=== PATIENT | male | born 1960 | race Caucasian/White ===

== ENCOUNTER 2023-08-10 12:37 | Outpatient (OUT) | payer OTHER, SELFPAY ==
--- NOTE | 2023-08-10 | XR_ITS ---
The [address] [address] Patient Name: WILBERT URIARTE MRN: [id number] date: 1960 Sex: M Assigned Patient Location: [facility] Current Patient Location: Accession/Order Number: [id number] Exam Date: 08/10/2023 12:50 Report Date: 08/11/2023 07:44 At the request of: AMBROSE ALMAZAN Procedure: XR lumbar spine 6V w bending EXAMINATION: XR lumbar spine 6V w bending HISTORY: low back pain radiating into left hip for several months COMPARISON: CT abdomen pelvis 04/13/2019 FINDINGS: BONES: Mild right convex curvature of lumbar spine. Mild grade 1 retrolisthesis of L3 on 4 which remain stable during flexion and extension. No compression fracture. Moderate degenerative facet arthropathy L4-L5, L5-S1. DISC SPACES: Marked narrowing L4-L5, L5-S1. Moderate narrowing L3-L4. Mild narrowing L1-L2, L2-L3. PARASPINOUS: Marked atherosclerotic disease of the aorta with fusiform dilation up to 3.2 cm. OTHER: Negative. XR/XR lumbar spine 6V w bending IMPRESSION: 1. Multilevel moderate to marked degenerative changes of the lumbar spine as detailed above. 2. 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 Differences in technique compared to prior study limit direct comparison, but this appears to have increased slightly. Electronically authenticated by: MARIBEL GREEN Date: 08/11/2023 07:44
== END 2023-08-10 12:38 | disposition home or self-care (01) ==
LOC: RAD 12:40
PROVIDERS: PCP Internal Medicine; Visit Provider Internal Medicine
DX: M54.50 Low back pain, unspecified (principal); M51.36 Other intervertebral disc degeneration, lumbar region
CPT/HCPCS: 72114

== ENCOUNTER 2023-08-27 07:29 | Outpatient (OUT) | payer OTHER, SELFPAY ==
--- NOTE | 2023-08-27 07:35 | ECG_ITS ---
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
== END 2023-08-27 07:30 | disposition home or self-care (01) ==
LOC: CARD 07:30
PROVIDERS: PCP Internal Medicine; Visit Provider Internal Medicine
DX: R00.1 Bradycardia, unspecified (principal)
CPT/HCPCS: 93005

== ENCOUNTER 2023-09-05 07:17 | Outpatient (OUT) | payer OTHER, SELFPAY | END 2023-09-05 07:18 | disposition home or self-care (01) | LOC: CARD 07:17 | PROVIDERS: PCP Internal Medicine; Visit Provider Internal Medicine | DX: I49.8 Other specified cardiac arrhythmias (principal) | CPT/HCPCS: 93242 ==

== ENCOUNTER 2023-10-04 08:06 | Outpatient (OUT) | payer OTHER, SELFPAY ==
--- OUTSIDE RECORDS SUMMARY | 2023-10-04 08:27 | XMS_ITS | CCD ---
Author Organization [facility] Care Team Providers Care Airway Traffic Controller Name Role Phone DO Umesh Almazan Primary Care Provider DO Umesh Almazan Primary Care Provider [phone] [facility], Outreach Attending Provider Umesh Almazan Unavailable DR UMESH ALMAZAN Primary Care Unavailable BALL, DR BOGGS Admitting Unavailable BALL, DR BOGGS Attending Unavailable BALL, DR BOGGS Consulting Unavailable BALL, DR BOGGS Primary Care Unavailable MISC, DR MORAES Admitting Unavailable MISC, DR MORAES Attending Unavailable MISC, DR MORAES Consulting Unavailable BALL, DR BOGGS Admitting Unavailable BALL, DR BOGGS Attending Unavailable BALL, DR BOGGS Primary Care Unavailable REQUEST, DR RIOS LISTED Attending Unavaila ble REQUEST, DR RIOS LISTED Consulting Unavaila ble REQUEST, DR RIOS LISTED Admitting Unavaila ble BALL, DR BOGGS Primary Care Unavailable DO Umesh Almazan Primary Care Provider DO Umesh Almazan Attending Provider [phone] Umesh Almazan Attending Unavailable Ball, Umesh Primary Care Unavailable Ball, Umesh Admitting Unavailable Allergies Allergy Classification Reported Allergen(s) Allergy Type Date of Onset Reaction(s) Facility (9 sources) patient allergy list reviewed by nurse or physicia Propensity to adverse reactions 7 Comment:Done Brandark Other Medications Current Medications Medication Drug Class(es) Dates Sig (Normalized) Sig (Original) allopurinol 300 mg oral tablet (20 sources) Xanthine Oxidase Inhibitor Start: 07-11-2023 take 1 tablet by mouth once daily Allopurinol Active 0 .ROUTE .COMPLEX 60 July 11, 2023 1:05pm TAKE ONE TABLET BY MOUTH ONCE DAILY Start: 04-27-2023 End: 07-11-2023 take 300 mg by mouth once daily Allopurinol Discontinu ed 300 MG PO Daily April 27, 2023 8:53am July 11, 2023 1:05pm Start: 10-02-2020 End: 04-27-2023 Allopurinol Discontinued MG TABLET October 02, 2020 12:00am April 27, 2023 8:54am take 1 tablet by darwin th once daily Allopurinol 300 mg TAKE 1 TABLET BY MOUTH DAILY for 30 Active amLODIPine 5 mg oral tablet (4 sources) Dihydropyridine Calcium Channel Jamie Start: 08-10-2023 take 5 mg by mouth once daily Amlodipine Active 5 MG PO Daily August 10, 2023 12:00am Start: 05-17-2023 End: 05-17-2023 take 5 mg by mouth once daily Amlodipine Discontinued 5 MG PO Daily May 17, 2023 12:00am May 17, 2023 2:28pm azithromycin 250 mg oral tablet (8 sources) Macrolide Antimicrobial Start: 11-16-2022 Azithromycin 250 MG as directed Orally daily for 5 days Nov, Active benzonatate 100 mg oral capsule (7 sources) Non-narcotic Antitussive Start: 11-22-2022 take 1 capsule by mouth every eight hours Benzonatate 100 MG 1 capsule as needed Orally Three times a day for 10 days Nov, Active 120 actuat budesonide 0.08 mg/actuat / formoterol fumarate 0.0045 mg/actuat metered dose inhaler (9 sources) Corticosteroid, beta2-Adrenergic Agonist Start: 06-19-2023 take 1 puff(s) by inhalation twice daily Budesonide-Formot bren Active 2 PUFF INHALATION Twice daily June 19, 2023 12:00am Start: 11-22-2022 take 2 puff(s) by in halation twice daily Budesonide-Formoterol Fumarate 80-4.5 MCG/ACT 2 puffs Inhalation Twice a day for 30 days Nov, Active Start: 11-22-2022 take 2 puff(s) by in halation twice daily Budesonide-Formoterol Fumarate 80-4.5 MCG/ACT 2 puffs Inhalation Twice a day for 30 days Nov, Active losartan potassium 100 mg oral tablet (20 sources) Angiotensin 2 Receptor Jamie Start: 05-11-2023 take 1 tablet by mouth once daily Losartan Active 0 .ROUTE .COMPLEX May 11, 2023 4:29pm TAKE ONE TABLET BY MOUTH DAILY Start: 12-12-2017 End: 05-11-2023 take 100 mg by mouth once daily Losartan Discontinued 100 MG PO Daily December 12, 2017 1:00am May 11, 2023 4:29pm Tcgdnviqddrh-Tppqgejq-Aogbzb (Multivitamin 50 Plus) Tablet (5 sources) Start: 12-12-2017 Jawhwboiidtc-Arwrshez-Bdrvyt (Multivitamin 50 Plus) Tablet Active 1 TAB PO Daily December 12, 2017 2:37pm Start: 12-12-2017 End: 04-27-2023 Lzgjfmqqlbzr-Cubsjtfg-Rbmmzf (Multivitamin 50 Plus) Tablet Discontinued 1 TAB PO Daily December 12, 2017 1:00am April 27, 2023 8:54am predniSONE 20 mg oral tablet (13 sources) Start: 11-16-2022 predniSONE 20 MG 1 tablet Orally twice daily w/ food x 4 days then qd w/ food x 4 days for 8 days Nov, Active Start: 10-02-2020 End: 04-27-2023 take 50 mg by mouth once daily Prednisone Discontinued 50 MG PO Daily 4 October 02, 2020 12:00am April 27, 2023 8:54am sulfamethoxazole 800 mg / trimethoprim 160 mg oral tablet (2 sources) Dihydrofolate Reductase Inhibitor Antibacterial, Sulfonamide Antimicrobial Start: 06-19-2023 take 1 tablet by mouth twice daily Sulfamethoxazole-Trimethoprim (Bactrim Ds) 800-160 mg tablet Active 1 TAB PO Twice daily 24 11June 19, 2023 12:00am terbinafine 250 mg oral tablet (2 sources) Allylamine Antifungal Start: 08-10-2023 take 250 mg by mouth once daily Terbinafine Hcl Active 250 MG PO Daily August 10, 2023 12:00am Turmeric extract (5 sources) Start: 12-18-2017 take 1 tablet by mouth twice daily Turmeric Active 1 TAB PO Twice daily December 18, 2017 8:04am Start: 12-18-2017 End: 04-27-2023 take 1 tablet by mouth twice daily Turmeric Discontinued 1 TAB PO Twice daily December 18, 2017 1:00am April 27, 2023 8:54am Completed/Discontinued Medications Medication Drug Class(es) Dates Sig (Normalized) Sig (Original) [id number] 200 actuat albuterol 0.09 mg/actuat metered dose inhaler (16 sources) beta2-Adrenergic Agonist Start: 04-27-2023 End: 04-30-2023 take 1 puff(s) by inhalation every four hours Albuterol Sulfate Discontinued 2 PUFF INHALATION Every 4 hours April 27, 2023 12:00am April 30, 2023 8:58am take 2 puff(s) by in halation every four hours as needed for cough Albuterol Sulfate HFA 108 (90 Base) MCG/ACT 2 puffs Inhalation every 4 hrs as needed for cough for 30 days Active take 2 puff(s) by in halation every four hours as needed for cough Albuterol Sulfate HFA 108 (90 Base) MCG/ACT 2 puffs Inhalation every 4 hrs as needed for cough for 30 days Active take 1 puff(s) by in halation every four hours as needed Albuterol Sulfate HFA 108 (90 Base) MCG/ACT 1 puff as needed Inhalation every 4 hrs Active take 1 puff(s) by in halation every four hours as needed Albuterol Sulfate HFA 108 (90 Base) MCG/ACT 1 puff as needed Inhalation every 4 hrs Active ascorbic acid 1000 mg oral tablet (5 sources) Vitamin C Start: 12-12-2017 End: 10-02-2020 take 1 tablet by mouth twice daily Ascorbic Acid (Vitamin C) (Vitamin C) 1,000 mg Tablet Discontinued 1000 MG PO Twice daily December 12, 2017 1:00am October 02, 2020 9:14am atorvastatin 20 mg oral tablet (5 sources) HMG-CoA Reductase Inhibitor Start: 10-02-2020 End: 04-27-2023 Atorvastatin Discontinued MG TABLET October 02, 2020 12:00am April 27, 2023 8:53am cetirizine hydrochloride 10 mg oral tablet (5 sources) Histamine-1 Receptor Antagonist Start: 10-02-2020 End: 04-27-2023 take 1 tablet by mouth once daily Cetirizine (Zyrtec) 10 mg Tablet Discontinued 10 MG PO Daily October 02, 2020 12:00am April 27, 2023 8:54am diphenhydrAMINE hydrochloride 25 mg oral capsule (5 sources) Histamine-1 Receptor Antagonist Start: 12-12-2017 End: 10-02-2020 Diphenhydramine Hcl (Benadryl) 25 mg Capsule Discontinued 1 TAB PO As Directed December 12, 2017 1:00am October 02, 2020 9:14am fluticasone propionate 0.05 mg/actuat metered dose nasal spray (5 sources) Corticosteroid Start: 10-02-2020 End: 04-27-2023 Fluticasone Propionate (Flonase) 50 mcg/actuation [place],Suspension Discontinued 1 SPRAY INTRANASAL Daily October 02, 2020 12:00am April 27, 2023 8:54am hydrOXYzine pamoate 25 mg oral capsule (5 sources) Antihistamine Start: 10-02-2020 End: 04-27-2023 take 25 mg by mouth every six hours Hydroxyzine Pamoate Discontinued 25 MG PO Q6H 14 October 02, 2020 12:00am April 27, 2023 8:54am itraconazole 100 mg oral capsule (5 sources) Azole Antifungal Start: 10-02-2020 End: 04-27-2023 Itraconazole Discontinued MG October 02, 2020 12:00am April 27, 2023 8:54am loratadine 10 mg oral tablet (5 sources) Start: 12-12-2017 End: 10-02-2020 take 10 mg by mouth once daily Loratadine Discontinued 10 MG PO Daily December 12, 2017 1:00am October 02, 2020 9:14am tamsulosin hydrochloride 0.4 mg oral capsule (5 sources) alpha-Adrenergic Jamie Start: 10-02-2020 End: 04-27-2023 Tamsulosin Discontinued MG PO October 02, 2020 12:00am April 27, 2023 8:54am triamcinolone acetonide 40 mg/ml injectable suspension (20 sources) Corticosteroid Start: 05-25-2022 Kenalog-40 Mar, 60 mg Tumeric (5 sources) Start: 12-12-2017 End: 12-18-2017 take 1 tablet by mouth twice daily Tumeric Discontinued 1 TAB PO Twice daily December 12, 2017 2:41pm December 18, 2017 8:04am Start: 12-12-2017 End: 12-18-2017 take 1 tablet by mouth twice daily Tumeric Discontinued 1 TAB PO Twice daily December 12, 2017 1:00am December 18, 2017 8:04am Problems Active Problems Problem Classification Problem Date Documented Date Episodic/Chronic Acute bronchitis (19 sources) Acute bronchitis; Translations: [Acute bronchitis, unspecified] Onset: 12-23-2013 Episodic Aortic; peripheral; and visceral artery aneurysms (1 source) Abdominal aortic aneurysm; Translations: [Abdominal aortic aneurysm (AAA)] 08-12-2023 Chronic Asthma (20 sources) Exacerbation of intermittent asthma; Translations: [Mild intermittent asthma with (acute) exacerbation] Onset: 11-21-2016 Chronic Cardiac dysrhythmias (20 sources) Cardiac arrhythmia; Translations: [Cardiac arrhythmia, unspecified] 04-27-2023 Chronic Cardiac dysrhythmias (11 sources) Palpitations; Translations: [Palpitations] Onset: 06-15-2015 08-24-2023 Episodic Chronic kidney disease (12 sources) Chronic kidney disease stage 3; Translations: [Chronic kidney disease, stage 3 unspecified] Onset: 11-21-2017 04-27-2023 Chronic Chronic obstructive pulmonary disease and bronchiectasis (20 sources) Chronic obstructive pulmonary disease with acute lower respiratory infection; Translations: [Chronic obstructive pulmonary disease with (acute) lower respiratory infection] Onset: 06-07-2015 Chronic Disorders of lipid metabolism (20 sources) Hypercholesterolemia; Translations: [Pure hypercholesterolemia, unspecified] Chronic Diverticulosis and diverticulitis (20 sources) Perforated diverticulum of large intestine; Translations: [Diverticulitis of large intestine with perforation and abscess without bleeding] Resolved: 04-05-2020 04-27-2023 Chronic E Codes: Adverse effects of medical drugs (20 sources) Adverse reaction to drug; Translations: [Adverse effect of unspecified drugs, medicaments and biological substances, initial encounter] Episodic Esophageal disorders (18 sources) Esophageal reflux finding; Translations: [Esophageal reflux] Onset: 06-16-2014 Chronic Essential hypertension (20 sources) Essential hypertension; Translations: [Essential (primary) hypertension] Chronic Gout and other crystal arthropathies (20 sources) Primary gout; Translations: [Idiopathic gout, unspecified site] Onset: 04-25-2017 Resolved: 04-05-2020 04-27-2023 Chronic Hyperplasia of prostate (20 sources) Nocturia due to benign prostatic hypertrophy; Translations: [Benign prostatic hyperplasia with lower urinary tract symptoms] Onset: 09-29-2015 Chronic Hypertension with complications and secondary hypertension (18 sources) Benign hypertensive renal disease; Translations: [Hypertensive chronic kidney disease, benign, with chronic kidney disease stage I through stage IV, or unspecified] Onset: 04-14-2017 Chronic Immunizations and screening for infectious disease (18 sources) Vaccination given; Translations: [Encounter for immunization] Episodic Malaise and fatigue (5 sources) Other fatigue; Translations: [OTHER FATIGUE] Onset: 04-28-2022 Episodic Mycoses (12 sources) Tinea unguium; Translations: [Onychomycosis due to dermatophyte ] Onset: 04-24-2022 08-10-2023 Episodic Osteoarthritis (20 sources) Arthritis of left knee; Translations: [Unilateral primary osteoarthritis, left knee] Onset: 03-17-2014 04-27-2023 Chronic Other aftercare (2 sources) Drug therapy finding; Translations: [Other mcc (current) drug therapy] 08-10-2023 Episodic Other aftercare (2 sources) Other mcc (current) drug therapy; Translations: [Long-term (current) use of other medications] 08-10-2023 Episodic Other circulatory disease (9 sources) Arteritis; Translations: [Arteritis, unspecified] Onset: 01-06-2015 Chronic Other connective tissue disease (9 sources) H/O: musculoskeletal disease; Translations: [Personal history of other diseases of the musculoskeletal system and connective tissue] Episodic Other ear and sense organ disorders (8 sources) Sensorineural hearing loss, unilateral, left ear, with unrestricted hearing on the contralateral side; Translations: [Sensorineural hearing loss (SNHL) of left ear with unrestricted hearing of right ear] Chronic Other ear and sense organ disorders (7 sources) Tinnitus; Translations: [Tinnitus, left ear] Episodic Other ear and sense organ disorders (1 source) Tinnitus, left ear Episodic Other lower respiratory disease (14 sources) Dyspnea on exertion; Translations: [Other forms of dyspnea] 04-27-2023 Episodic Other lower respiratory disease (9 sources) Dyspnea; Translations: [Other forms of dyspnea] Episodic Other non-traumatic joint disorders (9 sources) Lower limb joint arthritis; Translations: [Osteoarthrosis, unspecified whether generalized or localized, lower leg] Onset: 11-17-2015 Chronic Other nutritional; endocrine; and metabolic disorders (12 sources) Hypercalcemia; Translations: [Hypercalcemia] Onset: 04-14-2017 04-27-2023 Chronic Other nutritional; endocrine; and metabolic disorders (1 source) Obesity; Translations: [Obesity, unspecified] 08-10-2023 Chronic Other nutritional; endocrine; and metabolic disorders (1 source) Obesity, unspecified; Translations: [Obesity, unspecified] 08-10-2023 Chronic Other nutritional; endocrine; and metabolic disorders (1 source) Overweight Episodic Other nutritional; endocrine; and metabolic disorders (9 sources) Overweight; Translations: [Overweight] Episodic Other screening for suspected conditions (not mental disorders or infectious disease) (11 sources) Patient encounter status; Translations: [Encounter for screening for malignant neoplasm of colon] 12-18-2017 Episodic Other skin disorders (4 sources) Other melanin hyperpigmentation; Translations: [OTHER MELANIN HYPERPIGMENTATION] Onset: 04-18-2022 Episodic Other skin disorders (1 source) Other seborrheic keratosis; Translations: [OTHER SEBORRHEIC KERATOSIS] Onset: 04-24-2022 Episodic Other upper respiratory disease (20 sources) Allergic rhinitis due to pollen; Translations: [Allergic rhinitis due to pollen] 04-27-2023 Chronic Other upper respiratory disease (3 sources) Allergic rhinitis due to pollen Chronic Other upper respiratory disease (9 sources) Seasonal allergic rhinitis; Translations: [Other seasonal allergic rhinitis] Onset: 12-01-2015 Chronic Other upper respiratory disease (9 sources) Allergic rhinitis; Translations: [Allergic rhinitis, unspecified] Onset: 10-18-2012 Chronic Other upper respiratory disease (13 sources) Difficulty speaking; Translations: [Dysphonia] Episodic Other upper respiratory disease (10 sources) Dysphonia; Translations: [Dysphonia] 04-27-2023 Episodic Other upper respiratory disease (3 sources) Hoarse; Translations: [Dysphonia] 04-27-2023 Episodic Otitis media and related conditions (9 sources) Eustachian tube salpingitis; Translations: [Unspecified Eustachian salpingitis, bilateral] Episodic Poisoning by nonmedicinal substances (13 sources) Allergic reaction to insect venom; Translations: [Toxic effect of venom of other arthropod, accidental (unintentional), initial encounter] Onset: 08-22-2016 10-02-2020 Episodic Residual codes; unclassified (9 sources) Requires influenza virus vaccination; Translations: [Need for prophylactic vaccination and inoculation, Influenza] Episodic Spondylosis; intervertebral disc disorders; other back problems (20 sources) Lumbar spondylosis; Translations: [Spondylosis without myelopathy or radiculopathy, lumbar region] 04-27-2023 Chronic Spondylosis; intervertebral disc disorders; other back problems (13 sources) Low back pain; Translations: [Low back pain, unspecified] Onset: 09-26-2016 08-10-2023 Episodic Substance-related disorders (9 sources) Tobacco user; Translations: [Nicotine dependence, cigarettes, in remission] Onset: 09-29-2015 Chronic Superficial injury; contusion (9 sources) Abrasion, lower leg; Translations: [Abrasion, left lower leg, initial encounter] Episodic Unclassified (9 sources) Elevation of levels of liver transaminase levels; Translations: [Elevation of levels of liver transaminase levels] Varicose veins of lower extremity (16 sources) Pain co-occurrent and due to varicose veins of bilateral legs; Translations: [Varicose veins of bilateral lower extremities with pain] 04-27-2023 Episodic Viral infection (9 sources) Herpesviral vesicular dermatitis; Translations: [Herpesviral vesicular dermatitis] Episodic Viral infection (9 sources) Disease caused by 2019-nCoV; Translations: [COVID-19] Past or Other Problems Problem Classification Problem Date Documented Da te Episodic/Chronic Abdominal pain (9 sources) Abdominal pain; Translations: [Unspecified abdominal pain] Onset: 04-12-2016 Episodic Bacterial infection; unspecified site (9 sources) Bacterial infectious disease; Translations: [Bacterial infection, unspecified, in conditions classified elsewhere and of unspecified site] Onset: 06-07-2015 Episodic Diabetes mellitus without complication (12 sources) Impaired fasting glycemia; Translations: [Impaired fasting glucose] Onset: 04-11-2016 04-27-2023 Episodic Genitourinary symptoms and ill-defined conditions (19 sources) Nocturia; Translations: [Dysuria] Onset: 09-26-2016 Episodic Inflammation; infection of eye (except that caused by tuberculosis or sexually transmitteddisease) (18 sources) Conjunctivitis; Translations: [Unspecified conjunctivitis] Onset: 11-24-2014 Resolved: 04-05-2020 Episodic Inflammatory conditions of male genital organs (9 sources) Orchitis and epididymitis; Translations: [Unspecified orchitis and epididymitis] Onset: 06-16-2014 Episodic Joint disorders and dislocations; trauma-related (9 sources) Current tear of medial cartilage AND/OR meniscus of knee; Translations: [Tear of medial cartilage or meniscus of knee, current] Onset: 03-17-2014 Episodic Other connective tissue disease (9 sources) Neuralgia; Translations: [Unspecified neuralgia, neuritis, and radiculitis] Onset: 10-18-2012 Episodic Other connective tissue disease (9 sources) Muscle pain; Translations: [MYALGIA, UNSPECIFIED SITE] Resolved: 04-05-2020 Episodic Other lower respiratory disease (9 sources) Chronic cough; Translations: [Chronic cough] Resolved: 04-26-2021 Episodic Other lower respiratory disease (9 sources) Cough; Translations: [Other specified cough] Onset: 04-11-2016 Episodic Other non-traumatic joint disorders (9 sources) Arthralgia of the lower leg; Translations: [Pain in joint, lower leg] Onset: 03-17-2014 Episodic Other nutritional; endocrine; and metabolic disorders (9 sources) Abnormal weight loss; Translations: [Abnormal weight loss] Onset: 04-11-2016 Episodic Other upper respiratory infections (9 sources) Acute sinusitis; Translations: [Acute sinusitis, unspecified] Onset: 11-24-2014 Episodic Residual codes; unclassified (9 sources) Family history of diabetes mellitus; Translations: [Family history of diabetes mellitus] Onset: 10-18-2012 Episodic Screening and history of mental health and substance abuse codes (9 sources) History of tobacco use; Translations: [Personal history of tobacco use, presenting hazards to health] Onset: 05-08-2017 Episodic Unclassified (13 sources) Elevated transaminase level; Translations: [Elevated transaminase level] Results Test Name Value Interpretation Reference Range Facil ity TESTOSTERONE, TOTALon 2022 Testosterone [Mass/Vol] 862 ng/dL Normal 264-916 [facility] Comment on above: Result Comment: Adul t male reference interval is based on a population of healthy nonobese males (BMI <30) between 19 and 39 years old. yonny Holder.al. JCEM 2017,102;0203-6552. PMID: [id number]. Performed By: #### T ESTTOT #### [facility] [address] [place] [address] Dr. Chapo Macias 04-18-2022 AST [Catalytic activity/Vol] 26 U/L Normal 15-37 [facility] Comment on above: Performed By: #### A LT, AST #### [facility] [address] [place] [address] Dr. Chapo Posey SGPTon 04-18-2022 ALT [Catalytic activity/Vol] 30 U/L Normal 16-63 [facility] Comment on above: Performed By: #### A LT, AST #### [facility] [address] [place] [address] Dr. Chapo Posey CBC AUTO DIFFon 04-05-2022 BASO # 0.1 103/ul Normal 0.0-0.1 [facility] Comment on above: Performed By: #### D ATCBC #### [facility] [address] [place] [address] Dr. Chapo Posey Basophils/100 WBC (Bld) 1.0 % Normal 0.2-2.0 [facility] Comment on above: Performed By: #### D ATCBC #### [facility] [address] [place] [address] Dr. Chapo Posey EO # 0.1 103/ul Normal 0.0-0.7 [facility] Comment on above: Performed By: #### D ATCBC #### [facility] [address] [place] [address] Dr. Chapo Posey Eosinophils/100 WBC (Bld) 2.5 % Normal 0.9-7.0 [facility] Comment on above: Performed By: #### D ATCBC #### [facility] [address] [place] [address] Dr. Chapo Posey Erythrocyte distribution width (RBC) [Ratio] 13.2 % Normal 11.0-15.0 [facility] Comment on above: Performed By: #### D ATCBC #### [facility] [address] [place] [address] Dr. Chapo Posey Hematocrit (Bld) [Volume fraction] 46.3 % Normal 42.0-54.0 [facility] Comment on above: Performed By: #### D ATCBC #### [facility] [address] [address] [address] Chapo Posey Hemoglobin (Bld) [Mass/Vol] 15.2 g/dL Normal 14.0-18.0 [facility] Comment on above: Performed By: #### D ATCBC #### [facility] [address] [address] [address] Chapo Posey IG # 0.03 10e3/ul Normal 0.00-0.03 [facility] Comment on above: Performed By: #### D ATCBC #### [facility] [address] [address] [address] Chapo Posey IG % 0.6 % Critically high 0.0-0.5 [facility] Comment on above: Performed By: #### D ATCBC #### [facility] [address] [address] [address] Chapo Posey LYMPH # 1.8 103/ul Normal 1.2-3.8 [facility] Comment on above: Performed By: #### D ATCBC #### [facility] [address] [address] [address] Chapo Posey Lymphocytes/100 WBC (Bld) 36.8 % Normal 20.5-60.0 [facility] Comment on above: Performed By: #### D ATCBC #### [facility] [address] [address] [address] Chapo Posey MCH (RBC) [Entitic mass] 31.0 pg Normal 25.9-34.0 [facility] Comment on above: Performed By: #### D ATCBC #### [facility] [address] [address] [address] Chapo Posey MCHC (RBC) [Mass/Vol] 32.8 g/dL Normal 29.9-35.2 [facility] Comment on above: Performed By: #### D ATCBC #### [facility] [address] [address] [address] Chapo Posey MCV (RBC) [Entitic vol] 94.3 fL Critically high 80.0-94.0 [facility] Comment on above: Performed By: #### D ATCBC #### [facility] [address] [address] [address] Chapo Posey MONO # 0.5 103/ul Normal 0.3-0.8 [facility] Comment on above: Performed By: #### D ATCBC #### [facility] [address] [address] [address] Chapo Posey Monocytes/100 WBC (Bld) 9.7 % Normal 1.7-12.0 [facility] Comment on above: Performed By: #### D ATCBC #### [facility] [address] [place] [address] Dr. Chapo Posey NEUT # 2.4 103/ul Normal 1.4-6.5 [facility] Comment on above: Performed By: #### D ATCBC #### [facility] [address] [place] [address] Dr. Chapo Posey Neutrophils/100 WBC (Bld) 49.4 % Normal 43.0-75.0 [facility] Health Comment on above: Performed By: #### D ATCBC #### [facility] [address] [place] [address] Dr. Chapo Posey Platelet mean volume (Bld) [Entitic vol] 10.3 fL Normal 9.5-13.5 [facility] Comment on above: Performed By: #### D ATCBC #### [facility] [address] [place] [address] Dr. Chapo Posey PLT 197 103/ul Normal 150-450 [facility] Comment on above: Performed By: #### D ATCBC #### [facility] [address] [place] [address] Dr. Chapo Posey RBC 4.91 106/ul Normal 4.70-6.10 [facility] Comment on above: Performed By: #### D ATCBC #### [facility] [address] [place] [address] Dr. Chapo Posey WBC 4.9 103/ul Normal 4.0-11.0 [facility] Comment on above: Performed By: #### D ATCBC #### [facility] [address] [address] [address] Chapo Posey FRANCISCO JAVIER- BMP WITH LIPIDon 2022 Anion gap [Moles/Vol] 10.5 mmol/L Normal [facility] Comment on above: Performed By: #### D ATBMP, DATPSA #### [facility] [address] [address] [address] Chapo Posey Calcium [Mass/Vol] 10.0 mg/dL Normal 8.5-10.1 [facility] Comment on above: Performed By: #### D ATBMP, DATPSA #### [facility] [address] [place] [address] Dr. Chapo Posey Chloride [Moles/Vol] 103 mmol/L Normal 98-107 [facility] Comment on above: Performed By: #### D ATBMP, DATPSA #### [facility] [address] [place] [address] Dr. Chapo Posey Cholesterol [Mass/Vol] 185 mg/dL Normal <=200 [facility] Comment on above: Performed By: #### D ATBMP, DATPSA #### [facility] [address] [address] [address] Chapo Posey Cholesterol in HDL [Mass/Vol] 46 mg/dL Normal 40-60 [facility] Comment on above: Performed By: #### D ATBMP, DATPSA #### [facility] [address] [address] [address] Chapo Posey Cholesterol in LDL [Mass/Vol] 115.2 mg/dL Normal [facility] Comment on above: Performed By: #### D ATBMP, DATPSA #### [facility] [address] [address] [address] Chapo Posey CO2 [Moles/Vol] 29.9 mmol/L Normal 21.0-32.0 [facility] Comment on above: Performed By: #### D ATBMP, DATPSA #### [facility] [address] [address] [address] Chapo Posey Creatinine [Mass/Vol] 1.13 mg/dL Normal 0.70-1.30 [facility] Comment on above: Performed By: #### D ATBMP, DATPSA #### [facility] [address] [address] [address] Chapo Posey EGFR-AF BOLIVIAN >60 Normal >=60 [facility] Comment on above: Performed By: #### D ATBMP, DATPSA #### [facility] [address] [address] [address] Chapo Posey EGFR-NON AF BOLIVIAN >60 Normal >=60 [facility] Comment on above: Performed By: #### D ATBMP, DATPSA #### [facility] [address] [address] [address] Chapo Posey Glucose [Mass/Vol] 95 mg/dL Normal 74-106 [facility] Comment on above: Performed By: #### D ATBMP, DATPSA #### [facility] [address] [address] [address] Chapo Posey HDL NORMAL > or = 60 mg/dl - LO W CARDIOVASCULAR RISK <40 mg/dl - HIGH CARDIOVASCULAR RISK Normal [facility] Comment on above: Performed By: #### D ATP, DATPSA #### [facility] [address] [place] [address] Dr. Chapo Posey LDL CALC NORMAL SEE BELOW Normal [facility] Comment on above: Result Comment: <100 mg/dl OPTIMAL 100 - 129 mg/dl NEAR OR ABOVE OPTIMAL 130 - 159 mg/dl BORDERLINE HIGH 160 - 189 mg/dl HIGH >190 mg/dl VERY HIGH Performed By: #### D ATBMP, DATPSA #### [facility] [address] [address] [address] Chapo Posey Potassium [Moles/Vol] 4.4 mmol/L Normal 3.5-5.1 [facility] Comment on above: Performed By: #### D ATBMP, DATPSA #### [facility] [address] [address] [address] Chapo Posey Sodium [Moles/Vol] 139 mmol/L Normal 136-145 [facility] Comment on above: Performed By: #### D ATBMP, DATPSA #### [facility] [address] [address] [address] Chapo Posey Triglyceride [Mass/Vol] 119 mg/dL Normal <=150 [facility] Comment on above: Performed By: #### D ATBMP, DATPSA #### [facility] [address] [address] [address] Chapo Posey Urea nitrogen [Mass/Vol] 28.0 mg/dL Critically high 7.0-18.0 [facility] Comment on above: Performed By: #### D ATBMP, DATPSA #### [facility] [address] [address] [address] Chapo Posey Urea nitrogen/Creatinine [Mass ratio] 24.8 mg/mg Normal [facility] Comment on above: Performed By: #### D ATBMP, DATPSA #### [facility] [address] [address] [address] Chapo Posey VLDL CALC 23.8 mg/dL Normal [facility] Comment on above: Performed By: #### D ATBMP, DATPSA #### [facility] [address] [address] [address] Chapo Posey Vital Signs Date Time Vital Sign Value Performing Clinician Facility 08-10-2023 11:43-0400 Body height 194.31 cm [facility] 08-10-2023 11:43-0400 Body mass index (BMI) [Ratio] 30.1 kg/m2 [facility] 08-10-2023 11:43-0400 Body weight 113.85 kg [facility] 08-10-2023 11:43-0400 Diastolic blood pressure 83 mm[Hg] [facility] 08-10-2023 11:43-0400 Heart rate 44 /min [facility] 08-10-2023 11:43-0400 Respiratory rate 12 /min [facility] 08-10-2023 11:43-0400 Systolic blood pressure 161 mm[Hg] [facility] 06-19-2023 11:20-0400 Body height 194.31 cm [facility] 06-19-2023 11:20-0400 Body mass index (BMI) [Ratio] 24.6 kg/m2 [facility] 06-19-2023 11:20-0400 Body weight 92.98 kg [facility] 06-19-2023 11:20-0400 Diastolic blood pressure 80 mm[Hg] [facility] 06-19-2023 11:20-0400 Heart rate 48 /min [facility] 06-19-2023 11:20-0400 SaO2% (BldA) [Mass fraction] 98 % [facility] 06-19-2023 11:20-0400 Systolic blood pressure 130 mm[Hg] [facility] 04-30-2023 08:59-0400 Body height 194.31 cm [facility] 04-30-2023 08:59-0400 Body mass index (BMI) [Ratio] 24.4 kg/m2 [facility] 04-30-2023 08:59-0400 Body weight 92.19 kg [facility] 04-30-2023 08:59-0400 Diastolic blood pressure 77 mm[Hg] [facility] 04-30-2023 08:59-0400 Heart rate 41 /min [facility] 04-30-2023 08:59-0400 Respiratory rate 12 /min [facility] 04-30-2023 08:59-0400 Systolic blood pressure 152 mm[Hg] [facility] 04-25-2022 10:30-0400 Body height 193.04 cm Umesh Ball Other [facility] Other 04-25-2022 10:30-0400 Body mass index (BMI) [Ratio] 24.1 kg/m2 Umesh Ball Other [facility] Other 04-25-2022 10:30-0400 Body weight 89.81 kg Umesh Ball Other [facility] [employer] Other 04-25-2022 10:30-0400 Diastolic blood pressure 71 mm[Hg] Umesh Ball Other [facility] Other 04-25-2022 10:30-0400 Respiratory rate 12 /min Umesh Ball Other [facility] Other 04-25-2022 10:30-0400 Systolic blood pressure 148 mm[Hg] Umesh Ball Other [facility] Other 10-02-2020 09:51-0400 Diastolic blood pressure 85 mm[Hg] DO Umesh Ball Work Phone: [facility] 10-02-2020 09:51-0400 Heart rate 69 /min DO Umesh Ball Work Phone: [facility] 10-02-2020 09:51-0400 Respiratory rate 18 /min DO Umesh Ball Work Phone: [facility] 10-02-2020 09:51-0400 SaO2% (BldA) [Mass fraction] 96 % DO Umesh Ball Work Phone: [facility] 10-02-2020 09:51-0400 Systolic blood pressure 144 mm[Hg] DO Umesh Ball Work Phone: [facility] 10-02-2020 09:07-0400 Body height 194.31 cm DO Umesh Ball Work Phone: [facility] 10-02-2020 09:07-0400 Body mass index (BMI) [Ratio] 25.1 kg/m2 DO Umesh Ball Work Phone: [facility] 10-02-2020 09:07-0400 Body weight 95 kg DO Umesh Ball Work Phone: [facility] 10-02-2020 09:00-0400 Body temperature 98.2 [degF] DO Umesh Ball Work Phone: [facility] Encounters Encounter Date Encounter Type Care Provider Facility Start: 08-24-2023 End: 08-24-2023 ambulatory DO Umesh Almazan Work Phone: [facility] Work Phone: Start: 08-24-2023 End: 08-24-2023 Patient encounter procedure DO Umesh Almazan Work Phone: [facility] Start: 08-10-2023 End: 08-10-2023 ambulatory [facility] Work Phone: Start: 08-10-2023 End: 08-10-2023 Patient encounter procedure [facility] Work Phone: Start: 06-19-2023 End: 06-19-2023 Patient encounter procedure [facility] Work Phone: Start: 04-30-2023 End: 04-30-2023 ambulatory [facility] Work Phone: Start: 04-30-2023 End: 04-30-2023 Encounter for general adult medical examination without abnormal findings [facility] Start: 04-30-2023 End: 04-30-2023 Patient encounter procedure [facility] Work Phone: Start: 03-19-2023 End: 03-19-2023 ambulatory Umesh Almazan Other [facility] Other Start: 03-19-2023 Nursing evaluation o f patient and report Umesh Almazan [facility] Start: 03-14-2023 End: 03-14-2023 ambulatory Umesh Almazan Other [facility] Other Start: 03-14-2023 Telephone encounter Umesh MOLINA G [facility] Start: 12-20-2022 End: 12-20-2022 ambulatory Umesh Flavio Other [facility] Other Start: 12-20-2022 Telephone encounter Umesh Pena [employer] Start: 12-19-2022 End: 12-19-2022 ambulatory Umesh Almazan Other [facility] Other Start: 12-19-2022 Telephone encounter Umesh Almazan [facility] Start: 11-28-2022 End: 11-28-2022 ambulatory Umesh Almazan Other [facility] Other Start: 11-28-2022 Nursing evaluation o f patient and report Umesh Almazan [facility] Start: 11-22-2022 End: 11-22-2022 ambulatory Umesh Almazan Other [facility] Other Start: 11-22-2022 Office outpatient vi sit 15 minutes Umesh Almazan [facility] Start: 11-22-2022 Telephone encounter Umesh MOLINA G [facility] Start: 11-16-2022 End: 11-16-2022 ambulatory Umesh Almazan Other [facility] Other Start: 11-16-2022 Office outpatient vi sit 15 minutes Umesh Almazan [facility] Start: 11-08-2022 End: 11-08-2022 ambulatory Umesh Almazan Other [facility] Other Start: 11-08-2022 Nursing evaluation o f patient and report Umesh Almazan [facility] Start: 05-25-2022 End: 05-25-2022 ambulatory Umesh Almazan Other [facility] Other Start: 05-25-2022 Nursing evaluation o f patient and report Umesh Almazan [facility] Start: 04-28-2022 End: 04-29-[address] UMESH ALMAZAN Facility:[facility] Start: 04-25-2022 End: 04-25-2022 ambulatory Umesh Almazan Other [facility] Other Start: 04-25-2022 Encounter for genera l adult medical examination without abnormal findings Umesh Almazan [facility] Start: 04-25-2022 Periodic preventive med est patient 40-64yrs Umesh Almazan [facility] Start: 04-25-2022 Telephone encounter Umesh Almaazn [facility] Start: 04-18-2022 Telephone encounter Umesh Almazan [facility] Start: 04-18-2022 End: 04-19-[address] UMESH ALMAZAN [facility] [employer] Other Start: 04-05-2022 End: 04-06-[address] RIOS LISTED REQUEST Facility:[facility] Start: 01-10-2022 Adult health examination Umesh Almazan Other [facility] [employer] Other Start: 05-28-2021 End: 05-28-2021 Departed Referred DO Umesh Almazan Work Phone: [facility] Start: 05-17-[address] UMESH ALMAZAN Facili ty:[facility] Start: 10-02-2020 End: 10-02-2020 Emergency department patient visit DO Umesh Almazan Work Phone: [facility] Procedures Date Procedure Procedure Detail Performing Clinician Start: 04-05-[address] MICHEL IN [facility] Comment on above: Performed By: #### D ATBMP, DATPSA #### [facility] [address] [place] [address] Dr. Chapo Posey Start: 01-27-2016 Replacement of total knee joint Umesh Almazan Other Start: 11-17-2015 Preoperative cardiov ascular examination Umesh Almazan Other Start: 11-17-2015 Preoperative pulmona ry examination Umesh Almazan Other Start: 09-29-2015 General examination of patient Umesh Almazan Other Start: 09-29-2015 Screening for malign ant neoplasm of colon Umesh Almazan Other Start: 09-29-2015 Screening for malign ant neoplasm of prostate Umesh Almazan Other Depression screening Cristal Almazan Other Screening for malign ant neoplasm of prostate Umesh Almazan Other Plan of Treatment Date Care Activity Detail Author Hepatic function panel [facility] Patient Education [facility] Patient referral [facility] XR Lumbar spine Views [facility] Immunizations Immunization Date Immunization Notes Care Provider Fa lolis 11-28-2022 influenza, injectabl e, quadrivalent, preservative free Umesh Almazan Other [facility] 11-22-2021 influenza virus vaccine, split virus (incl. purified surface antigen) Umesh Almazan Other [facility] Other 11-22-2021 influenza virus vaccine, unspecified formulation [facility] 11-22-2021 influenza, injectabl e, quadrivalent, preservative free [facility] 11-22-2021 influenza, injectabl e, quadrivalent, contains preservative Umesh Almazan Other [facility] [employer] Other 11-04-2020 influenza virus vaccine, split virus (incl. purified surface antigen) Umesh Almazan Other [facility] Other 11-04-2020 influenza virus vaccine, unspecified formulation [facility] 05-11-2020 COVID-19 Vaccine Pfi zer - Documentation Purposes Only Umesh Almazan Other [facility] 04-19-2020 COVID-19 Vaccine Pfi zer - Documentation Purposes Only Umesh Almazan Other [facility] 12-03-2019 influenza virus vaccine, split virus (incl. purified surface antigen) Umesh Almazan Other [facility] Other 12-03-2019 influenza virus vaccine, unspecified formulation [facility] 12-18-2018 influenza virus vaccine, split virus (incl. purified surface antigen) Umesh Almazan Other [facility] Other 12-18-2018 influenza virus vaccine, unspecified formulation [facility] 12-11-2017 influenza virus vaccine, split virus (incl. purified surface antigen) Umesh Almazan Other [facility] Other 12-11-2017 influenza virus vaccine, unspecified formulation [facility] 11-21-2016 tetanus and diphther ia toxoids, adsorbed, preservative free, for adult use (5 Lf of tetanus toxoid and 2 Lf of diphtheria toxoid) Umesh Almazan Other [facility] 11-11-2012 tetanus and diphther ia toxoids, adsorbed, preservative free, for adult use (5 Lf of tetanus toxoid and 2 Lf of diphtheria toxoid) Umesh Almazan Other [facility] 10-10-2001 diphtheria, tetanus toxoids and acellular pertussis vaccine, unspecified formulation Umesh Almazan Other [facility] Payers Date Payer Category Payer Self-pay [id number] 1961 Unknown [id number] 1960 Unknown [id number] 1960 Unknown [id number] 1960 Unknown [id number] [id number] Private Health Insurance [id number] Unknown [id number] [id number] [id number] Social History Date Type Detail Facility Start: 10-02-2020 End: 06-19-2023 Tobacco smoking status NHIS Ex-smoker (finding) [facility] Start: 1960 Sex Assigned At Male F [facility] Sex Assigned At Sex Assigned At Bir th [facility] Other Clinical Notes 10-02-2020 to 03-19-2023 Note Date & Type Note Facility 03-19-2023 Evaluation note Encounter Date Diagnosis Assessment Notes Mar, Seasonal allergic rhinitis due to pollen (ICD-10 - J30.1) [facility] Other 10-18-2023 Evaluation note* Encounter Date Diagnosis Assessment Notes Treatment Notes Treatment Clinical Notes Nov, Mild intermittent asthma with acute exacerbation (ICD-10 - J45.21) Avoid dust, smoke and allergens. Continue Xiao and Flonase. Initiated LABA/ICS SURINDER as needed Nov, Tinnitus of left ear (ICD-10 - H93.12) Likey age releated noise damage. Recommend audiogram and ENT evaluation. Discussed Acoustic neuroma, meniere's disease and SNHL Nov, Sensorineural hearin g loss (SNHL) of left ear with unrestricted hearing of right ear (ICD-10 - H90.42) Suspected, check audiogram [facility] Other 10-18-2023 Evaluation note* Encounter Date Diagnosis Assessment Notes Treatment Notes Treatment Clinical Notes Nov, Mild intermittent asthma with acute exacerbation (ICD-10 - J45.21) [facility] Other 10-12-2023 Evaluation note* Encounter Date Diagnosis Assessment Notes Treatment Notes Treatment Clinical Notes Nov, Acute bronchitis due to other specified organisms (ICD-10 - J20.8) Instructed to use Robitussin or Mucinex for cough, saline or Flonase NS for congestion, Tylenol for pain and fever. Instructed to use Robitussin or Mucinex for cough, saline or Flonase NS for congestion, Tylenol for pain and fever. Nov, Mild intermittent asthma with acute exacerbation (ICD-10 - J45.21) Begin steroids and SURINDER. SURINDER every 4 hours as needed for cough and wheezing Notify office or go to ER for increased cough, SOB or CP [facility] Other 10-04-2023 Evaluation note* Encounter Date Diagnosis Assessment Notes Treatment Notes Treatment Clinical Notes Nov, Seasonal allergic rhinitis due to pollen (ICD-10 - J30.1) [facility] Other 04-20-2023 Evaluation note* Encounter Date Diagnosis Assessment Notes Treatment Notes Treatment Clinical Notes May, Seasonal allergic rhinitis due to pollen (ICD-10 - J30.1) [facility] Other 03-21-2023 Evaluation note* Encounter Date Diagnosis Assessment Notes Treatment Notes Treatment Clinical Notes Apr, Elevated cholesterol (ICD-10 - E78.00) Diet and exercise Apr, Wellness examination (ICD-10 - Z00.00) Healthy diet and exercise. Reviewed age-appropriate preventive testing recommended. Apr, Primary hypertension (ICD-10 - I10) This patient is instructed to consume a healthy, low-fat, low-salt diet. They are also encouraged to continue exercise to achieve/maintain a normal BMI. Recheck at home or here in office in couple weeks. OV 6mo for recheck Apr, Simple chronic bronchitis (ICD-10 - J41.0) SURINDER as needed, mostly seasonal exacerbations Apr, Nocturia (ICD-10 - R35.1) Apr, Benign prostatic hyperplasia with lower urinary tract symptoms (ICD-10 - N40.1) ADR w/ Flomax, may try Alfuzosin Apr, Overweight (BMI 25.0-29.9) (ICD-10 - E66.3) This patient has been instructed on a low-fat, high-fiber diet. They are instructed to reduce calories, portion sizes and snacks. It is recommended that they exercise for 30 minutes, 3-5 times weekly. [facility] Other 03-21-2023 Evaluation note* Encounter Date Diagnosis Assessment Notes Treatment Notes Treatment Clinical Notes Apr, Fatigue, unspecified type (ICD-10 - R53.83) [facility] Other 08-28-2021 Hospital Discharge instructions Additional Instructions Continue prednisone daily starting tomorrow for four more days May take the hydroxyzine 1 to 2 tablets every 6 hours for any itching sensation or swelling sensation May take Pepcid 40 mg daily starting tomorrow for any allergic symptoms Continue your daily Zyrtec Return to the ER immediately if worsening shortness of breath if your lip tongue or throat starts to have swelling difficulty breathing or any other concerns[facility] noteNo assessment information availableSt. [facility]trEvaluation noteNo InformationNortFair[facility] [employer] Other Evaluation note* Diagnosis Onset Date Resolution Status Asthma acute Elevated cholesterol acute Hypertension acute Lumbar spondylosis acute Wellness examination noneact raheel [facility] Work Phone: Evaluation note* Diagnosis Onset Date Resolution Status Essential (primary) hypertension acute High risk medication use acu te Low back pain acute Lumbar spondylosis acute [facility] Work Phone: Evaluation note* Diagnosis Onset Date Resolution Status Essential (primary) hypertension acute High risk medication use acu te Low back pain acute Lumbar spondylosis acute Obesity acute Onychomycosis acute [facility] Work Phone: History general Narrative - Reported* Type Description Date Medical History Elevated cholesterol Medical History Primary hypertension Medical History Simple chronic bronchitis Medical History Benign prostatic hyp erplasia with lower urinary tract symptoms Medical History Chronic obstructive pulmonary disease with (acute) exacerbation Medical History Chronic obstructive pulmonary disease with (acute) lower respiratory infection Medical History Diverticulitis of la rge intestine with perforation and abscess without bleeding Medical History Irregular cardiac rhythm Medical History Adverse effect of drug, initial encounter Medical History 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 with pain Medical History TOLLIVER (dyspnea on exertion) Medical History VENTRICULAR ECTOPY PRESENT ON EL ECTROCARDIOGRAPHY Medical History Mild intermittent al lergic asthma with acute exacerbation Medical History Lumbar spondylosis Medical History Elevated transaminase level Medical History Hoarseness, persistent Medical History Arthritis of knee, left Surgical History ARTHROSCOPY LEFT KNEE 2015 Surgical History LEFT TKA 2017 Surgical History COLONOSCOPY 2018 Hospitalization History SEE SURGICAL HX [facility] [employer] Other Chief Complaint and Reason for Visit Chief Complaint INSECT STING, ALLERG IC, DIFF BREATHING Chief Complaint Screening Chief Complaint WELLNESS Reason for Visit Asthma Elevated cholesterol Hypertension Lumbar spondylosis Wellness examination Chief Complaint bump on chest, think its a spider bite Back pain, spider bite, BP concerns Reason for Visit Essential (primary) hypertension High risk medication use Low back pain Lumbar spondylosis Chief Complaint bump on chest, think its a spider bite Back pain, spider bite, BP concerns Reason for Visit Essential (primary) hypertension High risk medication use Low back pain Lumbar spondylosis Obesity Onychomycosis Advance Directives No Advanced Directives Records Found Advance Directive Response Recorded Date/ Time Advance Directives No December 11, 2017 4:38pm Summary Purpose Family History No Family History Records Found Relationship Condition Age at Onset Recorded Date/T asiya brother Hypertension Unknown father Malignant neoplasm Unknown Not Specified Unknown sister Malignant neoplasm Unknown Relationship Condition Age at Onset Recorded Date/T asiya brother Hypertension Unknown father Malignant neoplasm Unknown mother Unknown sister Malignant neoplasm Unknown Reason for Referral Reason *FU 11/29 Chronic hearing loss and tinnitus Diagnosis 1 Tinnitus of left ear (H93.12) Diagnosis 2 Sensorineural hearin g loss (SNHL) of left ear with unrestricted hearing of right ear (H90.42) Referral Organization [facility] C lingladys Referring Provider First Name Umesh Referring Provider Last Name Flavio Referring Provider Specialty Internal Me dicine Referred Organization [facility] Referred Provider Bethanie Upton Referred Address ,[place], [place],[address] Referred Provider Specialty Ear, Nose an d Throat Referral Priority Routine General Notes Robert being referred for audiogram and ENT evaluation for unilateral tinnitus and hearing loss. Latia Amador 11/22/2022 03:02:40 PM >received today, notes locked, referral faxed Additional Source Comments Goals (unrecognized section and content) Goals may be documented in a n alternate sectionGoals may be documented in an alternate sectionNo InformationNo InformationNo InformationNo InformationNo InformationNo InformationNo InformationNo InformationNo InformationNo InformationNo InformationNo InformationNo InformationNo InformationGoals may be documented in an alternate sectionGoals may be documented in an alternate sectionGoals may be documented in an alternate section Care Teams (unrecognized sec tion and content) Team Status: Inactive Member Role Status Shy Almazan DO Primary Care Provider Active Outreach Community Attending Provider Active Team Status: Active Member Role Status Shy Almazan DO Primary Care Provider Active Team Status: Inactive Member Role Status Shy Almazan DO Primary Care Provide r, Attending Provider Active Start: April 30, 2023 End: April 30, 2023 Team Status: Inactive Member Role Status Shy Almazan DO Primary Care Provider Active Start: June 19, 2023 End: June 19, 2023 VIDYA MinC Attending Provider Act raheel Start: June 19, 2023 End: June 19, 2023 Team Status: Inactive Member Role Status Shy Almazan DO Primary Care Provide r, Attending Provider Active Start: August 10, 2023 End: August 10, 2023 Team Status: Inactive Member Role Status Dates Umesh Almazan , DO Primary Care Provide r, Attending Provider Active Start: August 24, 2023 End: August 24, 2023 REASON FOR VISIT (unrecogniz ed section and content) [facility] DATEletterFLU Shotmedicationcongestion [phone], congestion, no covid testAllergy ShotWELLNESS (unrecognized sect ion and content) No Status Records FoundNo Status Records Found INFORMATION SOURCE (unrecogn ized section and content) DATE CREATED AUTHOR 05/01/2022 [facility] DATE CREATED AUTHOR AUTHOR'S ORGANIZ ATION 08/28/2023 [facility] FOR RECORDS PERTAINING TO PATIENTS WHO ARE OR HAVE BEEN ENROLLED IN A CHEMICAL DEPENDENCY/SUBSTANCEABUSE PROGRAM, SOME INFORMATION MAY BE OMITTED. This clinical summary was aggregated from multiple sources. Caution should be exercised in using it in the provision of clinical care. This summary normalizes information from multiple sources, and as a consequence, information in this document may materially change the coding, format and clinical context of patient data. In addition, data may be omitted in some cases. CLINICAL DECISIONS SHOULD BE BASED ON THE PRIMARY CLINICAL RECORDS. [facility]. provides no warranty or guarantee of the accuracy or completeness of information in this document.
[2023-10-04 09:04] LABS: Alanine Aminotransferase 45 U/L (16-63); Albumin Globulin Ratio 1.2; Albumin Level 4.3 g/dL (3.4-5.0); Alkaline Phosphatase 94 U/L (46-116); Aspartate Amino Transferase 35 U/L (15-37); Bilirubin Direct 0.1 mg/dL (0.0-0.2); Bilirubin Total 0.6 mg/dL (0.2-1.0); Globulin 3.6 g/dL; Total Protein 7.9 g/dL (6.4-8.2)
== END 2023-10-04 08:07 | disposition home or self-care (01) ==
LOC: LAB 08:23
PROVIDERS: PCP Internal Medicine; Visit Provider Internal Medicine
DX: Z79.899 Other long term (current) drug therapy (principal)
CPT/HCPCS: 36415; 80076

== ENCOUNTER 2023-10-11 10:31 | Outpatient (OUT) | payer OTHER, SELFPAY ==
--- NOTE | 2023-10-11 10:50 | XR_ITS ---
The [address] [address] Patient Name: WILBERT URIARTE MRN: [id number] date: 1960 Sex: M Assigned Patient Location: RAD Current Patient Location: [facility] Accession/Order Number: [id number] Exam Date: 10/11/2023 10:57 Report Date: 10/11/2023 21:12 At the request of: AMBROSE ALMAZAN Procedure: XR knee RT 4V EXAM: XR knee RT 4V HISTORY: Right Knee Pain M25.561 COMPARISON: None. TECHNIQUE: 4 views of the right knee were obtained. FINDINGS: There is no evidence of an acute fracture or dislocation. There is mild narrowing of the medial and lateral compartments, accompanied by small osteophytes. No osteochondral injury is identified. Significantly more prominent changes are seen at the femoral joint with narrowing of the joint spaces, subchondral cysts on the femoral side and osteophytes. There is no evidence of a significant joint effusion. Faint arteriovascular calcifications are present. XR/XR knee RT 4V IMPRESSION: Degenerative changes are seen throughout the knee, more prominent at the patellofemoral joint. There is no evidence of an acute fracture or dislocation. No joint effusion is identified. Electronically authenticated by: ALICAI GRANADOS Date: 10/11/2023 21:12
--- OUTSIDE RECORDS SUMMARY | 2023-10-11 10:54 | XMS_ITS | CCD ---
Author Organization [facility] Care Team Providers Care Trouble Clerk Name Role Phone DO Umesh Almazan Primary Care Provider DO Umesh Almazan Primary Care Provider [facility], Outreach Attending Provider Umesh Almazan Unavailable DR [...] Care Provider DO Umesh Almazan Attending Provider Umesh Almazan Attending Unavailable Ball, Umesh Primary Care Unavailable Ball, Umesh Admitting Unavailable Allergies Allergy Classification Reported Allergen(s) Allergy Type Date of Onset Reaction(s) Facility (9 sources) patient allergy list reviewed by nurse or physicia Propensity to adverse reactions 7 Comment:Done [facility] Other Medications Current Medications Medication Drug Class(es) [...] 30 Active amLODIPine 5 mg oral tablet (6 sources) Dihydropyridine Calcium Channel Jamie Start: 08-10-2023 [...] formoterol fumarate 0.0045 mg/actuat metered dose inhaler (10 sources) Corticosteroid, beta2-Adrenergic Agonist Start: 06-19-2023 take [...] 12, 2017 1:00am May 11, 2023 4:29pm 24 hr metoprolol succinate 25 mg extended release oral tablet (1 source) beta-Adrenergic Jamie Start: 08-29-2023 take 25 mg by mouth once daily Metoprolol Succinate Active 25 MG PO Daily August 29, 2023 12:00am Multivitamin-Mine rals-Lutein (Multivitamin 50 Plus) Tablet (6 sources) Start: 12-12-2017 Multivitamin-M ine rals-Lutein (Multivitamin 50 Plus) Tablet Active 1 TAB PO Daily December 12, 2017 2:37pm Start: 12-12-2017 End: 04-27-2023 Dmadzlpcgbrl-Iodhiaon-Rxdxym (Multivitamin 50 Plus) Tablet Discontinued 1 TAB PO Daily December 12, 2017 1:00am April 27, 2023 8:54am predniSONE 20 mg oral tablet (14 sources) Start: 11-16-2022 predniSONE 20 MG 1 tablet Orally twice daily w/ food x 4 days then qd w/ food x 4 days for 8 days Nov, Active Start: 10-02-2020 End: 04-27-2023 take 50 mg by mouth once daily Prednisone Discontinued 50 MG PO Daily 05 09October 02, 2020 12:00am April 27, 2023 8:54am sulfamethoxazole 800 mg / trimethoprim 160 mg oral tablet (3 sources) Dihydrofolate Reductase Inhibitor Antibacterial, Sulfonamide Antimicrobial Start: 06-19-2023 take 1 tablet by mouth twice daily Sulfamethoxazole-Trimethoprim (Bactrim Ds) 800-160 mg tablet Active 1 TAB PO Twice daily 24 11June 19, 2023 12:00am terbinafine 250 mg oral tablet (3 sources) Allylamine Antifungal Start: 08-10-2023 take 250 mg by mouth once daily Terbinafine Hcl Active 250 MG PO Daily August 10, 2023 12:00am Turmeric extract (6 sources) Start: 12-18-2017 take 1 tablet by mouth twice daily Turmeric Active 1 TAB PO Twice daily December 18, 2017 8:04am Start: 12-18-2017 End: 04-27-2023 take 1 tablet by mouth twice daily Turmeric Discontinued 1 TAB PO Twice daily December 18, 2017 1:00am April 27, 2023 8:54am Completed/Discontinued Medications Medication Drug Class(es) Dates Sig (Normalized) Sig (Original) [id number] 200 actuat albuterol 0.09 mg/actuat metered dose inhaler (17 sources) beta2-Adrenergic Agonist Start: 04-27-2023 End: 04-30-2023 [...] Active ascorbic acid 1000 mg oral tablet (6 sources) Vitamin C Start: 12-12-2017 End: 10-02-2020 take 1 tablet by mouth twice daily Ascorbic Acid (Vitamin C) (Vitamin C) 1,000 mg Tablet Discontinued 1000 MG PO Twice daily December 12, 2017 1:00am October 02, 2020 9:14am atorvastatin 20 mg oral tablet (6 sources) HMG-CoA Reductase Inhibitor Start: 10-02-2020 End: 04-27-2023 Atorvastatin Discontinued MG TABLET October 02, 2020 12:00am April 27, 2023 8:53am cetirizine hydrochloride 10 mg oral tablet (6 sources) Histamine-1 Receptor Antagonist Start: 10-02-2020 End: 04-27-2023 take 1 tablet by mouth once daily Cetirizine (Zyrtec) 10 mg Tablet Discontinued 10 MG PO Daily October 02, 2020 12:00am April 27, 2023 8:54am diphenhydrAMINE hydrochloride 25 mg oral capsule (6 sources) Histamine-1 Receptor Antagonist Start: 12-12-2017 End: 10-02-2020 Diphenhydramine Hcl (Benadryl) 25 mg Capsule Discontinued 1 TAB PO As Directed December 12, 2017 1:00am October 02, 2020 9:14am fluticasone propionate 0.05 mg/actuat metered dose nasal spray (6 sources) Corticosteroid Start: 10-02-2020 End: 04-27-2023 Fluticasone Propionate (Flonase) 50 mcg/actuation Sutton,Suspension Discontinued 1 SPRAY INTRANASAL Daily October 02, 2020 12:00am April 27, 2023 8:54am hydrOXYzine pamoate 25 mg oral capsule (6 sources) Antihistamine Start: 10-02-2020 End: 04-27-2023 take 25 mg by mouth every six hours Hydroxyzine Pamoate Discontinued 25 MG PO Q6H 14 October 02, 2020 12:00am April 27, 2023 8:54am itraconazole 100 mg oral capsule (6 sources) Azole Antifungal Start: 10-02-2020 End: 04-27-2023 Itraconazole Discontinued MG October 02, 2020 12:00am April 27, 2023 8:54am loratadine 10 mg oral tablet (6 sources) Start: 12-12-2017 End: 10-02-2020 take 10 mg by mouth once daily Loratadine Discontinued 10 MG PO Daily December 12, 2017 1:00am October 02, 2020 9:14am tamsulosin hydrochloride 0.4 mg oral capsule (6 sources) alpha-Adrenergic Jamie Start: 10-02-2020 End: 04-27-2023 Tamsulosin Discontinued MG PO October 02, 2020 12:00am April 27, 2023 8:54am triamcinolone acetonide 40 mg/ml injectable suspension (20 sources) Corticosteroid Start: 05-25-2022 Kenalog-40 Mar, 60 mg Tumeric (6 sources) Start: 12-12-2017 End: 12-18-2017 take 1 [...] Episodic Aortic; peripheral; and visceral artery aneurysms (2 sources) Abdominal aortic aneurysm; Translations: [Abdominal aortic aneurysm (AAA)] 08-12-2023 Chronic Asthma (20 sources) Exacerbation of intermittent asthma; Translations: [Mild intermittent asthma with (acute) exacerbation] Onset: 11-21-2016 Chronic Cardiac dysrhythmias (20 sources) Cardiac arrhythmia; Translations: [Cardiac arrhythmia, unspecified] 04-27-2023 Chronic Cardiac dysrhythmias (13 sources) Palpitations; Translations: [Palpitations] Onset: 06-15-2015 08-24-2023 Episodic Chronic kidney disease (13 sources) Chronic kidney disease stage 3; Translations: [...] Translations: [OTHER FATIGUE] Onset: 04-28-2022 Episodic Mycoses (14 sources) Tinea unguium; Translations: [Onychomycosis due to dermatophyte ] Onset: 04-24-2022 08-10-2023 Episodic Osteoarthritis (20 sources) Arthritis of left knee; Translations: [Unilateral primary osteoarthritis, left knee] Onset: 03-17-2014 04-27-2023 Chronic Other aftercare (3 sources) Drug therapy finding; Translations: [Other alf (current) drug therapy] 08-10-2023 Episodic Other aftercare (3 sources) Other buttermaker continuous churn (current) drug therapy; Translations: [Long-term (current) use [...] localized, lower leg] Onset: 11-17-2015 Chronic Other non-traumatic joint disorders (2 sources) Pain in right knee; Translations: [Right knee pain] 10-11-2023 Episodic Other nutritional; endocrine; and metabolic disorders (13 sources) Hypercalcemia; Translations: [Hypercalcemia] Onset: 04-14-2017 04-27-2023 Chronic Other nutritional; endocrine; and metabolic disorders (2 sources) Obesity; Translations: [Obesity, unspecified] 08-10-2023 Chronic Other nutritional; endocrine; and metabolic disorders (2 sources) Obesity, unspecified; Translations: [Obesity, unspecified] 08-10-2023 Chronic [...] [Dysphonia] 04-27-2023 Episodic Other upper respiratory disease (4 sources) Hoarse; Translations: [Dysphonia] 04-27-2023 Episodic Otitis [...] Spondylosis; intervertebral disc disorders; other back problems (15 sources) Low back pain; Translations: [Low back [...] transaminase levels] Varicose veins of lower extremity (17 sources) Pain co-occurrent and due to varicose [...] Onset: 06-07-2015 Episodic Diabetes mellitus without complication (13 sources) Impaired fasting glycemia; Translations: [Impaired fasting [...] Name Value Interpretation Reference Range Facil ity Globulin Calc (S) [Mass/Vol] on 10-04-2023 Globulin (S) [Mass/Vol] 3.6 g/dL [facility] - Chemistry and C hemistry - challengeon 10-04-2023 Albumin [Mass/Vol] 4.3 g/dL 3.4-5.0 [facility] ALP [Catalytic activity/Vol] 94 U/L 46-116 [facility] ALT [Catalytic activity/Vol] 45 U/L 16-63 [facility] AST [Catalytic activity/Vol] 35 U/L 15-37 [facility] Bilirubin [Mass/Vol] 0.6 mg/dL 0.2-1.0 [facility] Bilirubin.direct [Mass/Vol] 0.1 mg/dL 0.0-0.2 [facility] Protein [Mass/Vol] 7.9 g/dL 6.4-8.2 [facility] Serum or plasma albumin/glob ulin mass ratioon 10-04-2023 Albumin/Globulin [Mass ratio] 1.2 {ratio} [facility] TESTOSTERONE, TOTALon 2022 Testosterone [Mass/Vol] 862 ng/dL Normal 264-916 [facility] Comment on above: Result Comment: Adul t male reference interval is based on a population of healthy nonobese males (BMI <30) between 19 and 39 years old. Gallo, et.al. JCEM 2017,102;1230-7740. PMID: [id number]. Performed By: #### T ESTTOT #### [facility] [address] [place] [address] Dr. Chapo Posey SGOTon 04-18-2022 AST [Catalytic activity/Vol] 26 U/L Normal 15-37 [facility] Comment on above: Performed By: #### A LT, AST #### [facility] [address] [place] [address] Dr. Chapo Posey SGPTon 04-18-2022 ALT [Catalytic activity/Vol] 30 U/L Normal 16-63 [facility] Comment on above: Performed By: #### A LT, AST #### [facility] [address] [place] [address] Dr. Chapo Posey CBC AUTO DIFFon 04-05-2022 BASO # 0.1 103/ul Normal 0.0-0.1 [facility] Comment on above: Performed By: #### D ATCBC #### [facility] [address] [address] [address] Chapo Posey Basophils/100 WBC (Bld) 1.0 % Normal 0.2-2.0 [facility] Comment on above: Performed By: #### D ATCBC #### [facility] [address] [address] [address] Chapo Posey EO # 0.1 103/ul Normal 0.0-0.7 [facility] Comment on above: Performed By: #### D ATCBC #### [facility] [address] [address] [address] Chapo Posey Eosinophils/100 WBC (Bld) 2.5 % Normal 0.9-7.0 [facility] Comment on above: Performed By: #### D ATCBC #### [facility] [address] [place] [address] Dr. Chapo Posey Erythrocyte distribution width (RBC) [Ratio] 13.2 % Normal 11.0-15.0 [facility] Comment on above: Performed By: #### D ATCBC #### [facility] [address] [place] [address] Dr. Chapo Posey Hematocrit (Bld) [Volume fraction] 46.3 % Normal 42.0-54.0 [facility] Comment on above: Performed By: #### D ATCBC #### [facility] [address] [place] [address] Dr. Chapo Posey Hemoglobin (Bld) [Mass/Vol] 15.2 g/dL Normal 14.0-18.0 [facility] Comment on above: Performed By: #### D ATCBC #### [facility] [address] [place] [address] Dr. Chapo Posey IG # 0.03 10e3/ul Normal 0.00-0.03 [facility] Comment on above: Performed By: #### D ATCBC #### [facility] [address] [place] [address] Dr. Chapo Posey IG % 0.6 % Critically high 0.0-0.5 [facility] Comment on above: Performed By: #### D ATCBC #### [facility] [address] [place] [address] Dr. Chapo Posey LYMPH # 1.8 103/ul Normal 1.2-3.8 [facility] Comment on above: Performed By: #### D ATCBC #### [facility] [address] [place] [address] Dr. Chapo Posey Lymphocytes/100 WBC (Bld) 36.8 % Normal 20.5-60.0 [facility] Comment on above: Performed By: #### D ATCBC #### [facility] [address] [place] [address] Dr. Chapo Posey MCH (RBC) [Entitic mass] 31.0 pg Normal 25.9-34.0 [facility] Comment on above: Performed By: #### D ATCBC #### [facility] [address] [place] [address] Dr. Chapo Posey MCHC (RBC) [Mass/Vol] 32.8 g/dL Normal 29.9-35.2 [facility] Comment on above: Performed By: #### D ATCBC #### [facility] [address] [place] [address] Dr. Chapo Posey MCV (RBC) [Entitic vol] 94.3 fL Critically high 80.0-94.0 [facility] Comment on above: Performed By: #### D ATCBC #### [facility] [address] [place] [address] Dr. Chapo Posey MONO # 0.5 103/ul Normal 0.3-0.8 [facility] Comment on above: Performed By: #### D ATCBC #### [facility] [address] [place] [address] Dr. Chapo Posey Monocytes/100 WBC (Bld) 9.7 % Normal 1.7-12.0 [facility] Comment on above: Performed By: #### D ATCBC #### [facility] [address] [place] [address] Dr. Chapo Posey NEUT # 2.4 103/ul Normal 1.4-6.5 [facility] Comment on above: Performed By: #### D ATCBC #### [facility] [address] [place] [address] Dr. Chapo Posey Neutrophils/100 WBC (Bld) 49.4 % Normal 43.0-75.0 [facility] Comment on above: Performed By: #### D ATCBC #### [facility] [address] [place] [address] Dr. Chapo Posey Platelet mean volume (Bld) [Entitic vol] 10.3 fL Normal 9.5-13.5 [facility] Comment on above: Performed By: #### D ATCBC #### [facility] [address] [place] [address] Dr. Chapo Posey PLT 197 103/ul Normal 150-450 [facility] Comment on above: Performed By: #### D ATCBC #### [facility] [address] [place] [address] Dr. Chapo Posey RBC 4.91 106/ul Normal 4.70-6.10 [facility] Comment on above: Performed By: #### D ATCBC #### [facility] [address] [place] [address] Dr. Chapo Posey WBC 4.9 103/ul Normal 4.0-11.0 [facility] Comment on above: Performed By: #### D ATCBC #### [facility] [address] [place] [address] Dr. Chapo Posey FRANCISCO JAVIER- BMP WITH LIPIDon 2022 Anion gap [Moles/Vol] 10.5 mmol/L Normal [facility] Comment on above: Performed By: #### D ATBMP, DATPSA #### [facility] [address] [place] [address] Dr. Chapo Posey Calcium [Mass/Vol] 10.0 mg/dL Normal 8.5-10.1 [facility] Comment on above: Performed By: #### D ATBMP, DATPSA #### [facility] [address] [place] [address] Dr. Chapo Posey Chloride [Moles/Vol] 103 mmol/L Normal 98-107 [facility] Comment on above: Performed By: #### D ATBMP, DATPSA #### [facility] [address] [address] [address] Chapo Posey Cholesterol [Mass/Vol] 185 mg/dL Normal <=200 [facility] Comment on above: Performed By: #### D ATBMP, DATPSA #### [facility] [address] [address] [address] Chapo Posey Cholesterol in HDL [Mass/Vol] 46 mg/dL Normal 40-60 [facility] Comment on above: Performed By: #### D ATP, DATPSA #### [facility] [address] [place] [address] Dr. Chapo Posey Cholesterol in LDL [Mass/Vol] 115.2 mg/dL Normal [facility] Comment on above: Performed By: #### D ATBMJeffrey, DATPSA #### [facility] [address] [place] [address] Dr. Chapo Posey CO2 [Moles/Vol] 29.9 mmol/L Normal 21.0-32.0 [facility] Comment on above: Performed By: #### D ATJeffrey, DATPSA #### [facility] [address] [place] [address] Dr. Chapo Posey Creatinine [Mass/Vol] 1.13 mg/dL Normal 0.70-1.30 [facility] Comment on above: Performed By: #### D ATP, DATPSA #### [facility] [address] [place] [address] Dr. Chapo Posey EGFR-AF MALIAN >60 Normal >=60 [facility] Comment on above: Performed By: #### D ATBMP, DATPSA #### [facility] [address] [place] [address] Dr. Chapo Posey EGFR-NON AF MALIAN >60 Normal >=60 [facility] Comment on above: Performed By: #### D ATBMP, DATPSA #### [facility] [address] [address] [address] Chapo Posey Glucose [Mass/Vol] 95 mg/dL Normal 74-106 [facility] Comment on above: Performed By: #### D ATBMJeffrey, DATPSA #### [facility] [address] [address] [address] Chapo Posey HDL NORMAL > or = 60 mg/dl - LOW CARDIOVASCULAR RISK <40 mg/dl - HIGH CARDIOVASCULAR RISK Normal [facility] Comment on above: Performed By: #### D ATP, DATPSA #### [facility] [address] [address] [address] Chapo Posey LDL CALC NORMAL SEE BELOW Normal [facility] Comment on above: Result Comment: <100 mg/dl OPTIMAL 100 - 129 mg/dl NEAR OR ABOVE OPTIMAL 130 - 159 mg/dl BORDERLINE HIGH 160 - 189 mg/dl HIGH >190 mg/dl VERY HIGH Performed By: #### D ATWALDO, DATPSA #### [facility] [address] [address] [address] Chapo Posey Potassium [Moles/Vol] 4.4 mmol/L Normal 3.5-5.1 [facility] Comment on above: Performed By: #### D ATJeffrey, DATPSA #### [facility] [address] [address] [address] Chapo Posey Sodium [Moles/Vol] 139 mmol/L Normal 136-145 [facility] Comment on above: Performed By: #### D ATBMJeffrey, DATPSA #### [facility] [address] [address] [address] Chapo Posey Triglyceride [Mass/Vol] 119 mg/dL Normal <=150 [facility] Comment on above: Performed By: #### D ATBMJeffrey, DATPSA #### [facility] [address] [address] [address] Chapo Posey Urea nitrogen [Mass/Vol] 28.0 mg/dL Critically high 7.0-18.0 [facility] Comment on above: Performed By: #### D ATBMJeffrey, DATPSA #### [facility] [address] [address] [address] Chapo Posey Urea nitrogen/Creatinine [Mass ratio] 24.8 mg/mg Normal [facility] Comment on above: Performed By: #### D ATBMP, DATPSA #### [facility] [address] [address] [address] Chapo Posey VLDL CALC 23.8 mg/dL Normal [facility] Comment on above: Performed By: #### D ATBMP, DATPSA #### [facility] [address] [id number] Chapo Posey Vital Signs Date Time Vital Sign Value Performing Clinician Facility 10-11-2023 09:26-0400 Body height 194.31 cm DO Umesh Ball Work Phone: [facility] 10-11-2023 09:26-0400 Body mass index (BMI) [Ratio] 25 kg/m2 DO Umesh Ball Work Phone: [facility] 10-11-2023 09:26-0400 Body weight 94.34 kg DO Umesh Ball Work Phone: [facility] 10-11-2023 09:26-0400 Diastolic blood pressure 96 mm[Hg] DO Umesh Ball Work Phone: [facility] 10-11-2023 09:26-0400 Heart rate 59 /min DO Umesh Ball Work Phone: [facility] 10-11-2023 09:26-0400 Respiratory rate 12 /min DO Umesh Ball Work Phone: [facility] 10-11-2023 09:26-0400 Systolic blood pressure 150 mm[Hg] DO Umesh Ball Work Phone: [facility] 08-10-2023 11:43-0400 Body height 194.31 cm [facility] 08-10-2023 11:43-0400 Body mass index (BMI) [Ratio] 30.1 kg/m2 [facility] 08-10-2023 11:43-0400 Body weight 113.85 kg [facility] 08-10-2023 11:43-0400 Diastolic blood pressure 83 mm[Hg] [facility] 08-10-2023 11:43-0400 Heart rate 44 /min [facility] 08-10-2023 11:43-0400 Respiratory rate 12 /min [facility] 08-10-2023 11:43-0400 Systolic blood pressure 161 mm[Hg] [facility] 06-19-2023 11:20-0400 Body height 194.31 cm [facility] 06-19-2023 11:20-0400 Body mass index (BMI) [Ratio] 24.6 kg/m2 [facility] 06-19-2023 11:20-0400 Body weight 92.98 kg [facility] 06-19-2023 11:20-0400 Diastolic blood pressure 80 mm[Hg] [facility] 06-19-2023 11:20-0400 Heart rate 48 /min [facility] 06-19-2023 11:20-0400 SaO2% (BldA) [Mass fraction] 98 % [facility] 06-19-2023 11:20-0400 Systolic blood pressure 130 mm[Hg] [facility] 04-30-2023 08:59-0400 Body height 194.31 cm [facility] 04-30-2023 08:59-0400 Body mass index (BMI) [Ratio] 24.4 kg/m2 [facility] 04-30-2023 08:59-0400 Body weight 92.19 kg [facility] 04-30-2023 08:59-0400 Diastolic blood pressure 77 mm[Hg] [facility] 04-30-2023 08:59-0400 Heart rate 41 /min [facility] 04-30-2023 08:59-0400 Respiratory rate 12 /min [facility] 04-30-2023 08:59-0400 Systolic blood pressure 152 mm[Hg] [facility] 04-25-2022 10:30-0400 Body height 193.04 cm Umesh Ball Other [facility] Other 04-25-2022 10:30-0400 Body mass index (BMI) [Ratio] 24.1 kg/m2 Umesh Ball Other [facility] Other 04-25-2022 10:30-0400 Body weight 89.81 kg Umesh Ball Other [facility] Other 04-25-2022 10:30-0400 Diastolic blood pressure 71 mm[Hg] Umesh Ball Other [facility] Other 04-25-2022 10:30-0400 Respiratory rate 12 /min Umesh Ball Other [facility] Other 04-25-2022 10:30-0400 Systolic blood pressure 148 mm[Hg] Umesh Ball Other [facility] Other 10-02-2020 09:51-0400 Diastolic blood pressure 85 mm[Hg] DO Umesh Ball Work Phone: [facility] 10-02-2020 09:51-0400 Heart rate 69 /min DO Umesh Ball Work Phone: [facility] 10-02-2020 09:51-0400 Respiratory rate 18 /min DO Umesh Ball Work Phone: [facility] 10-02-2020 09:51-0400 SaO2% (BldA) [Mass fraction] 96 % DO Umesh Ball Work Phone: [facility] 10-02-2020 09:51-0400 Systolic blood pressure 144 mm[Hg] DO Umesh Ball Work Phone: [facility] 10-02-2020 09:07-0400 Body height 194.31 cm DO Umesh Ball Work Phone: [facility] 10-02-2020 09:07-0400 Body mass index (BMI) [Ratio] 25.1 kg/m2 DO Umesh Ball Work Phone: [facility] 10-02-2020 09:07-0400 Body weight 95 kg DO Umesh Ball Work Phone: [facility] 10-02-2020 09:00-0400 Body temperature 98.2 [degF] DO Umesh Ball Work Phone: [facility] Encounters Encounter Date Encounter Type Care Provider Facility Start: 10-11-2023 End: 10-11-2023 ambulatory DO Umesh Ball Work Phone: [facility] Work Phone: Start: 10-11-2023 End: 10-11-2023 Patient encounter procedure DO Umesh Ball Work Phone: [facility] Work Phone: Start: 10-04-2023 Non-patient / Non-visit DO Radu Almazan Work Phone[facility] Work Phone: Start: 08-24-2023 End: 08-24-2023 ambulatory DO Umesh Ball Work Phone: [facility] Work Phone: Start: 08-24-2023 End: 08-24-2023 Patient encounter procedure DO Umesh Ball Work Phone: [facility] Start: 08-10-2023 End: 08-10-2023 ambulatory [facility] Work Phone: Start: 08-10-2023 End: 08-10-2023 Patient encounter procedure [facility] Work Phone: Start: 06-19-2023 End: 06-19-2023 Patient encounter procedure [facility] Work Phone: Start: 04-30-2023 End: 04-30-2023 ambulatory [facility] Work Phone: Start: 04-30-2023 End: 04-30-2023 Encounter for general adult medical examination without abnormal findings [facility] Start: 04-30-2023 End: 04-30-2023 Patient encounter procedure [facility] Work Phone: Start: 03-19-2023 End: 03-19-2023 ambulatory Umesh Almazan Other [facility] Other Start: 03-19-2023 Nursing evaluation o f patient and report Umesh Almazan [facility] Start: 03-14-2023 End: 03-14-2023 ambulatory Umesh Almazan Other [facility] Other Start: 03-14-2023 Telephone encounter Umesh Almazan [facility] Start: 12-20-2022 End: 12-20-2022 ambulatory Umesh Flavio Other [facility] Other Start: 12-20-2022 Telephone encounter Umesh Almazan FP [facility] Start: 12-19-2022 End: 12-19-2022 ambulatory Umesh Almazan Other [facility] Other Start: 12-19-2022 Telephone encounter Umesh Almazan [facility] Start: 11-28-2022 End: 11-28-2022 ambulatory Umesh Flavio Other [facility] Other Start: 11-28-2022 Nursing evaluation o f patient and report Umesh Ball [facility] Start: 11-22-2022 End: 11-22-2022 ambulatory Umesh Ball Other [facility] Other Start: 11-22-2022 Office outpatient vi sit 15 minutes Umesh Ball [facility] Start: 11-22-2022 Telephone encounter Umesh Almazan [facility] Start: 11-16-2022 End: 11-16-2022 ambulatory Umesh Ball Other [facility] Other Start: 11-16-2022 Office outpatient vi sit 15 minutes Umesh Ball [facility] Start: 11-08-2022 End: 11-08-2022 ambulatory Umesh Almazan Other [facility] Other Start: 11-08-2022 Nursing evaluation o f patient and report Umesh Almazan [facility] Start: 05-25-2022 End: 05-25-2022 ambulatory Umesh Almaazn Other [facility] Other Start: 05-25-2022 Nursing evaluation o f patient and report Umesh Almazan [facility] Start: 04-28-2022 End: 04-29-[address] UMESH ALMAZAN Facility:[facility] Start: 04-25-2022 End: 04-25-2022 ambulatory Umesh Almazan Other [facility] Other Start: 04-25-2022 Encounter for genera l adult medical examination without abnormal findings Umesh Almazan [facility] Start: 04-25-2022 Periodic preventive med est patient 40-64yrs Umesh Almazan [facility] Start: 04-25-2022 Telephone encounter Umesh Almazan [facility] Start: 04-18-2022 Telephone encounter Umesh Almazan [facility] Start: 04-18-2022 End: 04-19-[address] UMESH ALMAZAN [facility] [employer] Other Start: 04-05-2022 End: 04-06-[address] RIOS LISTED REQUEST Facility:[facility] Start: 01-10-2022 Adult health examination Umesh Almazan Other [facility] Other Start: 05-28-2021 End: 05-28-2021 Departed Referred DO Umesh Almazan Work Phone: [facility] Start: 05-17-[address] [facility] Start: 10-02-2020 End: 10-02-2020 Emergency department patient visit DO Umesh Almazan Work Phone: [facility] Procedures Date Procedure Procedure Detail Performing Clinician Start: 04-05-[address] ANAND ALMAZAN Comment on above: Performed By: #### D ATBMP, DATPSA #### [facility] [address] [place] [address] Dr. Chapo Posey Start: 01-27-2016 Replacement of [...] Care Activity Detail Author Hepatic function panel [facility] Patient Education [facility] Patient referral [facility] XR Knee - right 4 Views [facility] XR Lumbar spine Views [facility] Immunizations Immunization Date Immunization Notes Care Provider Jose danielle 11-28-2022 influenza, injectabl e, quadrivalent, preservative free Umesh Almazan Other [facility] 11-22-2021 influenza virus vaccine, split virus (incl. purified surface antigen) Umesh Almazan Other [facility] [address] Other 11-22-2021 influenza virus vaccine, unspecified formulation [facility] 11-22-2021 influenza, injectabl e, quadrivalent, preservative free [facility] 11-22-2021 influenza, injectabl e, quadrivalent, contains preservative Umesh Almazan Other [facility] [address] Other 11-04-2020 influenza virus vaccine, split virus (incl. purified surface antigen) Umesh Almazan Other [facility] Other 11-04-2020 influenza virus vaccine, unspecified formulation [facility] 05-11-2020 COVID-19 Vaccine Pfi zer - Documentation Purposes Only Umesh Almazan Other [facility] 04-19-2020 COVID-19 Vaccine Pfi zer - Documentation Purposes Only Umesh Almazan Other [facility] 12-03-2019 influenza virus vaccine, split virus (incl. purified surface antigen) Umesh Almazan Other [facility] Other 12-03-2019 influenza virus vaccine, unspecified formulation [facility] 12-18-2018 influenza virus vaccine, split virus (incl. purified surface antigen) Umesh Almazan Other [facility] [address] Other 12-18-2018 influenza virus vaccine, unspecified formulation [facility] 12-11-2017 influenza virus vaccine, split virus (incl. purified surface antigen) Umesh Almazan Other [facility] Other 12-11-2017 influenza virus vaccine, unspecified formulation [facility] 11-21-2016 tetanus and diphther ia toxoids, adsorbed, preservative free, for adult use (5 Lf of tetanus toxoid and 2 Lf of diphtheria toxoid) Umehs Almazan Other [facility] 11-11-2012 tetanus and diphther ia toxoids, adsorbed, preservative free, for adult use (5 Lf of tetanus toxoid and 2 Lf of diphtheria toxoid) Umesh Almazan Other [facility] 10-10-2001 diphtheria, tetanus toxoids and acellular pertussis vaccine, unspecified formulation Umesh Almazan Other [facility] Payers Date Payer Category Payer Self-pay [id number] 1961 Unknown [id number] 1960 Unknown [id number] 1960 Unknown [id number] 1960 Unknown [id number] Medicare Medicare [id number] Medicare [employer] [facility] PFFS [id number] Private Health Insurance [id number] Unknown [id number] Unknown [employer] [id number] Social History Date Type Detail Facility Start: 10-02-2020 End: 06-19-2023 Tobacco smoking status NHIS Ex-smoker (finding) [facility] Start: 1960 Sex Assigned At Male F [facility] Sex Assigned At Sex Assigned At Bir th [facility] Other Clinical Notes 10-02-2020 to 03-19-2023 Note Date & Type Note Facility 03-19-2023 Evaluation note Encounter Date Diagnosis Assessment Notes Mar, Seasonal allergic rhinitis due to pollen (ICD-10 - J30.1) [facility] Other [id number] Evaluation note* Encounter Date Diagnosis Assessment Notes [...] ear (ICD-10 - H90.42) Suspected, check audiogram [facility] Other 10-18-2023 Evaluation note* Encounter Date Diagnosis Assessment Notes Treatment Notes Treatment Clinical Notes Nov, Mild intermittent asthma with acute exacerbation (ICD-10 - J45.21) [facility] Other 10-12-2023 Evaluation note* Encounter Date Diagnosis [...] ER for increased cough, SOB or CP [facility] Other 10-04-2023 Evaluation note* Encounter Date Diagnosis Assessment Notes Treatment Notes Treatment Clinical Notes Nov, Seasonal allergic rhinitis due to pollen (ICD-10 - J30.1) [facility] Other 04-20-2023 Evaluation note* Encounter Date Diagnosis Assessment Notes Treatment Notes Treatment Clinical Notes May, Seasonal allergic rhinitis due to pollen (ICD-10 - J30.1) [facility] Other 03-21-2023 Evaluation note* Encounter Date Diagnosis [...] exercise for 30 minutes, 3-5 times weekly. [facility] Other 03-21-2023 Evaluation note* Encounter Date Diagnosis Assessment Notes Treatment Notes Treatment Clinical Notes Apr, Fatigue, unspecified type (ICD-10 - R53.83) [facility] Other 08-28-2021 Hospital Discharge instructions Additional Instructions [...] have swelling difficulty breathing or any other concerns[facility]tr[facility] noteNo assessment information availableMorrow [facility] Hospital CtrEvaluation noteNo InformationNort [facility] Other Evaluation note* Diagnosis Onset Date Resolution Status Asthma acute Elevated cholesterol acute Hypertension acute Lumbar spondylosis acute Wellness examination noneact raheel [facility] Work Phone: Evaluation note* Diagnosis Onset Date Resolution Status Essential (primary) hypertension acute High risk medication use acu te Low back pain acute Lumbar spondylosis acute [facility] Work Phone: Evaluation note* Diagnosis Onset Date Resolution Status Essential (primary) hypertension acute High risk medication use acu te Low back pain acute Lumbar spondylosis acute Obesity acute Onychomycosis acute [facility] Work Phone: Evaluation note* Diagnosis Onset Date Resolution Status Essential (primary) hypertension acute High risk medication use acu te Low back pain acute Lumbar spondylosis acute Obesity acute Onychomycosis acute Essential (primary) hypertension acute Primary osteoarthritis of right knee acute Right knee pain acute [facility] Work Phone: History general Narrative - Reported* [...] COLONOSCOPY 2018 Hospitalization History SEE SURGICAL HX [facility] Other Chief Complaint and Reason for Visit [...] Low back pain Lumbar spondylosis Obesity Onychomycosis Chief Complaint Back pain, spider bi te, BP concerns R00.1 R knee pain Reason for Visit Essential (primary) hypertension High risk medication use Low back pain Lumbar spondylosis Obesity Onychomycosis Essential (primary) hypertension Primary osteoarthritis of right knee Right knee pain Advance Directives Advance Directive Response Recorded Date/ Time Advance Directives No December 11, 2017 4:38pm Summary Purpose Family History Relationship Condition Age at Onset Recorded Date/T [...] hearing of right ear (H90.42) Referral Organization [facility] lingladys Referring Provider First Name Umesh Referring Provider Last Name Flavio Referring Provider Specialty Internal Me dicine Referred Organization [facility] Referred Provider Bethanie Upton Referred Address ,[place], [place],[address] Referred Provider Specialty Ear, Nose an d [...] June 19, 2023 End: June 19, 2023 Anel Solitario APRN NP-C Attending Provider Act raheel Start: June 19, 2023 End: June 19, 2023 Team Status: Inactive Member Role Status Shy Almazan DO Primary Care Provide r, Attending Provider Active Start: August 10, 2023 End: August 10, 2023 Team Status: Inactive Member Role Status Shy Almazan DO Primary Care Provide r, Attending Provider Active Start: August 24, 2023 End: August 24, 2023 Team Status: Active Member Role Status Dates Umesh Almazan DO Primary Care Provide r, Attending Provider Active Start: October 04, 2023 Team Status: Inactive Member Role Status Dates Umesh Almazan DO Primary Care Provide r, Attending Provider Active Start: October 11, 2023 End: October 11, 2023 REASON FOR VISIT (unrecogniz ed section and content) [facility] REFERRAL UP DATEletterFLU Shotmedicationcongestion [phone], congestion, no covid testAllergy ShotWELLNESS (unrecognized sect ion and content) No Status Records FoundNo Status Records Found INFORMATION SOURCE (unrecogn ized section and content) DATE CREATED AUTHOR 05/01/2022 [facility] DATE CREATED AUTHOR AUTHOR'S ORGANIZ ATION 08/28/2023 [facility] FOR RECORDS PERTAINING [...] BE BASED ON THE PRIMARY CLINICAL RECORDS. [employer] provides no warranty or guarantee of the accuracy or completeness of information in this document.
== END 2023-10-11 10:32 | disposition home or self-care (01) ==
PROVIDERS: PCP Internal Medicine; Visit Provider Internal Medicine
DX: M25.561 Pain in right knee (principal)
CPT/HCPCS: 73564

== ENCOUNTER 2023-10-15 12:47 | Outpatient (OUT) | payer OTHER, SELFPAY ==
--- NOTE | 2023-10-15 12:49 | CA_ITS ---
Patient Name: WILBERT URIARTE MR#: [id number] : 1960 Exam Date: 10/15/2023 Ordering Doctor: DR Umesh Muniz D.O. ECHOCARDIOGRAM REPORT PROCEDURE: CA ECHO DOPPLER COMPLETE INDICATIONS: Non sustained ventricular tachycardia, Myocarditis COMPARISON: None. DESCRIPTION: COMPLETE ECHOCARDIOGRAM Real-time transthoracic echocardiography with 2D, M-mode, spectral and color flow Doppler performed. QUALITY: Technical quality was good. LEFT VENTRICLE: Normal chamber size. Borderline left ventricular hypertrophy. LV EF: Global left ventricular systolic function is mildly reduced; visually estimated ejection fraction is 45-50 %. No obvious wall motion abnormalities. DIASTOLIC: Not adequately assessed due to heart rhythm. ATRIAL SEPTUM: Inadequately seen. LEFT ATRIUM: Normal chamber size. RIGHT ATRIUM: Normal chamber size. RIGHT VENTRICLE: Upper normal limits in size. Normal right ventricular systolic function. TRICUSPID VALVE: Normal mobility and thickness. No stenosis with mild regurgitation. No evidence of pulmonary hypertension. RVSP 33mmHg MITRAL VALVE: Normal mobility and thickness. No evidence of mitral valve stenosis. There is no mitral annular calcification. Mild mitral regurgitation. AORTIC VALVE: Normal trileaflet appearance. No visible sclerosis. Normal leaflet mobility. No evidence of aortic valve stenosis. Mild aortic regurgitation. AORTIC ROOT: Mildly dilated. Measuring 4.1cm. PULMONIC VALVE: Normal thickness and mobility. No stenosis. Trivial regurgitation. PERICARDIUM: No evidence of pericardial effusion. IVC: Collapses with inspirations. Normal size. CONCLUSION: 1. Global left ventricular systolic function is mildly reduced; visually estimated ejection fraction is 45 to 50% 2. The right ventricle is upper normal limits in size with normal systolic function 3. Borderline left ventricular hypertrophy 4. The left atrium is normal in size 5. Mild tricuspid regurgitation 6. Mild mitral regurgitation 7. Mild aortic valve regurgitation 8. The aortic root is mildly dilated Adult Echocardiography Procedure Report Left Ventricle LVEDD (3.7 - 5.6 cm): 5.19 cm LVESD (2.2 - 4.0 cm): 3.84 cm LVIVS thickness (0.6 - 1.2 cm): 1.15 cm LVPW thickness (0.5 - 1.0 cm): 1.12 cm e': 0.07 m/s E - e': 9.45 LVOT Max Gradient: 3.83 mm[Hg] LVOT Area (cm2): 0.98 m/s Peak Velocity (LVOT): 0.98 m/s Mean Velocity (LVOT): 0.63 m/s LVOT Diameter 2.37 cm Left Atrium LA Volume Index (2D A2C): 25.07 ml/m2 Left Atrium Systolic Dimension: 3.87 cm Mitral Valve MV E to A Ratio: 0.78 Mitral Valve A-Wave Peak Velocity: 0.85 m/s Mitral Valve E-Wave Peak Velocity: 0.66 m/s Right Ventricle RV Internal Diastolic Dimension: 4.07 cm Aorta AO Root Diam: 4.15 cm Ascending Ao Diam: 3.73 cm Aortic Valve AoV Area (Peak Sven): 2.51 cm2, 2.30 cm2 AoV Area (VTI): 2.64 cm2, 2.44 cm2 Deceleration Bond: 1.00 m/s2, 1.49 m/s2 Pressure Half-Time: 1.00 s, 708.48 ms Peak Velocity(Antegrade Flow): 1.87 m/s, 1.56 m/s Peak Gradient(Antegrade Flow): 14.01 mm[Hg], 9.71 mm[Hg] Mean Velocity(Antegrade Flow): 1.24 m/s, 1.05 m/s Mean Gradient(Antegrade Flow): 7.16 mm[Hg], 5.03 mm[Hg] Velocity Time Integral: 42.21 cm, 35.85 cm Tricuspid Valve Peak Velocity (Regurgitant Flow): 2.46 m/s, 2.44 m/s, 2.76 m/s Pulmonic Valve Mean Gradient: 3.14 mm[Hg], 3.40 mm[Hg] Mean Velocity: 0.84 m/s, 0.90 m/s Peak Velocity: 1.16 m/s, 0.81 m/s Peak Gradient: 2.64 mm[Hg], 5.31 mm[Hg], 5.39 mm[Hg] Right Atrium Right Atrium Systolic Pressure: 72.23 ml, 72.23 ml Dictated by: Slava Sabillon M.D. on 10/15/2023 at 16:55 Approved by: Slava Sabillon M.D. on 10/15/2023 at 17:00
--- OUTSIDE RECORDS SUMMARY | 2023-10-15 12:57 | XMS_ITS | CCD ---
Author Organization [facility] Care Team Providers Care Canvassing Manager Name Role Phone DO Umesh Almazan Primary Care Provider DO Umesh Almazan Primary Care Provider [facility], Outreach Attending Provider [phone] UMESH ALMAZAN Primary [...] Unavailable DO Umesh Almazan Primary Care Provider [phone] DO Umesh Almazan Attending Provider Umesh Almazan Attending Unavailable Ball, Umesh Primary Care Unavailable Ball, Umesh Admitting Unavailable Allergies Allergy Classification Reported Allergen(s) Allergy Type Date of Onset Reaction(s) Facility (9 sources) patient allergy list reviewed by nurse or physicia Propensity to adverse reactions 7 Comment:Done [facility] Other Medications Current Medications Medication Drug Class(es) [...] 12, 2017 2:37pm Start: 12-12-2017 End: 04-27-2023 Nncrqwemxltn-Ktprisxd-Zynxos (Multivitamin 50 Plus) Tablet Discontinued 1 TAB [...] Drug Class(es) Dates Sig (Normalized) Sig (Original) [id number] 200 actuat albuterol 0.09 mg/actuat metered dose [...] End: 04-27-2023 Fluticasone Propionate (Flonase) 50 mcg/actuation [place],Suspension Discontinued 1 SPRAY INTRANASAL Daily October 02, [...] (3 sources) Drug therapy finding; Translations: [Other m[facility]p (current) drug therapy] 08-10-2023 Episodic Other aftercare (3 sources) Other long term acute care registered nurse (current) drug therapy; Translations: [Long-term (current) use [...] on 10-04-2023 Globulin (S) [Mass/Vol] 3.6 g/dL [facility] - Chemistry and C hemistry - challengeon 10-04-2023 Albumin [Mass/Vol] 4.3 g/dL 3.4-5.0 [facility] ALP [Catalytic activity/Vol] 94 U/L 46-116 [facility] ALT [Catalytic activity/Vol] 45 U/L 16-63 [facility] AST [Catalytic activity/Vol] 35 U/L 15-37 [facility] Bilirubin [Mass/Vol] 0.6 mg/dL 0.2-1.0 [facility] Bilirubin.direct [Mass/Vol] 0.1 mg/dL 0.0-0.2 [facility] Protein [Mass/Vol] 7.9 g/dL 6.4-8.2 [facility] Serum or plasma albumin/glob ulin mass ratioon 10-04-2023 Albumin/Globulin [Mass ratio] 1.2 {ratio} [facility] TESTOSTERONE, TOTALon 2022 Testosterone [Mass/Vol] 862 ng/dL Normal 264-916 [facility] Comment on above: Result Comment: Adul t male reference interval is based on a population of healthy nonobese males (BMI <30) between 19 and 39 years old. Gallo, et.al. JCEM 2017,102;0463-1005. PMID: [id number]. Performed By: #### T ESTTOT #### [facility] [address] [place] [address] Dr. Chapo Posey SGOTon 04-18-2022 AST [Catalytic activity/Vol] 26 U/L Normal 15-37 [facility] Comment on above: Performed By: #### A LT, AST #### [facility] [address] [place] [address] Dr. Chapo Posey SGPTon 04-18-2022 ALT [Catalytic activity/Vol] 30 U/L Normal 16-63 [facility] Comment on above: Performed By: #### A LT, AST #### [facility] [address] [place] [address] Dr. Chapo Posey CBC AUTO DIFFon 04-05-2022 BASO # 0.1 103/ul Normal 0.0-0.1 [facility] Comment on above: Performed By: #### D ATCBC #### [facility] [address] [address] [address] Chapo Posey Basophils/100 WBC (Bld) 1.0 % Normal 0.2-2.0 [facility] Comment on above: Performed By: #### D ATCBC #### [facility] [address] [address] [address] Chapo Posey EO # 0.1 103/ul Normal 0.0-0.7 [facility] Comment on above: Performed By: #### D ATCBC #### [facility] [address] [address] [address] Chapo Posey Eosinophils/100 WBC (Bld) 2.5 % Normal 0.9-7.0 [facility] Comment on above: Performed By: #### D ATCBC #### [facility] [address] [place] [address] Dr. Chapo Posey Erythrocyte distribution width (RBC) [Ratio] 13.2 % Normal 11.0-15.0 [facility] Comment on above: Performed By: #### D ATCBC #### [facility] [address] [place] [address] Dr. Chapo Posey Hematocrit (Bld) [Volume fraction] 46.3 % Normal 42.0-54.0 [facility] Comment on above: Performed By: #### D ATCBC #### [facility] [address] [place] [address] Dr. Chapo Posey Hemoglobin (Bld) [Mass/Vol] 15.2 g/dL Normal 14.0-18.0 [facility] Comment on above: Performed By: #### D ATCBC #### [facility] [address] [place] [address] Dr. Chapo Posey IG # 0.03 10e3/ul Normal 0.00-0.03 [facility] Comment on above: Performed By: #### D ATCBC #### [facility] [address] [place] [address] Dr. Chapo Posey IG % 0.6 % Critically high 0.0-0.5 [facility] Comment on above: Performed By: #### D ATCBC #### [facility] [address] [place] [address] Dr. Chapo Posey LYMPH # 1.8 103/ul Normal 1.2-3.8 [facility] Comment on above: Performed By: #### D ATCBC #### [facility] [address] [place] [address] Dr. Chapo Posey Lymphocytes/100 WBC (Bld) 36.8 % Normal 20.5-60.0 [facility] Comment on above: Performed By: #### D ATCBC #### [facility] [address] [place] [address] Dr. Chapo Posey MCH (RBC) [Entitic mass] 31.0 pg Normal 25.9-34.0 [facility] Comment on above: Performed By: #### D ATCBC #### [facility] [address] [place] [address] Dr. Chapo Posey MCHC (RBC) [Mass/Vol] 32.8 g/dL Normal 29.9-35.2 [facility] Comment on above: Performed By: #### D ATCBC #### [facility] [address] [place] [address] Dr. Chapo Posey MCV (RBC) [Entitic vol] 94.3 fL Critically high 80.0-94.0 [facility] Comment on above: Performed By: #### D ATCBC #### [facility] [address] [place] [address] Dr. Chapo Posey MONO # 0.5 103/ul Normal 0.3-0.8 [facility] Comment on above: Performed By: #### D ATCBC #### [facility] [address] [place] [address] Dr. Chapo Posey Monocytes/100 WBC (Bld) 9.7 % Normal 1.7-12.0 [facility] Comment on above: Performed By: #### D ATCBC #### [facility] [address] [place] [address] Dr. Chapo Posey NEUT # 2.4 103/ul Normal 1.4-6.5 [facility] Comment on above: Performed By: #### D ATCBC #### [facility] [address] [place] [address] Dr. Chapo Posey Neutrophils/100 WBC (Bld) 49.4 % Normal 43.0-75.0 [facility] Comment on above: Performed By: #### D ATCBC #### [facility] [address] [place] [address] Dr. Chapo Posey Platelet mean volume (Bld) [Entitic vol] 10.3 fL Normal 9.5-13.5 [facility] Comment on above: Performed By: #### D ATCBC #### [facility] [address] [place] [address] Dr. Chapo Posey PLT 197 103/ul Normal 150-450 [facility] Comment on above: Performed By: #### D ATCBC #### [facility] [address] [place] [address] Dr. Chapo Posey RBC 4.91 106/ul Normal 4.70-6.10 [facility] Comment on above: Performed By: #### D ATCBC #### [facility] [address] [place] [address] Dr. Chapo Posey WBC 4.9 103/ul Normal 4.0-11.0 [facility] Comment on above: Performed By: #### D ATCBC #### [facility] [address] [place] [address] Dr. Chapo Posey FRANCISCO JAVIER- BMP WITH LIPIDon 2022 Anion gap [Moles/Vol] 10.5 mmol/L Normal [facility] Comment on above: Performed By: #### D ATBMP, DATPSA #### [facility] [address] [place] [address] Dr. Chapo Posey Calcium [Mass/Vol] 10.0 mg/dL Normal 8.5-10.1 [facility] Comment on above: Performed By: #### D ATBMP, DATPSA #### [facility] [address] [place] [address] Dr. Chapo Posey Chloride [Moles/Vol] 103 mmol/L Normal 98-107 [facility] Comment on above: Performed By: #### D ATBMP, DATPSA #### [facility] [address] [address] [address] Chapo Posey Cholesterol [Mass/Vol] 185 mg/dL Normal <=200 [facility] Comment on above: Performed By: #### D ATBMP, DATPSA #### [facility] [address] [address] [address] Chapo Posey Cholesterol in HDL [Mass/Vol] 46 mg/dL Normal 40-60 [facility] Comment on above: Performed By: #### D ATP, DATPSA #### [facility] [address] [place] [address] Dr. Chapo Posey Cholesterol in LDL [Mass/Vol] 115.2 mg/dL Normal [facility] Comment on above: Performed By: #### D ATBMJeffrey, DATPSA #### [facility] [address] [place] [address] Dr. Chapo Posey CO2 [Moles/Vol] 29.9 mmol/L Normal 21.0-32.0 [facility] Comment on above: Performed By: #### D ATJeffrey, DATPSA #### [facility] [address] [place] [address] Dr. Chapo Posey Creatinine [Mass/Vol] 1.13 mg/dL Normal 0.70-1.30 [facility] Comment on above: Performed By: #### D ATP, DATPSA #### [facility] [address] [place] [address] Dr. Chapo Posey EGFR-AF LEBANESE >60 Normal >=60 [facility] Comment on above: Performed By: #### D ATBMP, DATPSA #### [facility] [address] [place] [address] Dr. Chapo Posey EGFR-NON AF LEBANESE >60 Normal >=60 [facility] Comment on above: Performed By: #### D ATBMP, DATPSA #### [facility] [address] [address] [address] Chapo Posey Glucose [Mass/Vol] 95 mg/dL Normal 74-106 [facility] Comment on above: Performed By: #### D ATBMJeffrey, DATPSA #### [facility] [address] [address] [address] Chapo Posey HDL NORMAL > or = 60 mg/dl - LOW CARDIOVASCULAR RISK <40 mg/dl - HIGH CARDIOVASCULAR RISK Normal [facility] Comment on above: Performed By: #### D ATP, DATPSA #### [facility] [address] [address] [address] Chapo Posey LDL CALC NORMAL SEE BELOW Normal [facility] Comment on above: Result Comment: <100 mg/dl OPTIMAL 100 - 129 mg/dl NEAR OR ABOVE OPTIMAL 130 - 159 mg/dl BORDERLINE HIGH 160 - 189 mg/dl HIGH >190 mg/dl VERY HIGH Performed By: #### D ATWALDO, DATPSA #### [facility] [address] [address] [address] Chapo Posey Potassium [Moles/Vol] 4.4 mmol/L Normal 3.5-5.1 [facility] Comment on above: Performed By: #### D ATJeffrey, DATPSA #### [facility] [address] [address] [address] Chapo Posey Sodium [Moles/Vol] 139 mmol/L Normal 136-145 [facility] Comment on above: Performed By: #### D ATBMJeffrey, DATPSA #### [facility] [address] [address] [address] Chapo Posey Triglyceride [Mass/Vol] 119 mg/dL Normal <=150 [facility] Comment on above: Performed By: #### D ATBMJeffrey, DATPSA #### [facility] [address] [address] [address] Chapo Posey Urea nitrogen [Mass/Vol] 28.0 mg/dL Critically high 7.0-18.0 [facility] Comment on above: Performed By: #### D ATBMJeffrey, DATPSA #### [facility] [address] [address] [address] Chapo Posey Urea nitrogen/Creatinine [Mass ratio] 24.8 mg/mg Normal [facility] Comment on above: Performed By: #### D ATBMP, DATPSA #### [facility] [address] [address] [address] Chapo Posey VLDL CALC 23.8 mg/dL Normal [facility] Comment on above: Performed By: #### D ATBMP, DATPSA #### [facility] [id number] Chapo Posey Vital Signs Date Time Vital Sign Value Performing Clinician Facility 10-11-2023 09:26-0400 Body height 194.31 cm DO Umesh Ball Work Phone: [facility] 10-11-2023 09:26-0400 Body mass index (BMI) [Ratio] 25 kg/m2 DO Umesh Ball Work Phone: [facility] 10-11-2023 09:26-0400 Body weight 94.34 kg DO Umesh Ball Work Phone: [facility] 10-11-2023 09:26-0400 Diastolic blood pressure 96 mm[Hg] DO Umesh Ball Work Phone: [facility] 10-11-2023 09:26-0400 Heart rate 59 /min DO Umesh Ball Work Phone: [facility] 10-11-2023 09:26-0400 Respiratory rate 12 /min DO Umesh Ball Work Phone: [facility] 10-11-2023 09:26-0400 Systolic blood pressure 150 mm[Hg] DO Umesh Ball Work Phone: [facility] 08-10-2023 11:43-0400 Body height 194.31 cm [facility] 08-10-2023 11:43-0400 Body mass index (BMI) [Ratio] 30.1 kg/m2 [facility] 08-10-2023 11:43-0400 Body weight 113.85 kg [facility] 08-10-2023 11:43-0400 Diastolic blood pressure 83 mm[Hg] [facility] 08-10-2023 11:43-0400 Heart rate 44 /min [facility] 08-10-2023 11:43-0400 Respiratory rate 12 /min [facility] 08-10-2023 11:43-0400 Systolic blood pressure 161 mm[Hg] [facility] 06-19-2023 11:20-0400 Body height 194.31 cm [facility] 06-19-2023 11:20-0400 Body mass index (BMI) [Ratio] 24.6 kg/m2 [facility] 06-19-2023 11:20-0400 Body weight 92.98 kg [facility] 06-19-2023 11:20-0400 Diastolic blood pressure 80 mm[Hg] [facility] 06-19-2023 11:20-0400 Heart rate 48 /min [facility] 06-19-2023 11:20-0400 SaO2% (BldA) [Mass fraction] 98 % [facility] 06-19-2023 11:20-0400 Systolic blood pressure 130 mm[Hg] [facility] 04-30-2023 08:59-0400 Body height 194.31 cm [facility] 04-30-2023 08:59-0400 Body mass index (BMI) [Ratio] 24.4 kg/m2 [facility] 04-30-2023 08:59-0400 Body weight 92.19 kg [facility] 04-30-2023 08:59-0400 Diastolic blood pressure 77 mm[Hg] [facility] 04-30-2023 08:59-0400 Heart rate 41 /min [facility] 04-30-2023 08:59-0400 Respiratory rate 12 /min [facility] 04-30-2023 08:59-0400 Systolic blood pressure 152 mm[Hg] [facility] 04-25-2022 10:30-0400 Body height 193.04 cm Umesh Ball Other [facility] Other 04-25-2022 10:30-0400 Body mass index (BMI) [Ratio] 24.1 kg/m2 Umesh Ball Other [facility] Other 04-25-2022 10:30-0400 Body weight 89.81 kg Umesh Ball Other [facility] Other 04-25-2022 10:30-0400 Diastolic blood pressure 71 mm[Hg] Umesh Ball Other [facility] Other 04-25-2022 10:30-0400 Respiratory rate 12 /min Umesh Ball Other [facility] Other 04-25-2022 10:30-0400 Systolic blood pressure 148 mm[Hg] Umesh Ball Other [facility] Other 10-02-2020 09:51-0400 Diastolic blood pressure 85 mm[Hg] DO Umesh Ball Work Phone: [facility] 10-02-2020 09:51-0400 Heart rate 69 /min DO Umesh Ball Work Phone: [facility] 10-02-2020 09:51-0400 Respiratory rate 18 /min DO Umesh Ball Work Phone: [facility] 10-02-2020 09:51-0400 SaO2% (BldA) [Mass fraction] 96 % DO Umesh Ball Work Phone: [facility] 10-02-2020 09:51-0400 Systolic blood pressure 144 mm[Hg] DO Umesh Ball Work Phone: [facility] 10-02-2020 09:07-0400 Body height 194.31 cm DO Umesh Ball Work Phone: [facility] 10-02-2020 09:07-0400 Body mass index (BMI) [Ratio] 25.1 kg/m2 DO Umesh Ball Work Phone: [facility] 10-02-2020 09:07-0400 Body weight 95 kg DO Umesh Ball Work Phone: [facility] 10-02-2020 09:00-0400 Body temperature 98.2 [degF] DO Umesh Ball Work Phone: [facility] Encounters Encounter Date Encounter Type Care Provider Facility Start: 10-11-2023 End: 10-11-2023 ambulatory DO Umesh Ball Work Phone: [facility] Work Phone: Start: 10-11-2023 End: 10-11-2023 Patient encounter procedure DO Umesh Ball Work Phone: [facility] Work Phone: Start: 10-04-2023 Non-patient / Non-visit DO Radu Almazan [facility] Work Phone: Start: 08-24-2023 End: 08-24-2023 ambulatory DO Umesh Ball Work Phone: [facility] Work Phone: Start: 08-24-2023 End: 08-24-2023 Patient encounter procedure DO Umesh Ball Work Phone: [facility] Start: 08-10-2023 End: 08-10-2023 ambulatory [facility] Work Phone: Start: 08-10-2023 End: 08-10-2023 Patient encounter procedure [facility] Work Phone: Start: 06-19-2023 End: 06-19-2023 Patient encounter procedure [facility] Work Phone: Start: 04-30-2023 End: 04-30-2023 ambulatory [facility] Work Phone: Start: 04-30-2023 End: 04-30-2023 Encounter for general adult medical examination without abnormal findings [facility] Start: 04-30-2023 End: 04-30-2023 Patient encounter procedure [facility] Work Phone: Start: 03-19-2023 End: 03-19-2023 ambulatory Umesh Almazan Other [facility] Other Start: 03-19-2023 Nursing evaluation o f patient and report Umesh Almazan [facility] Start: 03-14-2023 End: 03-14-2023 ambulatory Umesh Almazan Other [facility] Other Start: 03-14-2023 Telephone encounter Umesh Almazan [facility] Start: 12-20-2022 End: 12-20-2022 ambulatory Umesh Flavio Other [facility] Other Start: 12-20-2022 Telephone encounter Umesh Almazan [facility] Start: 12-19-2022 End: 12-19-2022 ambulatory Umesh Almazan Other [facility] Other Start: 12-19-2022 Telephone encounter Umesh Almazan [facility] Start: 11-28-2022 End: 11-28-2022 ambulatory Umesh Flavio Other [facility] Other Start: 11-28-2022 Nursing evaluation o f patient and report Umesh Ball [facility] Start: 11-22-2022 End: 11-22-2022 ambulatory Umesh Ball Other [facility] Other Start: 11-22-2022 Office outpatient vi sit 15 minutes Umesh Ball [facility] Start: 11-22-2022 Telephone encounter Umesh Almazan [facility] Start: 11-16-2022 End: 11-16-2022 ambulatory Umesh Ball Other [facility] Other Start: 11-16-2022 Office outpatient vi sit 15 minutes Umesh Ball [facility] Start: 11-08-2022 End: 11-08-2022 ambulatory Umesh Almazan Other [facility] Other Start: 11-08-2022 Nursing evaluation o f patient and report Umesh Almazan [facility] Start: 05-25-2022 End: 05-25-2022 ambulatory Umesh Almazan Other [facility] Other Start: 05-25-2022 Nursing evaluation o f patient and report Umesh Almazan [facility] Start: 04-28-2022 End: 04-29-[address] UMESH ALMAZAN Facility:[facility] Start: 04-25-2022 End: 04-25-2022 ambulatory Umesh Almazan Other [facility] Other Start: 04-25-2022 Encounter for genera l adult medical examination without abnormal findings Umesh Almazan [facility] Start: 04-25-2022 Periodic preventive med est patient 40-64yrs Umesh Almazan [facility] Start: 04-25-2022 Telephone encounter Umesh Almazan [facility] Start: 04-18-2022 Telephone encounter Umesh Almazan [facility] Start: 04-18-2022 End: 04-19-[address] UMESH ALMAZAN [facility] Other Start: 04-05-2022 End: 04-06-[address] RIOS LISTED REQUEST Facility:[facility] Start: 01-10-2022 Adult health examination Umesh Almazan Other [facility] Other Start: 05-28-2021 End: 05-28-2021 Departed Referred DO Umesh Almazan Work Phone: [facility] Start: 05-17-[address] [facility] Start: 10-02-2020 End: 10-02-2020 Emergency department patient visit DO Umesh Almazan Work Phone: [facility] Procedures Date Procedure Procedure Detail Performing Clinician Start: 04-05-[address] ANAND ALMAZAN Comment on above: Performed By: #### D ATBMP, DATPSA #### [facility] [address] [place] [address] Dr. Chapo Posey Start: 01-27-2016 Replacement of [...] Care Activity Detail Author Hepatic function panel [facility] Patient Education [facility] Patient referral [facility] XR Knee - right 4 Views [facility] XR Lumbar spine Views [facility] Immunizations Immunization Date Immunization Notes Care Provider Jose danielle 11-28-2022 influenza, injectabl e, quadrivalent, preservative free Umesh Almazan Other [facility] 11-22-2021 influenza virus vaccine, split virus (incl. purified surface antigen) Umesh Almazan Other [facility] Other 11-22-2021 influenza virus vaccine, unspecified formulation [facility] 11-22-2021 influenza, injectabl e, quadrivalent, preservative free [facility] 11-22-2021 influenza, injectabl e, quadrivalent, contains preservative Umesh Almazan Other [facility] [employer] [facility] Other 11-04-2020 influenza virus vaccine, split virus (incl. purified surface antigen) Umesh Almazan Other [facility] Other 11-04-2020 influenza virus vaccine, unspecified formulation [facility] 05-11-2020 COVID-19 Vaccine Pfi zer - Documentation Purposes Only Umesh Almazan Other [facility] 04-19-2020 COVID-19 Vaccine Pfi zer - Documentation Purposes Only Umesh Almazan Other [facility] 12-03-2019 influenza virus vaccine, split virus (incl. purified surface antigen) Umesh Almazan Other [facility] Other 12-03-2019 influenza virus vaccine, unspecified formulation [facility] 12-18-2018 influenza virus vaccine, split virus (incl. purified surface antigen) Umesh Almazan Other [facility] [employer] [facility] Other 12-18-2018 influenza virus vaccine, unspecified formulation [facility] 12-11-2017 influenza virus vaccine, split virus (incl. purified surface antigen) Umesh Almazan Other [facility] Other 12-11-2017 influenza virus vaccine, unspecified formulation [facility] 11-21-2016 tetanus and diphther ia toxoids, adsorbed, preservative free, for adult use (5 Lf of tetanus toxoid and 2 Lf of diphtheria toxoid) Umesh Almazan Other [facility] 11-11-2012 tetanus and diphther ia toxoids, adsorbed, preservative free, for adult use (5 Lf of tetanus toxoid and 2 Lf of diphtheria toxoid) Umesh Almazan Other [facility] 10-10-2001 diphtheria, tetanus toxoids and acellular pertussis vaccine, unspecified formulation Umesh Almazan Other [facility] Payers Date Payer Category Payer Self-pay [id number] 1961 Unknown [id number] 1960 Unknown [id number] 1958 Unknown [id number] 1958 Unknown [id number] Medicare Medicare [id number] Medicare [employer] [facility] PFFS [id number] Private Health Insurance [id number] Unknown [id number] Unknown [facility] [id number] Social History Date Type Detail Facility Start: 10-02-2020 End: 06-19-2023 Tobacco smoking status NHIS Ex-smoker (finding) [facility] Start: 1960 Sex Assigned At Male F [facility] Sex Assigned At Sex Assigned At Bir th [facility] Other Clinical Notes 10-02-2020 to 03-19-2023 Note Date & Type Note Facility 03-19-2023 Evaluation note Encounter Date Diagnosis Assessment Notes Mar, Seasonal allergic rhinitis due to pollen (ICD-10 - J30.1) [facility] Other [id number] Evaluation note* Encounter Date Diagnosis Assessment Notes [...] ear (ICD-10 - H90.42) Suspected, check audiogram [facility] Other 10-18-2023 Evaluation note* Encounter Date Diagnosis Assessment Notes Treatment Notes Treatment Clinical Notes Nov, Mild intermittent asthma with acute exacerbation (ICD-10 - J45.21) [facility] Other 10-12-2023 Evaluation note* Encounter Date Diagnosis [...] ER for increased cough, SOB or CP [facility] Other 10-04-2023 Evaluation note* Encounter Date Diagnosis Assessment Notes Treatment Notes Treatment Clinical Notes Nov, Seasonal allergic rhinitis due to pollen (ICD-10 - J30.1) [facility] Other 04-20-2023 Evaluation note* Encounter Date Diagnosis Assessment Notes Treatment Notes Treatment Clinical Notes May, Seasonal allergic rhinitis due to pollen (ICD-10 - J30.1) [facility] Other 03-21-2023 Evaluation note* Encounter Date Diagnosis [...] exercise for 30 minutes, 3-5 times weekly. [facility] Other 03-21-2023 Evaluation note* Encounter Date Diagnosis Assessment Notes Treatment Notes Treatment Clinical Notes Apr, Fatigue, unspecified type (ICD-10 - R53.83) [facility] Other 08-28-2021 Hospital Discharge instructions Additional Instructions [...] have swelling difficulty breathing or any other [facility]tr[facility] noteNo assessment information availableSelect Medical [facility] CtrEvaluation noteNo InformationNort [facility] Other Evaluation note* Diagnosis Onset Date Resolution Status Asthma acute Elevated cholesterol acute Hypertension acute Lumbar spondylosis acute Wellness examination noneact raheel [facility] Work Phone: Evaluation note* Diagnosis Onset Date Resolution Status Essential (primary) hypertension acute High risk medication use acu te Low back pain acute Lumbar spondylosis acute [facility] Work Phone: Evaluation note* Diagnosis Onset Date Resolution Status Essential (primary) hypertension acute High risk medication use acu te Low back pain acute Lumbar spondylosis acute Obesity acute Onychomycosis acute [facility] Work Phone: Evaluation note* Diagnosis Onset Date Resolution Status Essential (primary) hypertension acute High risk medication use acu te Low back pain acute Lumbar spondylosis acute Obesity acute Onychomycosis acute Essential (primary) hypertension acute Primary osteoarthritis of right knee acute Right knee pain acute [facility] Work Phone: History general Narrative - [...] COLONOSCOPY 2018 Hospitalization History SEE SURGICAL HX [facility] Other Chief Complaint and Reason for Visit [...] hearing of right ear (H90.42) Referral Organization [facility] Referring Provider First Name Umesh Referring Provider Last Name Flavio Referring Provider Specialty Internal Me dicine Referred Organization [facility] Referred Provider Bethanie Upton Referred Address ,[place], [place],[address] Referred Provider Specialty Ear, Nose an d [...] content) Wellness LabsENT REFERRAL UP DATEletterFLU Shotmedicationcongestion [phone], congestion, no covid testAllergy ShotWELLNESS (unrecognized sect ion and content) No Status Records FoundNo Status Records Found INFORMATION SOURCE (unrecogn ized section and content) DATE CREATED AUTHOR 05/01/2022 [facility] DATE CREATED AUTHOR AUTHOR'S ORGANIZ ATION 08/28/2023 [facility] FOR RECORDS PERTAINING TO [...] BE BASED ON THE PRIMARY CLINICAL RECORDS. [employer] provides no warranty or guarantee of the accuracy or completeness of information in this document.
== END 2023-10-15 12:48 | disposition home or self-care (01) ==
LOC: CARD 12:47
PROVIDERS: PCP Internal Medicine; Visit Provider Internal Medicine
DX: I47.29 Other ventricular tachycardia (principal); I51.4 Myocarditis, unspecified
CPT/HCPCS: 93306

== ENCOUNTER 2023-12-19 07:54 | Outpatient (OUT) | payer OTHER, SELFPAY ==
--- NOTE | 2023-12-19 | PCN_ITS ---
CARDIAC STRESS TEST Requesting Physician: Procedure Date: 12/19/2023 INDICATION: Abnormal EKG, runs of non-sustained ventricular tachycardia. METHODS: After risks, benefits, and alternatives were explained, written informed consent was obtained. The patient was brought to the Stress Lab in a resting and fasting state. He was connected to the appropriate hemodynamic and electrocardiographic monitoring. He underwent a Danny protocol for exercise. He was transferred to the Nuclear Lab for nuclear imaging. STRESS TEST INFORMATION: The patient underwent a Danny protocol. He exercised for 7 minutes and 30 seconds, reaching stage 3. He achieved 10.10 METS. Resting blood pressure was 136/68, with a peak blood pressure of 174/76. Resting heart rate was 63 beats per minute, increasing to a maximum of 141 beats per minute, which is 90% of maximum predicted heart rate. The test was terminated due to achievement of target heart rate and frequent premature ventricular contractions. The patient reported no specific symptoms. ELECTROCARDIOGRAPHY: Rest EKG: This shows sinus rhythm, 68 beats per minute, poor R-wave progression, frequent premature ventricular contractions. Abnormal resting EKG. During exercise and recovery: No significant ST-T wave changes noted. Frequent ventricular ectopy seen throughout exercise, including prolonged periods of ventricular bigeminy. FINAL IMPRESSIONS: 1. No ischemic ST-T wave changes noted on treadmill exercise stress test. 2. Appropriate heart rate and blood pressure response to exercise. 3. Significant ventricular ectopy including ventricular bigeminy during exercise. 4. Keen treadmill score of 7.3. Estimated one year mortality 0.3-0.9%. Risk category: Low risk. Angiography is usually not indicated. 5. Nuclear images are to be read, interpreted, and reported in a separate dictation. [facility]
--- OUTSIDE RECORDS SUMMARY | 2023-12-19 08:09 | XMS_ITS | CCD ---
Author Organization [facility] Care Team Providers Care Food Supervisor Name Role Phone DO Umesh Almazan Primary Care Provider DO Umesh Almazan Primary Care Provider [phone] [facility], Outreach Attending Provider Umesh Almazan Unavailable FLAVIO, DR BOGGS Primary Care Unavailable BALL, DR BOGGS Admitting [...] REQUEST, DR RIOS LISTED Admitting Unavaila ble FLAVIO, DR BOGGS Primary Care Unavailable DO Umesh Almazan Primary Care Provider [phone] DO Umesh Almazan Attending Provider Umesh Almazan Attending Unavailable Ball, Umesh Primary Care Unavailable Ball, Umesh Admitting Unavailable KANEVANESSA Copeland Attending Unavailable Allergies Allergy Classification Reported Allergen(s) Allergy Type Date of Onset Reaction(s) Facility (9 sources) patient allergy list reviewed by nurse or physicia Propensity to adverse reactions 01-11-20 Comment:Done [place] Other (2 sources) Sulfamethoxazole Drug Allergy 10-17-19 [facility] (2 sources) Trimethoprim Drug Allergy 10-17-19 [facility] Medications Current Medications Medication Drug Class(es) Dates [...] 30 Active amLODIPine 5 mg oral tablet (10 sources) Dihydropyridine Calcium Channel Jamie Start: 08-10-2023 [...] formoterol fumarate 0.0045 mg/actuat metered dose inhaler (12 sources) Corticosteroid, beta2-Adrenergic Agonist Start: 06-19-2023 take [...] succinate 25 mg extended release oral tablet (3 sources) beta-Adrenergic Jamie Start: 08-29-2023 take 25 mg by mouth once daily Metoprolol Succinate Active 25 MG PO Daily August 29, 2023 12:00am Multivitamin-Mine rals-Lutein (Multivitamin 50 Plus) Tablet (8 sources) Start: 12-12-2017 Multivitamin-M ine rals-Lutein (Multivitamin 50 Plus) Tablet Active 1 TAB PO Daily December 12, 2017 2:37pm Start: 12-12-2017 End: 04-27-2023 Ztvsomwwqglw-Pmgdwxaw-Pvdfnv (Multivitamin 50 Plus) Tablet Discontinued 1 TAB PO Daily December 12, 2017 1:00am April 27, 2023 8:54am predniSONE 20 mg oral tablet (16 sources) Start: 11-16-2022 predniSONE 20 MG 1 tablet Orally twice daily w/ food x 4 days then qd w/ food x 4 days for 8 days Nov, Active Start: 10-02-2020 End: 04-27-2023 take 50 mg by mouth once daily Prednisone Discontinued 50 MG PO Daily 05 09October 02, 2020 12:00am April 27, 2023 8:54am sulfamethoxazole 800 mg / trimethoprim 160 mg oral tablet (5 sources) Dihydrofolate Reductase Inhibitor Antibacterial, Sulfonamide Antimicrobial Start: 06-19-2023 take 1 tablet by mouth twice daily Sulfamethoxazole-Trimethoprim (Bactrim Ds) 800-160 mg tablet Active 1 TAB PO Twice daily 24 11June 19, 2023 12:00am terbinafine 250 mg oral tablet (5 sources) Allylamine Antifungal Start: 08-10-2023 take 250 mg by mouth once daily Terbinafine Hcl Active 250 MG PO Daily August 10, 2023 12:00am Turmeric extract (8 sources) Start: 12-18-2017 take 1 tablet by mouth twice daily Turmeric Active 1 TAB PO Twice daily December 18, 2017 8:04am Start: 12-18-2017 End: 04-27-2023 take 1 tablet by mouth twice daily Turmeric Discontinued 1 TAB PO Twice daily December 18, 2017 1:00am April 27, 2023 8:54am Completed/Discontinued Medications Medication Drug Class(es) Dates Sig (Normalized) Sig (Original) [id number] actuat albuterol 0.09 mg/actuat metered dose inhaler (19 sources) beta2-Adrenergic Agonist Start: 04-27-2023 End: 04-30-2023 [...] Active ascorbic acid 1000 mg oral tablet (8 sources) Vitamin C Start: 12-12-2017 End: 10-02-2020 take 1 tablet by mouth twice daily Ascorbic Acid (Vitamin C) (Vitamin C) 1,000 mg Tablet Discontinued 1000 MG PO Twice daily December 12, 2017 1:00am October 02, 2020 9:14am atorvastatin 20 mg oral tablet (8 sources) HMG-CoA Reductase Inhibitor Start: 10-02-2020 End: 04-27-2023 Atorvastatin Discontinued MG TABLET October 02, 2020 12:00am April 27, 2023 8:53am cetirizine hydrochloride 10 mg oral tablet (8 sources) Histamine-1 Receptor Antagonist Start: 10-02-2020 End: 04-27-2023 take 1 tablet by mouth once daily Cetirizine (Zyrtec) 10 mg Tablet Discontinued 10 MG PO Daily October 02, 2020 12:00am April 27, 2023 8:54am diphenhydrAMINE hydrochloride 25 mg oral capsule (8 sources) Histamine-1 Receptor Antagonist Start: 12-12-2017 End: 10-02-2020 Diphenhydramine Hcl (Benadryl) 25 mg Capsule Discontinued 1 TAB PO As Directed December 12, 2017 1:00am October 02, 2020 9:14am fluticasone propionate 0.05 mg/actuat metered dose nasal spray (8 sources) Corticosteroid Start: 10-02-2020 End: 04-27-2023 Fluticasone Propionate (Flonase) 50 mcg/actuation [place],Suspension Discontinued 1 SPRAY INTRANASAL Daily October 02, 2020 12:00am April 27, 2023 8:54am hydrOXYzine pamoate 25 mg oral capsule (8 sources) Antihistamine Start: 10-02-2020 End: 04-27-2023 take 25 mg by mouth every six hours Hydroxyzine Pamoate Discontinued 25 MG PO Q6H 14 October 02, 2020 12:00am April 27, 2023 8:54am itraconazole 100 mg oral capsule (8 sources) Azole Antifungal Start: 10-02-2020 End: 04-27-2023 Itraconazole Discontinued MG October 02, 2020 12:00am April 27, 2023 8:54am loratadine 10 mg oral tablet (8 sources) Start: 12-12-2017 End: 10-02-2020 take 10 mg by mouth once daily Loratadine Discontinued 10 MG PO Daily December 12, 2017 1:00am October 02, 2020 9:14am tamsulosin hydrochloride 0.4 mg oral capsule (8 sources) alpha-Adrenergic Jamie Start: 10-02-2020 End: 04-27-2023 Tamsulosin Discontinued MG PO October 02, 2020 12:00am April 27, 2023 8:54am triamcinolone acetonide 40 mg/ml injectable suspension (20 sources) Corticosteroid Start: 05-25-2022 Kenalog-40 Mar, 60 mg Tumeric (8 sources) Start: 12-12-2017 End: 12-18-2017 take 1 [...] Episodic Aortic; peripheral; and visceral artery aneurysms (4 sources) Abdominal aortic aneurysm; Translations: [Abdominal aortic aneurysm (AAA)] 08-12-2023 Chronic Asthma (20 sources) Exacerbation of intermittent asthma; Translations: [Mild intermittent asthma with (acute) exacerbation] Onset: 11-21-2016 Chronic Cardiac dysrhythmias (20 sources) Cardiac arrhythmia; Translations: [Cardiac arrhythmia, unspecified] 04-27-2023 Chronic Cardiac dysrhythmias (19 sources) Palpitations; Translations: [Palpitations] Onset: 06-15-2015 08-24-2023 Episodic Chronic kidney disease (15 sources) Chronic kidney disease stage 3; Translations: [...] Translations: [OTHER FATIGUE] Onset: 04-28-2022 Episodic Mycoses (17 sources) Tinea unguium; Translations: [Onychomycosis due to dermatophyte ] Onset: 04-24-2022 08-10-2023 Episodic Osteoarthritis (20 sources) Arthritis of left knee; Translations: [Unilateral primary osteoarthritis, left knee] Onset: 03-17-2014 04-27-2023 Chronic Other aftercare (5 sources) Drug therapy finding; Translations: [Other petroleum terminal plant operator (current) drug therapy] 08-10-2023 Episodic Other aftercare (4 sources) Other petroleum terminal plant operator (current) drug therapy; Translations: [Long-term (current) use [...] Onset: 11-17-2015 Chronic Other non-traumatic joint disorders (8 sources) Pain in right knee; Translations: [Right knee pain] 10-11-2023 Episodic Other nutritional; endocrine; and metabolic disorders (15 sources) Hypercalcemia; Translations: [Hypercalcemia] Onset: 04-14-2017 04-27-2023 Chronic Other nutritional; endocrine; and metabolic disorders (4 sources) Obesity; Translations: [Obesity, unspecified] 08-10-2023 Chronic Other nutritional; endocrine; and metabolic disorders (3 sources) Obesity, unspecified; Translations: [Obesity, unspecified] 08-10-2023 Chronic Other nutritional; endocrine; and metabolic disorders (1 source) Overweight Episodic Other nutritional; endocrine; and metabolic disorders (9 sources) Overweight; Translations: [Overweight] Episodic Other screening for suspected conditions (not mental disorders or infectious disease) (13 sources) Patient encounter status; Translations: [Encounter for screening for malignant neoplasm of colon] Onset: 12-05-2023 12-18-2017 Episodic Other skin disorders (4 sources) [...] [Dysphonia] 04-27-2023 Episodic Other upper respiratory disease (6 sources) Hoarse; Translations: [Dysphonia] 04-27-2023 Episodic Otitis [...] Spondylosis; intervertebral disc disorders; other back problems (18 sources) Low back pain; Translations: [Low back pain, unspecified] Onset: 09-26-2016 08-10-2023 Episodic Substance-related disorders (9 sources) Tobacco user; Translations: [Nicotine dependence, cigarettes, in remission] Onset: 09-29-2015 Chronic Superficial injury; contusion (9 sources) Abrasion, lower leg; Translations: [Abrasion, left lower leg, initial encounter] Episodic Unclassified (9 sources) Elevation of levels of liver transaminase levels; Translations: [Elevation of levels of liver transaminase levels] Unclassified (1 source) Ventricular tachycardia, unspecified; Translations: [Ventricular tachycardia, unspecified] Onset: 12-05-2023 Varicose veins of lower extremity (19 sources) Pain co-occurrent and due to varicose [...] Onset: 06-07-2015 Episodic Diabetes mellitus without complication (15 sources) Impaired fasting glycemia; Translations: [Impaired fasting [...] Elevated transaminase level; Translations: [Elevated transaminase level] Unclassified (1 source) Ventricular tachycardia, unspecified; Translations: [Ventricular tachycardia, unspecified] Onset: 12-05-2023 Results Test Name Value Interpretation Reference Range Facil ity Office Visiton 12-05-2023 Follow-up visit [id number] Wilbert Uriarte 1960 M Date Provider Department Center 12/05/2023 [id number] MIDDLETON CARD Roseanne Hos Family History Problem Relation Age of Onset No Known Problems Mother No Known Problems Father Family Status - Relation Status Age at Mother Father Level of Service:87081 [place] OFFICE/OUTPATIENT NEW MODERATE MDM 45 MINUTES Reason for Visit and Comments: Bradycardia [803165] Abdominal aortic aneurysm [Other] - Denies chest pain and SOB. Goes to the gym 3 days a week. Hypertension [693781] - On amlodipine and losartan. PVC's [Other] - Wore Holter monitor in August for skipped beats per patient. On metoprolol. Denies feeling palpitations. Had echo last month. Normal [facility] Globulin Calc (S) [Mass/Vol] on 10-04-2023 Globulin (S) [Mass/Vol] 3.6 g/dL [facility] - Chemistry and C hemistry - challengeon 10-04-2023 Albumin [Mass/Vol] 4.3 g/dL 3.4-5.0 [facility] ALP [Catalytic activity/Vol] 94 U/L 46-116 [facility] ALT [Catalytic activity/Vol] 45 U/L 16-63 [facility] AST [Catalytic activity/Vol] 35 U/L 15-37 [facility] Bilirubin [Mass/Vol] 0.6 mg/dL 0.2-1.0 [facility] Bilirubin.direct [Mass/Vol] 0.1 mg/dL 0.0-0.2 [facility] Protein [Mass/Vol] 7.9 g/dL 6.4-8.2 [facility] Serum or plasma albumin/glob ulin mass ratioon 10-04-2023 Albumin/Globulin [Mass ratio] 1.2 {ratio} [facility] TESTOSTERONE, TOTALon 2022 Testosterone [Mass/Vol] 862 ng/dL Normal 264-916 [facility] Comment on above: Result Comment: Adul t male reference interval is based on a population of healthy nonobese males (BMI <30) between 19 and 39 years old. yonny Holder.al. JCEM 2017,102;8646-1828. PMID: [id number]. Performed By: #### T ESTTOT #### [facility] [address] [place] [address] Dr. Chapo Posey SGOTon 04-18-2022 AST [Catalytic activity/Vol] 26 U/L Normal 15-[address] [facility] Comment on above: Performed By: #### A LT, AST #### [facility] [address] [place] [address] Dr. Chapo Posey SGPTon 04-18-2022 ALT [Catalytic activity/Vol] 30 U/L Normal 16-63 [facility] Comment on above: Performed By: #### A LT, AST #### [facility] [address] [place] [address] Dr. Chapo Posey CBC AUTO DIFFon 04-05-2022 BASO # 0.1 103/ul Normal 0.0-0.[address] [facility] Comment on above: Performed By: #### D ATCBC #### [facility] [address] [place] [address] Dr. Chapo Posey Basophils/100 WBC (Bld) 1.0 % Normal 0.2-2.0 [facility] Comment on above: Performed By: #### D ATCBC #### [facility] [address] [place] [address] Dr. Chapo Posey EO # 0.1 103/ul Normal 0.0-0.7 [facility] Comment on above: Performed By: #### D ATCBC #### [facility] [address] [place] [address] Dr. Chapo Posey Eosinophils/100 WBC (Bld) 2.5 % Normal 0.9-7.0 [facility] Comment on above: Performed By: #### D ATCBC #### [facility] [address] [address] [address] Chapo Posey Erythrocyte distribution width (RBC) [Ratio] 13.2 % Normal 11.0-15.[address] [facility] Comment on above: Performed By: #### D ATCBC #### [facility] [address] [place] [address] Dr. Chapo Posey Hematocrit (Bld) [Volume fraction] 46.3 % Normal 42.0-54.[address] [facility] Comment on above: Performed By: #### D ATCBC #### [facility] [address] [place] [address] Dr. Chapo Posey Hemoglobin (Bld) [Mass/Vol] 15.2 g/dL Normal 14.0-18.[address] [facility] Comment on above: Performed By: #### D ATCBC #### [facility] [address] [place] [address] Dr. Chapo Posey IG # 0.03 10e3/ul Normal 0.00-0.[address] [facility] Comment on above: Performed By: #### D ATCBC #### [facility] [address] [place] [address] Dr. Chapo Posey IG % 0.6 % Critically high 0.0-0.5 [facility] Comment on above: Performed By: #### D ATCBC #### [facility] [address] [place] [address] Dr. Chapo Posey LYMPH # 1.8 103/ul Normal 1.2-3.8 [facility] Comment on above: Performed By: #### D ATCBC #### [facility] [address] [place] [address] Dr. Chapo Posey Lymphocytes/100 WBC (Bld) 36.8 % Normal 20.5-60.[address] [facility] Comment on above: Performed By: #### D ATCBC #### [facility] [address] [place] [address] Dr. Chapo Posey MCH (RBC) [Entitic mass] 31.0 pg Normal 25.9-34.[address] [facility] Comment on above: Performed By: #### D ATCBC #### [facility] [address] [address] [address] Chapo Posey MCHC (RBC) [Mass/Vol] 32.8 g/dL Normal 29.9-35.2 [facility] Comment on above: Performed By: #### D ATCBC #### [facility] [address] [place] [address] Dr. Chapo Posey MCV (RBC) [Entitic vol] 94.3 fL Critically high 80.0-94.[address] [facility] Comment on above: Performed By: #### D ATCBC #### [facility] [address] [place] [address] Dr. Chapo Posey MONO # 0.5 103/ul Normal 0.3-0.[address] [facility] Comment on above: Performed By: #### D ATCBC #### [facility] [address] [place] [address] Dr. Chapo Posey Monocytes/100 WBC (Bld) 9.7 % Normal 1.7-12.[address] [facility] Comment on above: Performed By: #### D ATCBC #### [facility] [address] [place] [address] Dr. Chapo Posey NEUT # 2.4 103/ul Normal 1.4-6.5 [facility] Comment on above: Performed By: #### D ATCBC #### [facility] [address] [place] [address] Dr. Chapo Posey Neutrophils/100 WBC (Bld) 49.4 % Normal 43.0-75.0 [facility] Comment on above: Performed By: #### D ATCBC #### [facility] [address] [place] [address] Dr. Chapo Posey Platelet mean volume (Bld) [Entitic vol] 10.3 fL Normal 9.5-13.5 [facility] Comment on above: Performed By: #### D ATCBC #### [facility] [address] [place] [address] Dr. Chapo Posey PLT 197 103/ul Normal 150-450 [facility] Comment on above: Performed By: #### D ATCBC #### [facility] [address] [address] [address] Chapo Posey RBC 4.91 106/ul Normal 4.70-6.[address] [facility] Comment on above: Performed By: #### D ATCBC #### [facility] [address] [place] [address] Dr. Chapo Posey WBC 4.9 103/ul Normal 4.0-11.[address] [facility] Comment on above: Performed By: #### D ATCBC #### [facility] [address] [place] [address] Dr. Chapo Posey FRANCISCO JAVIER- BMP WITH LIPIDon 2022 Anion gap [Moles/Vol] 10.5 mmol/L Normal [facility] Comment on above: Performed By: #### D ATBMP, DATPSA #### [facility] [address] [place] [address] Dr. Chapo Posey Calcium [Mass/Vol] 10.0 mg/dL Normal 8.5-10.1 [facility] Comment on above: Performed By: #### D ATBMP, DATPSA #### [facility] [address] [place] [address] Dr. Chapo Posey Chloride [Moles/Vol] 103 mmol/L Normal 98-[address] [facility] Comment on above: Performed By: #### D ATBMP, DATPSA #### [facility] [address] [place] [address] Dr. Chapo Posey Cholesterol [Mass/Vol] 185 mg/dL Normal <=200 [facility] Comment on above: Performed By: #### D ATBMP, DATPSA #### [facility] [address] [place] [address] Dr. Chapo Posey Cholesterol in HDL [Mass/Vol] 46 mg/dL Normal 40-[address] [facility] Comment on above: Performed By: #### D ATBMP, DATPSA #### [facility] [address] [place] [address] Dr. Chapo Posey Cholesterol in LDL [Mass/Vol] 115.2 mg/dL Normal [facility] Comment on above: Performed By: #### D ATBMP, DATPSA #### [facility] [address] [address] [address] Chapo Posey CO2 [Moles/Vol] 29.9 mmol/L Normal 21.0-32.0 [facility] Comment on above: Performed By: #### D ATP, DATPSA #### [facility] [address] [address] [address] Chapo Posey Creatinine [Mass/Vol] 1.13 mg/dL Normal 0.70-1.[address] [facility] Comment on above: Performed By: #### D ATJeffrey, DATPSA #### [facility] [address] [address] [address] Chapo Posey EGFR-AF GEORGIAN >60 Normal >=60 [facility] Comment on above: Performed By: #### D ATJeffrey, DATPSA #### [facility] [address] [address] [address] Chapo Posey EGFR-NON AF GEORGIAN >60 Normal >=[address] [facility] Comment on above: Performed By: #### D ATJeffrey, DATPSA #### [facility] [address] [address] [address] Chapo Posey Glucose [Mass/Vol] 95 mg/dL Normal 74-106 [facility] Comment on above: Performed By: #### D ATJeffrey, DATPSA #### [facility] [address] [address] [address] Chapo Posey HDL NORMAL > or = 60 mg/dl - LOW CARDIOVASCULAR RISK <40 mg/dl - HIGH CARDIOVASCULAR RISK Normal [facility] Comment on above: Performed By: #### D ATP, DATPSA #### [facility] [address] [place] [address] Dr. Chapo Posey LDL CALC NORMAL SEE BELOW Normal [facility] Comment on above: Result Comment: <100 mg/dl OPTIMAL 100 - 129 mg/dl NEAR OR ABOVE OPTIMAL 130 - 159 mg/dl BORDERLINE HIGH 160 - 189 mg/dl HIGH >190 mg/dl VERY HIGH Performed By: #### D ATWALDO DATPSA #### [facility] [address] [place] [address] Dr. Chapo Posey Potassium [Moles/Vol] 4.4 mmol/L Normal 3.5-5.[address] [facility] Comment on above: Performed By: #### D ATWALDO DATPSA #### [facility] [address] [place] [address] Dr. Chapo Posey Sodium [Moles/Vol] 139 mmol/L Normal 136-145 [facility] Comment on above: Performed By: #### D ATWALDO DATPSA #### [facility] [address] [place] [address] Dr. Chapo Posey Triglyceride [Mass/Vol] 119 mg/dL Normal <=[address] [facility] Comment on above: Performed By: #### D ATWALDO DATPSA #### [facility] [address] [place] [address] Dr. Chapo Posey Urea nitrogen [Mass/Vol] 28.0 mg/dL Critically high 7.0-18.[address] [facility] Comment on above: Performed By: #### D ATJeffrey DATPSA #### [facility] [address] [place] [address] Dr. Chapo Posey Urea nitrogen/Creatinin e [Mass ratio] 24.8 mg/mg Normal [facility] Comment on above: Performed By: #### D ATJeffrey DATPSA #### [facility] [address] [place] [address] Dr. Chapo Posey VLDL CALC 23.8 mg/dL Normal [facility] Comment on above: Performed By: #### D ATWALDO DATPSA #### [facility] [address] [place] [address] Dr. Chapo Posey Vital Signs Date Time Vital Sign Value Performing Clinician Facility 10-17-2023 09:080400 Body height 194.31 cm DO Umesh Almazan Work Phone: [facility] 10-17-2023 09:08-0400 Body mass index (BMI) [Ratio] 25 kg/m2 DO Umesh Ball Work Phone: [facility] 10-17-2023 09:08-0400 Body weight 94.37 kg DO Umesh Ball Work Phone: [facility] 10-17-2023 09:08-0400 Diastolic blood pressure 78 mm[Hg] DO Umesh Ball Work Phone: [facility] 10-17-2023 09:08-0400 Diastolic blood pressure 89 mm[Hg] DO Umseh Ball Work Phone: [facility] 10-17-2023 09:08-0400 Heart rate 69 /min DO Umesh Ball Work Phone: [facility] 10-17-2023 09:08-0400 Respiratory rate 12 /min DO Umesh Ball Work Phone: [facility] 10-17-2023 09:08-0400 Systolic blood pressure 145 mm[Hg] DO Umesh Ball Work Phone: [facility] 10-17-2023 09:08-0400 Systolic blood pressure 139 mm[Hg] DO Umesh Ball Work Phone: [facility] 10-11-2023 09:26-0400 Body height 194.31 cm DO Umesh Ball Work Phone: [facility] 10-11-2023 09:26-0400 Body mass index (BMI) [Ratio] 25 kg/m2 DO Umesh Ball Work Phone: [facility] 10-11-2023 09:26-0400 Body weight 94.34 kg DO Umesh Ball Work Phone: [facility] 10-11-2023 09:26-0400 Diastolic blood pressure 96 mm[Hg] DO Umesh Ball Work Phone: [facility] 10-11-2023 09:26-0400 Heart rate 59 /min DO Umesh Ball Work Phone: [facility] 10-11-2023 09:26-0400 Respiratory rate 12 /min DO Umesh Ball Work Phone: [facility] 10-11-2023 09:26-0400 Systolic blood pressure 150 mm[Hg] DO Umesh Ball Work Phone: [facility] 08-10-2023 11:43-0400 Body height 194.[address] [facility] 08-10-2023 11:43-0400 Body mass index (BMI) [Ratio] 30.1 kg/m2 [facility] 08-10-2023 11:43-0400 Body weight 113.[address] [facility] 08-10-2023 11:43-0400 Diastolic blood pressure 83 mm[Hg] [facility] 08-10-2023 11:43-0400 Heart rate 44 /min [facility] 08-10-2023 11:43-0400 Respiratory rate 12 /min [facility] 08-10-2023 11:43-0400 Systolic blood pressure 161 mm[Hg] [facility] 06-19-2023 11:20-0400 Body height 194.[address] [facility] 06-19-2023 11:20-0400 Body mass index (BMI) [Ratio] 24.6 kg/m2 [facility] 06-19-2023 11:20-0400 Body weight 92.[address] [facility] 06-19-2023 11:20-0400 Diastolic blood pressure 80 mm[Hg] [facility] 06-19-2023 11:20-0400 Heart rate 48 /min [facility] 06-19-2023 11:20-0400 SaO2% (BldA) [Mass fraction] 98 % [facility] 06-19-2023 11:20-0400 Systolic blood pressure 130 mm[Hg] [facility] 04-30-2023 08:59-0400 Body height 194.[address] [facility] 04-30-2023 08:59-0400 Body mass index (BMI) [Ratio] 24.4 kg/m2 [facility] 04-30-2023 08:59-0400 Body weight 92.[address] [facility] 04-30-2023 08:59-0400 Diastolic blood pressure 77 mm[Hg] [facility] 04-30-2023 08:59-0400 Heart rate 41 /min [facility] 04-30-2023 08:59-0400 Respiratory rate 12 /min [facility] 04-30-2023 08:59-0400 Systolic blood pressure 152 mm[Hg] [facility] 04-25-2022 10:30-0400 Body height 193.04 cm Umesh Ball Other [facility] [employer] Other 04-25-2022 10:30-0400 Body mass index (BMI) [Ratio] 24.1 kg/m2 Umesh Ball Other [facility] [employer] Other 04-25-2022 10:30-0400 Body weight 89.81 kg Umesh Ball Other [facility] [employer] Other 04-25-2022 10:30-0400 Diastolic blood pressure 71 mm[Hg] Umesh Ball Other [facility] [employer] Other 04-25-2022 10:30-0400 Respiratory rate 12 /min Umesh Ball Other [facility] [employer] Other 04-25-2022 10:30-0400 Systolic blood pressure 148 mm[Hg] Umesh Ball Other [facility] [employer] Other 10-02-2020 09:51-0400 Diastolic blood pressure 85 mm[Hg] DO Umesh Ball Work Phone: [facility] 10-02-2020 09:51-0400 Heart rate 69 /min DO Umesh Ball Work Phone: [facility] 10-02-2020 09:51-0400 Respiratory rate 18 /min DO Umesh Ball Work Phone: [facility] 10-02-2020 09:51-0400 SaO2% (BldA) [Mass fraction] 96 % DO Umesh Ball Work Phone: [facility] 10-02-2020 09:51-0400 Systolic blood pressure 144 mm[Hg] DO Umesh Ball Work Phone: [facility] 10-02-2020 09:07-0400 Body height 194.31 cm DO Umesh Ball Work Phone: [facility] 10-02-2020 09:07-0400 Body mass index (BMI) [Ratio] 25.1 kg/m2 DO Umesh Ball Work Phone: [facility] 10-02-2020 09:07-0400 Body weight 95 kg DO Umesh Ball Work Phone: [facility] 10-02-2020 09:00-0400 Body temperature 98.2 [degF] DO Umesh Ball Work Phone: [facility] Encounters Encounter Date Encounter Type Care Provider Facility Start: 12-05-2023 End: 12-05-2023 ambulatory [facility] Start: 11-21-2023 End: 11-21-2023 ambulatory DO Umesh Ball Work Phone: [facility] Work Phone: Start: 11-21-2023 End: 11-21-2023 Patient encounter procedure DO Umesh Ball Work Phone: [facility] Work Phone: Start: 10-17-2023 End: 10-17-2023 ambulatory DO Umesh Ball Work Phone: [facility] Work Phone: Start: 10-17-2023 End: 10-17-2023 Patient encounter procedure DO Umesh Ball Work Phone: [facility] Work Phone: Start: 10-11-2023 End: 10-11-2023 ambulatory DO Umesh Ball Work Phone: [facility] Work Phone: Start: 10-11-2023 End: 10-11-2023 Patient encounter procedure DO Umesh Ball Work Phone: [facility] Work Phone: Start: 10-04-2023 Non-patient / Non-visit DO Radu fournier Ball Work Phone: [facility] Work Phone: Start: 09-17-2023 Non-patient / Non-visit DO Radu Almazan Work Phone: [facility] Work Phone: Start: 08-24-2023 End: 08-24-2023 ambulatory DO Umesh Almazan Work Phone: [facility] Work Phone: Start: 08-24-2023 End: 08-24-2023 Patient encounter procedure DO Umesh Almazan Work Phone: [facility] Start: 08-10-2023 End: 08-10-2023 ambulatory [facility] Work Phone: Start: 08-10-2023 End: 08-10-2023 Patient encounter procedure [facility] Work Phone: Start: 06-19-2023 End: 06-19-2023 Patient encounter procedure [facility] Work Phone: Start: 04-30-2023 End: 04-30-2023 ambulatory [facility] Work Phone: Start: 04-30-2023 End: 04-30-2023 Encounter for general adult medical examination without abnormal findings [facility] Start: 04-30-2023 End: 04-30-2023 Patient encounter procedure [facility] Work Phone: Start: 03-19-2023 End: 03-19-2023 ambulatory Umseh Flavio Other [employer] Other Start: 03-19-2023 Nursing evaluation o f patient and report Umesh Almazan [facility] Start: 03-14-2023 End: 03-14-2023 ambulatory Umesh Ball Other [facility] Other Start: 03-14-2023 Telephone encounter Umesh Almazan [facility] Start: 12-20-2022 End: 12-20-2022 ambulatory Umesh Ball Other [facility] Other Start: 12-20-2022 Telephone encounter Umesh Almazan [facility] [employer] [employer] Start: 12-19-2022 End: 12-19-2022 ambulatory Umesh Almazan Other [facility] Other Start: 12-19-2022 Telephone encounter Umesh Almazan [facility] Start: 11-28-2022 End: 11-28-2022 ambulatory Umesh Ball Other [facility] Other Start: 11-28-2022 Nursing evaluation o f patient and report Umesh Almazan [facility] Start: 11-22-2022 End: 11-22-2022 ambulatory Umesh Ball Other [facility] Other Start: 11-22-2022 Office outpatient vi sit 15 minutes Umesh Ball [facility] Start: 11-22-2022 Telephone encounter Umesh Almazan [facility] Start: 11-16-2022 End: 11-16-2022 ambulatory Umesh Ball Other [facility] Other Start: 11-16-2022 Office outpatient vi sit 15 minutes Umesh Ball [facility] Start: 11-08-2022 End: 11-08-2022 ambulatory Umesh Ball Other [facility] Other Start: 11-08-2022 Nursing evaluation o f patient and report Umesh Ball [facility] Start: 05-25-2022 End: 05-25-2022 ambulatory Umesh Almazan Other [facility] Other Start: 05-25-2022 Nursing evaluation o f patient and report Umesh Almazan [facility] Start: 04-28-2022 End: 04-29-[address] UMESH ALMAZAN Facility:[facility] Start: 04-25-2022 End: 04-25-2022 ambulatory Umesh Almazan Other [facility] Other Start: 04-25-2022 Encounter for genera l adult medical examination without abnormal findings Umesh Almazan [facility] Start: 04-25-2022 Periodic preventive med est patient 40-64yrs Umesh Almazan [facility] Start: 04-25-2022 Telephone encounter Umesh Almazan [facility] Start: 04-18-2022 Telephone encounter Umesh Almazan [facility] Start: 04-18-2022 End: 04-19-[address] UMESH ALMAZAN [facility] [employer] Other Start: 04-05-2022 End: 04-06-[address] RIOS LISTED REQUEST Facility:[facility] Start: 01-10-2022 Adult health examination Umesh Almazan Other [facility] Other Start: 05-28-2021 End: 05-28-2021 Departed Referred DO Umesh Almazan Work Phone: [facility] Start: 05-17-[address] UMESH ALMAZAN Facili ty:[facility] Start: 10-02-2020 End: 10-02-2020 Emergency department patient visit DO Umesh Almazan Work Phone: [facility] Procedures Date Procedure Procedure Detail Performing Clinician Start: 04-05-[address] ANAND ALMAZAN Comment on above: Performed By: #### D ATBMP, DATPSA #### [facility] [address] [place] [address] Dr. Chapo Posey Start: 01-27-2016 Replacement of [...] Care Activity Detail Author Hepatic function panel [facility] Patient Education [facility] Patient referral [facility] XR Knee - right 4 Views [facility] XR Lumbar spine Views [facility] Immunizations Immunization Date Immunization Notes Care Provider Fa lolis 11-28-2022 influenza, injectabl e, quadrivalent, preservative free Umesh Almazan Other [facility] 11-22-2021 influenza virus vaccine, split virus (incl. purified surface antigen) Umesh Almazan Other [facility] [employer] Other 11-22-2021 influenza virus vaccine, unspecified formulation [facility] 11-22-2021 influenza, injectabl e, quadrivalent, preservative free [facility] 11-22-2021 influenza, injectabl e, quadrivalent, contains preservative Umesh Almazan Other [facility] [employer] Other 11-04-2020 influenza virus vaccine, split virus (incl. purified surface antigen) Umesh Almazan Other [facility] [employer] Other 11-04-2020 influenza virus vaccine, unspecified formulation [facility] 05-11-2020 COVID-19 Vaccine Pfi zer - Documentation Purposes Only Umesh Almazan Other [facility] 04-19-2020 COVID-19 Vaccine Pfi zer - Documentation Purposes Only Umesh Almazan Other [facility] 12-03-2019 influenza virus vaccine, split virus (incl. purified surface antigen) Umesh Flavio Other [facility] Other 12-03-2019 influenza virus vaccine, unspecified formulation [facility] 12-18-2018 influenza virus vaccine, split virus (incl. purified surface antigen) Umesh Almazan Other [employer] [facility] [employer] Other 12-18-2018 influenza virus vaccine, unspecified formulation [facility] 12-11-2017 influenza virus vaccine, split virus (incl. purified surface antigen) Umesh Almazan Other [facility] [employer] Other 12-11-2017 influenza virus vaccine, unspecified formulation [facility] 11-21-2016 tetanus and diphther ia toxoids, adsorbed, preservative free, for adult use (5 Lf of tetanus toxoid and 2 Lf of diphtheria toxoid) Umesh Flavio Other [facility] 11-11-2012 tetanus and diphther ia toxoids, adsorbed, preservative free, for adult use (5 Lf of tetanus toxoid and 2 Lf of diphtheria toxoid) Umesh Flavio Other [facility] 10-10-2001 diphtheria, tetanus toxoids and acellular pertussis vaccine, unspecified formulation Umesh Flavio Other [facility] Payers Date Payer Category Payer Medicare [id number] 1961 Self-pay [id number] 1961 Unknown [id number] 1960 Unknown [id number] 1960 Unknown [id number] [id number] 1960 Unknown [id number] [id number] Medicare Medicare [id number] Private Health Insurance [id number] Unknown [id number] [id number] Unknown [facility] [id number] Social History Date Type Detail Facility Start: 10-02-2020 End: 06-19-2023 Tobacco smoking status MEIS Ex-smoker (finding) [facility] Start: 1960 Sex Assigned At Male F [facility] Sex Assigned At Sex Assigned At Bir th [facility] [employer] Other Clinical Notes 10-02-2020 to 12-05-2023 Note Date & Type Note Facility 12-05-2023 Note [facility] Note Reason for cardiology consult: Bradycardia Chief Complaint: None HPI: Wilbert Uriarte is a 63 y.o. male without prior cardiac history however he has history of hypertension and hyperlipidemia and arthritis. He was noted to be bradycardia, therefore 3-day Holter monitor was obtained and it showed frequent PVCs with burden of 23% with few short nonsustained ventricular tachycardia 3-5 beats, all asymptomatic. His electrolytes were normal. His echo showed normal left ventricular systolic function. The patient states that he is physically very active and he goes to the gym 3 times a week he exercises on bicycle, he used to do elliptical however since his right knee arthritis he cut down on that. He denies any chest pain or shortness of breath at rest or with exertion. Denies orthopnea or paroxysmal nocturnal dyspnea. He denies any dizziness or syncope or near syncope. Denies palpitations. Denies legs edema or discomfort on exertion except was related to right knee arthritis. 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 He denies any illicit drugs. He denies any history of coronary artery disease or sudden cardiac or cardiac arrhythmia in his family. Cardiology ROS: GENERAL: Denies fever, chills, night sweats, weight loss. HEENT: Denies changes in vision, photophobia, changes in hearing, epistaxis, oral bleeding. CARDIOVASCULAR: Denies chest pain, exertional dyspnea, orthopnea/PND, lower extremity edema, palpitations, lightheadedness/dizziness. RESPIRATORY: Denies SOB, coughing, wheezing GI: Denies abdominal pain, nausea/vomiting, heartburn, melena/hematochezia. RENAL: Denies dysuria, hematuria, flank pain. MSK: Denies muscle weakness/pain, arthralgias/joint pain. NEUROLOGIC: Denies LOC, weakness, numbness, headaches. SKIN: Denies abnormal rashes or bleeding. PSYCH: Denies significant anxiety, depression, sleep disturbances. Past Medical History He has a past medical history of Abnormal ECG, Aneurysm (CMS/HCC), Arrhythmia, Asthma, Hyperlipidemia, and Hypertension. Surgical History He has a past surgical history that includes Total knee arthroplasty. Social History He reports that he has never smoked. He has never used smokeless tobacco. He reports that he does not currently use alcohol. No history on file for drug use. Family History Family History Problem Relation Name Age of Onset No Known Problems Mother No Known Problems Father Allergies Patient has no known allergies. Medications Current Outpatient Medications: allopurinol (Zyloprim) 300 mg tablet, Take 300 mg by mouth in the morning., Disp: , Rfl: amLODIPine (Norvasc) 5 mg tablet, Take 5 mg by mouth in the morning., Disp: , Rfl: losartan (Cozaar) 100 mg tablet, Take 100 mg by mouth in the morning., Disp: , Rfl: metoprolol succinate XL (Toprol-XL) 25 mg 24 hr tablet, Take 25 mg by mouth in the morning., Disp: , Rfl: Last Recorded Vitals Visit Vitals BP 140/84 (BP Location: Right arm, Patient Position: Sitting) Pulse 59 Ht 1.93 m (6' 4 ) Wt 93 kg (205 lb) SpO2 97% BMI 24.95 kg/m??? Smoking Status Never BSA 2.23 m??? Physical Examination: GENERAL: alert and oriented x3, well developed, in no acute distress. HEAD: atraumatic, normocephalic. EYES: GINA, EOMI. NECK: trachea midline, no JVD present, no carotid bruits present. CARDIAC: S1, S2 present. RRR with frequent ectopy sometimes every third or fourth beat. No murmur, rubs, or gallops. RESPIRATORY: CTAB, no increased effort of breathing, no rales, rhonchi, or wheezing. ABDOMEN: soft, nontender, nondistended. EXTREMITIES: no lower extremity edema, varicose veins noted bilaterally. No rash/skin discoloration present. NEURO: strength/sensation equal and symmetric in bilateral upper and lower extremities. PSYCH: appropriate mood, affect, and judgement. Labs: 03/21/2023 White blood count 7.7 hemoglobin 14.8, hematocrit 46.2 platelets 190 Sodium 141, potassium 4.1, BUN 28, creatinine 1.24, GFR above 60, glucose 102, calcium 9.6 Total bilirubin 0.8, AST 22, ALT 32, alk phos 76, total protein 8.2, Triglyceride 171, cholesterol 190, LDL 111, HDL 45 10/04/2023 Total bilirubin 0.6, AST 35, ALT 45, alk phos 94, total protein 7.9, albumin 4.3 TSH 3.82 Last Images: EKG today 12/05/2023 showed sinus bradycardia with frequent PVCs, left axis deviation, possible old septal infarct EKG 08/27/2023 sinus rhythm with frequent PVCs in bigeminal pattern, heart rate 69 bpm, possible old septal infarct Echo 10/15/2023 Echo 05/28/2021 3-day Holter study 09/04/2022 Assessment and Plan: Bradycardia, sinus, asymptomatic mostly during sleeping hours PVCs and nonsustained ventricular tachycardia noted on 3-d (more content not included)... [facility] 03-19-2023 Evaluation note Encounter Date Diagnosis Assessment Notes Mar, Seasonal allergic rhinitis due to pollen (ICD-10 - J30.1) [facility] Other 10-18-2023 Evaluation note* Encounter Date Diagnosis [...] ear (ICD-10 - H90.42) Suspected, check audiogram [facility] Other 10-18-2023 Evaluation note* Encounter Date Diagnosis Assessment Notes Treatment Notes Treatment Clinical Notes Nov, Mild intermittent asthma with acute exacerbation (ICD-10 - J45.21) [facility] Other 10-12-2023 Evaluation note* Encounter Date Diagnosis [...] ER for increased cough, SOB or CP [facility] Other 10-04-2023 Evaluation note* Encounter Date Diagnosis Assessment Notes Treatment Notes Treatment Clinical Notes Nov, Seasonal allergic rhinitis due to pollen (ICD-10 - J30.1) [facility] Other 04-20-2023 Evaluation note* Encounter Date Diagnosis Assessment Notes Treatment Notes Treatment Clinical Notes May, Seasonal allergic rhinitis due to pollen (ICD-10 - J30.1) [facility] Other 03-21-2023 Evaluation note* Encounter Date Diagnosis [...] exercise for 30 minutes, 3-5 times weekly. [facility] Other 03-21-2023 Evaluation note* Encounter Date Diagnosis Assessment Notes Treatment Notes Treatment Clinical Notes Apr, Fatigue, unspecified type (ICD-10 - R53.83) [facility] Other 08-28-2021 Hospital Discharge instructions Additional Instructions [...] have swelling difficulty breathing or any other [facility]tr[facility] noteNo assessment information availableC[facility] CtrEvaluation noteNo InformationNort [employer] Other Evaluation note* Diagnosis Onset Date Resolution Status Asthma acute Elevated cholesterol acute Hypertension acute Lumbar spondylosis acute Wellness examination noneact raheel [facility] Work Phone: Evaluation note* Diagnosis Onset Date Resolution Status Essential (primary) hypertension acute High risk medication use acu te Low back pain acute Lumbar spondylosis acute [facility] Work Phone: Evaluation note* Diagnosis Onset Date Resolution Status Essential (primary) hypertension acute High risk medication use acu te Low back pain acute Lumbar spondylosis acute Obesity acute Onychomycosis acute [facility] Work Phone: Evaluation note* Diagnosis Onset Date Resolution Status Essential (primary) hypertension acute High risk medication use acu te Low back pain acute Lumbar spondylosis acute Obesity acute Onychomycosis acute Essential (primary) hypertension acute Primary osteoarthritis of right knee acute Right knee pain acute [facility] Work Phone: evaluation note* Diagnosis Onset Date Resolution Status Essential (primary) hypertension acute High risk medication use acu te Low back pain acute Lumbar spondylosis acute Obesity acute Onychomycosis acute Essential (primary) hypertension acute Primary osteoarthritis of right knee acute Right knee pain acute Essential (primary) hypertension acute Primary osteoarthritis of right knee acute Right knee pain acute [facility] Work Phone: Evaluation note* Diagnosis Onset Date Resolution Status Essential (primary) hypertension acute Primary osteoarthritis of right knee acute Right knee pain acute Essential (primary) hypertension acute Primary osteoarthritis of right knee acute Right knee pain acute [facility] Work Phone: Hisbnwp general Narrative - Reported* Type Description Date [...] COLONOSCOPY 2018 Hospitalization History SEE SURGICAL HX [facility] Other Chief Complaint and Reason for Visit [...] osteoarthritis of right knee Right knee pain Chief Complaint Back pain, spider bi te, BP concerns R00.1 R knee pain right knee injection Reason for Visit Essential (primary) hypertension High risk medication use Low back pain Lumbar spondylosis Obesity Onychomycosis Essential (primary) hypertension Primary osteoarthritis of right knee Right knee pain Essential (primary) hypertension Primary osteoarthritis of right knee Right knee pain Chief Complaint R00.1 R knee pain right knee injection Flu shot Reason for Visit Essential (primary) hypertension Primary osteoarthritis of right knee Right knee pain Essential (primary) hypertension Primary osteoarthritis of right knee Right knee pain Advance Directives No Advanced Directives Records Found [...] hearing of right ear (H90.42) Referral Organization [facility] Referring Provider First Name Umesh Referring Provider Last Name Flavio Referring Provider Specialty Internal [place] [facility] Referred Organization [facility] Referred Provider Bethanie Upton Referred Address ,[place], [place],[address] Referred Provider Specialty Ear, Nose an d Throat Referral Priority Routine General Notes Wilbert being referred for audiogram and ENT evaluation [...] content) Team Status: Inactive Member Role Status Dates Umesh Almazan DO Primary Care Provider Active Outreach [facility] Attending Provider Active Team Status: Active Member [...] 2023 Team Status: Active Member Role Status Shy Almazan DO Primary Care Provide r, Attending Provider Active Start: October 04, 2023 Team Status: Inactive Member Role Status Shy Almazan DO Primary Care Provide r, Attending Provider Active Start: October 11, 2023 End: October 11, 2023 Team Status: Inactive Member Role Status Shy Almazan DO Primary Care Provide r, Attending Provider Active Start: October 17, 2023 End: October 17, 2023 Team Status: Active Member Role Status Shy Almazan DO Primary Care Provide r, Attending Provider Active Start: September 17, 2023 Team Status: Inactive Member Role Status Dates Umesh Almazan DO Primary Care Provide r, Attending Provider Active Start: November 21, 2023 End: November 21, 2023 REASON FOR VISIT (unrecogniz ed section and content) Wellness LabsENT REFERRAL UP DATEletterFLU Shotmedicationcongestion [phone], congestion, no covid testAllergy ShotWELLNESS (unrecognized sect ion and content) No Status Records FoundNo Status Records FoundNo Status Records Found INFORMATION SOURCE (unrecogn ized section and content) DATE CREATED AUTHOR 05/01/2022 [facility] DATE CREATED AUTHOR AUTHOR'S ORGANIZ ATION 08/28/2023 [facility] DATE CREATED AUTHOR AUTHOR'S ORGANIZ ATION 12/10/2023 [facility] FOR RECORDS PERTAINING TO PATIENTS WHO ARE [...] BE BASED ON THE PRIMARY CLINICAL RECORDS. [employer] provides no warranty or guarantee of the accuracy or completeness of information in this document.
--- NOTE | 2023-12-19 08:20 | NM_ITS ---
Patient Name: WILBERT URIARTE MR#: [id number] : 1960 Exam Date: 12/19/2023 Ordering Doctor: DR. VANESSA MIDDLETON M.D. RADIOLOGY REPORT PROCEDURE: NM TAB PERF SPECT REST STR COMPARISON: None. INDICATIONS: ABNORMAL EKG TECHNIQUE: Exam Description: Rest/Stress one day protocol gated SPECT Rest Imagin.9 mCi Tc-99m Cardiolite IV on 12/19/2023 Stress Imaging 29.9 mCi Tc-99m Cardiolite IV on 12/19/2023 Exercise Protocol: Danny Heart Rate (bpm): Rest: 63 Max: 141 PMHR: 90 Blood Pressure: Rest: 136/68 Max: 174/76 Exercise Time: Minutes: 7 Seconds: 30 Stage Reached: Stage: 3 Mets 10.1 Symptoms: Rest and peak stress ECG findings were normal and the exercise portion of the study was normal per attending physician Dr. Sabillon . For more details please see separate cardiac stress test report. FINDINGS: QUALITY OF STUDY: Excellent. PERFUSION DEFECT: None. LOCATION: N/A SIZE: N/A. SEVERITY: N/A. TYPE: N/A. WALL MOTION: Normal. LV SIZE: Normal. 149 mL. TID / TCD: None; 0.8 LVEF: Normal. Calculated EF 58%. SUMMARY: Myocardial perfusion imaging study is NORMAL. CONCLUSION: 1. No acute or reversible ischemia. 2. Ventriculomegaly, 149 mL. 3. Normal left ventricle ejection fraction and wall motion. Dictated by: John Payne M.D. on 12/20/2023 at 11:02 Approved by: John Payne M.D. on 12/20/2023 at 11:05
== END 2023-12-19 07:55 | disposition home or self-care (01) ==
LOC: NM 07:55
PROVIDERS: PCP Internal Medicine; Visit Provider Internal Medicine Cardiovascular Disease
DX: R94.31 Abnormal electrocardiogram [ECG] [EKG] (principal); I47.20 Ventricular tachycardia, unspecified
CPT/HCPCS: 78452; 93017; A9500

== ENCOUNTER 2024-01-17 07:24 | Outpatient (OUT) | payer OTHER, SELFPAY ==
--- OUTSIDE RECORDS SUMMARY | 2024-01-17 07:26 | XMS_ITS | CCD ---
Author Organization [facility] Care Team Providers [employer] Driver Name Role Phone DO Umesh Almazan Primary Care Provider [phone] DO Umesh Almazan Primary Care Provider [phone] [facility], Outreach Attending Provider Umesh Almazan [...] Care Provider DO Umesh Almazan Attending Provider [phone] Umesh Almazan Attending Unavailable Ball, Umesh Primary Care Unavailable Ball, Umesh Admitting Unavailable KANEVANESSA Copeland Attending Unavailable Allergies Allergy Classification Reported Allergen(s) Allergy Type Date of Onset Reaction(s) Facility (9 sources) patient allergy list reviewed by nurse or physicia Propensity to adverse reactions 01-11-20 Comment:Done [facility] Other (2 sources) Sulfamethoxazole Drug Allergy 10-17-19 [facility] (2 sources) Trimethoprim Drug Allergy 10-17-19 [facility] Medications Current Medications Medication Drug [...] 12, 2017 2:37pm Start: 12-12-2017 End: 04-27-2023 Rjdwjevbcmnw-Cldfdyua-Twzecy (Multivitamin 50 Plus) Tablet Discontinued 1 TAB [...] Drug Class(es) Dates Sig (Normalized) Sig (Original) [id number] 200 actuat albuterol 0.09 mg/actuat metered dose [...] End: 04-27-2023 Fluticasone Propionate (Flonase) 50 mcg/actuation Lima,Suspension Discontinued 1 SPRAY INTRANASAL Daily October 02, [...] (5 sources) Drug therapy finding; Translations: [Other terminal clerk (current) drug therapy] 08-10-2023 Episodic Other aftercare (4 sources) Other terminal clerk (current) drug therapy; Translations: [Long-term (current) use [...] Facil ity Office Visiton 12-05-2023 Follow-up visit [id number] Wilbert Uriarte 1960 M Date Provider Department Center 12/05/2023 [id number] MIDDLETON CARD Roseanne Hos Family History Problem Relation Age of Onset No Known Problems Mother No Known Problems Father Family Status - Relation Status Age at Mother Father Level of Service:28801 [place] OFFICE/OUTPATIENT NEW MODERATE MDM 45 MINUTES Reason for Visit and Comments: Bradycardia [673598] Abdominal aortic aneurysm [Other] - Denies chest pain and SOB. Goes to the gym 3 days a week. Hypertension [984343] - On amlodipine and losartan. PVC's [Other] - Wore Holter monitor in August for skipped beats per patient. On metoprolol. Denies feeling palpitations. Had echo last month. Normal [facility] Globulin Calc (S) [Mass/Vol] on 10-04-2023 Globulin (S) [Mass/Vol] 3.6 g/dL Laboratory - Chemistry and C hemistry - challengeon 10-04-2023 Albumin [Mass/Vol] 4.3 g/dL 3.4-5.0 [facility] ALP [Catalytic activity/Vol] 94 U/L 46-116 ALT [Catalytic activity/Vol] 45 U/L 16-63 AST [Catalytic activity/Vol] 35 U/L 15-37 Bilirubin [Mass/Vol] 0.6 mg/dL 0.2-1.0 Bilirubin.direct [Mass/Vol] 0.1 mg/dL 0.0-0.2 Protein [Mass/Vol] 7.9 g/dL 6.4-8.2 [facility] Serum or plasma albumin/glob ulin mass ratioon 10-04-2023 Albumin/Globulin [Mass ratio] 1.2 {ratio} TESTOSTERONE, TOTALon 2022 Testosterone [Mass/Vol] 862 ng/dL Normal 264-916 [facility] Comment on above: Result Comment: Adul t male reference interval is based on a population of healthy nonobese males (BMI <30) between 19 and 39 years old. yonny Holder.al. JCEM 2017,102;2629-4100. PMID: [id number]. Performed By: #### T ESTTOT #### [facility] [address] [place] [address] Dr. Chapo Posey SGOTon 04-18-2022 AST [Catalytic activity/Vol] 26 U/L Normal 15-37 [facility] Comment on above: Performed By: #### A LT, AST #### [facility] [address] [place] [address] Dr. Chapo Posey SGPTon 04-18-2022 ALT [Catalytic activity/Vol] 30 U/L Normal 16-63 [facility] Comment on above: Performed By: #### A LT, AST #### [facility] [address] [place] [address] Dr. Chapo Posey CBC AUTO DIFFon 04-05-2022 BASO # 0.1 103/ul Normal 0.0-0.1 [facility] Comment on above: Performed By: #### D ATCBC #### [facility] [address] [place] [address] Dr. Chapo Posey Basophils/100 WBC (Bld) 1.0 % Normal 0.2-2.0 [facility] Comment on above: Performed By: #### D ATCBC #### [facility] [address] [place] [address] Dr. Chapo Posey EO # 0.1 103/ul Normal 0.0-0.7 [facility] Comment on above: Performed By: #### D ATCBC #### [facility] [address] [place] [address] Dr. Chapo Posey Eosinophils/100 WBC (Bld) 2.5 % Normal 0.9-7.0 [facility] Comment on above: Performed By: #### D ATCBC #### [facility] [address] [address] [address] Chapo Posey Erythrocyte distribution width (RBC) [Ratio] 13.2 % Normal 11.0-15.0 [facility] Comment on above: Performed By: #### D ATCBC #### [facility] [address] [place] [address] Dr. Chapo Posey Hematocrit (Bld) [Volume fraction] 46.3 % Normal 42.0-54.0 [facility] Comment on above: Performed By: #### D ATCBC #### [facility] [address] [place] [address] Dr. Chapo Posey Hemoglobin (Bld) [Mass/Vol] 15.2 g/dL Normal 14.0-18.0 [facility] Comment on above: Performed By: #### D ATCBC #### [facility] [address] [place] [address] Dr. Chapo Posey IG # 0.03 10e3/ul Normal 0.00-0.03 [facility] Comment on above: Performed By: #### D ATCBC #### [facility] [address] [place] [address] Dr. Chapo Posey IG % 0.6 % Critically high 0.0-0.5 [facility] Comment on above: Performed By: #### D ATCBC #### [facility] [address] [place] [address] Dr. Chapo Posey LYMPH # 1.8 103/ul Normal 1.2-3.8 [facility] Comment on above: Performed By: #### D ATCBC #### [facility] [address] [place] [address] Dr. Chapo Posey Lymphocytes/100 WBC (Bld) 36.8 % Normal 20.5-60.0 [facility] Comment on above: Performed By: #### D ATCBC #### [facility] [address] [place] [address] Dr. Chapo Posey MCH (RBC) [Entitic mass] 31.0 pg Normal 25.9-34.0 [facility] Comment on above: Performed By: #### D ATCBC #### [facility] [address] [address] [address] Chapo Posey MCHC (RBC) [Mass/Vol] 32.8 g/dL Normal 29.9-35.2 [facility] Comment on above: Performed By: #### D ATCBC #### [facility] [address] [place] [address] Dr. Chapo Posey MCV (RBC) [Entitic vol] 94.3 fL Critically high 80.0-94.0 [facility] Comment on above: Performed By: #### D ATCBC #### [facility] [address] [place] [address] Dr. Chapo Posey MONO # 0.5 103/ul Normal 0.3-0.8 [facility] Comment on above: Performed By: #### D ATCBC #### [facility] [address] [place] [address] Dr. Chapo Posey Monocytes/100 WBC (Bld) 9.7 % Normal 1.7-12.0 [facility] Comment on above: Performed By: #### D ATCBC #### [facility] [address] [place] [address] Dr. Chapo Posey NEUT # 2.4 103/ul Normal 1.4-6.5 [facility] Comment on above: Performed By: #### D ATCBC #### [facility] [address] [place] [address] Dr. Chapo Posey Neutrophils/100 WBC (Bld) 49.4 % Normal 43.0-75.0 [facility] Comment on above: Performed By: #### D ATCBC #### [facility] [address] [place] [address] Dr. Chapo Posey Platelet mean volume (Bld) [Entitic vol] 10.3 fL Normal 9.5-13.5 [facility] Comment on above: Performed By: #### D ATCBC #### [facility] [address] [place] [address] Dr. Chapo Posey PLT 197 103/ul Normal 150-450 [facility] Comment on above: Performed By: #### D ATCBC #### [facility] [address] [address] [address] Chapo Posey RBC 4.91 106/ul Normal 4.70-6.10 [facility] Comment on above: Performed By: #### D ATCBC #### [facility] [address] [place] [address] Dr. Chapo Posey WBC 4.9 103/ul Normal 4.0-11.0 [facility] Comment on above: Performed By: #### D ATCBC #### [facility] [address] [place] [address] Dr. Chapo Posey FRANCISCO JAVIER- BMP WITH LIPIDon 2022 Anion gap [Moles/Vol] 10.5 mmol/L Normal [facility] Comment on above: Performed By: #### D ATBMP, DATPSA #### [facility] [address] [place] [address] Dr. Chapo Posey Calcium [Mass/Vol] 10.0 mg/dL Normal 8.5-10.1 [facility] Comment on above: Performed By: #### D ATBMP, DATPSA #### [facility] [address] [place] [address] Dr. Chapo Posey Chloride [Moles/Vol] 103 mmol/L Normal 98-107 [facility] Comment on above: Performed By: #### D ATBMP, DATPSA #### [facility] [address] [place] [address] Dr. Chapo Posey Cholesterol [Mass/Vol] 185 mg/dL Normal <=200 [facility] Comment on above: Performed By: #### D ATBMP, DATPSA #### [facility] [address] [place] [address] Dr. Chapo Posey Cholesterol in HDL [Mass/Vol] 46 mg/dL Normal 40-60 [facility] Comment on above: Performed By: #### D ATBMP, DATPSA #### [facility] [address] [place] [address] Dr. Chapo Posey Cholesterol in LDL [Mass/Vol] 115.2 mg/dL Normal [facility] Comment on above: Performed By: #### D ATBMP, DATPSA #### [facility] [address] [address] [address] Chapo Posey CO2 [Moles/Vol] 29.9 mmol/L Normal 21.0-32.0 [facility] Comment on above: Performed By: #### D ATP, DATPSA #### [facility] [address] [address] [address] Chapo Posey Creatinine [Mass/Vol] 1.13 mg/dL Normal 0.70-1.30 [facility] Comment on above: Performed By: #### D ATJeffrey, DATPSA #### [facility] [address] [address] [address] Chapo Posey EGFR-AF ALBANIAN >60 Normal >=60 The [facility] Comment on above: Performed By: #### D ATJeffrey, DATPSA #### [facility] [address] [address] [address] Chapo Posey EGFR-NON AF ALBANIAN >60 Normal >=60 [facility] Comment on above: Performed By: #### D ATJeffrey, DATPSA #### [facility] [address] [address] [address] Chapo Posey Glucose [Mass/Vol] 95 mg/dL Normal 74-106 [facility] Comment on above: Performed By: #### D ATJeffrey, DATPSA #### [facility] [address] [address] [address] Chapo Posey HDL NORMAL > or = 60 mg/dl - LOW CARDIOVASCULAR RISK <40 mg/dl - HIGH CARDIOVASCULAR RISK Normal [facility] Comment on above: Performed By: #### D ATP, DATPSA #### [facility] [address] [place] [address] Dr. Chapo Posey LDL CALC NORMAL SEE BELOW Normal [facility] Comment on above: Result Comment: <100 mg/dl OPTIMAL 100 - 129 mg/dl NEAR OR ABOVE OPTIMAL 130 - 159 mg/dl BORDERLINE HIGH 160 - 189 mg/dl HIGH >190 mg/dl VERY HIGH Performed By: #### D ATWALDO DATPSA #### [facility] [address] [place] [address] Dr. Chapo Posey Potassium [Moles/Vol] 4.4 mmol/L Normal 3.5-5.1 [facility] Comment on above: Performed By: #### D ATWALDO DATPSA #### [facility] [address] [place] [address] Dr. Chapo Posey Sodium [Moles/Vol] 139 mmol/L Normal 136-145 [facility] Comment on above: Performed By: #### D ATWALDO DATPSA #### [facility] [address] [place] [address] Dr. Chapo Posey Triglyceride [Mass/Vol] 119 mg/dL Normal <=150 [facility] Comment on above: Performed By: #### D ATWALDO DATPSA #### [facility] [address] [place] [address] Dr. Chapo Posey Urea nitrogen [Mass/Vol] 28.0 mg/dL Critically high 7.0-18.0 [facility] Comment on above: Performed By: #### D ATJeffrey DATPSA #### [facility] [address] [place] [address] Dr. Chapo Posey Urea nitrogen/Creatinin e [Mass ratio] 24.8 mg/mg Normal [facility] Comment on above: Performed By: #### D ATJeffrey DATPSA #### [facility] [address] [place] [address] Dr. Chapo Posey VLDL CALC 23.8 mg/dL Normal [facility] Comment on above: Performed By: #### D ATWALDO DATPSA #### [facility] [address] [place] [address] Dr. Chapo Posey Vital Signs Date Time Vital Sign Value Performing Clinician Facility 10-17-2023 09:080400 Body height 194.31 cm DO Umesh Almazan Work Phone: 10-17-2023 09:08-0400 Body mass index (BMI) [Ratio] 25 kg/m2 DO Umesh Ball Work Phone: 10-17-2023 09:08-0400 Body weight 94.37 kg DO Umesh Ball Work Phone: 10-17-2023 09:08-0400 Diastolic blood pressure 78 mm[Hg] DO Umesh Ball Work Phone: 10-17-2023 09:08-0400 Diastolic blood pressure 89 mm[Hg] DO Umesh Ball Work Phone: 10-17-2023 09:08-0400 Heart rate 69 /min DO Umesh Ball Work Phone: 10-17-2023 09:08-0400 Respiratory rate 12 /min DO Umesh Ball Work Phone: 10-17-2023 09:08-0400 Systolic blood pressure 145 mm[Hg] DO Umesh Ball Work Phone: 10-17-2023 09:08-0400 Systolic blood pressure 139 mm[Hg] DO Umesh Ball Work Phone: 10-11-2023 09:26-0400 Body height 194.31 cm DO Umesh Ball Work Phone: 10-11-2023 09:26-0400 Body mass index (BMI) [Ratio] 25 kg/m2 DO Umesh Ball Work Phone: 10-11-2023 09:26-0400 Body weight 94.34 kg DO Umesh Ball Work Phone: 10-11-2023 09:26-0400 Diastolic blood pressure 96 mm[Hg] DO Umesh Ball Work Phone: 10-11-2023 09:26-0400 Heart rate 59 /min DO Umesh Ball Work Phone: 10-11-2023 09:26-0400 Respiratory rate 12 /min DO Umesh Ball Work Phone: 10-11-2023 09:26-0400 Systolic blood pressure 150 mm[Hg] DO Umesh Ball Work Phone: 08-10-2023 11:43-0400 Body height 194.31 cm [facility] 08-10-2023 11:43-0400 Body mass index (BMI) [Ratio] 30.1 kg/m2 08-10-2023 11:43-0400 Body weight 113.85 kg [facility] 08-10-2023 11:43-0400 Diastolic blood pressure 83 mm[Hg] 08-10-2023 11:43-0400 Heart rate 44 /min [facility] 08-10-2023 11:43-0400 Respiratory rate 12 /min [facility] 08-10-2023 11:43-0400 Systolic blood pressure 161 mm[Hg] 06-19-2023 11:20-0400 Body height 194.31 cm [facility] 06-19-2023 11:20-0400 Body mass index (BMI) [Ratio] 24.6 kg/m2 06-19-2023 11:20-0400 Body weight 92.98 kg [facility] 06-19-2023 11:20-0400 Diastolic blood pressure 80 mm[Hg] 06-19-2023 11:20-0400 Heart rate 48 /min [facility] 06-19-2023 11:20-0400 SaO2% (BldA) [Mass fraction] 98 % 06-19-2023 11:20-0400 Systolic blood pressure 130 mm[Hg] 04-30-2023 08:59-0400 Body height 194.31 cm [facility] 04-30-2023 08:59-0400 Body mass index (BMI) [Ratio] 24.4 kg/m2 04-30-2023 08:59-0400 Body weight 92.19 kg [facility] 04-30-2023 08:59-0400 Diastolic blood pressure 77 mm[Hg] 04-30-2023 08:59-0400 Heart rate 41 /min [facility] 04-30-2023 08:59-0400 Respiratory rate 12 /min [facility] 04-30-2023 08:59-0400 Systolic blood pressure 152 mm[Hg] 04-25-2022 10:30-0400 Body height 193.04 cm Umesh Ball Other [facility] [employer] Other 04-25-2022 10:30-0400 Body mass index (BMI) [Ratio] 24.1 kg/m2 Umesh Ball Other [facility] [employer] Other 04-25-2022 10:30-0400 Body weight 89.81 kg Umesh Ball Other [facility] [employer] Other 04-25-2022 10:30-0400 Diastolic blood pressure 71 mm[Hg] Umesh Ball Other [facility] [employer] Other 04-25-2022 10:30-0400 Respiratory rate 12 /min Umesh Ball Other [facility] [employer] Other 04-25-2022 10:30-0400 Systolic blood pressure 148 mm[Hg] Umesh Ball Other [facility] [employer] Other 10-02-2020 09:51-0400 Diastolic blood pressure 85 mm[Hg] DO Umesh Ball Work Phone: [facility] 10-02-2020 09:51-0400 Heart rate 69 /min DO Umesh Ball Work Phone: [facility] 10-02-2020 09:51-0400 Respiratory rate 18 /min DO Umesh Ball Work Phone: [facility] 10-02-2020 09:51-0400 SaO2% (BldA) [Mass fraction] 96 % DO Umesh Ball Work Phone: [facility] 10-02-2020 09:51-0400 Systolic blood pressure 144 mm[Hg] DO Umesh Ball Work Phone: [facility] 10-02-2020 09:07-0400 Body height 194.31 cm DO Umesh Ball Work Phone: [facility] 10-02-2020 09:07-0400 Body mass index (BMI) [Ratio] 25.1 kg/m2 DO Umesh Ball Work Phone: [facility] 10-02-2020 09:07-0400 Body weight 95 kg DO Umesh Ball Work Phone: [facility] 10-02-2020 09:00-0400 Body temperature 98.2 [degF] DO Umesh Ball Work Phone: [facility] Encounters Encounter Date Encounter Type Care Provider Facility Start: 12-05-2023 End: 12-05-2023 ambulatory [facility] Start: 11-21-2023 End: 11-21-2023 ambulatory DO Umesh Ball Work Phone: [facility] Work Phone: Start: 11-21-2023 End: 11-21-2023 Patient encounter procedure DO Umesh Ball Work Phone: [facility] Work Phone: Start: 10-17-2023 End: 10-17-2023 ambulatory DO Umesh Ball Work Phone: [facility] Work Phone: Start: 10-17-2023 End: 10-17-2023 Patient encounter procedure DO Umesh Ball Work Phone: [facility] Work Phone: Start: 10-11-2023 End: 10-11-2023 ambulatory DO Umesh Ball Work Phone: [facility] Work Phone: Start: 10-11-2023 End: 10-11-2023 Patient encounter procedure DO Umesh Ball Work Phone: [facility] Work Phone: Start: 10-04-2023 Non-patient / Non-visit DO Radu fournier Ball Work Phone: [facility] Work Phone: Start: 09-17-2023 Non-patient / Non-visit DO Radu Almazan Work Phone: [facility] Work Phone: Start: 08-24-2023 End: 08-24-2023 ambulatory DO Umesh Almazan Work Phone: [facility] Work Phone: Start: 08-24-2023 End: 08-24-2023 Patient encounter procedure DO Umesh Almazan Work Phone: [facility] Start: 08-10-2023 End: 08-10-2023 ambulatory [facility] Work Phone: Start: 08-10-2023 End: 08-10-2023 Patient encounter procedure [facility] Work Phone: Start: 06-19-2023 End: 06-19-2023 Patient encounter procedure [facility] Work Phone: Start: 04-30-2023 End: 04-30-[address] [facility] Work Phone: Start: 04-30-2023 End: 04-30-2023 Encounter for general adult medical examination without abnormal findings Start: 04-30-2023 End: 04-30-2023 Patient encounter procedure [facility] Work Phone: Start: 03-19-2023 End: 03-19-2023 ambulatory Umesh Flavio Other [facility] Other Start: 03-19-2023 Nursing evaluation o f patient and report Umesh Almazan [facility] Start: 03-14-2023 End: 03-14-2023 ambulatory Umesh Ball Other [facility] Other Start: 03-14-2023 Telephone encounter Umesh Almazan [facility] Start: 12-20-2022 End: 12-20-2022 ambulatory Umesh Ball Other [facility] Other Start: 12-20-2022 Telephone encounter Umesh Almazan [facility] [employer] [facility] Start: 12-19-2022 End: 12-19-2022 ambulatory Umesh Almazan Other [facility] Other Start: 12-19-2022 Telephone encounter Umesh Almazan [facility] Start: 11-28-2022 End: 11-28-2022 ambulatory Umesh Ball Other [facility] Other Start: 11-28-2022 Nursing evaluation o f patient and report Umesh Almazan [facility] Start: 11-22-2022 End: 11-22-2022 ambulatory Umesh Ball Other [facility] Other Start: 11-22-2022 Office outpatient vi sit 15 minutes Umesh Ball [facility] Start: 11-22-2022 Telephone encounter Umesh Almazan [facility] Start: 11-16-2022 End: 11-16-2022 ambulatory Umesh Ball Other [facility] Other Start: 11-16-2022 Office outpatient vi sit 15 minutes Umesh Ball [facility] Start: 11-08-2022 End: 11-08-2022 ambulatory Umesh Ball Other [facility] Other Start: 11-08-2022 Nursing evaluation o f patient and report Umesh Ball [facility] Start: 05-25-2022 End: 05-25-2022 ambulatory Umesh Almazan Other [facility] Other Start: 05-25-2022 Nursing evaluation o f patient and report Umesh Almazan [facility] Start: 04-28-2022 End: 04-29-[address] UMESH ALMAZAN Facility:[facility] Start: 04-25-2022 End: 04-25-2022 ambulatory Umesh Almazan Other [facility] Other Start: 04-25-2022 Encounter for genera l adult medical examination without abnormal findings Umesh Almazan [facility] Start: 04-25-2022 Periodic preventive med est patient 40-64yrs Umesh Almazan [facility] Start: 04-25-2022 Telephone encounter Umesh Almazan [facility] Start: 04-18-2022 Telephone encounter Umesh Almazan [facility] Start: 04-18-2022 End: 04-19-[address] UMESH ALMAZAN [facility] [employer] Other Start: 04-05-2022 End: 04-06-[address] RIOS LISTED REQUEST Facility:[facility] Start: 01-10-2022 Adult health examination Umesh Almazan Other [facility] Other Start: 05-28-2021 End: 05-28-2021 Departed Referred DO Umesh Almazan Work Phone: [facility] Start: 05-17-[address] UMESH ALMAZAN Facili ty:[facility] Start: 10-02-2020 End: 10-02-2020 Emergency department patient visit DO Umesh Almazan Work Phone: [facility]Emergency Room Procedures Date Procedure Procedure Detail Performing Clinician Start: 04-05-[address] ANAND ALMAZAN Comment on above: Performed By: #### D ATBMP, DATPSA #### [facility] [address] [place] [address] Dr. Chapo Posey Start: 01-27-2016 Replacement of [...] Activity Detail Author Hepatic function panel [facility] Patient Education [facility] Patient referral [facility] XR Knee - right 4 Views [facility] XR Lumbar spine Views [facility] Immunizations Immunization Date Immunization Notes Care Provider [place] 11-28-2022 influenza, injectabl e, quadrivalent, preservative free Umesh Almazan Other 11-22-2021 influenza virus vaccine, split virus (incl. purified surface antigen) Umesh Almazan Other [facility] [employer] Other 11-22-2021 influenza virus vaccine, unspecified formulation 11-22-2021 influenza, injectabl e, quadrivalent, preservative free 11-22-2021 influenza, injectabl e, quadrivalent, contains preservative Umesh Almazan Other [facility] [employer] Other 11-04-2020 influenza virus vaccine, split virus (incl. purified surface antigen) Umesh Almazan Other [facility] [employer] Other 11-04-2020 influenza virus vaccine, unspecified formulation 05-11-2020 COVID-19 Vaccine Pfi zer - Documentation Purposes Only Umesh Almazan Other 04-19-2020 COVID-19 Vaccine Pfi zer - Documentation Purposes Only Umesh Almazan Other 12-03-2019 influenza virus vaccine, split virus (incl. purified surface antigen) Umesh Flavio Other [facility] Other 12-03-2019 influenza virus vaccine, unspecified formulation 12-18-2018 influenza virus vaccine, split virus (incl. purified surface antigen) Umesh Almazan Other [facility] [employer] Other 12-18-2018 influenza virus vaccine, unspecified formulation 12-11-2017 influenza virus vaccine, split virus (incl. purified surface antigen) Umesh Almazan Other [facility] [employer] Other 12-11-2017 influenza virus vaccine, unspecified formulation 11-21-2016 tetanus and diphther ia toxoids, adsorbed, preservative free, for adult use (5 Lf of tetanus toxoid and 2 Lf of diphtheria toxoid) Umesh Flavio Other 11-11-2012 tetanus and diphther ia toxoids, adsorbed, preservative free, for adult use (5 Lf of tetanus toxoid and 2 Lf of diphtheria toxoid) Umesh Flavio Other 10-10-2001 diphtheria, tetanus toxoids and acellular pertussis vaccine, unspecified formulation Umesh Flavio Other Payers Date Payer Category Payer Medicare [id number] 1961 Self-pay [id number] 1961 Unknown [id number] 1960 Unknown [id number] [id number] 1960 Unknown [id number] 2.16.84 [id number] 1960 Unknown [id number] [id number] [id number] Medicare Medicare [id number] Private Health Insurance [id number] Unknown [id number] [id number] Unknown [facility] [id number] Social History Date Type Detail Facility Start: 10-02-2020 End: 06-19-2023 Tobacco smoking status NEIS Ex-smoker (finding) Start: 1960 Sex Assigned At Male F [facility] Sex Assigned At Sex Assigned At Bir th [facility] [employer] Other Clinical Notes 10-02-2020 to 12-05-2023 Note [...] noted on 3-d (more content not included)... [facility] 03-19-2023 Evaluation note Encounter Date Diagnosis Assessment Notes Mar, Seasonal allergic rhinitis due to pollen (ICD-10 - J30.1) [facility] Other 10-18-2023 Evaluation note* Encounter Date Diagnosis [...] ear (ICD-10 - H90.42) Suspected, check audiogram [employer] [facility] Other 10-18-2023 Evaluation note* Encounter Date Diagnosis Assessment Notes Treatment Notes Treatment Clinical Notes Nov, Mild intermittent asthma with acute exacerbation (ICD-10 - J45.21) [facility] Other 10-12-2023 Evaluation note* Encounter Date Diagnosis [...] ER for increased cough, SOB or CP [facility] Other 10-04-2023 Evaluation note* Encounter Date Diagnosis Assessment Notes Treatment Notes Treatment Clinical Notes Nov, Seasonal allergic rhinitis due to pollen (ICD-10 - J30.1) [facility] Other 04-20-2023 Evaluation note* Encounter Date Diagnosis Assessment Notes Treatment Notes Treatment Clinical Notes May, Seasonal allergic rhinitis due to pollen (ICD-10 - J30.1) [facility] Other 03-21-2023 Evaluation note* Encounter Date Diagnosis [...] exercise for 30 minutes, 3-5 times weekly. [facility] Other 03-21-2023 Evaluation note* Encounter Date Diagnosis Assessment Notes Treatment Notes Treatment Clinical Notes Apr, Fatigue, unspecified type (ICD-10 - R53.83) [facility] Other 08-28-2021 Hospital Discharge instructions Additional Instructions [...] have swelling difficulty breathing or any other [facility] CtrEvaluation noteNo assessment information availableOhio State University [facility] CtrEvaluation noteNo InformationNort [employer] Other Evaluation note* Diagnosis Onset Date Resolution Status Asthma acute Elevated cholesterol acute Hypertension acute Lumbar spondylosis acute Wellness examination noneact raheel [facility] Work Phone: Evaluation note* Diagnosis Onset Date Resolution Status Essential (primary) hypertension acute High risk medication use acu te Low back pain acute Lumbar spondylosis acute [facility] Work Phone: Evaluation note* Diagnosis Onset Date Resolution Status Essential (primary) hypertension acute High risk medication use acu te Low back pain acute Lumbar spondylosis acute Obesity acute Onychomycosis acute [facility] Work Phone: Evaluation note* Diagnosis Onset Date Resolution Status Essential (primary) hypertension acute High risk medication use acu te Low back pain acute Lumbar spondylosis acute Obesity acute Onychomycosis acute Essential (primary) hypertension acute Primary osteoarthritis of right knee acute Right knee pain acute [facility] Work Phone: evaluation note* Diagnosis Onset Date Resolution Status Essential (primary) hypertension acute High risk medication use acu te Low back pain acute Lumbar spondylosis acute Obesity acute Onychomycosis acute Essential (primary) hypertension acute Primary osteoarthritis of right knee acute Right knee pain acute Essential (primary) hypertension acute Primary osteoarthritis of right knee acute Right knee pain acute [facility] Work Phone: Evaluation note* Diagnosis Onset Date Resolution Status Essential (primary) hypertension acute Primary osteoarthritis of right knee acute Right knee pain acute Essential (primary) hypertension acute Primary osteoarthritis of right knee acute Right knee pain acute [facility] Work Phone: Hissfpt general Narrative - Reported* Type Description Date [...] COLONOSCOPY 2018 Hospitalization History SEE SURGICAL HX [facility] Other Chief Complaint and Reason for Visit [...] hearing of right ear (H90.42) Referral Organization [facility] Robert muniz Referring Provider First Name Umesh Referring Provider Last Name Flavio Referring Provider Specialty Internal Ct dicine Referred Organization [facility] Referred Provider Bethanie Upton Referred Address ,[place], [place],[address] Referred Provider Specialty Ear, Nose an d [...] Almazan DO Primary Care Provider Active Outreach [facility] Attending Provider Active Team Status: [...] content) Wellness LabsENT REFERRAL UP DATEletterFLU Shotmedicationcongestion [phone], congestion, no covid testAllergy ShotWELLNESS (unrecognized sect ion and content) No Status Records FoundNo Status Records FoundNo Status Records Found INFORMATION SOURCE (unrecogn ized section and content) DATE CREATED AUTHOR 05/01/2022 [facility] DATE CREATED AUTHOR AUTHOR'S ORGANIZ ATION 08/28/2023 [facility] DATE CREATED AUTHOR AUTHOR'S ORGANIZ ATION 12/10/2023 [facility] FOR RECORDS PERTAINING TO PATIENTS WHO [...] BE BASED ON THE PRIMARY CLINICAL RECORDS. [employer] provides no warranty or guarantee of the accuracy or completeness of information in this document.
--- NOTE | 2024-01-17 07:35 | CT_ITS ---
The [address] [address] Patient Name: WILBERT URIARTE MRN: [id number] date: 1960 Sex: M Assigned Patient Location: LAB Current Patient Location: LAB Accession/Order Number: [id number] Exam Date: 01/17/2024 07:50 Report Date: 01/20/2024 18:58 At the request of: AMBROSE ALMAZAN Procedure: CT angio abdomen pelvis EXAM: CT angio abdomen pelvis HISTORY: Abdominal Aortic Aneurysm COMPARISON: CT 04/13/2019 TECHNIQUE: Contrast enhanced CT scan was obtained of the abdomen and pelvis. CTA is performed. FINDINGS: CT ABDOMEN AND PELVIS: Scanning started at the dome of the liver and continued inferiorly. No biliary dilatation is noted. No renal hydronephrosis is seen. Small subcentimeter cortical cysts are seen on the left kidney. There is a 15 mm cyst on the anterior superior aspect of the right kidney with subcentimeter cortical cysts noted. The spleen is unremarkable. No peripancreatic fluid is seen. No fluid is noted within the abdomen or pelvis. A small umbilical hernia is seen containing a nondilated loop of small bowel. Colonic diverticula are present. Prostatomegaly is seen. There is a fat-containing left inguinal hernia. Degenerative changes are noted in the lumbar spine most pronounced at L4-L5 and L5-S1. CTA: The celiac and superior mesenteric arteries are widely patent. Visceral artery calcifications are noted. No significant renal artery stenosis is noted. The inferior mesenteric artery is widely patent. The distal abdominal aorta measures 2.7 cm. No aneurysm seen. The iliac arteries are tortuous but no significant stenosis is noted. CT/CT angio abdomen pelvis IMPRESSION: 1. No abdominal aortic aneurysm. The distal aorta measures 2.7 cm. 2. No significant visceral artery stenosis. 3. Prostatomegaly. 4. Diverticulosis. 5. Renal cysts as described. 6. Degenerative spondylosis. 7. Umbilical hernia as noted. 8. Fat-containing left inguinal hernia. Electronically authenticated by: Kaylan SOUTH Date: 01/20/2024 18:58
[2024-01-17 07:41] LABS: Estimated GFR (African America >60 (>=60 mL/min/1.73m^2); Estimated GFR (Non-African Ame 51 (>=60 mL/min/1.73m^2)
== END 2024-01-17 07:25 | disposition home or self-care (01) ==
LOC: LAB 07:24
PROVIDERS: PCP Internal Medicine; Visit Provider Internal Medicine
DX: I71.40 Abdominal aortic aneurysm, without rupture, unspecified (principal); N28.1 Cyst of kidney, acquired; N40.0 Benign prostatic hyperplasia without lower urinary tract symptoms; K57.90 Diverticulosis of intestine, part unspecified, without perforation or abscess without bleeding; K42.9 Umbilical hernia without obstruction or gangrene; K40.90 Unilateral inguinal hernia, without obstruction or gangrene, not specified as recurrent
CPT/HCPCS: 36415; 74174; 82565; Q9967

== ENCOUNTER 2024-04-15 08:43 | Outpatient (OUT) | payer OTHER, SELFPAY ==
[2024-04-15 08:58] LABS: Basophils Percent Auto 0.8 % (0.2-2.0); Eosinophils Absolute Auto 0.1 10^3/uL (0.0-0.7); Eosinophils Percent Auto 2.7 % (0.9-7.0); Hematocrit 45.5 % (42.0-54.0); Hemoglobin 14.9 g/dL (14.0-18.0); Immature Granulocytes Abs Auto 0.03 10^3/uL (0.00-0.03); Immature Granulocytes Pct Auto 0.6 % (0.0-0.5); Lymphocytes Percent Auto 37.1 % (20.5-60.0); Mean Corpuscular HGB Conc 32.7 g/dL (29.9-35.2); Mean Corpuscular Hemoglobin 30.8 pg (25.9-34.0); Mean Corpuscular Volume 94.2 fL (80.0-94.0); Mean Platelet Volume 10.5 fL (9.5-13.5); Monocytes Absolute Auto 0.5 10^3/uL (0.3-0.8); Monocytes Percent Auto 10.1 % (1.7-12.0); Neutrophils Absolute Auto 2.6 10^3/uL (1.4-6.5); Neutrophils Percent Auto 48.7 % (43.0-75.0); Platelet Count 193 10^3/uL (150-450); Red Blood Count 4.83 10^6/uL (4.70-6.10); Red Cell Distribution Width 13.3 % (11.0-15.0); White Blood Count 5.3 10^3/uL (4.0-11.0)
--- OUTSIDE RECORDS SUMMARY | 2024-04-15 09:03 | XMS_ITS | CCD ---
Author Organization [facility] Care Team Providers Care Service Center Coordinator Name Role Phone DO Umesh Almazan Primary Care Provider DO Umesh Almazan Primary Care Provider [facility] Attending Provider Umesh Almazan Unavailable DR UMESH ALMAZAN Primary Care Unavailable BALL, DR CALVO Admitting Unavailable BALL, DR CALVO Attending Unavailable BALL, DR CALVO Consulting Unavailable BALL, DR CALVO Primary Care Unavailable MISC, DR MORAES Admitting Unavailable MISC, DR MORAES Attending Unavailable MISC, DR MORAES Consulting Unavailable BALL, DR CALVO Admitting Unavailable BALL, DR CALVO Attending Unavailable BALL, DR CALVO Primary Care Unavailable REQUEST, DR RIOS LISTED Attending Unavaila ble REQUEST, DR RIOS LISTED Consulting Unavaila ble REQUEST, DR RIOS LISTED Admitting Unavaila ble BALL, DR CALVO Primary Care Unavailable Flavio, DO Calvo Primary Care Provider DO Umesh Almazan Attending Provider Umesh Almazan Attending Unavailable Ball, Umesh Primary Care Unavailable Ball, Umesh Admitting Unavailable KANEVANESSA GREENBERG Attending Unavailable Allergies Allergy Classification Reported Allergen(s) Allergy Type Date of Onset Reaction(s) Facility (9 sources) patient allergy list reviewed by nurse or physicia Propensity to adverse reactions 01-11-20 Comment:Done trend.ly Other (3 sources) Sulfamethoxazole Drug Allergy 10-17-19 [facility] (3 sources) Trimethoprim Drug Allergy 10-17-19 [facility] Medications Current Medications Medication Drug Class(es) Dates Sig (Normalized) Sig (Original) allopurinol 300 mg oral tablet (20 sources) Xanthine Oxidase Inhibitor Start: 07-11-2023 take 1 tablet by mouth once daily Allopurinol 300 mg tablet Active 0 .ROUTE .COMPLEX 60 July 11, 2023 12:05pm TAKE ONE TABLET BY MOUTH ONCE DAILY Start: 10-02-2020 End: 07-11-2023 take 1 tablet by mouth once daily Allopurinol 300 mg tablet Discontinued 300 MG PO Daily April 27, 2023 7:53am July 11, 2023 12:05pm Start: 10-02-2020 End: 04-27-2023 Allopurinol Discontinued MG TABLET October 02, 2020 12:00am April 27, 2023 8:54am amLODIPine 5 mg oral tablet (13 sources) Dihydropyridine Calcium Channel Jamie Start: 11-30-2023 Amlodipine 5 mg tablet Active 0 .ROUTE .COMPLEX November 30, 2023 3:21pm TAKE 1 TABLET EVERY DAY Start: 08-10-2023 End: 11-30-2023 take 1 tablet by mouth once daily Amlodipine 5 mg tablet Discontinued 5 MG PO Daily August 09, 2023 11:00pm November 30, 2023 3:21pm Start: 05-17-2023 End: 05-17-2023 take 1 tablet by mouth once daily Amlodipine 5 mg tablet Discontinued 5 MG PO Daily May 16, 2023 11:00pm May 17, 2023 1:28pm azithromycin 250 mg oral tablet (8 sources) [...] formoterol fumarate 0.0045 mg/actuat metered dose inhaler (13 sources) Corticosteroid, beta2-Adrenergic Agonist Start: 06-19-2023 take 1 puff(s) by inhalation twice daily Budesonide-Formot bren 80-4.5 mcg/actuation HFA aerosol inhaler Active 2 PUFF INHALATION Twice daily June 18, 2023 11:00pm Start: 11-22-2022 take 2 puff(s) by in [...] 1 tablet by mouth once daily Losartan 100 mg tablet Active 0 .ROUTE .COMPLEX May 11, 2023 3:29pm TAKE ONE TABLET BY MOUTH DAILY Start: 12-12-2017 End: 05-11-2023 take 1 tablet by mouth once daily Losartan 100 mg tablet Discontinued 100 MG PO Daily December 12, 2017 12:00am May 11, 2023 3:29pm 24 hr metoprolol succinate 25 mg extended release oral tablet (5 sources) beta-Adrenergic Jamie Start: 02-24-2024 Metopr olol Succinate 25 mg tablet extended release 24 hr Active 0 .ROUTE .COMPLEX February 24, 2024 9:18am TAKE 1 TABLET EVERY DAY Start: 08-29-2023 End: 02-24-2024 take 1 tablet by mouth once daily Metoprolol Succinate 25 mg tablet extended release 24 hr Discontinued 25 MG PO Daily August 28, 2023 11:00pm February 24, 2024 9:18am Pfoutzbkfhgh-Wpgnmcva-Hitpes (Multivitamin 50 Plus) Tablet (9 sources) Start: 12-12-2017 Jxooqnthifrv-Jmqvlltm-Zzlhyy (Multivitamin 50 Plus) Tablet Active 1 TAB PO Daily December 12, 2017 2:37pm Start: 12-12-2017 End: 04-27-2023 Waxfdcojdzct-Bfbvermw-Amiyks (Multivitamin 50 Plus) Tablet Discontinued 1 TAB PO Daily December 12, 2017 12:00am April 27, 2023 7:54am Start: 12-12-2017 End: 04-27-2023 Tajgoskvmjhv-Oqivjwcb-Bktrqv (Multivitamin 50 Plus) Tablet Discontinued 1 TAB PO Daily December 12, 2017 1:00am April 27, 2023 8:54am predniSONE 20 mg oral tablet (17 sources) Start: 11-16-2022 predniSONE 20 MG 1 tablet Orally twice daily w/ food x 4 days then qd w/ food x 4 days for 8 days Nov, Active Start: 10-02-2020 End: 04-27-2023 take 1 tablet by mouth once daily Prednisone 50 mg tablet Discontinued 50 MG PO Daily 05 09October 01, 2020 11:00pm April 27, 2023 7:54am sulfamethoxazole 800 mg / trimethoprim 160 mg oral tablet (6 sources) Dihydrofolate Reductase Inhibitor Antibacterial, Sulfonamide Antimicrobial Start: 06-19-2023 take 1 tablet by mouth twice daily Sulfamethoxazole-Trimethoprim (Bactrim Ds) 800-160 mg tablet Active 1 TAB PO Twice daily 24 11June 18, 2023 11:00pm terbinafine 250 mg oral tablet (6 sources) Allylamine Antifungal Start: 08-10-2023 take 1 tablet by mouth once daily Terbinafine Hcl 250 mg tablet Active 250 MG PO Daily August 09, 2023 11:00pm Turmeric extract (9 sources) Start: 12-18-2017 take 1 tablet by mouth twice daily Turmeric Active 1 TAB PO Twice daily December 18, 2017 8:04am Start: 12-18-2017 End: 04-27-2023 take 1 capsule by mouth twice daily Turmeric 400 mg Capsule Discontinued 1 TAB PO Twice daily December 18, 2017 12:00am April 27, 2023 7:54am Start: 12-18-2017 End: 04-27-2023 take 1 tablet by mouth twice daily Turmeric Discontinued 1 TAB PO Twice daily December 18, 2017 1:00am April 27, 2023 8:54am Completed/Discontinued Medications Medication Drug Class(es) Dates Sig (Normalized) Sig (Original) [id number] 200 actuat albuterol 0.09 mg/actuat metered dose inhaler (20 sources) beta2-Adrenergic Agonist Start: 04-27-2023 End: 04-30-2023 take 1 puff(s) by inhalation every four hours as needed for cough Albuterol Sulfate 90 mcg/actuation HFA aerosol inhaler Discontinued 2 PUFF INHALATION Every 4 hours as needed for cough April 26, 2023 11:00pm April 30, 2023 7:58am take 2 puff(s) by in halation every [...] Active ascorbic acid 1000 mg oral tablet (9 sources) Vitamin C Start: 12-12-2017 End: 10-02-2020 take 1 tablet by mouth twice daily Ascorbic Acid (Vitamin C) (Vitamin C) 1,000 mg Tablet Discontinued 1000 MG PO Twice daily December 12, 2017 12:00am October 02, 2020 8:14am atorvastatin 20 mg oral tablet (9 sources) HMG-CoA Reductase Inhibitor Start: 10-02-2020 End: 04-27-2023 Atorvastatin 20 mg tablet Discontinued MG TABLET October 01, 2020 11:00pm April 27, 2023 7:53am Start: 10-02-2020 End: 04-27-2023 Atorvastatin Discontinued MG TABLET October 02, 2020 12:00am April 27, 2023 8:53am cetirizine hydrochloride 10 mg oral tablet (9 sources) Histamine-1 Receptor Antagonist Start: 10-02-2020 End: 04-27-2023 take 1 tablet by mouth once daily as needed Cetirizine (Zyrtec) 10 mg Tablet Discontinued 10 MG PO Daily as needed for Allergy Symptoms October 01, 2020 11:00pm April 27, 2023 7:54am diphenhydrAMINE hydrochloride 25 mg oral capsule (9 sources) Histamine-1 Receptor Antagonist Start: 12-12-2017 End: 10-02-2020 Diphenhydramine Hcl (Benadryl) 25 mg Capsule Discontinued 1 TAB PO As Directed December 12, 2017 12:00am October 02, 2020 8:14am fluticasone propionate 0.05 mg/actuat metered dose nasal spray (9 sources) Corticosteroid Start: 10-02-2020 End: 04-27-2023 Fluticasone Propionate (Flonase) 50 mcg/actuation [place],Suspension Discontinued 1 SPRAY INTRANASAL Daily October 01, 2020 11:00pm April 27, 2023 7:54am hydrOXYzine pamoate 25 mg oral capsule (9 sources) Antihistamine Start: 10-02-2020 End: 04-27-2023 take 1 capsule by mouth every six hours as needed Hydroxyzine Pamoate 25 mg capsule Discontinued 25 MG PO Q6H as needed for itching 14 October 01, 2020 11:00pm April 27, 2023 7:54am itraconazole 100 mg oral capsule (9 sources) Azole Antifungal Start: 10-02-2020 End: 04-27-2023 Itraconazole 100 mg capsule Discontinued MG October 01, 2020 11:00pm April 27, 2023 7:54am Start: 10-02-2020 End: 04-27-2023 Itraconazole Discontinued MG October 02, 2020 12:00am April 27, 2023 8:54am loratadine 10 mg oral tablet (9 sources) Start: 12-12-2017 End: 10-02-2020 take 1 tablet by mouth once daily Loratadine 10 mg Tablet Discontinued 10 MG PO Daily December 12, 2017 12:00am October 02, 2020 8:14am tamsulosin hydrochloride 0.4 mg oral capsule (9 sources) alpha-Adrenergi c Jamie Start: 10-02-2020 End: 04-27-2023 Tamsulosin 0.4 mg capsule Discontinued MG PO October 01, 2020 11:00pm April 27, 2023 7:54am Start: 10-02-2020 End: 04-27-2023 Tamsulosin Discontinued MG P O October 02, 2020 12:00am April 27, 2023 8:54am triamcinolone acetonide 40 mg/ml injectable suspension (20 sources) Corticosteroid Start: 05-25-2022 Kenalog-40 Mar, 60 mg Tumeric (9 sources) Start: 12-12-2017 End: 12-18-2017 take 1 tablet by mouth twice daily Tumeric Discontinued 1 TAB PO Twice daily December 12, 2017 2:41pm December 18, 2017 8:04am Start: 12-12-2017 End: 12-18-2017 take 1 tablet by mouth twice daily Tumeric Discontinued 1 TAB PO Twice daily December 12, 2017 12:00am December 18, 2017 7:04am Start: 12-12-2017 End: 12-18-2017 take 1 tablet by mouth twice daily Tumeric Discontinued 1 TAB PO Twice daily December 12, 2017 1:00am December 18, 2017 8:04am Problems Active Problems Problem Classification Problem Date Documented Date Episodic/Chronic Acute bronchitis (19 sources) Acute bronchitis; Translations: [Acute bronchitis, unspecified] Onset: 12-23-2013 Episodic Aortic; peripheral; and visceral artery aneurysms (5 sources) Abdominal aortic aneurysm; Translations: [Abdominal aortic aneurysm (AAA)] 08-12-2023 Chronic Comment on above: XR: 3.2cm - 08/2023,C TA abdomen: 2.7cm - 01/2024 Asthma (20 sources) Exacerbation of intermittent asthma; Translations: [Mild intermittent asthma with (acute) exacerbation] Onset: 11-21-2016 Chronic Cardiac dysrhythmias (20 sources) Cardiac arrhythmia; Translations: [Cardiac arrhythmia, unspecified] 04-27-2023 Chronic Comment on above: Echo: LVEF 45-50%, n ormal RV size/function, RVSP 33 10/2023Stress Testing: no ischemia 12/2023 Cardiac dysrhythmias (20 sources) Palpitations; Translations: [Palpitations] Onset: 06-15-2015 08-24-2023 Episodic Chronic kidney disease (16 sources) Chronic kidney disease stage 3; Translations: [...] Translations: [OTHER FATIGUE] Onset: 04-28-2022 Episodic Mycoses (18 sources) Tinea unguium; Translations: [Onychomycosis due to dermatophyte ] Onset: 04-24-2022 08-10-2023 Episodic Osteoarthritis (20 sources) Arthritis of left knee; Translations: [Unilateral primary osteoarthritis, left knee] Onset: 03-17-2014 04-27-2023 Chronic Other aftercare (6 sources) Drug therapy finding; Translations: [Other terminal gauger supervisor (current) drug therapy] 08-10-2023 Episodic Other aftercare (4 sources) Other terminal gauger supervisor (current) drug therapy; Translations: [Long-term (current) use [...] Onset: 11-17-2015 Chronic Other non-traumatic joint disorders (9 sources) Pain in right knee; Translations: [Right knee pain] 10-11-2023 Episodic Other nutritional; endocrine; and metabolic disorders (16 sources) Hypercalcemia; Translations: [Hypercalcemia] Onset: 04-14-2017 04-27-2023 Chronic Other nutritional; endocrine; and metabolic disorders (5 sources) Obesity; Translations: [Obesity, unspecified] 08-10-2023 Chronic [...] [Dysphonia] 04-27-2023 Episodic Other upper respiratory disease (7 sources) Hoarse; Translations: [Dysphonia] 04-27-2023 Episodic Otitis [...] Spondylosis; intervertebral disc disorders; other back problems (19 sources) Low back pain; Translations: [Low back [...] Onset: 12-05-2023 Varicose veins of lower extremity (20 sources) Pain co-occurrent and due to varicose [...] Onset: 06-07-2015 Episodic Diabetes mellitus without complication (16 sources) Impaired fasting glycemia; Translations: [Impaired fasting [...] Name Value Interpretation Reference Range Facil ity Estimated glomerular filtrat ion rate (GFR) non- Americanon 01-17-2024 GFR/1.73 sq M.predicted among non-blacks MDRD (S/P/Bld) [Vol rate/Area] Estimated glomerular filtration rate (GFR) non- Low >=60 mL/min/1.73m 2 [facility] - Chemistry and C hemistry - challengeon 01-17-2024 Creatinine [Mass/Vol] 1.40 mg/dL High 0.70-1.30 [facility] GFR/1.73 sq M.predicted MDRD (S/P/Bld) [Vol rate/Area] mL/min/{1.73_m2} >=60 mL/min/1.73m 2 [facility] Office Visiton 12-05-2023 Follow-up visit [id number] Robert Florian 1960 M Date Provider Department Center 12/05/2023 [id number]-ILRRELVANESSA MIDDLETON KRISTINA Cronin [facility] Family History Problem Relation Age of Onset No Known Problems Mother No Known Problems Father Family Status - Relation Status Age at Mother Father Level of Service:97646 DE OFFICE/OUTPATIENT NEW MODERATE MDM 45 MINUTES Reason for Visit and Comments: Bradycardia [429035] Abdominal aortic aneurysm [Other] - Denies chest pain and SOB. Goes to the gym 3 days a week. Hypertension [391166] - On amlodipine and losartan. PVC's [Other] - Wore Holter monitor in August for skipped beats per patient. On metoprolol. Denies feeling palpitations. Had echo last month. Normal [facility] Globulin Calc (S) [Mass/Vol] on 10-04-2023 Globulin (S) [Mass/Vol] 3.6 g/dL [facility] - Chemistry and C hemistry - challengeon 10-04-2023 Albumin [Mass/Vol] 4.3 g/dL 3.4-5.0 [facility] ALP [Catalytic activity/Vol] 94 U/L 46-116 [facility] ALT [Catalytic activity/Vol] 45 U/L 16-63 [facility] AST [Catalytic activity/Vol] 35 U/L 15-37 [facility] Bilirubin [Mass/Vol] 0.6 mg/dL 0.2-1.0 [facility] Bilirubin.direct [Mass/Vol] 0.1 mg/dL 0.0-0.2 [facility] Protein [Mass/Vol] 7.9 g/dL 6.4-8.2 [facility] Serum or plasma albumin/glob ulin mass ratioon 10-04-2023 Albumin/Globulin [Mass ratio] 1.2 {ratio} [facility] TESTOSTERONE, TOTALon 2022 Testosterone [Mass/Vol] 862 ng/dL Normal 264-916 [facility] Comment on above: Result Comment: Adul t male reference interval is based on a population of healthy nonobese males (BMI <30) between 19 and 39 years old. Gallo, et.al. JCEM 2017,102;1517-3224. PMID: [id number]. Performed By: #### T ESTTOT #### [facility] [address] [place] [address] Dr. Chapo Posey SGOTon 04-18-2022 AST [Catalytic activity/Vol] 26 U/L Normal 15-37 [facility] Comment on above: Performed By: #### A LT, AST #### [facility] [address] [place] [address] Dr. Chapo Posey SGPTon 04-18-2022 ALT [Catalytic activity/Vol] 30 U/L Normal 16-63 [facility] Comment on above: Performed By: #### A LT, AST #### [facility] [address] [place] [address] Dr. Chapo Posey CBC AUTO DIFFon 04-05-2022 BASO # 0.1 103/ul Normal 0.0-0.1 [facility] Comment on above: Performed By: #### D ATCBC #### [facility] [address] [address] [address] Chapo Posey Basophils/100 WBC (Bld) 1.0 % Normal 0.2-2.0 [facility] Comment on above: Performed By: #### D ATCBC #### [facility] [address] [address] [address] Chapo Posey EO # 0.1 103/ul Normal 0.0-0.7 [facility] Comment on above: Performed By: #### D ATCBC #### [facility] [address] [address] [address] Chapo Posey Eosinophils/100 WBC (Bld) 2.5 % Normal 0.9-7.0 [facility] Comment on above: Performed By: #### D ATCBC #### [facility] [address] [place] [address] Dr. Chapo Posey Erythrocyte distribution width (RBC) [Ratio] 13.2 % Normal 11.0-15.0 [facility] Comment on above: Performed By: #### D ATCBC #### [facility] [address] [place] [address] Dr. Chapo Posey Hematocrit (Bld) [Volume fraction] 46.3 % Normal 42.0-54.0 [facility] Comment on above: Performed By: #### D ATCBC #### [facility] [address] [place] [address] Dr. Chapo Posey Hemoglobin (Bld) [Mass/Vol] 15.2 g/dL Normal 14.0-18.0 [facility] Comment on above: Performed By: #### D ATCBC #### [facility] [address] [address] [address] Chapo Posey IG # 0.03 10e3/ul Normal 0.00-0.03 [facility] Comment on above: Performed By: #### D ATCBC #### [facility] [address] [address] [address] Chapo Posey IG % 0.6 % Critically high 0.0-0.5 [facility] Comment on above: Performed By: #### D ATCBC #### [facility] [address] [place] [address] Dr. Chapo Posey LYMPH # 1.8 103/ul Normal 1.2-3.8 [facility] Comment on above: Performed By: #### D ATCBC #### [facility] [address] [place] [address] Dr. Chapo Posye Lymphocytes/100 WBC (Bld) 36.8 % Normal 20.5-60.0 [facility] Comment on above: Performed By: #### D ATCBC #### [facility] [address] [place] [address] Dr. Chapo Posey MCH (RBC) [Entitic mass] 31.0 pg Normal 25.9-34.0 [facility] Comment on above: Performed By: #### D ATCBC #### [facility] [address] [place] [address] Dr. Chapo Posey MCHC (RBC) [Mass/Vol] 32.8 g/dL Normal 29.9-35.2 [facility] Comment on above: Performed By: #### D ATCBC #### [facility] [address] [place] [address] Dr. Chapo Posey MCV (RBC) [Entitic vol] 94.3 fL Critically high 80.0-94.0 [facility] Comment on above: Performed By: #### D ATCBC #### [facility] [address] [place] [address] Dr. Chapo Posey MONO # 0.5 103/ul Normal 0.3-0.8 [facility] Comment on above: Performed By: #### D ATCBC #### [facility] [address] [place] [address] Dr. Chapo Posey Monocytes/100 WBC (Bld) 9.7 % Normal 1.7-12.0 [facility] Comment on above: Performed By: #### D ATCBC #### [facility] [address] [place] [address] Dr. Chapo Posey NEUT # 2.4 103/ul Normal 1.4-6.5 [facility] Comment on above: Performed By: #### D ATCBC #### [facility] [address] [address] [address] Chapo Posey Neutrophils/100 WBC (Bld) 49.4 % Normal 43.0-75.0 [facility] Comment on above: Performed By: #### D ATCBC #### [facility] [address] [address] [address] Chapo Posey Platelet mean volume (Bld) [Entitic vol] 10.3 fL Normal 9.5-13.5 [facility] Comment on above: Performed By: #### D ATCBC #### [facility] [address] [place] [address] Dr. Chapo Posey PLT 197 103/ul Normal 150-450 [facility] Comment on above: Performed By: #### D ATCBC #### [facility] [address] [place] [address] Dr. Chapo Posey RBC 4.91 106/ul Normal 4.70-6.10 [facility] Comment on above: Performed By: #### D ATCBC #### [facility] [address] [place] [address] Dr. Chapo Posey WBC 4.9 103/ul Normal 4.0-11.0 [facility] Comment on above: Performed By: #### D ATCBC #### [facility] [address] [place] [address] Dr. Chapo Posey FRANCISCO JAVIER- BMP WITH LIPIDon 2022 Anion gap [Moles/Vol] 10.5 mmol/L Normal [facility] Comment on above: Performed By: #### D ATBMP, DATPSA #### [facility] [address] [place] [address] Dr. Chapo Posey Calcium [Mass/Vol] 10.0 mg/dL Normal 8.5-10.1 [facility] Comment on above: Performed By: #### D ATBMP, DATPSA #### [facility] [address] [place] [address] Dr. Chapo Posey Chloride [Moles/Vol] 103 mmol/L Normal 98-107 [facility] Comment on above: Performed By: #### D ATBMP, DATPSA #### [facility] [address] [place] [address] Dr. Chapo Posey Cholesterol [Mass/Vol] 185 mg/dL Normal <=200 [facility] Comment on above: Performed By: #### D ATBMP, DATPSA #### [facility] [address] [place] [address] Dr. Chapo Posey Cholesterol in HDL [Mass/Vol] 46 mg/dL Normal 40-60 [facility] Comment on above: Performed By: #### D ATBMP, DATPSA #### [facility] [address] [place] [address] Dr. Chapo Posey Cholesterol in LDL [Mass/Vol] 115.2 mg/dL Normal [facility] Comment on above: Performed By: #### D ATBMP, DATPSA #### [facility] [address] [place] [address] Dr. Chapo Posey CO2 [Moles/Vol] 29.9 mmol/L Normal 21.0-32.0 [facility] Comment on above: Performed By: #### D ATBMP, DATPSA #### [facility] [address] [place] [address] Dr. Chapo Posey Creatinine [Mass/Vol] 1.13 mg/dL Normal 0.70-1.30 [facility] Comment on above: Performed By: #### D ATBMP, DATPSA #### [facility] [address] [place] [address] Dr. Chapo Posey EGFR-AF LIBERIAN >60 Normal >=60 [facility] Comment on above: Performed By: #### D ATBMP, DATPSA #### [facility] [address] [place] [address] Dr. Chapo Posey EGFR-NON AF LIBERIAN >60 Normal >=60 [facility] Comment on above: Performed By: #### D ATBMP, DATPSA #### [facility] [address] [place], [place] [id number] Dr. Chapo Posey Glucose [Mass/Vol] 95 mg/dL Normal 74-106 [facility] Comment on above: Performed By: #### D ATWALDO DATPSA #### [facility] [address] [place] [address] Dr. Chapo oPsey HDL NORMAL > or = 60 mg/dl - LOW CARDIOVASCULAR RISK <40 mg/dl - HIGH CARDIOVASCULAR RISK Normal [facility] Comment on above: Performed By: #### D ATJeffrey, DATPSA #### [facility] [address] [address] [address] Chapo Posey LDL CALC NORMAL SEE BELOW Normal [facility] Comment on above: Result Comment: <100 mg/dl OPTIMAL 100 - 129 mg/dl NEAR OR ABOVE OPTIMAL 130 - 159 mg/dl BORDERLINE HIGH 160 - 189 mg/dl HIGH >190 mg/dl VERY HIGH Performed By: #### D ATWALDO DATPSA #### [facility] [address] [place] [address] Dr. Chapo Posey Potassium [Moles/Vol] 4.4 mmol/L Normal 3.5-5.1 [facility] Comment on above: Performed By: #### D ATJeffrey DATPSA #### [facility] [address] [address] [address] Chapo Posey Sodium [Moles/Vol] 139 mmol/L Normal 136-145 [facility] Comment on above: Performed By: #### D ATJeffrey DATPSA #### [facility] [address] [address] [address] Chapo Posey Triglyceride [Mass/Vol] 119 mg/dL Normal <=150 [facility] Comment on above: Performed By: #### D ATWALDO DATPSA #### [facility] [address] [place] [address] Dr. Chapo Posey Urea nitrogen [Mass/Vol] 28.0 mg/dL Critically high 7.0-18.0 [facility] Comment on above: Performed By: #### D ATWALDO DATPSA #### [facility] [address] [address] [address] Chapo Posey Urea nitrogen/Creatinin e [Mass ratio] 24.8 mg/mg Normal [facility] Comment on above: Performed By: #### D [facility], DATPSA #### [facility] [address] [address] [address] Chapo Posey VLDL CALC 23.8 mg/dL Normal [facility] Comment on above: Performed By: #### D ATBMP, DATPSA #### [facility] [address] [address] [address] Chapo Posey Vital Signs Date Time Vital Sign [facility]forming [facility] 03-31-2024 15:05-0500 Body height 194.31 cm [facility] 03-31-2024 15:05-0500 Body mass index (BMI) [Ratio] 25 kg/m2 [facility] 03-31-2024 15:05-0500 Body weight 94.46 kg [facility] 03-31-2024 15:05-0500 Diastolic blood pressure 68 mm[Hg] [facility] 03-31-2024 15:05-0500 Heart rate 40 /min [facility] 03-31-2024 15:05-0500 Respiratory rate 12 /min [facility] 03-31-2024 15:05-0500 Systolic blood pressure 134 mm[Hg] [facility] 10-17-2023 09:08-0400 Body height 194.31 cm DO Umesh Ball Work Phone: [facility] 10-17-2023 09:08-0400 Body mass index (BMI) [Ratio] 25 kg/m2 DO Umesh Ball Work Phone: [facility] 10-17-2023 09:08-0400 Body weight 94.37 kg DO Umesh Ball Work Phone: [facility] 10-17-2023 09:08-0400 Diastolic blood pressure 78 mm[Hg] DO Umesh Ball Work Phone: [facility] 10-17-2023 09:08-0400 Diastolic blood pressure 89 mm[Hg] DO Umesh Ball Work Phone: [facility] 10-17-2023 09:08-0400 Heart rate 69 /min DO Umesh Ball Work Phone: [facility] 10-17-2023 09:08-0400 Respiratory rate 12 /min DO Umesh Ball Work Phone: [facility] 10-17-2023 09:08-0400 Systolic blood pressure 145 mm[Hg] DO Umesh Ball Work Phone: [facility] 10-17-2023 09:08-0400 Systolic blood pressure 139 mm[Hg] DO Umesh Ball Work Phone: [facility] 10-11-2023 09:26-0400 Body height 194.31 cm DO Umesh Ball Work Phone: [facility] 10-11-2023 09:26-0400 Body mass index (BMI) [Ratio] 25 kg/m2 DO Umesh Ball Work Phone: [facility] 10-11-2023 09:26-0400 Body weight 94.34 kg DO Umesh Ball Work Phone: [facility] 10-11-2023 09:26-0400 Diastolic blood pressure 96 mm[Hg] DO Umesh Ball Work Phone: [facility] 10-11-2023 09:26-0400 Heart rate 59 /min DO Umesh Ball Work Phone: [facility] 10-11-2023 09:26-0400 Respiratory rate 12 /min DO Umesh Ball Work Phone: [facility] 10-11-2023 09:26-0400 Systolic blood pressure 150 mm[Hg] DO Umesh Ball Work Phone: [facility] 08-10-2023 11:43-0400 Body height 194.31 cm [facility] 08-10-2023 11:43-0400 Body mass index (BMI) [Ratio] 30.1 kg/m2 [facility] 08-10-2023 11:43-0400 Body weight 113.85 kg [facility] 08-10-2023 11:43-0400 Diastolic blood pressure 83 mm[Hg] [facility] 08-10-2023 11:43-0400 Heart rate 44 /min [facility] 08-10-2023 11:43-0400 Respiratory rate 12 /min [facility] 08-10-2023 11:43-0400 Systolic blood pressure 161 mm[Hg] [facility] 06-19-2023 11:20-0400 Body height 194.31 cm [facility] 06-19-2023 11:20-0400 Body mass index (BMI) [Ratio] 24.6 kg/m2 [facility] 06-19-2023 11:20-0400 Body weight 92.98 kg [facility] 06-19-2023 11:20-0400 Diastolic blood pressure 80 mm[Hg] [facility] 06-19-2023 11:20-0400 Heart rate 48 /min [facility] 06-19-2023 11:20-0400 SaO2% (BldA) [Mass fraction] 98 % [facility] 06-19-2023 11:20-0400 Systolic blood pressure 130 mm[Hg] [facility] 04-30-2023 08:59-0400 Body height 194.31 cm [facility] 04-30-2023 08:59-0400 Body mass index (BMI) [Ratio] 24.4 kg/m2 [facility] 04-30-2023 08:59-0400 Body weight 92.19 kg [facility] 04-30-2023 08:59-0400 Diastolic blood pressure 77 mm[Hg] [facility] 04-30-2023 08:59-0400 Heart rate 41 /min [facility] 04-30-2023 08:59-0400 Respiratory rate 12 /min [facility] 04-30-2023 08:59-0400 Systolic blood pressure 152 mm[Hg] [facility] 04-25-2022 10:30-0400 Body height 193.04 cm Umesh Ball Other [facility] Other 04-25-2022 10:30-0400 Body mass index (BMI) [Ratio] 24.1 kg/m2 Umesh Ball Other [facility] Other 04-25-2022 10:30-0400 Body weight 89.81 kg Umesh Ball Other [facility] Other 04-25-2022 10:30-0400 Diastolic blood pressure 71 mm[Hg] Umesh Ball Other [facility] Other 04-25-2022 10:30-0400 Respiratory rate 12 /min Umesh Ball Other [facility] Other 04-25-2022 10:30-0400 Systolic blood pressure 148 mm[Hg] Umesh Ball Other [facility] Other 10-02-2020 09:51-0400 Diastolic blood pressure 85 mm[Hg] DO Umesh Ball Work Phone: [facility] 10-02-2020 09:51-0400 Heart rate 69 /min DO Umesh Ball Work Phone: [facility] 10-02-2020 09:51-0400 Respiratory rate 18 /min DO Umesh Ball Work Phone: [facility] 10-02-2020 09:51-0400 SaO2% (BldA) [Mass fraction] 96 % DO Umesh Ball Work Phone: [facility] 10-02-2020 09:51-0400 Systolic blood pressure 144 mm[Hg] DO Umesh Ball Work Phone: [facility] 10-02-2020 09:07-0400 Body height 194.31 cm DO Umesh Ball Work Phone: [facility] 10-02-2020 09:07-0400 Body mass index (BMI) [Ratio] 25.1 kg/m2 DO Umesh Ball Work Phone: [facility] 10-02-2020 09:07-0400 Body weight 95 kg DO Umesh Ball Work Phone: [facility] 10-02-2020 09:00-0400 Body temperature 98.2 [degF] DO Umesh Ball Work Phone: [facility] Encounters Encounter Date Encounter Type Care Provider Facility Start: 03-31-2024 End: 03-31-2024 ambulatory [facility] Work Phone: Start: 03-31-2024 End: 03-31-2024 [facility] encounter procedure [facility] Work Phone: Start: 01-17-2024 Non-patient / Non-visit [facility] Work Phone: Start: 12-05-2023 End: 12-05-2023 ambulatory [facility] Start: 11-21-2023 End: 11-21-2023 ambulatory DO Umesh Ball Work Phone: [facility] Work Phone: Start: 11-21-2023 End: 11-21-2023 Patient encounter procedure DO Umesh Ball Work Phone: [facility] Work Phone: Start: 10-17-2023 End: 10-17-2023 ambulatory DO Umesh Ball Work Phone: [facility] Work Phone: Start: 10-17-2023 End: 10-17-2023 Patient encounter procedure DO Umesh Ball Work Phone: [facility] Work Phone: Start: 10-11-2023 End: 10-11-2023 ambulatory DO Umesh Ball Work Phone: [facility] Work Phone: Start: 10-11-2023 End: 10-11-2023 Patient encounter procedure DO Umesh Ball Work Phone: [facility] Work Phone: Start: 10-04-2023 Non-patient / Non-visit DO Radu fournier Ball Work Phone: [facility] Work Phone: Start: 09-17-2023 Non-patient / Non-visit DO Radu fournier Ball Work Phone: [facility] Work Phone: Start: 08-24-2023 End: 08-24-2023 ambulatory DO Umesh Ball Work Phone: [facility] Work Phone: Start: 08-24-2023 End: 08-24-2023 Patient encounter procedure DO Umesh Ball Work Phone: [facility] Start: 08-10-2023 End: 08-10-2023 ambulatory [facility] Work Phone: Start: 08-10-2023 End: 08-10-2023 Patient encounter procedure [facility] Work Phone: Start: 06-19-2023 End: 06-19-2023 Patient encounter procedure [facility] Work Phone: Start: 04-30-2023 End: 04-30-2023 ambulatory [facility] Work Phone: Start: 04-30-2023 End: 04-30-2023 Encounter for general adult medical examination without abnormal findings [facility] Start: 04-30-2023 End: 04-30-2023 Patient encounter procedure [facility] Work Phone: Start: 03-19-2023 End: 03-19-2023 ambulatory Umesh Ball Other [employer] Other Start: 03-19-2023 Nursing evaluation o f patient and report Umesh Almazan [facility] Start: 03-14-2023 End: 03-14-2023 ambulatory Umesh Flavio Other [employer] Other Start: 03-14-2023 Telephone encounter Umesh Almazan [facility] Start: 12-20-2022 End: 12-20-2022 ambulatory Umesh Ball Other [facility] Other Start: 12-20-2022 Telephone encounter Umesh Almazan [facility] [employer] Start: 12-19-2022 End: 12-19-2022 ambulatory Umesh Flavio Other [facility] Other Start: 12-19-2022 Telephone encounter Umesh Almazan [facility] Start: 11-28-2022 End: 11-28-2022 ambulatory Umesh Ball Other [employer] Other Start: 11-28-2022 Nursing evaluation o f patient and report Umesh Ball [facility] Start: 11-22-2022 End: 11-22-2022 ambulatory Umesh Ball Other [employer] Other Start: 11-22-2022 Office outpatient vi sit 15 minutes Umesh Ball [facility] Start: 11-22-2022 Telephone encounter Umesh Almazan [facility] Start: 11-16-2022 End: 11-16-2022 ambulatory Umesh Ball Other [employer] Other Start: 11-16-2022 Office outpatient vi sit 15 minutes Umesh Ball [facility] Start: 11-08-2022 End: 11-08-2022 ambulatory Umesh Ball Other [employer] Other Start: 11-08-2022 Nursing evaluation o f patient and report Umesh Ball [facility] Start: 05-25-2022 End: 05-25-2022 ambulatory Umesh Ball Other [employer] Other Start: 05-25-2022 Nursing evaluation o f patient and report Umesh Almazan [facility] Start: 04-28-2022 End: 04-29-[address] UMESH ALMAZAN Facility:[facility] Start: 04-25-2022 End: 04-25-2022 ambulatory Umesh Almazan Other [employer] Other Start: 04-25-2022 Encounter for genera l adult medical examination without abnormal findings Umesh Almazan [facility] Start: 04-25-2022 Periodic preventive med est patient 40-64yrs Umesh Almazan [facility] Start: 04-25-2022 Telephone encounter Umesh Almazan [facility] Start: 04-18-2022 Telephone encounter Umesh Almazan [facility] Start: 04-18-2022 End: 04-19-[address] UMESH ALMAZAN [facility] [employer] Other Start: 04-05-2022 End: 04-06-[address] RIOS LISTED REQUEST Facility:[facility] Start: 01-10-2022 Adult health examination Umesh Almazan Other [employer] Other Start: 05-28-2021 End: 05-28-2021 Departed Referred DO Umesh Flavio Work Phone: [facility] Start: 05-17-[address] UMESH ALMAZAN Facili ty:[facility] Start: 10-02-2020 End: 10-02-2020 Emergency department patient visit DO Umesh Flavio Work Phone: [facility] Procedures Date Procedure Procedure Detail Performing Clinician Start: 04-05-[address] MICHEL IN [facility] Comment on above: Performed By: #### D ATWALDO DATJADA #### [facility] [address] [place] [address] Dr. Chapo Posey Start: 01-27-2016 Replacement of [...] Care Activity Detail Author Hepatic function panel [facility] Patient Education [facility] Patient referral [facility] XR Knee - right 4 Views [facility] XR Lumbar spine Views [facility] Immunizations Immunization Date Immunization Notes Care Provider Fa cility 11-21-2023 influenza, high dose seasonal, preservative-free [facility] 11-28-2022 influenza, injectabl e, quadrivalent, preservative free Umesh Almazan Other [facility] 11-22-2021 influenza virus vaccine, split virus (incl. purified surface antigen) Umesh Almazan Other [facility] [employer] Other 11-22-2021 influenza virus vaccine, unspecified formulation [facility] 11-22-2021 influenza, injectabl e, quadrivalent, preservative free [facility] 11-22-2021 influenza, injectabl e, quadrivalent, contains preservative Umesh Almazan Other [facility] [employer] Other 11-04-2020 influenza virus vaccine, split virus (incl. purified surface antigen) Umesh Almazan Other [facility] [employer] Other 11-04-2020 influenza virus vaccine, unspecified formulation [facility] 05-11-2020 COVID-19 Vaccine Pfi zer - Documentation Purposes Only Umesh Almazan Other [facility] 04-19-2020 COVID-19 Vaccine Pfi zer - Documentation Purposes Only Umesh Almazan Other [facility] 12-03-2019 influenza virus vaccine, split virus (incl. purified surface antigen) Umesh Flavio Other [facility] Other 12-03-2019 influenza virus vaccine, unspecified formulation [facility] 12-18-2018 influenza virus vaccine, split virus (incl. purified surface antigen) Umesh Almazan Other [employer] Other 12-18-2018 influenza virus vaccine, unspecified formulation [facility] 12-11-2017 influenza virus vaccine, split virus (incl. purified surface antigen) Umesh Flavio Other [employer] Other 12-11-2017 influenza virus vaccine, unspecified formulation [facility] 11-21-2016 tetanus and diphther ia toxoids, adsorbed, preservative free, for adult use (5 Lf of tetanus toxoid and 2 Lf of diphtheria toxoid) Umesh Flavio Other [facility] 11-11-2012 tetanus and diphther ia toxoids, adsorbed, preservative free, for adult use (5 Lf of tetanus toxoid and 2 Lf of diphtheria toxoid) Umesh Flavio Other [facility] 10-10-2001 diphtheria, tetanus toxoids and acellular pertussis vaccine, unspecified formulation Umesh Flavio Other [facility] Payers Date Payer Category Payer Medicare [id number] 1961 Self-pay [id number] 1961 Unknown [id number] 1960 Unknown [id number] 1960 Unknown [id number] 1960 Unknown [id number] Medicare Medicare [id number] Private Health Insurance [id number] Unknown [id number] Unknown [facility] [id number] Social History Date Type Detail Facility Start: 10-02-2020 End: 03-31-2024 Tobacco smoking status NHIS Ex-smoker (finding) [facility] Start: 1960 Sex Assigned At Male F [facility] Sex Assigned At Sex Assigned At Bir th [facility] [employer] Other Start: 03-31-2024 Sex Male (finding) [facility] Clinical Notes 10-02-2020 to 12-05-2023 Note Date & Type Note Facility 12-05-2023 Note [facility] Note Reason for cardiology consult: Bradycardia Chief Complaint: None HPI: Robert Florian is a 63 y.o. male without prior [...] noted on 3-d (more content not included)... [facility] 03-19-2023 Evaluation note Encounter Date Diagnosis Assessment Notes Mar, Seasonal allergic rhinitis due to pollen (ICD-10 - J30.1) [facility] Other 10-18-2023 Evaluation note* Encounter Date Diagnosis [...] ear (ICD-10 - H90.42) Suspected, check audiogram [facility] Other 10-18-2023 Evaluation note* Encounter Date Diagnosis Assessment Notes Treatment Notes Treatment Clinical Notes Nov, Mild intermittent asthma with acute exacerbation (ICD-10 - J45.21) [facility] Other 10-12-2023 Evaluation note* Encounter Date Diagnosis [...] ER for increased cough, SOB or CP [facility] Other 10-04-2023 Evaluation note* Encounter Date Diagnosis Assessment Notes Treatment Notes Treatment Clinical Notes Nov, Seasonal allergic rhinitis due to pollen (ICD-10 - J30.1) [facility] Other 04-20-2023 Evaluation note* Encounter Date Diagnosis Assessment Notes Treatment Notes Treatment Clinical Notes May, Seasonal allergic rhinitis due to pollen (ICD-10 - J30.1) [facility] Other 03-21-2023 Evaluation note* Encounter Date Diagnosis [...] exercise for 30 minutes, 3-5 times weekly. [facility] Other 03-21-2023 Evaluation note* Encounter Date Diagnosis Assessment Notes Treatment Notes Treatment Clinical Notes Apr, Fatigue, unspecified type (ICD-10 - R53.83) [facility] Other 08-28-2021 Hospital Discharge instructions Additional Instructions [...] difficulty breathing or [facility] other [facility] noteNo assessment information available[facility]tr[facility] noteNo InformationNort [employer] Other Evaluation note* Diagnosis Onset Date Resolution Status Asthma acute Elevated cholesterol acute Hypertension acute Lumbar spondylosis acute Wellness examination noneact raheel [facility] Work Phone: Evaluation note* Diagnosis Onset Date Resolution Status Essential (primary) hypertension acute High risk medication use acu te Low back pain acute Lumbar spondylosis acute [facility] Work Phone: Evaluation note* Diagnosis Onset Date Resolution Status Essential (primary) hypertension acute High risk medication use acu te Low back pain acute Lumbar spondylosis acute Obesity acute Onychomycosis acute [facility] Work Phone: evaluation note* Diagnosis Onset Date Resolution Status Essential (primary) hypertension acute High risk medication use acu te Low back pain acute Lumbar spondylosis acute Obesity acute Onychomycosis acute Essential (primary) hypertension acute Primary osteoarthritis of right knee acute Right knee pain acute [facility] Work Phone: Evaluation note* Diagnosis Onset Date Resolution Status Essential (primary) hypertension acute High risk medication use acu te Low back pain acute Lumbar spondylosis acute Obesity acute Onychomycosis acute Essential (primary) hypertension acute Primary osteoarthritis of right knee acute Right knee pain acute Essential (primary) hypertension acute Primary osteoarthritis of right knee acute Right knee pain acute [facility] Work Phone: Evaluation note* Diagnosis Onset Date Resolution Status Essential (primary) hypertension acute Primary osteoarthritis of right knee acute Right knee pain acute Essential (primary) hypertension acute Primary osteoarthritis of right knee acute Right knee pain acute [facility] Work Phone: Hispxwj general Narrative - Reported* Type Description Date [...] COLONOSCOPY 2018 Hospitalization History SEE SURGICAL HX [facility] Other Chief Complaint and Reason for Visit [...] right knee Right knee pain Chief Complaint Admit Date Heart Rate Concerns/Discuss CT March 31, 2024 2:56pm Advance Directives Advance Directive Response Recorded Date/ Time Advance Directives No December 11, 2017 4:38pm Advance Directive Response Recorded Date/ Time Advance Directives No March 9:32am Summary Purpose Family History Relationship Condition Age [...] hearing of right ear (H90.42) Referral Organization [facility] Referring Provider First Name Umesh Referring Provider Last Name Flavio Referring Provider Specialty Internal Me dicine Referred Organization [facility] Referred Provider WonBethanie Referred Address ,[place],[address] Referred Provider Specialty Ear, Nose an d [...] (unrecognized sec tion and content) Team Status: Active Member Role Status Dates Umesh Almazan , DO Primary Care Provider Active Team Status: Active Member Role Status Dates Umesh Almazan DO Primary Care Provide r, Attending Provider Active Start: January 17, 2024 Team Status: Inactive Member Role Status Shy Almazan DO Primary Care Provide r, Attending Provider Active Start: March 31, 2024 End: March 31, 2024 Team Status: Inactive Member Role Status Dates Umesh Almazan DO Primary Care Provider Active Outreach Community Attending Provider Active Team Status: Active Member Role Status Shy Almazan DO Primary Care Provider Active Team Status: Inactive Member Role Status Dates Umesh Almazan DO Primary Care Provide r, Attending Provider Active Start: April 30, 2023 End: April 30, 2023 Team Status: Inactive Member Role Status Dates Umseh Almazan DO Primary Care Provider Active Start: June 19, 2023 End: June 19, 2023 VIDYA MinC Attending Provider Act raheel Start: June 19, 2023 End: June 19, 2023 Team Status: Inactive Member Role Status Dates Umesh Almazan DO Primary Care Provide r, Attending Provider Active Start: August 10, 2023 End: August 10, 2023 Team Status: Inactive Member Role Status Dates Umesh Ball , DO Primary Care Provide r, Attending Provider Active Start: August 24, 2023 End: August 24, 2023 Team Status: Active Member Role Status Dates Umesh Almazan , [...] Active Member Role Status Dates Umesh Almazan , DO Primary Care Provide r, Attending Provider Active Start: September 17, 2023 Team Status: Inactive Member Role Status Shy Almazan , DO Primary Care Provide r, Attending Provider Active Start: November 21, 2023 End: November 21, 2023 Team Status: Active Member Role Status Shy Almazan , DO Primary Care Provide r, Attending Provider Active Start: January 17, 2024 Team Status: Inactive Member Role Status Shy Almazan , DO Primary Care Provide r, Attending Provider Active Start: March 31, 2024 End: March 31, 2024 REASON FOR VISIT (unrecogniz ed section and content) [facility] LabsENT REFERRAL UP DATEletterFLU Shotmedicationcongestion [id number], congestion, no covid testAllergy ShotWELLNESS (unrecognized sect ion and content) No Status Records FoundNo Status Records FoundNo Status Records Found INFORMATION SOURCE (unrecogn ized section and content) DATE CREATED AUTHOR 05/01/2022 [facility] DATE CREATED AUTHOR AUTHOR'S ORGANIZ ATION 08/28/2023 [facility] DATE CREATED AUTHOR AUTHOR'S ORGANIZ ATION 12/10/2023 [facility] FOR RECORDS PERTAINING TO PATIENTS WHO ARE [...] BE BASED ON THE PRIMARY CLINICAL RECORDS. [facility]. provides no warranty or guarantee of the accuracy or completeness of information in this document.
[2024-04-15 09:35] LABS: Alanine Aminotransferase 30 U/L (16-63); Albumin Globulin Ratio 1.1; Alkaline Phosphatase 99 U/L (46-116); Anion Gap 12.8; Aspartate Amino Transferase 28 U/L (15-37); BUN Creatinine Ratio 15.7; Bilirubin Total 0.8 mg/dL (0.2-1.0); Calcium 9.6 mg/dL (8.5-10.1); Carbon Dioxide 27.7 mmol/L (21.0-32.0); Chloride 103 mmol/L (98-107); Chol HDL Ratio 3.8; Cholesterol 159 mg/dL (<=200); Estimated GFR (African America >60 (>=60 mL/min/1.73m^2); Estimated GFR (Non-African Ame 51 (>=60 mL/min/1.73m^2); Globulin 3.6 g/dL; Glucose 98 mg/dL (74-106); HDL Cholesterol 42 mg/dL (40-60); LDL Cholesterol Calculated 87.4 mg/dL; Potassium 4.5 mmol/L (3.5-5.1); Sodium 139 mmol/L (136-145); Total Protein 7.6 g/dL (6.4-8.2); Triglycerides 148 mg/dL (<=150); Uric Acid 5.1 mg/dL (3.5-7.2); VLDL CHOLESTEROL 29.6 mg/dL
[2024-04-15 09:52] LABS: Prostate Specific Antigen Scrn 2.01 ng/mL (<=4.00)
== END 2024-04-15 08:44 | disposition home or self-care (01) ==
LOC: LAB 08:43
PROVIDERS: PCP Internal Medicine; Visit Provider Internal Medicine
DX: R00.2 Palpitations (principal); R73.01 Impaired fasting glucose; N18.9 Chronic kidney disease, unspecified; M10.00 Idiopathic gout, unspecified site; Z12.5 Encounter for screening for malignant neoplasm of prostate; E78.00 Pure hypercholesterolemia, unspecified; I12.9 Hypertensive chronic kidney disease with stage 1 through stage 4 chronic kidney disease, or unspecified chronic kidney disease
CPT/HCPCS: 36415; 80053; 80061; 84550; 85025; G0103

== ENCOUNTER 2024-05-30 09:00 | Outpatient (OUT) | payer OTHER, SELFPAY ==
[2024-05-30 10:30] LABS: Anion Gap 12.3; BUN Creatinine Ratio 21.3; Calcium 9.4 mg/dL (8.5-10.1); Carbon Dioxide 25.8 mmol/L (21.0-32.0); Chloride 106 mmol/L (98-107); Estimated GFR (African America >60 (>=60 mL/min/1.73m^2); Estimated GFR (Non-African Ame 60 (>=60 mL/min/1.73m^2); Glucose 87 mg/dL (74-106); Potassium 4.1 mmol/L (3.5-5.1); Sodium 140 mmol/L (136-145)
== END 2024-05-30 09:01 | disposition home or self-care (01) ==
LOC: LAB 09:01
PROVIDERS: PCP Internal Medicine; Visit Provider Student in an Organized Health Care Education/Training Program
DX: I49.3 Ventricular premature depolarization (principal)
CPT/HCPCS: 36415; 80048

== ENCOUNTER 2024-06-04 09:33 | Outpatient (OUT) | payer OTHER, SELFPAY ==
[2024-06-04 09:48] LABS: Basophils Absolute Auto 0.1 10^3/uL (0.0-0.1); Basophils Percent Auto 0.7 % (0.2-2.0); Eosinophils Absolute Auto 0.1 10^3/uL (0.0-0.7); Eosinophils Percent Auto 1.4 % (0.9-7.0); Hematocrit 41.3 % (42.0-54.0); Hemoglobin 14.1 g/dL (14.0-18.0); Immature Granulocytes Abs Auto 0.06 10^3/uL (0.00-0.03); Immature Granulocytes Pct Auto 0.8 % (0.0-0.5); Lymphocytes Absolute Auto 1.8 10^3/uL (1.2-3.8); Lymphocytes Percent Auto 24.3 % (20.5-60.0); Mean Corpuscular HGB Conc 34.1 g/dL (29.9-35.2); Mean Corpuscular Hemoglobin 31.9 pg (25.9-34.0); Mean Corpuscular Volume 93.4 fL (80.0-94.0); Mean Platelet Volume 9.7 fL (9.5-13.5); Monocytes Absolute Auto 0.6 10^3/uL (0.3-0.8); Monocytes Percent Auto 8.2 % (1.7-12.0); Neutrophils Absolute Auto 4.7 10^3/uL (1.4-6.5); Neutrophils Percent Auto 64.6 % (43.0-75.0); Platelet Count 212 10^3/uL (150-450); Red Blood Count 4.42 10^6/uL (4.70-6.10); Red Cell Distribution Width 13.3 % (11.0-15.0); White Blood Count 7.3 10^3/uL (4.0-11.0)
[2024-06-04 10:08] LABS: Anion Gap 13.2; BUN Creatinine Ratio 20.2; Calcium 9.5 mg/dL (8.5-10.1); Carbon Dioxide 27.2 mmol/L (21.0-32.0); Chloride 102 mmol/L (98-107); Estimated GFR (African America >60 (>=60 mL/min/1.73m^2); Estimated GFR (Non-African Ame 59 (>=60 mL/min/1.73m^2); Glucose 90 mg/dL (74-106); Potassium 4.4 mmol/L (3.5-5.1); Sodium 138 mmol/L (136-145)
== END 2024-06-04 09:34 | disposition home or self-care (01) ==
LOC: LAB 09:35
PROVIDERS: PCP Internal Medicine
DX: Z98.890 Other specified postprocedural states (principal); Z86.79 Personal history of other diseases of the circulatory system
CPT/HCPCS: 36415; 80048; 85025

== ENCOUNTER 2024-07-08 07:43 | Outpatient (OUT) | payer OTHER, SELFPAY ==
--- OUTSIDE RECORDS SUMMARY | 2024-07-08 07:48 | XMS_ITS | CCD ---
Author Organization [facility] Care Team Providers Care Property Master Name Role Phone DO Umesh Muniz Primary Care Provider [phone] DO Umesh Muniz Primary Care Provider [facility], [facility] Attending Provider Umesh Muniz Unavailable DR UMESH MUNIZ Primary Care Unavailable BALL, DR BOGGS Admitting [...] DR BOGGS Primary Care Unavailable DO Umesh Muniz Primary Care Provider DO Umesh Muniz Attending Provider Umesh Muniz Attending Unavailable Ball, Umesh Primary Care Unavailable Ball, Umesh Admitting Unavailable VANESSA MIDDLETON Attending Unavailable CORDELL BYERS Referring Unavailable COLEEN, HUA BROWN Referring Unavailable CORDELL BYERS Referring Unavailable CONSTANTIN FLORES Attending Unavailable BLADIMIR MCCALL Attending Unavailable BOBCORDELL Attending Unavailable BOB, CORDELL Admitting Unavailable BOB, CORDELL Attending Unavailable Allergies Allergy Classification Reported Allergen(s) Allergy Type Date of Onset Reaction(s) Facility (9 sources) patient allergy list reviewed by nurse or physicia Propensity to adverse reactions 01-11-20 Comment:Done GoInstant Other (5 sources) Sulfamethoxazole Drug Allergy 10-17-19 [facility] (5 sources) Trimethoprim Drug Allergy 10-17-19 [facility] Medications Current Medications Medication Drug Class(es) Dates [...] 2023 8:54am amLODIPine 5 mg oral tablet (19 sources) Dihydropyridine Calcium Channel Jamie Start: 11-30-2023 Amlodipine 5 mg tablet Active 0 .ROUTE .COMPLEX 90 November 30, 2023 4:21pm TAKE 1 TABLET EVERY DAY Start: 08-10-2023 End: 11-30-2023 take 1 tablet by mouth once daily Amlodipine 5 mg tablet Discontinued 5 MG PO Daily August 10, 2023 12:00am November 30, 2023 4:21pm Start: 05-17-2023 End: 05-17-2023 take 1 tablet by mouth once daily Amlodipine 5 mg tablet Discontinued 5 MG PO Daily May 17, 2023 12:00am May 17, 2023 2:28pm azithromycin 250 mg oral tablet (9 sources) Macrolide Antimicrobial Start: 05-20-2024 Azithromycin 250 mg tablet Active 250 MG PO .COMPLEX 6 5 May 20, 2024 12:00am 2 tabs on first day followed by 1 tab on days 2-5 Start: 11-16-2022 Azithromycin 2 50 MG as directed Orally daily for 5 days Nov, Active benzonatate 100 mg oral capsule (7 sources) Non-narcotic Antitussive Start: 11-22-2022 take 1 capsule by mouth every eight hours Benzonatate 100 MG 1 capsule as needed Orally Three times a day for 10 days Nov, Active 120 actuat budesonide 0.08 mg/actuat / formoterol fumarate 0.0045 mg/actuat metered dose inhaler (16 sources) Corticosteroid, beta2-Adrenergic Agonist Start: 06-19-2023 End: 05-20-2024 take 1 puff(s) by inhalation twice daily Budesonide-Formot bren 80-4.5 mcg/actuation HFA aerosol inhaler Active 2 PUFF INHALATION Twice daily 10.2 May 20, 2024 12:00am Start: 11-22-2022 take 2 puff(s) by in halation twice daily Budesonide-Formoterol Fumarate 80-4.5 MCG/ACT 2 puffs Inhalation Twice a day for 30 days Nov, Active Start: 11-22-2022 take 2 puff(s) by in halation twice daily Budesonide-Formoterol Fumarate 80-4.5 MCG/ACT 2 puffs Inhalation Twice a day for 30 days Nov, Active Losartan (20 sources) Angiotensin 2 Receptor Jamie Start: 04-24-2024 Losartan 100 mg tabl et Active 0 .ROUTE .COMPLEX April 24, 2024 6:52am TAKE 1 TABLET EVERY DAY Start: 04-21-2024 End: 04-24-2024 take 1 tablet by mouth once daily Losartan 100 mg tablet Discontinued 100 MG PO Daily 100 100 April 21, 2024 5:05pm April 24, 2024 6:52am Start: 05-11-2023 End: 04-21-2024 take 1 tablet by mouth once daily Losartan 100 mg tablet Discontinued 0 .ROUTE .COMPLEX May 11, 2023 4:29pm April 21, 2024 5:07pm TAKE ONE TABLET BY MOUTH DAILY Start: 12-12-2017 End: 05-11-2023 take 1 tablet by mouth once daily Losartan 100 mg tablet Discontinued 100 MG PO Daily December 12, 2017 1:00am May 11, 2023 4:29pm 24 hr metoprolol succinate 25 mg extended release oral tablet (9 sources) beta-Adrenergic Jamie Start: 02-24-2024 Metopr olol Succinate 25 mg tablet extended release 24 hr Active 0 .ROUTE .COMPLEX February 24, 2024 10:18am TAKE 1 TABLET EVERY DAY Start: 08-29-2023 End: 02-24-2024 take 1 tablet by mouth once daily Metoprolol Succinate 25 mg tablet extended release 24 hr Discontinued 25 MG PO Daily August 29, 2023 12:00am February 24, 2024 10:18am Xopanmnnvvqx-Rergateg-Fpaakg (Multivitamin 50 Plus) Tablet (11 sources) Start: 12-12-2017 Ymlngqjuwxgf-Ignwpxee-Fyflzv (Multivitamin 50 Plus) Tablet Active 1 TAB PO Daily December 12, 2017 2:37pm Start: 12-12-2017 End: 04-27-2023 Oxefkjafftda-Nlmkeznk-Uzlyqn (Multivitamin 50 Plus) Tablet Discontinued 1 TAB PO Daily December 12, 2017 12:00am April 27, 2023 7:54am Start: 12-12-2017 End: 04-27-2023 Npjmsflwlqfg-Voblkung-Wwxldt (Multivitamin 50 Plus) Tablet Discontinued 1 TAB PO Daily December 12, 2017 1:00am April 27, 2023 8:54am predniSONE 20 mg oral tablet (19 sources) Start: 11-16-2022 predniSONE 20 MG 1 tablet Orally twice daily w/ food x 4 days then qd w/ food x 4 days for 8 days Nov, Active Start: 10-02-2020 End: 04-27-2023 take 1 tablet by mouth once daily Prednisone 50 mg tablet Discontinued 50 MG PO Daily 4 4 October 02, 2020 12:00am April 27, 2023 8:54am Turmeric extract (11 sources) Start: 12-18-2017 take 1 tablet by darwin th twice daily Turmeric Active 1 TAB PO Twice daily December 18, 2017 8:04am Start: 12-18-2017 End: 04-27-2023 take 1 capsule by mouth twice daily Turmeric 400 mg Capsule Discontinued 1 TAB PO Twice daily December 18, 2017 1:00am April 27, 2023 8:54am Start: 12-18-2017 End: 04-27-2023 take 1 capsule [...] Drug Class(es) Dates Sig (Normalized) Sig (Original) [id number] 200 actuat albuterol 0.09 mg/actuat metered dose inhaler (20 sources) beta2-Adrenergic Agonist Start: 04-27-2023 End: 04-30-2023 take 1 puff(s) by inhalation every four hours as needed for cough Albuterol Sulfate 90 mcg/actuation HFA aerosol inhaler Discontinued 2 PUFF INHALATION Every 4 hours as needed for cough April 27, 2023 12:00am April 30, 2023 [...] Active ascorbic acid 1000 mg oral tablet (11 sources) Vitamin C Start: 12-12-2017 End: 10-02-2020 take 1 tablet by mouth twice daily Ascorbic Acid (Vitamin C) (Vitamin C) 1,000 mg Tablet Discontinued 1000 MG PO Twice daily December 12, 2017 1:00am October 02, 2020 9:14am atorvastatin 20 mg oral tablet (11 sources) HMG-CoA Reductase Inhibitor Start: 10-02-2020 End: 04-27-2023 Atorvastatin 20 mg tablet Discontinued MG TABLET October 02, 2020 12:00am April 27, 2023 8:53am Start: 10-02-2020 End: 04-27-2023 Atorvastatin Discontinued MG TABLET October 02, 2020 12:00am April 27, 2023 8:53am cetirizine hydrochloride 10 mg oral tablet (11 sources) Histamine-1 Receptor Antagonist Start: 10-02-2020 End: 04-27-2023 take 1 tablet by mouth once daily as needed Cetirizine (Zyrtec) 10 mg Tablet Discontinued 10 MG PO Daily as needed for Allergy Symptoms October 02, 2020 12:00am April 27, 2023 8:54am diphenhydrAMINE hydrochloride 25 mg oral capsule (11 sources) Histamine-1 Receptor Antagonist Start: 12-12-2017 End: 10-02-2020 Diphenhydramine Hcl (Benadryl) 25 mg Capsule Discontinued 1 TAB PO As Directed December 12, 2017 1:00am October 02, 2020 9:14am fluticasone propionate 0.05 mg/actuat metered dose nasal spray (11 sources) Corticosteroid Start: 10-02-2020 End: 04-27-2023 Fluticasone Propionate (Flonase) 50 mcg/actuation [place],Suspension Discontinued 1 SPRAY INTRANASAL Daily October 02, 2020 12:00am April 27, 2023 8:54am hydrOXYzine pamoate 25 mg oral capsule (11 sources) Antihistamine Start: 10-02-2020 End: 04-27-2023 take 1 capsule by mouth every six hours as needed Hydroxyzine Pamoate 25 mg capsule Discontinued 25 MG PO Q6H as needed for itching October 02, 2020 12:00am April 27, 2023 8:54am itraconazole 100 mg oral capsule (11 sources) Azole Antifungal Start: 10-02-2020 End: 04-27-2023 Itraconazole 100 mg capsule Discontinued MG October 02, 2020 12:00am April 27, 2023 8:54am Start: 10-02-2020 End: 04-27-2023 Itraconazole Discontinued MG October 02, 2020 12:00am April 27, 2023 8:54am loratadine 10 mg oral tablet (11 sources) Start: 12-12-2017 End: 10-02-2020 take 1 tablet by mouth once daily Loratadine 10 mg Tablet Discontinued 10 MG PO Daily December 12, 2017 1:00am October 02, 2020 9:14am sulfamethoxazole 800 mg / trimethoprim 160 mg oral tablet (8 sources) Dihydrofolate Reductase Inhibitor Antibacterial, Sulfonamide Antimicrobial Start: 06-19-2023 End: 05-07-2024 take 1 tablet by mouth twice daily Sulfamethoxazole- Trimethoprim (Bactrim Ds) 800-160 mg tablet Discontinued 1 TAB PO Twice daily 24 11June 19, 2023 12:00am May 07, 2024 11:29am tamsulosin hydrochloride 0.4 mg oral capsule (11 sources) alpha-Adrenergic Jamie Start: 10-02-2020 End: 04-27-2023 Tamsulosin 0.4 mg capsule Discontinued MG PO October 02, 2020 12:00am April 27, 2023 8:54am Start: 10-02-2020 End: 04-27-2023 Tamsulosin Discontinued MG P O October 02, 2020 12:00am April 27, 2023 8:54am terbinafine 250 mg oral tablet (8 sources) Allylamine Antifungal Start: 08-10-2023 End: 05-04-2024 take 1 tablet by mouth once daily Terbinafine Hcl 250 mg tablet Discontinued 250 MG PO Daily August 10, 2023 12:00am May 04, 2024 10:07am triamcinolone acetonide 40 mg/ml injectable suspension (20 sources) Corticosteroid Start: 05-25-2022 Kenalog-40 Mar, 60 mg Tumeric (11 sources) Start: 12-12-2017 End: 12-18-2017 take 1 [...] Episodic Aortic; peripheral; and visceral artery aneurysms (7 sources) Abdominal aortic aneurysm; Translations: [Abdominal aortic aneurysm (AAA)] 08-12-2023 Chronic Comment on above: XR: 3.2cm - 08/2023,C TA abdomen: 2.7cm - 01/2024 Asthma (20 sources) Exacerbation of intermittent asthma; Translations: [Mild intermittent asthma with (acute) exacerbation] Onset: 11-21-2016 Chronic Cardiac dysrhythmias (20 sources) Cardiac arrhythmia; Translations: [Cardiac arrhythmia, unspecified] Onset: 04-16-2024 04-27-2023 Chronic Comment on above: Echo: LVEF 45-50%, n ormal RV size/function, RVSP 10/2023Stress Testing: no 12/2023 Echo: LVEF 45-50%, n ormal RV size/function, RVSP 10/2023, Chronic kidney disease (20 sources) Chronic kidney disease stage 3; Translations: [Chronic kidney disease, stage 3 unspecified] Onset: 11-21-2017 04-27-2023 Chronic Chronic obstructive pulmonary disease and bronchiectasis (20 sources) Chronic obstructive pulmonary disease with acute lower respiratory infection; Translations: [Chronic obstructive pulmonary disease with (acute) lower respiratory infection] Onset: 06-07-2015 Chronic Congestive heart failure; nonhypertensive (4 sources) Chronic systolic heart failure; Translations: [Chronic systolic (congestive) heart failure] 04-17-2024 Chronic Comment on above: Echo: LVEF 45-50%, n ormal RV size/function, RVSP 10/2023 Disorders of lipid metabolism (20 sources) Hypercholesterolemia; [...] sources) Essential hypertension; Translations: [Essential (primary) hypertension] Onset: 05-26-2024 Chronic Gout and other crystal arthropathies (20 [...] knee] Onset: 03-17-2014 04-27-2023 Chronic Other aftercare (8 sources) Drug therapy finding; Translations: [Other intermediate designer (current) drug therapy] 08-10-2023 Episodic Other aftercare (4 sources) Other intermediate designer (current) drug therapy; Translations: [Long-term (current) use of other medications] 08-10-2023 Episodic Other circulatory disease (9 sources) Arteritis; Translations: [Arteritis, unspecified] Onset: 01-06-2015 Chronic Other circulatory disease (2 sources) Personal history of other diseases of the circulatory system; Translations: [Personal history of other diseases of the circulatory system] Onset: 06-04-2024 Episodic Other connective tissue disease (9 sources) H/O: musculoskeletal disease; Translations: [Personal history of other diseases of the musculoskeletal system and connective tissue] Episodic Other diseases of kidney and ureters (2 sources) Cyst of kidney; Translations: [Cyst of kidney, acquired] 03-31-2024 Episodic Comment on above: CT: multiple subcent imeter cyst on left, 15mm and subcentimeter cyst on right - 01/2024 Other diseases of kidney and ureters (4 sources) Cyst of kidney, acquired; Translations: [Cystic kidney disease, unspecified] 03-31-2024 Episodic Other ear and sense organ disorders [...] Episodic Other nutritional; endocrine; and metabolic disorders (18 sources) Hypercalcemia; Translations: [Hypercalcemia] Onset: 04-14-2017 04-27-2023 Chronic Other nutritional; endocrine; and metabolic disorders (7 sources) Obesity; Translations: [Obesity, unspecified] 08-10-2023 Chronic Other nutritional; endocrine; and metabolic disorders (3 sources) Obesity, unspecified; Translations: [Obesity, unspecified] 08-10-2023 Chronic Other nutritional; endocrine; and metabolic disorders (1 source) Overweight Episodic Other nutritional; endocrine; and metabolic disorders (9 sources) Overweight; Translations: [Overweight] Episodic Other skin disorders (4 sources) Other [...] Onset: 10-18-2012 Chronic Other upper respiratory disease (1 source) Allergic rhinitis, unspecified; Translations: [Allergic rhinitis, cause unspecified] 05-20-2024 Chronic Other upper respiratory disease (13 sources) [...] for prophylactic vaccination and inoculation, Influenza] Episodic Residual codes; unclassified (2 sources) Other specified postprocedural states; Translations: [Other specified postprocedural states] Onset: 05-26-2024 Episodic Spondylosis; intervertebral disc disorders; other back [...] and of unspecified site] Onset: 06-07-2015 Episodic Cardiac dysrhythmias (20 sources) Palpitations; Translations: [Palpitations] Onset: 06-15-2015 08-24-2023 Episodic Diabetes mellitus without complication (20 sources) Impaired fasting glycemia; Translations: [Impaired fasting [...] [Abnormal weight loss] Onset: 04-11-2016 Episodic Other screening for suspected conditions (not mental disorders or infectious disease) (17 sources) Patient encounter status; Translations: [Encounter for screening for malignant neoplasm of colon] Onset: 12-05-2023 12-18-2017 Episodic Comment on above: PSA: 1.64 - 04/2021, 1.74 - 04/2022, 2.01 - 04/2024 Other upper respiratory infections (9 sources) Acute [...] Results Test Name Value Interpretation Reference Range Facility 07-04-2024 36 Advised patient of Mukesh Messer recommendations. [facility] 07-02-2024 36 MD Erica Polanco MA Caller: Unspecified (Yesterday, 9:47 AM) Not a problem.. ask him to take an EKG or pulse while he is on Amio to see if PVC is less Advised patient of recommendations. Patient will stop in the office July 07 for an EKG after he has his ECHO. [facility] 07-01-2024 36 Phone call from patient, patient states he wasn't planning on taking Amiodarone because of the side effects look really bad. Patient states his rhythm has been so off and he is having so many PVC'S and SOB that he started taking the Amiodarone on June 29 because he was so SOB and his apple watch said he was having more abnormal beat then normal. Patient states he is feels better since he starting the Amiodarone. Patient wants to know due the interaction between the Amiodarone and the Amlodipine if he should quite taking the Amlodipine. Patient read on the internet that the the 2 don't interacted well together and wonders if he should stop the Amlodipine. Please advise [facility] Telephoneon 07-01-2024 Telephone [phone] AnivalWilbert 1960 [facility] Provider Department Center 07/01/2024 [id number] KELLY CARD [facility] Family History Problem Relation Age of Onset No Known Problems Mother No Known Problems Father Family Status - Relation Status Age at Mother Father Sister Alive Brother Alive [facility] 36on 06-17-2024 36 Other option is a be ta jamie like metoprolol but it looks like he was on it previously and Dr. Byers noted that it seemed to worsen his PVCs. Can we try to get him in to see Dr. Byers sooner than the ? [facility] Follow-Upon 06-11-2024 Follow-Up [id number] Wilbert Florian 1960 [facility] Department [place] 06/11/2024 CONSTANTIN LOGAN CARD [facility] Family History Problem Relation Age of Onset No Known Problems Mother No Known Problems Father Family Status - Relation Status Age at Mother Father Sister Alive Brother Alive Level of Service:07925 [facility] OFFICE/OUTPATIENT ESTABLISHED MOD MDM 30 MIN Reason for Visit and Comments: PVCs [Other] Palpitations [[id number]] Shortness of Breath [[id number]] [facility] Office Visiton 06-04-2024 Follow-up visit [id number] Wilbert Florian 1960 [facility] Provider Department Center 06/04/2024 [id number] MIRANDA CARD [facility] Family History Problem Relation Age of Onset No Known Problems Mother No Known Problems Father Family Status - Relation Status Age at Mother Father Sister Alive Brother Alive Level of Service:94418 NH OFFICE/OUTPATIENT ESTABLISHED LOW MDM 20 MIN [facility] 30on 05-27-2024 30 The patient is Moderately Unstable - Medium risk of patient condition declining or worsening The patient's goals for the shift include monitor bleeding, pulses and site check The clinical goals for the shift include VSS Problem: Pain - Adult Goal: Verbalizes/displays adequate comfort level or baseline comfort level Outcome: Progressing Problem: Safety - Adult Goal: Free from fall injury Outcome: Progressing Problem: Discharge Planning Goal: Discharge to home or other facility with appropriate resources Outcome: Progressing Problem: Chronic Conditions and Co-morbidities Goal: Patient's chronic conditions and co-morbidity symptoms are monitored and maintained or improved Outcome: Progressing Normal [facility] 30 Problem: Pain - Adul t Goal: Verbalizes/displays adequate comfort level or baseline comfort level Outcome: Progressing Flowsheets (Taken 05/27/202432) Verbalizes/displays adequate comfort level or baseline comfort level: Encourage patient to monitor pain and request assistance Administer analgesics based on type and severity of pain and evaluate response Assess pain using appropriate pain scale Problem: Safety - Adult Goal: Free from fall injury Outcome: Progressing Flowsheets (Taken 05/27/202432) Free from fall injury: Assess patient frequently for physical needs Modify environment to reduce risk of injury Problem: Discharge Planning Goal: Discharge to home or other facility with appropriate resources Outcome: Progressing Flowsheets (Taken 05/27/202432) Discharge to home or other facility with appropriate resources: Identify barriers to discharge with patient and caregiver Arrange for needed discharge resources and transportation as appropriate Identify discharge learning needs (meds, wound care, etc) Normal [facility] BASIC METABOLIC PANELon 04-2 Anion gap [Moles/Vol] 10 mmol/L Normal 7-20 [facility] Comment on above: Performed By: #### L [id number] ####[facility] (BEAKER)[address] [facility] [place] [address] Calcium [Mass/Vol] 9.3 mg/dL Normal 8.6-10.3 [facility] Comment on above: Performed By: #### L [id number] ####[facility] (BEAKER)[address] [facility] [place] [address] Chloride [Moles/Vol] 107 mmol/L Normal 98-[address] [facility] Comment on above: Performed By: #### L [id number] ####[facility] (BEAKER)[address] [facility] [place] [address] CO2 [Moles/Vol] 23 mmol/L Normal 21- [facility] Comment on above: Performed By: #### L [id number] ####[facility] ([facility])[address] [place] [address] Creatinine [Mass/Vol] 1.18 mg/dL Normal 0.70-1.30 [facility] Comment on above: Performed By: #### L [id number] ####[facility] ([facility])[address] [place] [address] GLOMERULAR FILTRATION RATE ML/MIN/1.73 SQ M.PREDICTED 68.5 mL/min/1.73m*2 Normal >60.0 [facility] Comment on above: Result Comment: The [facility]???s estimated glomerular filtration rate (eGFR) will no longer include consideration of race in its calculation. The National Kid[employer] Foundation???s eGFR Task Force developed new recommendations for the estimation of the glomerular filtration rate in the [place] They recommend immediate implementation of the new equation refit without the race variable in all laboratories because the calculation does not include race. In addition to not including race in the calculation and reporting, it included diversity in its development, and has acceptable performance characteristics and potential consequences that do not disproportionately affect any one group of individuals. Performed By: #### L [id number] ####[facility] ([facility])[address] [place] [address] Glucose [Mass/Vol] 109 mg/dL High 70-100 [facility] Comment on above: Performed By: #### L [id number] ####[facility] ([facility])[address] [place] [address] Potassium [Moles/Vol] 4.9 mmol/L Normal 3.5-5.1 [facility] Comment on above: Performed By: #### L [id number] ####[facility] ([facility])[address] [place] [address] Sodium [Moles/Vol] 135 mmol/L Low 136-145 [facility] Comment on above: Performed By: #### L [id number] ####[facility] ([facility])[address] [place] [address] Urea nitrogen [Mass/Vol] 28 mg/dL High 7-25 [facility] Comment on above: Performed By: #### L [id number] ####[facility] [place] [address] UREA NITROGEN/CREATININE (MASS RATIO) IN SER/PLAS 23.7 Normal [facility] Comment on above: Performed By: #### L [id number] ####[facility] ([facility])[address] [place] [address] CBCon 05-27-2024 Erythrocyte distribution width (RBC) [Ratio] 13.5 % Normal 11.5-15.0 [facility] Comment on above: Performed By: #### L [id number] ####[facility] ([facility])[address] [place] [address] ERYTHROCYTE MEAN CORPUSCULAR HEMOGLOBIN CONCENTRATION (G/DL) BY AUTOMATED 32.9 g/dL Normal 32.0-35.0 [facility] Comment on above: Performed By: #### L [id number] ####[facility] ([facility] [place] [address] Hematocrit (Bld) [Volume fraction] 42.0 % Normal 39.0-50.0 [facility] Comment on above: Performed By: #### L [id number] ####[facility] [place] [address] Hemoglobin (Bld) [Mass/Vol] 13.8 g/dL Normal 13.0-17.0 [facility] Comment on above: Performed By: #### L [id number] ####[facility] [place] [address] MCH (RBC) [Entitic mass] 31.2 pg Normal 27.0-33.0 [facility] Comment on above: Performed By: #### L [id number] ####[facility] ([facility]AKER)[address] [place] [address] MCV (RBC) [Entitic vol] 94.8 fL Normal 82.0-98.0 [facility] Comment on above: Performed By: #### L [id number] ####[facility] [place] [address] PLATELETS (10*3/UL) IN BLOOD AUTOMATED COUNT 192 10*3/uL Normal 150-400 [facility] Comment on above: Performed By: #### L [id number] ####[facility] ([facility])[address] [place] [address] RBC (Bld) [#/Vol] 4.43 10*6/uL Normal 4.20-5.70 [facility] Comment on above: Performed By: #### L [id number] ####[facility] ([facility])[address] [place] [address] WBC (Bld) [#/Vol] 9.25 10*3/uL Normal 4.00-10.60 [facility] Comment on above: Performed By: #### L [id number] ####[facility] ([facility])[address] [place] [address] 30on 05-26-2024 30 The patient is Moderately Unstable - Medium risk of patient condition declining or worsening The patient's goals for the shift include no bleeding , comfort The clinical goals for the shift include VS WNL, labs wnl, no oozing from groin Problem: Pain - Adult Goal: Verbalizes/displays adequate comfort level or baseline comfort level Outcome: Progressing Problem: Safety - Adult Goal: Free from fall injury Outcome: Progressing Problem: Discharge Planning Goal: Discharge to home or other facility with appropriate resources Outcome: Progressing Problem: Chronic Conditions and Co-morbidities Goal: Patient's chronic conditions and co-morbidity symptoms are monitored and maintained or improved Outcome: Progressing Normal [facility] HPon 05-26-2024 [facility] Electrophysiology Consult Note [place] Cardiology [facility] Reason for visit: PVC HPI: Wilbert Florian is a 63 y.o. year old with past medical history of hypertension and hyperlipidemia and arthritis was previously seen by Dr CUETO. He was noted to be bradycardia, therefore 3-day Holter monitor was obtained and it showed frequent PVCs with burden of 23% with few short nonsustained ventricular tachycardia 3-5 beats, all asymptomatic. His electrolytes were normal. His echo showed normal left ventricular systolic function. As per her note, the patient states that he is physically very [...] cardiac or cardiac arrhythmia in his family. PMH: Past Medical History: Diagnosis Date Abnormal ECG Aneurysm Arrhythmia Asthma Hyperlipidemia Hypertension PSH: Past Surgical History: Procedure Laterality Date TOTAL KNEE ARTHROPLASTY SH: Social Determinants of Health Tobacco Use: Low Risk (12/05/2023) Patient History Smoking Tobacco Use: Never Smokeless Tobacco Use: Never Passive Exposure: Not on file Alcohol Use: Not on file Financial Resource Strain: Not on file Food Insecurity: Not on file Transportation Needs: Not on file Physical Activity: Not on file Stress: Not on file Social Connections: Not on file Intimate Partner Violence: Not on file Depression: Not on file Housing Stability: Not on file Utilities: Not on file Health Literacy: Not on file Allergies: No Known Allergies Weight: 91.6kg Visit Vitals BP 161/85 Pulse 65 Resp 13 Ht 1.93 m (6' 4 ) Wt 90.7 kg (200 lb) SpO2 99% BMI 24.34 kg/m??? Smoking Status Never BSA 2.21 m??? Meds: No current facility-administered medications on file prior to encounter. Current Outpatient Medications on File Prior to Encounter Medication Sig Dispense Refill allopurinol (Zyloprim) 300 mg tablet Take 300 mg by mouth in the morning. amLODIPine (Norvasc) 5 mg tablet Take 5 mg by mouth in the morning. budesonide-formoteroL (Symbicort) 80-4.5 mcg/actuation inhaler Inhale 2 puffs in the morning and at bedtime. losartan (Cozaar) 100 mg tablet Take 100 mg by mouth in the morning. [DISCONTINUED] metoprolol succinate XL (Toprol-XL) 25 mg 24 hr tablet Take 25 mg by mouth in the morning. ROS: Review of Systems Constitutional: Positive for malaise/fatigue. Musculoskeletal: Positive for joint pain. All other systems reviewed and are negative. Physical Exam: Constitutional General Appearance: well-nourished, well-developed, appears stated age Level of Distress: comfortable Eyes OMAR Neck Neck: supple, trachea midline Carotid Arteries: bilateral normal upstroke, no bruits Jugular Veins: normal jugular venous pressure Thyroid: not enlarged Lungs Respiratory Effort: unlabored Chest Exam: normal curvature, no thoracic deformity Auscultation: clear, no wheezing, no rales, no rhonchi Cardiovascular Chest wall: Rate And Rhythm: regular Heart Sounds: normal S1, normal s2, no gallop Systolic Murmur: not heard Diastolic Murmur: not heard Extremities: no cyanosis, no edema, no peripheral signs of emboli Peripheral Pulses Radial Pulse: normal Abdomen Inspection and Palpation: soft, non distended, no bruit, non tender Neurologic Gait: normal gait Labs: @LABRESULTS@ No results found for: CHOLESTEROL TOTAL , HDL , LDL CALC , LDL DIRECT , TRIGLYCERIDES , TSH , T3 TOTAL , T4 TOTAL , THYROID PEROXIDASE AB , BNP EKG: Encounter Date: 05/26/24 ECG 12 lead Result Value Ventricular Rate 74 Atrial Rate 74 [place] Interval 158 QRS DURATION 100 QT Interval 414 QTC CALCULATION(BAZETT) 459 P [place] 37 R-[place] -35 T Wave [place] 58 Impression Sinus rhythm with frequent Premature ventricular complexes Left axis deviation Abnormal ECG No previous ECGs available Confirmed by Maurilio BATISTA, RAN Hood ([id number]) on 05/26/2024 10:39:39 AM Echo: Labs: 03/21/2023 White blood count 7.7 hemoglobin 14.8, hematocrit 46.2 platelets 190 Sodium 141, potassium 4.1, BUN 28, creatinine 1.24, GFR above 60, glucose 102, calcium 9.6 Total bilirubin 0.8, AST 22, ALT 32, alk phos 76, total protein 8.2, Triglyceride 171, tan (more content not included)... Normal [facility] Orders Onlyon 05-19-2024 Orders Only [id number] Wilbert Florian 1960 M Date Provider Department Center 05/19/2024 NIMO MCCLAIN [facility] VASC LAB [place] HeartVAS Family History Problem Relation Age of Onset No Known Problems Mother No Known Problems Father Family Status - Relation Status Age at Mother Father Normal [facility] Abstracton 04-28-2024 Abstract [id number] Wilbert Florian 1960 M Date Provider Department Center 04/28/2024 CORDELL CLARK [facility] AUTH [place] Medical C Family History Problem Relation Age of Onset No Known Problems Mother No Known Problems Father Family Status - Relation Status Age at Mother Father Normal [facility] Basophils Auto (Bld) [#/Vol] on 04-15-2024 Basophils (Bld) [#/Vol] Automated basophil count 0.0-0.1 [facility] Basophils/100 WBC Auto (Bld) on 04-15-2024 Basophils/100 WBC (Bld) Automated basophil % 0.2-2.0 [facility] Cholesterol in LDL Calc [Mas s/Vol]on 04-15-2024 Cholesterol in LDL [Mass/Vol] Cholesterol in LDL [Mass/volume] in Serum or Plasma by calculation [facility] Comment on above: <100 mg/dl [id number] 0-129 mg/dl NEAR OR ABOVE [id number] mg/dl BORDERLINE [id number] mg/dl HIGH>190 mg/dl VERY HIGH Cholesterol in VLDL Calc [Ma ss/Vol]on 04-15-2024 Cholesterol in VLDL [Mass/Vol] Cholesterol in VLDL [Mass/volume] in Serum or Plasma by calculation [facility] Eosinophils/100 WBC Auto (Bl d)on 04-15-2024 Eosinophils/100 WBC (Bld) Automated eosinophil % 0.9-7.0 [facility] Erythrocyte distribution wid th Auto (RBC) [Ratio]on 04-15-2024 Erythrocyte distribution width (RBC) [Ratio] Erythrocyte distribution width [Ratio] by Automated count 11.0-15.0 [facility] Estimated glomerular filtrat ion rate (GFR) non- Americanon 04-15-2024 GFR/1.73 sq M.predicted among non-blacks MDRD (S/P/Bld) [Vol rate/Area] Estimated glomerular filtration rate (GFR) non- Low >=60 mL/min/1.73m 2 [facility] Globulin Calc (S) [Mass/Vol] on 04-15-2024 Globulin (S) [Mass/Vol] Serum globulin measurement by calculation (mass/volume) [facility] Hematocrit Auto (Bld) [Volum e fraction]on 04-15-2024 Hematocrit (Bld) [Volume fraction] Hematocrit [Volume Fraction] of Blood by Automated count 42.0-54.0 [facility] Hemoglobin [Mass/volume] in Bloodon 04-15-2024 Hemoglobin (Bld) [Mass/Vol] Hemoglobin [Mass/volume] in Blood 14.0-18.0 [facility] Laboratory - Chemistry and C hemistry - challengeon 04-15-2024 Albumin [Mass/Vol] 4.0 g/dL 3.4-5.[address] [facility] ALP [Catalytic activity/Vol] 99 U/L 46-116 [facility] ALT [Catalytic activity/Vol] 30 U/L 16-63 [facility] AST [Catalytic activity/Vol] 28 U/L 15-37 [facility] Bilirubin [Mass/Vol] 0.8 mg/dL 0.2-1.0 [facility] Calcium [Mass/Vol] 9.6 mg/dL 8.5-10.[address] [facility] Chloride [Moles/Vol] 103 mmol/L 98-107 [facility] Cholesterol [Mass/Vol] 159 mg/dL <=200 [facility] Cholesterol in HDL [Mass/Vol] 42 mg/dL 40-60 [facility] Comment on above: > or =60 mg/dl - LOW CARDIOVASCULAR RISK<40 mg/dl - HIGH CARDIOVASCULAR RISK CO2 [Moles/Vol] 27.7 mmol/L 21.0-32.[address] [facility] Creatinine [Mass/Vol] 1.40 mg/dL High 0.70-1.30 [facility] GFR/1.73 sq M.predicted MDRD (S/P/Bld) [Vol rate/Area] mL/min/{1.73_m2} >=60 mL/min/1.73m 2 [facility] Glucose [Mass/Vol] 98 mg/dL 74-[address] [facility] Potassium [Moles/Vol] 4.5 mmol/L 3.5-5.1 [facility] Protein [Mass/Vol] 7.6 g/dL 6.4-8.[address] [facility] Sodium [Moles/Vol] 139 mmol/L 136-[address] [facility] Triglyceride [Mass/Vol] 148 mg/dL <=150 [facility] Urate [Mass/Vol] 5.1 mg/dL 3.5-7.[address] [facility] Urea nitrogen [Mass/Vol] 22.0 mg/dL High 7.0-18.0 [facility] Urea nitrogen/Creatinine [Mass ratio] 15.7 mg/mg [facility] Laboratory - Hematology and Cell countson 04-15-2024 Immature granulocytes/100 WBC (Bld) 0.6 % High 0.0-0.5 [facility] Leukocytes [#/volume] correc wanda for nucleated erythrocytes in Blood by Automated counon 04-15-2024 WBC corrected for nucl RBC Auto (Bld) [#/Vol] Leukocytes [#/volume] corrected for nucleated erythrocytes in Blood by Automated coun 4.0-11.0 [facility] Lymphocytes Auto (Bld) [#/Vo l]on 04-15-2024 Lymphocytes (Bld) [#/Vol] Lymphocytes [#/volume] in Blood by Automated count 1.2-3.8 [facility] Lymphocytes/100 WBC Auto (Bl d)on 04-15-2024 Lymphocytes/100 WBC (Bld) Lymphocytes/100 leukocytes in Blood by Automated count 20.5-60.0 [facility] MCH Auto (RBC) [Entitic mass ]on 04-15-2024 MCH (RBC) [Entitic mass] MCH [Entitic mass] by Automated count 25.9-34.0 [facility] MCHC Auto (RBC) [Mass/Vol]on 04-15-2024 MCHC (RBC) [Mass/Vol] MCHC [Mass/volume] by Automated count 29.9-35.2 [facility] MCV Auto (RBC) [Entitic vol] on 04-15-2024 MCV (RBC) [Entitic vol] MCV [Entitic volume] by Automated count High 80.0-94.0 [facility] Monocytes Auto (Bld) [#/Vol] on 04-15-2024 Monocytes (Bld) [#/Vol] Automated blood monocyte count 0.3-0.8 [facility] Monocytes/100 WBC Auto (Bld) on 04-15-2024 Monocytes/100 WBC (Bld) Automated monocyte % 1.7-12.0 [facility] Neutrophils Auto (Bld) [#/Vo l]on 04-15-2024 Neutrophils (Bld) [#/Vol] Neutrophils [#/volume] in Blood by Automated count 1.4-6.5 [facility] Neutrophils/100 WBC Auto (Bl d)on 04-15-2024 Neutrophils/100 WBC (Bld) Automated neutrophil % 43.0-75.0 [facility] No Panel Informationon 04-15 Eosinophils # (Auto) 0.1 10 3/uL 0.0-0.7 [facility] Immature Granulocyte # (Auto) 0.03 10 3/uL 0.00-0.03 [facility] Prostate Specific Antigen Screen 2.01 ng/mL <=4.00 [facility] Office Visiton 04-15-2024 Follow-up visit [id number] Wilbert Florian 1960 M Date Provider Department Center 04/15/2024 CORDELL CLARK KRISTINA Espitia Family History Problem Relation Age of Onset No Known Problems Mother No Known Problems Father Family Status - Relation Status Age at Mother Father Level of Service:64427 [place] OFFICE/OUTPATIENT NEW HIGH MDM 60 MINUTES Normal [facility] Orders Onlyon 04-15-2024 Orders Only [id number] Wilbert Florian 1960 M Date Provider Department Center 04/15/2024 JOHN HEWITT KRISTINA Espitia Family History Problem Relation Age of Onset No Known Problems Mother No Known Problems Father Family Status - Relation Status Age at Mother Father Normal [facility] Platelet mean volume Auto (B ld) [Entitic vol]on 04-15-2024 Platelet mean volume (Bld) [Entitic vol] Platelet mean volume [Entitic volume] in Blood by Automated count 9.5-13.5 [facility] Platelets Auto (Bld) [#/Vol] on 04-15-2024 Platelets (Bld) [#/Vol] Platelets [#/volume] in Blood by Automated count 150-450 [facility] RBC Auto (Bld) [#/Vol]on RBC (Bld) [#/Vol] Erythrocytes [#/volume] in Blood by Automated count 4.70-6.10 [facility] Serum or plasma albumin/glob ulin mass ratioon 04-15-2024 Albumin/Globulin [Mass ratio] Serum or plasma albumin/globulin mass ratio [facility] Serum or plasma anion gap de terminationon 04-15-2024 Anion gap [Moles/Vol] Serum or plasma anion gap determination [facility] Serum or plasma total choles terol/high density lipoprotein (HDL) cholesterol mass young 04-15-2024 Cholesterol.total/Ch olesterol in HDL [Mass ratio] Serum or plasma total cholesterol/high density lipoprotein (HDL) cholesterol mass rat [facility] Comment on above: 3.3 - 4.4 LOW RISK4. 4 - 7.1 AVERAGE RISK7.1 - 11.0 MODERATE RISK>11.0 HIGH RISK Estimated glomerular filtrat ion rate (GFR) non- Americanon 01-17-2024 GFR/1.73 sq M.predicted among non-blacks MDRD (S/P/Bld) [Vol rate/Area] Estimated glomerular filtration rate (GFR) non- Low >=60 mL/min/1.73m 2 [facility] Laboratory - Chemistry and C hemistry - challengeon 01-17-2024 Creatinine [Mass/Vol] 1.40 mg/dL High 0.70-1.30 [facility] GFR/1.73 sq M.predicted MDRD (S/P/Bld) [Vol rate/Area] mL/min/{1.73_m2} >=60 mL/min/1.73m 2 [facility] 36on 01-10-2024 36 Regarding stress sudeep t result from 12/19/2023: MD Nelida Lou MA Please inform the patient that overall his stress test is normal but he had significant PVCs during exercise therefore please refer him to see Dr. Byers as soon as possible to be evaluated for PVCs ablation. Spoke with patient and scheduled him to see Dr. Byers on 03/04/2024. Normal [facility] Office Visiton 12-05-2023 Follow-up visit [id number] Wilbert Florian Libra 1960 Date Provider Department Center 12/05/2023 [id number][facility]YANIGKVANESSA [facility] Rose[facility] Family History Problem Relation Age of Onset No Known Problems Mother No Known Problems Father Family Status - Relation Status Age at Mother Father Level of Service:58424 [place] OFFICE/OUTPATIENT NEW MODERATE MDM 45 MINUTES Reason for Visit and Comments: Bradycardia [857007] Abdominal aortic aneurysm [Other] - Denies chest pain and SOB. Goes to the gym 3 days a week. Hypertension [091858] - On amlodipine and losartan. PVC's [Other] - Wore Holter monitor in August for skipped beats per patient. On metoprolol. Denies feeling palpitations. Had echo last month. Normal [facility] Globulin Calc (S) [Mass/Vol] on 10-04-2023 Globulin (S) [Mass/Vol] 3.6 g/dL [facility] Laboratory - Chemistry and C hemistry - challengeon 10-04-2023 Albumin [Mass/Vol] 4.3 g/dL 3.4-5.[address] [facility] ALP [Catalytic activity/Vol] 94 U/L 46-116 [facility] ALT [Catalytic activity/Vol] 45 U/L 16-63 [facility] AST [Catalytic activity/Vol] 35 U/L 15-37 [facility] Bilirubin [Mass/Vol] 0.6 mg/dL 0.2-1.0 [facility] Bilirubin.direct [Mass/Vol] 0.1 mg/dL 0.0-0.2 [facility] Protein [Mass/Vol] 7.9 g/dL 6.4-8.[address] [facility] Serum or plasma albumin/glob ulin mass ratioon 10-04-2023 Albumin/Globulin [Mass ratio] 1.2 {ratio} [facility] TESTOSTERONE, TOTALon 2022 Testosterone [Mass/Vol] 862 ng/dL Normal 264-916 [facility] Comment on above: Result Comment: Adul t male reference interval is based on a population of healthy nonobese males (BMI <30) between 19 and 39 years old. yonny Holder.al. JCEM 2017,102;3916-1100. PMID: [id number]. Performed By: #### T ESTTOT #### [facility] [address] [place] [address] Dr. Chapo Posey SGOTon 04-18-2022 AST [Catalytic activity/Vol] 26 U/L Normal 15-37 [facility] Comment on above: Performed By: #### A LT, AST #### [facility] [address] [place] [address] Dr. Chapo Posey SGPTon 04-18-2022 ALT [Catalytic activity/Vol] 30 U/L Normal 16-63 [facility] Comment on above: Performed By: #### A LT, AST #### [facility] [address] [place] [address] Dr. Chapo Posey CBC AUTO DIFFon 04-05-2022 BASO # 0.1 103/ul Normal 0.0-0.1 [facility] Comment on above: Performed By: #### D ATCBC #### [facility] [address] [place] [address] Dr. Chapo Posey Basophils/100 WBC (Bld) 1.0 % Normal 0.2-2.0 [facility] Comment on above: Performed By: #### D ATCBC #### [facility] [address] [place] [address] Dr. Chapo Posey EO # 0.1 103/ul Normal 0.0-0.7 [facility] Comment on above: Performed By: #### D ATCBC #### [facility] [address] [place] [address] Dr. Chapo Posey Eosinophils/100 WBC (Bld) 2.5 % Normal 0.9-7.0 [facility] Comment on above: Performed By: #### D ATCBC #### [facility] [address] [address] [address] Chapo Posey Erythrocyte distribution width (RBC) [Ratio] 13.2 % Normal 11.0-15.0 [facility] Comment on above: Performed By: #### D ATCBC #### [facility] [address] [place] [address] Dr. Chapo Posey Hematocrit (Bld) [Volume fraction] 46.3 % Normal 42.0-54.0 [facility] Comment on above: Performed By: #### D ATCBC #### [facility] [address] [place] [address] Dr. Chapo Posey Hemoglobin (Bld) [Mass/Vol] 15.2 g/dL Normal 14.0-18.0 [facility] Comment on above: Performed By: #### D ATCBC #### [facility] [address] [place] [address] Dr. Chapo Posey IG # 0.03 10e3/ul Normal 0.00-0.03 [facility] Comment on above: Performed By: #### D ATCBC #### [facility] [address] [place] [address] Dr. Chapo Posey IG % 0.6 % Critically high 0.0-0.5 [facility] Comment on above: Performed By: #### D ATCBC #### [facility] [address] [place] [address] Dr. Chapo Posey LYMPH # 1.8 103/ul Normal 1.2-3.8 [facility] Comment on above: Performed By: #### D ATCBC #### [facility] [address] [place] [address] Dr. Chapo Posey Lymphocytes/100 WBC (Bld) 36.8 % Normal 20.5-60.0 [facility] Comment on above: Performed By: #### D ATCBC #### [facility] [address] [place] [address] Dr. Chapo Posey MCH (RBC) [Entitic mass] 31.0 pg Normal 25.9-34.0 [facility] Comment on above: Performed By: #### D ATCBC #### [facility] [address] [address] [address] Chapo Posey MCHC (RBC) [Mass/Vol] 32.8 g/dL Normal 29.9-35.2 [facility] Comment on above: Performed By: #### D ATCBC #### [facility] [address] [address] [address] Chapo Posey MCV (RBC) [Entitic vol] 94.3 fL Critically high 80.0-94.0 [facility] Comment on above: Performed By: #### D ATCBC #### [facility] [address] [place] [address] Dr. Chapo Posey MONO # 0.5 103/ul Normal 0.3-0.8 [facility] Comment on above: Performed By: #### D ATCBC #### [facility] [address] [place] [address] Dr. Chapo Posey Monocytes/100 WBC (Bld) 9.7 % Normal 1.7-12.0 [facility] Comment on above: Performed By: #### D ATCBC #### [facility] [address] [place] [address] Dr. Chapo Posey NEUT # 2.4 103/ul Normal 1.4-6.5 [facility] Comment on above: Performed By: #### D ATCBC #### [facility] [address] [place] [address] Dr. Chapo Posey Neutrophils/100 WBC (Bld) 49.4 % Normal 43.0-75.0 [facility] Comment on above: Performed By: #### D ATCBC #### [facility] [address] [place] [address] Dr. Chapo Posey Platelet mean volume (Bld) [Entitic vol] 10.3 fL Normal 9.5-13.5 [facility] Comment on above: Performed By: #### D ATCBC #### [facility] [address] [place] [address] Dr. Chapo Posey PLT 197 103/ul Normal 150-450 [facility] Comment on above: Performed By: #### D ATCBC #### [facility] [address] [place] [address] Dr. Chapo Posey RBC 4.91 106/ul Normal 4.70-6.10 [facility] Comment on above: Performed By: #### D ATCBC #### [facility] [address] [place] [address] Dr. Chapo Posey WBC 4.9 103/ul Normal 4.0-11.0 [facility] Comment on above: Performed By: #### D ATCBC #### [facility] [address] [place] [address] Dr. Chapo Posey FRANCISCO JAVIER- BMP WITH LIPIDon 2022 Anion gap [Moles/Vol] 10.5 mmol/L Normal [facility] Comment on above: Performed By: #### D ATBMP, DATPSA #### [facility] [address] [place] [address] Dr. Chapo Posey Calcium [Mass/Vol] 10.0 mg/dL Normal 8.5-10.1 [facility] Comment on above: Performed By: #### D ATBMP, DATPSA #### [facility] [address] [place] [address] Dr. Chapo Posey Chloride [Moles/Vol] 103 mmol/L Normal 98-107 [facility] Comment on above: Performed By: #### D ATBMP, DATPSA #### [facility] [address] [place] [address] Dr. Chapo Posey Cholesterol [Mass/Vol] 185 mg/dL Normal <=200 [facility] Comment on above: Performed By: #### D ATBMP, DATPSA #### [facility] [address] [place] [address] Dr. Chapo Posey Cholesterol in HDL [Mass/Vol] 46 mg/dL Normal 40-60 [facility] Comment on above: Performed By: #### D ATBMP, DATPSA #### [facility] [address] [place] [address] Dr. Chapo Posey Cholesterol in LDL [Mass/Vol] 115.2 mg/dL Normal [facility] Comment on above: Performed By: #### D ATBMP, DATPSA #### [facility] [address] [address] [address] Chapo Posey CO2 [Moles/Vol] 29.9 mmol/L Normal 21.0-32.0 [facility] Comment on above: Performed By: #### D ATP, DATPSA #### [facility] [address] [address] [address] Chapo Posey Creatinine [Mass/Vol] 1.13 mg/dL Normal 0.70-1.30 [facility] Comment on above: Performed By: #### D ATJeffrey, DATPSA #### [facility] [address] [place] [address] Dr. Chapo Posey EGFR-AF ZAMBIAN >60 Normal >=60 [facility] Comment on above: Performed By: #### D ATJeffrey, DATPSA #### [facility] [address] [address] [address] Chapo Posey EGFR-NON AF ZAMBIAN >60 Normal >=60 [facility] Comment on above: Performed By: #### D ATJeffrey, DATPSA #### [facility] [address] [address] [address] Chapo Posey Glucose [Mass/Vol] 95 mg/dL Normal 74-106 [facility] Comment on above: Performed By: #### D ATBMP, DATPSA #### [facility] [address] [address] [address] Chapo Posey HDL NORMAL > or = 60 mg/dl - LO W CARDIOVASCULAR RISK <40 mg/dl - HIGH CARDIOVASCULAR RISK Normal [facility] Comment on above: Performed By: #### D ATP, DATPSA #### [facility] [address] [place] [address] Dr. Chapo Posey LDL CALC NORMAL SEE BELOW Normal [facility] Comment on above: Result Comment: <100 mg/dl OPTIMAL 100 - 129 mg/dl NEAR OR ABOVE OPTIMAL 130 - 159 mg/dl BORDERLINE HIGH 160 - 189 mg/dl HIGH >190 mg/dl VERY HIGH Performed By: #### D ATWALDO DATPSA #### [facility] [address] [place] [address] Dr. Chapo Posey Potassium [Moles/Vol] 4.4 mmol/L Normal 3.5-5.1 [facility] Comment on above: Performed By: #### D ATWALDO DATPSA #### [facility] [address] [address] [address] Chapo Posey Sodium [Moles/Vol] 139 mmol/L Normal 136-145 [facility] Comment on above: Performed By: #### D ATWALDO DATPSA #### [facility] [address] [place] [address] Dr. Chapo Posey Triglyceride [Mass/Vol] 119 mg/dL Normal <=150 [facility] Comment on above: Performed By: #### D ATWALDO DATPSA #### [facility] [address] [place] [address] Dr. Chapo Posey Urea nitrogen [Mass/Vol] 28.0 mg/dL Critically high 7.0-18.0 [facility] Comment on above: Performed By: #### D ATJeffrey DATPSA #### [facility] [address] [place] [address] Dr. Chapo Posey Urea nitrogen/Creatinine [Mass ratio] 24.8 mg/mg Normal [facility] Comment on above: Performed By: #### D ATJeffrey DATPSA #### [facility] [address] [place] [address] Dr. Chapo Posey VLDL CALC 23.8 mg/dL Normal [facility] Comment on above: Performed By: #### D ATWALDO DATPSA #### [facility] [address] [place] [address] Dr. Chapo Posey Vital Signs Date Time Vital Sign Value Performing Clinician Facility 05-20-2024 13:23-0400 Body height 194.31 cm [facility] 05-20-2024 13:23-0400 Body mass index (BMI) [Ratio] 24.5 kg/m2 [facility] 05-20-2024 13:23-0400 Body weight 92.53 kg [facility] 05-20-2024 13:23-0400 Diastolic blood pressure 81 mm[Hg] [facility] 05-20-2024 13:23-0400 Heart rate 75 /min [facility] 05-20-2024 13:23-0400 Respiratory rate 12 /min [facility] 05-20-2024 13:23-0400 Systolic blood pressure 125 mm[Hg] [facility] 05-07-2024 11:34-0400 Body height 194.31 cm [facility] 05-07-2024 11:34-0400 Body mass index (BMI) [Ratio] 24 kg/m2 [facility] 05-07-2024 11:34-0400 Body weight 90.88 kg [facility] 05-07-2024 11:34-0400 Diastolic blood pressure 70 mm[Hg] [facility] 05-07-2024 11:34-0400 Heart rate 86 /min [facility] 05-07-2024 11:34-0400 Respiratory rate 12 /min [facility] 05-07-2024 11:34-0400 Systolic blood pressure 131 mm[Hg] [facility] 03-31-2024 15:05-0500 Body height 194.31 cm [facility] 03-31-2024 15:05-0500 Body mass index (BMI) [Ratio] 25 kg/m2 [facility] 03-31-2024 15:05-0500 Body weight 94.46 kg [facility] 03-31-2024 15:05-0500 Diastolic blood pressure 68 mm[Hg] [facility] 03-31-2024 15:05-0500 Heart rate 40 /min [facility] 03-31-2024 15:05-0500 Respiratory rate 12 /min [facility] 03-31-2024 15:05-0500 Systolic blood pressure 134 mm[Hg] [facility] 10-17-2023 09:08-0400 Body height 194.31 cm DO Umesh Ball Work Phone: [facility] 10-17-2023 09:08-0400 Body mass index (BMI) [Ratio] 25 kg/m2 DO Umesh Ball Work Phone: [facility] 10-17-2023 09:08-0400 Body weight 94.37 kg DO Umesh Ball Work Phone: [facility] 10-17-2023 09:08-0400 Diastolic blood pressure 78 mm[Hg] DO Umesh Ball Work Phone: [facility] 10-17-2023 09:08-0400 Diastolic blood pressure 89 mm[Hg] DO Umesh Ball Work Phone: [facility] 10-17-2023 09:08-0400 Heart rate 69 /min DO Umesh Ball Work Phone: [facility] 10-17-2023 09:08-0400 Respiratory rate 12 /min DO Umesh Ball Work Phone: [facility] 10-17-2023 09:08-0400 Systolic blood pressure 145 mm[Hg] DO Umesh Ball Work Phone: [facility] 10-17-2023 09:08-0400 Systolic blood pressure 139 mm[Hg] DO Umesh Ball Work Phone: [facility] 10-11-2023 09:26-0400 Body height 194.31 cm DO Umesh Ball Work Phone: [facility] 10-11-2023 09:26-0400 Body mass index (BMI) [Ratio] 25 kg/m2 DO Umesh Ball Work Phone: [facility] 10-11-2023 09:26-0400 Body weight 94.34 kg DO Umesh Ball Work Phone: [facility] 10-11-2023 09:26-0400 Diastolic blood pressure 96 mm[Hg] DO Umesh Ball Work Phone: [facility] 10-11-2023 09:26-0400 Heart rate 59 /min DO Umesh Ball Work Phone: [facility] 10-11-2023 09:26-0400 Respiratory rate 12 /min DO Umesh Ball Work Phone: [facility] 10-11-2023 09:26-0400 Systolic blood pressure 150 mm[Hg] DO Umesh Ball Work Phone: [facility] 08-10-2023 11:43-0400 Body height 194.31 cm [facility] 08-10-2023 11:43-0400 Body mass index (BMI) [Ratio] 30.1 kg/m2 [facility] 08-10-2023 11:43-0400 Body weight 113.85 kg [facility] 08-10-2023 11:43-0400 Diastolic blood pressure 83 mm[Hg] [facility] 08-10-2023 11:43-0400 Heart rate 44 /min [facility] 08-10-2023 11:43-0400 Respiratory rate 12 /min [facility] 08-10-2023 11:43-0400 Systolic blood pressure 161 mm[Hg] [facility] 06-19-2023 11:20-0400 Body height 194.31 cm [facility] 06-19-2023 11:20-0400 Body mass index (BMI) [Ratio] 24.6 kg/m2 [facility] 06-19-2023 11:20-0400 Body weight 92.98 kg [facility] 06-19-2023 11:20-0400 Diastolic blood pressure 80 mm[Hg] [facility] 06-19-2023 11:20-0400 Heart rate 48 /min [facility] 06-19-2023 11:20-0400 SaO2% (BldA) [Mass fraction] 98 % [facility] 06-19-2023 11:20-0400 Systolic blood pressure 130 mm[Hg] [facility] 04-30-2023 08:59-0400 Body height 194.31 cm [facility] 04-30-2023 08:59-0400 Body mass index (BMI) [Ratio] 24.4 kg/m2 [facility] 04-30-2023 08:59-0400 Body weight 92.19 kg [facility] 04-30-2023 08:59-0400 Diastolic blood pressure 77 mm[Hg] [facility] 04-30-2023 08:59-0400 Heart rate 41 /min [facility] 04-30-2023 08:59-0400 Respiratory rate 12 /min [facility] 04-30-2023 08:59-0400 Systolic blood pressure 152 mm[Hg] [facility] 04-25-2022 10:30-0400 Body height 193.04 cm Umesh Ball Other [facility] [employer] Other 04-25-2022 10:30-0400 Body mass index (BMI) [Ratio] 24.1 kg/m2 Umesh Ball Other [facility] [employer] Other 04-25-2022 10:30-0400 Body weight 89.81 kg Umesh Ball Other [facility] [employer] Other 04-25-2022 10:30-0400 Diastolic blood pressure 71 mm[Hg] Umesh Ball Other [facility] [employer] Other 04-25-2022 10:30-0400 Respiratory rate 12 /min Umesh Ball Other [facility] [employer] Other 04-25-2022 10:30-0400 Systolic blood pressure 148 mm[Hg] Umesh Ball Other [facility] [employer] Other 10-02-2020 09:51-0400 Diastolic blood pressure 85 mm[Hg] DO Umesh Ball Work Phone: [facility] 10-02-2020 09:51-0400 Heart rate 69 /min DO Umesh Ball Work Phone: [facility] 10-02-2020 09:51-0400 Respiratory rate 18 /min DO Umesh Ball Work Phone: [facility] 10-02-2020 09:51-0400 SaO2% (BldA) [Mass fraction] 96 % DO Umesh Vivocha Work Phone: [facility] 10-02-2020 09:51-0400 Systolic blood pressure 144 mm[Hg] DO Umesh Vivocha Work Phone: [facility] 10-02-2020 09:07-0400 Body height 194.31 cm DO Umesh Vivocha Work Phone: [facility] 10-02-2020 09:07-0400 Body mass index (BMI) [Ratio] 25.1 kg/m2 DO Umesh Vivocha Work Phone: [facility] 10-02-2020 09:07-0400 Body weight 95 kg DO Umesh Vivocha Work Phone: [facility] 10-02-2020 09:00-0400 Body temperature 98.2 [degF] DO Umesh Vivocha Work Phone: [facility] Encounters Encounter Date Encounter Type Care Provider Facility Start: 06-11-2024 End: [facility]: 06-04-[facility]24 End: 06-04-2024 ambulatory BLADIMIR MCCALL [facility] Start: 05-27-2024 Evaluation and management of inpatient HUA STEPHANIE COLEEN [facility] Start: 05-26-2024 Evaluation and management of inpatient [facility] Start: 05-26-2024 ambulatory [facility] Start: 05-26-2024 End: 05-27-2024 Evaluation and management of inpatient [facility] Start: 05-20-2024 End: 05-20-2024 ambulatory [facility] Work Phone: Start: 05-20-2024 End: 05-20-2024 Patient encounter procedure [facility] Work Phone: Start: 05-07-2024 End: 05-07-2024 ambulatory [facility] Work Phone: Start: 05-07-2024 End: 05-07-2024 Encounter for general adult medical examination without abnormal findings [facility] Start: 05-07-2024 End: 05-07-2024 Patient encounter procedure [facility] Work Phone: Start: 04-15-2024 End: 04-15-2024 ambulatory [facility] Start: 04-15-2024 Non-patient / Non-visit [facility] Work Phone: Start: 03-31-2024 End: 03-31-2024 ambulatory [facility] Work Phone: Start: 03-31-2024 End: 03-31-2024 Patient encounter procedure [facility] Work Phone: Start: 01-17-2024 Non-patient / Non-visit [facility] Work Phone: Start: 12-05-2023 End: 12-05-2023 ambulatory [facility] Start: 11-21-2023 End: 11-21-2023 ambulatory DO Umesh Ball Work Phone: [facility] Work Phone: Start: 11-21-2023 End: 11-21-2023 Patient encounter procedure DO Umesh Ball Work Phone: [facility] Work Phone: Start: 10-17-2023 End: 10-17-2023 ambulatory DO Umesh Ball Work Phone: [facility] Work Phone: Start: 10-17-2023 End: 10-17-2023 Patient encounter procedure DO Umesh Ball Work Phone: [facility] Work Phone: Start: 10-11-2023 End: 10-11-2023 ambulatory DO Umesh Ball Work Phone: [facility] Work Phone: Start: 10-11-2023 End: 10-11-2023 Patient encounter procedure DO Umesh Ball Work Phone: [facility] Work Phone: Start: 10-04-2023 Non-patient / Non-visit DO Radu fournier Ball Work Phone: [facility] Work Phone: Start: 09-17-2023 Non-patient / Non-visit DO Radu Muniz Work Phone: [facility] Work Phone: Start: 08-24-2023 End: 08-24-2023 ambulatory DO Umesh Ball Work Phone: [facility] Work Phone: Start: 08-24-2023 End: 08-24-2023 Patient encounter procedure DO Umesh Muniz Work Phone: [facility] Start: 08-10-2023 End: 08-10-2023 ambulatory [facility] Work Phone: Start: 08-10-2023 End: 08-10-2023 Patient encounter procedure [facility] Work Phone: Start: 06-19-2023 End: 06-19-2023 Patient encounter procedure [facility] Work Phone: Start: 04-30-2023 End: 04-30-2023 ambulatory [facility] Work Phone: Start: 04-30-2023 End: 04-30-2023 Encounter for general adult medical examination without abnormal findings [facility] Start: 04-30-2023 End: 04-30-2023 Patient encounter procedure [facility] Work Phone: Start: 03-19-2023 End: 03-19-2023 ambulatory Umesh Muniz Other [employer] Other Start: 03-19-2023 Nursing evaluation o f patient and report Umesh Muniz [facility] Start: 03-14-2023 End: 03-14-2023 ambulatory Umesh Muniz Other [employer] Other Start: 03-14-2023 Telephone encounter Umesh Muniz [facility] Start: 12-20-2022 End: 12-20-2022 ambulatory Umesh Muniz Other [employer] Other Start: 12-20-2022 Telephone encounter Umesh Muniz [facility] Start: 12-19-2022 End: 12-19-2022 ambulatory Umesh Muniz Other [employer] Other Start: 12-19-2022 Telephone encounter Umesh Muniz [facility] Start: 11-28-2022 End: 11-28-2022 ambulatory Umesh Muniz Other [employer] Other Start: 11-28-2022 Nursing evaluation o f patient and report Umesh Muniz [facility] Start: 11-22-2022 End: 11-22-2022 ambulatory Umesh Muniz Other [employer] Other Start: 11-22-2022 Office outpatient vi sit 15 minutes Umesh Ball [facility] Start: 11-22-2022 Telephone encounter Umesh Muniz [facility] Start: 11-16-2022 End: 11-16-2022 ambulatory Umesh Flavio Other [employer] Other Start: 11-16-2022 Office outpatient vi sit 15 minutes Umesh Ball [facility] Start: 11-08-2022 End: 11-08-2022 ambulatory Umesh Flavio Other [employer] Other Start: 11-08-2022 Nursing evaluation o f patient and report Umesh Muniz [facility] Start: 05-25-2022 End: 05-25-2022 ambulatory Umesh Muniz Other [employer] Other Start: 05-25-2022 Nursing evaluation o f patient and report Umesh Muniz [facility] Start: 04-28-2022 End: 04-29-[address] UMESH MUNIZ Facility:[facility] Start: 04-25-2022 End: 04-25-2022 ambulatory Umesh Muniz Other [employer] Other Start: 04-25-2022 Encounter for genera l adult medical examination without abnormal findings Umesh Muniz [facility] Start: 04-25-2022 Periodic preventive med est patient 40-64yrs Umesh Muniz [facility] Start: 04-25-2022 Telephone encounter Umesh Muniz [facility] Start: 04-18-2022 Telephone encounter Umesh Muniz [facility] Start: 04-18-2022 End: 04-19-[address] UMESH MUNIZ [facility] [employer] Other Start: 04-05-2022 End: 04-06-[address] RIOS LISTED REQUEST Facility:[facility] Start: 01-10-2022 Adult health examination Umesh Muniz Other [employer] Other Start: 05-28-2021 End: 05-28-2021 Departed Referred DO Umesh Muniz Work Phone: [facility] Start: 05-17-[address] UMESH MUNIZ Facili ty:[facility] Start: 10-02-2020 End: 10-02-2020 Emergency department patient visit DO Umesh Muniz Work Phone: [facility] Procedures Date Procedure Procedure Detail Performing Clinician Start: 04-05-[address] ANAND MUNIZ Comment on above: Performed By: #### D ATBMP, DATPSA #### [facility] [address] [address] [address] Chapo Posey Start: 01-27-2016 Replacement of total knee joint Umesh Muniz Other Start: 11-17-2015 Preoperative cardiov ascular examination Umesh Muniz Other Start: 11-17-2015 Preoperative pulmona ry examination Umesh Muniz Other Start: 09-29-2015 General examination of patient Umesh Muniz Other Start: 09-29-2015 Screening for malign ant neoplasm of colon Umesh Muniz Other Start: 09-29-2015 Screening for malign ant neoplasm of prostate Umesh Muniz Other Depression screening Cristal Muniz Other Screening for malign ant neoplasm of prostate Umesh Muniz Other Plan of Treatment Date Care Activity Detail Author Hepatic function panel [facility] Patient Education [facility] Patient referral [facility] US Kidney - right [facility] XR Knee - right 4 Views [facility] XR Lumbar spine Views [facility] Immunizations Immunization Date Immunization Notes Care Provider Jose danielle 11-21-2023 influenza, high dose seasonal, preservative-free [facility] 11-28-2022 influenza, injectabl e, quadrivalent, preservative free Umesh Muniz Other [facility] 11-22-2021 influenza virus vaccine, split virus (incl. purified surface antigen) Umesh Muniz Other [employer] [facility] [employer] Other 11-22-2021 influenza virus vaccine, unspecified formulation [facility] 11-22-2021 influenza, injectabl e, quadrivalent, preservative free [facility] 11-22-2021 influenza, injectabl e, quadrivalent, contains preservative Umesh Muniz Other [employer] Other 11-04-2020 influenza virus vaccine, split virus (incl. purified surface antigen) Umesh Muniz Other [facility] [employer] Other 11-04-2020 influenza virus vaccine, unspecified formulation [facility] 05-11-2020 COVID-19 Vaccine Pfi zer - Documentation Purposes Only Umesh Muniz Other [facility] 04-19-2020 COVID-19 Vaccine Pfi zer - Documentation Purposes Only Umesh Muniz Other [facility] 12-03-2019 influenza virus vaccine, split virus (incl. purified surface antigen) Umesh Muniz Other [facility] [employer] Other 12-03-2019 influenza virus vaccine, unspecified formulation [facility] 12-18-2018 influenza virus vaccine, split virus (incl. purified surface antigen) Umesh Muniz Other [facility] [employer] Other 12-18-2018 influenza virus vaccine, unspecified formulation [facility] 12-11-2017 influenza virus vaccine, split virus (incl. purified surface antigen) Umesh Muniz Other [facility] [employer] Other 12-11-2017 influenza virus vaccine, unspecified formulation [facility] 11-21-2016 tetanus and diphther ia toxoids, adsorbed, preservative free, for adult use (5 Lf of tetanus toxoid and 2 Lf of diphtheria toxoid) Umesh Flavio Other [facility] 11-11-2012 tetanus and diphther ia toxoids, adsorbed, preservative free, for adult use (5 Lf of tetanus toxoid and 2 Lf of diphtheria toxoid) Umesh Flavio Other [facility] 10-10-2001 diphtheria, tetanus toxoids and acellular pertussis vaccine, unspecified formulation Umesh Flavio Other [facility] Payers Date Payer Category Payer Medicare [id number] 1961 Self-pay [id number] 1961 Unknown [id number] 1960 Unknown [id number] 1960 Unknown [id number] 1960 Unknown [id number] Medicare Medicare [id number] Private Health Insurance [id number] Unknown [id number] Unknown [facility] [id number] Social History Date Type Detail Facility Start: 10-02-2020 End: 03-31-2024 Tobacco smoking status NHIS Ex-smoker (finding) [facility] Start: 1960 Sex Assigned At Male F [facility] Sex Assigned At Sex Assigned At Bir th [employer] Other Start: 03-31-2024 End: 05-20-2024 Sex Male (finding) [facility] Clinical Notes 10-02-2020 to 06-11-2024 Note Date & Type Note Facility 06-11-2024 Note [facility] SUBJECTIVE Chief Complaint Patient presents with PVCs Palpitations Shortness of Breath Wilbert Florian is a 63 y.o. male here for a sick visit for c/o palpitations. HPI PMHx: PVC/VT ablation, HTN, HLD, mild asthma, mild LV dysfunction Prior holter monitor noted PVCs with a burden of 23% 06/11/2024 He was seen last week for follow-up after his recnet PVC/VT ablation. He was feeling well at that time. This past week, he has noticed feeling extra beats and started to not feel well. He had accompanied dyspnea along with feeling off. He notes he has lost 7-8lbs since his procedure. He also notes he urinated quite a bit this past weekend. Denies c/o CP, orthopnea, PND, LE edema, dizziness, syncope, bleeding issues. Patient Active Problem List Diagnosis Abdominal aortic aneurysm (AAA) Asthma Benign prostatic hyperplasia with lower urinary tract symptoms Bradycardia Chronic kidney disease, stage 3 unspecified (CMS/HCC) Elevated cholesterol Essential (primary) hypertension High risk medication use Hoarseness, persistent Hypercalcemia Idiopathic gout, unspecified site Impaired fasting glucose Irregular cardiac rhythm Low back pain Lumbar spondylosis Mild intermittent asthma with acute exacerbation VT (ventricular tachycardia) (CMS/HCC) Obesity Onychomycosis Palpitations Primary osteoarthritis of right knee Right knee pain Varicose veins of bilateral lower extremities with pain Ventricular bigeminy Abnormal electrocardiogram (ECG) (EKG) Cardiomyopathy (CMS/HCC) Valvular heart disease PVC (premature ventricular contraction) S/P AV elba ablation Frequent PVCs Past Medical History: Diagnosis Date Abnormal ECG Aneurysm Arrhythmia Asthma Hyperlipidemia Hypertension Family History Problem Relation Name Age of Onset No Known Problems Mother No Known Problems Father Social History Tobacco Use Smoking status: Never Smokeless tobacco: Never Substance Use Topics Alcohol use: Not Currently Drug use: Never No Known Allergies OBJECTIVE Visit Vitals BP 118/72 (BP Location: Right arm, Patient Position: Sitting) Pulse 52 Ht 1.93 m (6' 4 ) Wt 88.5 kg (195 lb) SpO2 98% BMI 23.74 kg/m??? Smoking Status Never BSA 2.18 m??? Medications: Current Outpatient Medications: allopurinol (Zyloprim) 300 mg tablet, Take 300 mg by mouth in the morning., Disp: , Rfl: amLODIPine (Norvasc) 5 mg tablet, Take 5 mg by mouth in the morning., Disp: , Rfl: budesonide-formoteroL (Symbicort) 80-4.5 mcg/actuation inhaler, Inhale 2 puffs in the morning and at bedtime., Disp: , Rfl: losartan (Cozaar) 100 mg tablet, Take 100 mg by mouth in the morning., Disp: , Rfl: rivaroxaban (Xarelto) 15 mg tablet, Take 1 tablet (15 mg) by mouth daily with evening meal for 21 days. Take with food., Disp: 21 tablet, Rfl: 0 amiodarone (Pacerone) 200 mg tablet, Take 2 tablets (400 mg) by mouth two times daily for 12 days, THEN 1 tablet (200 mg) in the morning., Disp: 78 tablet, Rfl: 0 Physical Exam Constitutional: Appearance: Normal appearance. He is normal weight. HENT: Head: Normocephalic and atraumatic. Right Ear: External ear normal. Left Ear: External ear normal. Eyes: Extraocular Movements: Extraocular movements intact. Pupils: Pupils are equal, round, and reactive to light. Neck: Vascular: No carotid bruit. Cardiovascular: Rate and Rhythm: Normal rate. Pulses: Normal pulses. Heart sounds: Normal heart sounds. Comments: Frequent PVCs heard on exam Pulmonary: Effort: Pulmonary effort is normal. Breath sounds: Normal breath sounds. Abdominal: General: Bowel sounds are normal. Palpations: Abdomen is soft. Musculoskeletal: General: Normal range of motion. Cervical back: Neck supple. Right lower leg: No edema. Left lower leg: No edema. Skin: General: Skin is warm and dry. Neurological: General: No focal deficit present. Mental Status: He is alert and oriented to person, place, and time. Psychiatric: Mood and Affect: Mood normal. Behavior: Behavior normal. Thought Content: Thought content normal. Judgment: Judgment normal. Labs: No results found for: EXTCMP , BMPR1A , CBCDIF , BNP , LASAP , RED Admission on 05/26/2024, Discharged on 05/27/2024 Component Date Value Ventricular Rate 05/26/2024 74 Atrial Rate 05/26/2024 74 NH Interval 05/26/2024 158 QRS DURATION 05/26/2024 100 QT Interval 05/26/2024 414 QTC CALCULATION(BAZETT) 05/26/2024 459 P [place] 05/26/2024 37 R-[place] 05/26/2024 -35 T Wave [place] 05/26/2024 58 Ventricular Rate 05/26/2024 80 Atrial Rate 05/26/2024 80 NH Interval 05/26/2024 142 QRS DURATION 05/26/2024 88 QT Interval 05/26/2024 404 QTC CALCULATION(BAZETT) 05/26/2024 465 P [place] 05/26/2024 32 R-[place] 05/26/2024 -32 T Wave [place] 05/26/2024 65 Auto WBC 05/27/2024 9.25 RBC 05/27/2024 4.43 Hemoglobin 05/27/2024 13.8 Hemato (more content not included)... [facility] 06-11-2024 Note Patient here today f or a requested. Patient states Sunday he went to the gym and working out and heart rate got really fast, when he got home he checked his apple watch and it showed inconclusive and Sunday apple showed inconclusive. Then on Sunday apple watched showed showed sinus rhythm at couple of times and then inconclusive, Sunday showed inconclusive, and Sunday his apple watch shows inconclusive. Patient states his watched has showed his heart rate down in the 40's and and as high as 105. Patient states he has felt some dyspnea with activity. He feels his heart pounding when he lays on his left side. Patient is concerned about weight loss. Patient states he has lost 7 to 8 pounds in the last couple of weeks. Patient denies chest pain, leg swelling, leg pain, heart burn, or dizziness. Patient states he feels the ablation didn't work. Patient feels weight loss could be do the the blood thinners. Review of Systems Cardiovascular: Positive for dyspnea on exertion, irregular heartbeat and palpitations. [facility] 06-04-2024 Note SUBJECTIVE Reason for Visit: Wilbert Florian is a 63 y.o. year old male patient being seen for hospital follow-up s/p PVC/VT ablation. HPI: Wilbert Florian is a 63 y.o. year old male with significant medical history of hypertension, hyperlipidemia, arthritis, mild asthma, and elevated uric acid. He was previously evaluated by Dr. CUETO for bradycardia. A 3-day Holter monitor was performed, revealing frequent PVCs with a burden of 23%, along with several short, nonsustained runs of ventricular tachycardia (3-5 beats), all of which were asymptomatic. Electrolytes were within normal limits. Transthoracic echocardiogram demonstrated mild left ventricular dysfunction. The patient denies orthopnea, paroxysmal nocturnal dyspnea, dizziness, syncope, or presyncope. He also denies any personal or family history of coronary artery disease, sudden cardiac , or cardiac arrhythmia. He was brought to the EP lab in the post-absorptive state and underwent PVC ablation. Procedural timeout was completed, and preoperative antibiotics were administered. He is now post-procedure and recovering without immediate complications. 06/04/2024 office visit: Patient was seen and evaluated in the office today for follow-up after PVC ablation. He reports feeling very well overall. He notes that he has checked his ECG multiple times today using his Apple Watch and has not observed any skipped beats or PVCs. He denies chest pain, shortness of breath, palpitations, lightheadedness, or dizziness. He does report bruising at the right groin site but denies any associated pain or tenderness. Past Medical History: Diagnosis Date Abnormal ECG Aneurysm Arrhythmia Asthma Hyperlipidemia Hypertension Past Surgical History: Procedure Laterality Date TOTAL KNEE ARTHROPLASTY Patient Active Problem List Diagnosis Abdominal aortic aneurysm (AAA) Asthma Benign prostatic hyperplasia with lower urinary tract symptoms Bradycardia Chronic kidney disease, stage 3 unspecified (CMS/HCC) Elevated cholesterol Essential (primary) hypertension High risk medication use Hoarseness, persistent Hypercalcemia Idiopathic gout, unspecified site Impaired fasting glucose Irregular cardiac rhythm Low back pain Lumbar spondylosis Mild intermittent asthma with acute exacerbation VT (ventricular tachycardia) (CMS/HCC) Obesity Onychomycosis Palpitations Primary osteoarthritis of right knee Right knee pain Varicose veins of bilateral lower extremities with pain Ventricular bigeminy Abnormal electrocardiogram (ECG) (EKG) Cardiomyopathy (CMS/HCC) Valvular heart disease PVC (premature ventricular contraction) S/P AV elba ablation Frequent PVCs family history includes No Known Problems in his father and mother. Social History Tobacco Use Smoking status: Never Smokeless tobacco: Never Substance Use Topics Alcohol use: Not Currently Drug use: Never OBJECTIVE Visit Vitals Smoking Status Never Physical Exam Constitutional: General Appearance: well-developed, appears stated age. Level of Distress: no acute distress. Neck: Jugular Veins: normal jugular venous pressure. Lungs: Auscultation: no rales or rhonchi and normal breath sounds. Cardiovascular: Rate And Rhythm: regular Heart Sounds: normal S1 and s2; Systolic Murmur: not heard. Diastolic Murmur: not heard. Extremities: no edema Peripheral Pulses: Pulses: full and equal in all extremities except if noted. Abdomen: Inspection and Palpation: non distended or tender and soft. Musculoskeletal: Inspection: no joint tenderness or swelling. Neurologic: Gait: normal gait. Psychiatric: Mental Status: alert and normal affect. Skin: Inspection and Palpation: warm and dry. Allergies: No Known Allergies Outpatient Medications: Current Outpatient Medications Medication Instructions allopurinol (ZYLOPRIM) 300 mg, oral, Daily amLODIPine (NORVASC) 5 mg, oral, Daily budesonide-formoteroL (Symbicort) 80-4.5 mcg/actuation inhaler 2 puffs, inhalation, 2 times daily RT losartan (COZAAR) 100 mg, oral, Daily rivaroxaban (XARELTO) 15 mg, oral, Daily with evening meal, Take with food. Recent Labs: Admission on 05/26/2024, Discharged on 05/27/2024 Component Date Value Ventricular Rate 05/26/2024 74 Atrial Rate 05/26/2024 74 NH Interval 05/26/2024 158 QRS DURATION 05/26/2024 100 QT Interval 05/26/2024 414 QTC CALCULATION(BAZETT) 05/26/2024 459 P [place] 05/26/2024 37 R-[place] 05/26/2024 -35 T Wave [place] 05/26/2024 58 Ventricular Rate 05/26/2024 80 Atrial Rate 05/26/2024 80 NH Interval 05/26/2024 142 QRS DURATION 05/26/2024 88 QT Interval 05/26/2024 404 QTC CALCULATION(BAZETT) 05/26/2024 465 P [place] 05/26/2024 32 R-[place] 05/26/2024 -32 T Wave [place] 05/26/2024 65 Auto WBC 05/27/2024 9.25 RBC 05/27/2024 4.43 Hemoglobin 05/27/2024 13.8 Hematocrit 05/27/2024 42.0 MCV 05/27/2024 94.8 MCH 05/27/2024 31.2 MCHC (more content not included)... [facility] 05-27-2024 Note Hospital Medicine Discharge Summary Final Discharge Diagnosis: Symptomatic, frequent PVCs Status post PVC ablation Essential hypertension Cardiomyopathy Chronic HFrEF. NYHA difficult to determine Hyperlipidemia Admission Diagnosis: PVC (premature ventricular contraction) [I49.3] S/P AV elba ablation [Z98.890] Hospital course: Mr. Wilbert Florian is an 63 y.o. male who came from [facility] after PVC ablation. He has a past medical history of mild asthma, hypertension, elevated uric acid, arthritis, hyperlipidemia, bradycardia with frequent PVCs with a burden of 23% on the 3-day Holter monitor. Patient was evaluated at bedside. He was laying in bed complaining of mild back pain which is chronic problem for him. Denies headache vision changes chest pain shortness of breath cough sputum nausea vomiting. He denies lower extremity swelling numbness tingling. Patient was admitted to hosptialist services for monitoring following PVC ablation. Patient was seen by cardiology team on 05/27 who stated that he is okay to be discharged. Patient was seen and examined on 05/27 AM. He was doing well. He denied chest pain or shortness of breath. He was feeling ready to be discharged. Patient is discharged in stable condition to home on 05/27/2024. Surgical, Invasive or Diagnostic Procedures Done During Admission: VT ablation Consultations During Admission: Cardiology Dear DO Muniz John is advised to follow up with you within 1-2 weeks. Items to follow up in ambulatory setting: Follow-up serial CBCs and Follow-up serial BMPs Follow-up with: Cardiology and Electrophysiology Scheduled appointments: Future Appointments Date Time Provider Department Center 07/02/2024 1:00 PM Bladimir Mccall CNP [facility] Your medication list START taking these medications Instructions Last Dose Given Next Dose Due rivaroxaban 15 mg tablet Commonly known as: Xarelto Take 1 tablet (15 mg) by mouth daily with evening meal for 21 days. Take with food. ASK your doctor about these medications Instructions Last Dose Given Next Dose Due allopurinol 300 mg tablet Commonly known as: Zyloprim amLODIPine 5 mg tablet Commonly known as: Norvasc budesonide-formoteroL 80-4.5 mcg/actuation inhaler Commonly known as: Symbicort losartan 100 mg tablet Commonly known as: Cozaar Where to Get Your Medications These medications were sent to [facility] - [place], [place] - [address], [facility] [id number] rivaroxaban 15 mg tablet Wilbert has No Known Allergies. Disposition: Home or Self Care () Discharge Condition: Stable Code Status: Full Code Diagnostic Results Hematology: Results from last 7 days Lab Units 05/27/24 0432 WBC AUTO 10*3/uL 9.25 HEMOGLOBIN g/dL 13.8 HEMATOCRIT % 42.0 MCV fL 94.8 PLATELETS AUTO 10*3/uL 192 Chemistry: Results from last 7 days Lab Units 05/27/24 0432 SODIUM mmol/L 135* POTASSIUM mmol/L 4.9 CHLORIDE mmol/L 107 CO2 mmol/L 23 BUN mg/dL 28* CREATININE mg/dL 1.18 GLUCOSE mg/dL 109* CALCIUM mg/dL 9.3 No lab exists for component: AFIO2 , APHT , APCOT , APOT , ATCO2 , CK , ALB , IBILI Test Results Pending At Discharge: Diet at the time of discharge: regular diet Nutrition Screen Activity: Patient currently has no discharge activity orders Objective Blood pressure 137/75, pulse 73, temperature 36.6 ???C (97.9 ???F), temperature source Temporal, resp. rate 14, height 1.93 m (6' 4 ), weight 89.4 kg (197 lb), SpO2 98%. Physical Exam Vitals reviewed. Constitutional: General: He is not in acute distress. Appearance: He is not ill-appearing or toxic-appearing. HENT: Head: Normocephalic and atraumatic. Mouth/Throat: Mouth: Mucous membranes are moist. Eyes: General: No scleral icterus. Extraocular Movements: Extraocular movements intact. Pupils: Pupils are equal, round, and reactive to light. Cardiovascular: Rate and Rhythm: Normal rate. Pulmonary: Effort: Pulmonary effort is normal. No respiratory distress. Breath sounds: No stridor. Abdominal: General: There is no distension. Palpations: Abdomen is soft. Skin: Findings: No rash. Neurological: Mental Status: He is alert. Cranial Nerves: No cranial nerve deficit. Psychiatric: Mood and Affect: Mood normal. Behavior: Behavior normal. Thought Content: Thought content normal. Judgment: Judgment normal. Total time for discharge - review of data, exam, discussion with providers and care-team, med-rec and orders, arranging follow up, counseling of patient and/or family and documentation was 34 minutes. Signed Hua Posey MD [facility] 05/27/2024 10:49 AM CC: DO Flavio [facility] 05-27-2024 Note Cardiology Inpatient Progress Note Subjective Reason for consult: Ablation. HPI: Wilbert Florian is a 63 y.o. year old male with a medical history of hypertension, hyperlipidemia, arthritis, mild asthma, and elevated uric acid. He was previously evaluated by Dr. CUETO for bradycardia. A 3-day Holter monitor was performed, revealing frequent premature ventricular contractions (PVCs) with a burden of 23%, along with several short, nonsustained runs of ventricular tachycardia (3-5 beats), all of which were asymptomatic. Electrolytes were within normal limits. Transthoracic echocardiogram demonstrated mild left ventricular dysfunction. The patient denies orthopnea, paroxysmal nocturnal dyspnea, dizziness, syncope, or presyncope. He also denies any personal or family history of coronary artery disease, sudden cardiac , or cardiac arrhythmia. He was brought to the EP lab in the post-absorptive state and underwent PVC ablation. Procedural timeout was completed, and preoperative antibiotics were administered. He is now post-procedure and recovering without immediate complications. 05/27/2024: Patient was seen and evaluated at the bedside today. He is currently seated in a chair and appears comfortable. He denies chest pain, shortness of breath, palpitations, lightheadedness, or dizziness. Examination reveals ecchymosis around the right femoral access site. The patient denies any pain at the site, though there is mild tenderness to palpation. No oozing or signs of pseudoaneurysm are noted. 05/26/2024: Status post ablation POST PROCEDURE DIAGNOSIS 1. Symptomatic PVC burden from outflow tract with limited frequency that limited mapping. Ablation performed in RVOT and RCC-LCC junction. 2. No dual AV node physiology. 3. No retrograde accessory pathway. RECOMMENDATIONS 1. Xarelto 15mg once a day x 3 weeks. 2. 48hr Holter monitor after 4 weeks. 3. ECHO in 6 weeks for EF determination. PAST MEDICAL HISTORY: Past Medical History: Diagnosis Date Abnormal ECG Aneurysm Arrhythmia Asthma Hyperlipidemia Hypertension PAST SURGICAL HISTORY: Past Surgical History: Procedure Laterality Date TOTAL KNEE ARTHROPLASTY FAMILY HISTORY: family history includes No Known Problems in his father and mother. SOCIAL HISTORY: Social History Tobacco Use Smoking status: Never Smokeless tobacco: Never Substance Use Topics Alcohol use: Not Currently Drug use: Never REVIEW OF SYSTEMS: General: Denies fever, chills, fatigue, weight loss, or malaise. HENT: Head: Denies headache or dizziness. Eyes: Denies vision changes. Nose: Denies nasal congestion, discharge, or epistaxis. Throat: Denies pain or difficulty swallowing. Pulmonary: Denies shortness of breath, cough, wheezing, or hemoptysis. Cardiovascular: Denies chest pain, palpitations, dizziness, or syncope. Peripheral Vascular: Denies leg swelling, cold extremities or claudication. Abdomen: Denies abdominal pain, nausea, vomiting, diarrhea, constipation, or bloating. No changes in appetite. Neurological: Denies headaches, weakness, numbness, tingling, or difficulty with coordination. Skin: Denies rashes, lesions, or itching. Femoral catheter access site no oozing or signs of pseudoaneurysm are noted. ALLERGIES: No Known Allergies Objective 12-24 hour telemetry reviewed CURRENT MEDS: allopurinol, 300 mg, oral, Daily amLODIPine, 5 mg, oral, Daily losartan, 100 mg, oral, Daily mometasone-formoterol, 1 puff, inhalation, BID rivaroxaban, 15 mg, oral, Daily with evening meal PRN medications: acetaminophen, ondansetron ODT OR ondansetron, sennosides-docusate sodium Patient Vitals for the past 24 hrs: BP Temp Temp src Pulse Resp SpO2 Weight 05/27/24 0744 137/75 36.6 ???C (97.9 ???F) Temporal 73 14 98 % -- 05/27/24 0430 128/86 36.5 ???C (97.7 ???F) Temporal 67 14 97 % -- 05/27/24 0259 -- -- -- -- -- -- 89.4 kg (197 lb) 05/27/24 0011 130/61 -- -- 75 13 -- -- 05/26/24 2300 122/84 -- -- 100 20 95 % -- 05/26/24 2208 105/70 36.8 ???C (98.2 ???F) Temporal 81 22 95 % -- 05/26/24 2100 98/63 -- -- 86 19 95 % -- 05/26/24 2000 138/88 -- -- 79 14 -- -- 05/26/24 1915 133/72 36.7 ???C (98.1 ???F) Temporal 84 22 98 % -- 05/26/24 1900 (!) 170/105 -- -- 91 17 97 % -- 05/26/24 1830 (!) 142/94 -- -- 76 20 -- -- 05/26/24 1800 134/72 -- -- 71 11 -- -- 05/26/24 1730 136/82 -- -- 72 14 -- -- 05/26/24 1700 (!) 145/97 -- -- 77 12 -- -- 05/26/24 1645 137/90 -- -- 70 12 -- -- 05/26/24 1630 147/74 -- -- 71 15 -- -- 05/26/24 1616 (!) 129/92 36.9 ???C (98.4 ???F) Temporal 79 19 -- -- 05/26/24 1541 (!) 147/93 -- -- 65 18 100 % -- 05/26/24 1116 148/78 -- -- 66 16 100 % -- BP 137/75 (BP Location: Right arm, Patient Position: Lying) Pulse 73 Temp 36.6 ???C (97.9 ???F) (Temporal) Resp 14 Ht 1.93 m (6' 4 ) Wt 89.4 kg (197 lb) SpO2 98% BMI 23.98 kg/m??? Wt Readings from Last 3 Encounters: 05/27/24 89.4 kg (19 (more content not included)... [facility] 05-26-2024 Note Underwent PVC ablati on with electrophysiology. Their recommendations are Xarelto 50 mg once daily for 3 weeks, 48-hour Holter monitor after 4 weeks and echo in 6 weeks, cardiology consulted [facility] 05-26-2024 Note Continue to monitor, on amlodipine 5 mg at home along with losartan 100 mg, continue that Labs in the morning [facility] 05-26-2024 Note As above, last EF 45% [facility] 05-26-2024 Note As above [facility] 05-26-2024 Note Hospital Medicine History and Physical 05/26/2024 6:34 PM THE HOSPITALIST TEAM PREFERS TO USE [employer] CHAT FOR NON-URGENT COMMUNICATION 7AM-7PM. IF I DO NOT RESPOND WITHIN 20 MINUTES OR URGENT MATTERS, PLEASE CALL THROUGH THE [employer] TICKET CHECKER. FROM 7PM-7AM, PLEASE PAGE [phone](COVR). Chief Complaint Post PVC ablation History of Present Illness Wilbert Florian is an 63 y.o. male who came from [facility] after PVC ablation. He has a past medical history of mild asthma, hypertension, elevated uric acid, arthritis, hyperlipidemia, bradycardia with frequent PVCs with a burden of 23% on the 3-day Holter monitor. POST PROCEDURE DIAGNOSIS 1. Symptomatic PVC burden from outflow tract with limited frequency that limited mapping. Ablation performed in RVOT and RCC-LCC junction. 2. No dual AV node physiology. Could be 3. No retrograde accessory pathway. RECOMMENDATIONS 1. Xarelto 15mg once a day x 3 weeks. 2. 48hr Holter monitor after 4 weeks. 3. ECHO in 6 weeks for EF determination. Patient was evaluated at bedside. Laying in bed complaining of mild back pain which is chronic problem for him. Denies headache vision changes chest pain shortness of breath cough sputum nausea vomiting. He denies lower extremity swelling numbness tingling. Review of System and Physical Exam GENERAL: The patient is well developed. No distress. VITAL SIGNS: Reviewed in the EMR. HEENT: Nonicteric sclerae, EOMI. HEART: Regular rate and rhythm without murmurs. LUNGS: Clear to auscultation bilaterally. No wheezing and crackles. ABDOMEN: Soft, positive bowel sounds, nontender SKIN: No rash, or ulcers. NEUROLOGIC: Cranial nerves II-XII intact without motor/sensory deficit. MSK: Muscle wasting absent. no tenderness or swelling. Access site dressing, nontender 12 point review of system was obtained and is negative except per the HPI Temp: [36.9 ???C (98.4 ???F)] 36.9 ???C (98.4 ???F) Heart Rate: [65-79] 72 Resp: [12-19] 14 BP: (129-161)/(74-97) 136/82 Assessment and Plan Assessment & Plan PVC (premature ventricular contraction) Underwent PVC ablation with electrophysiology. Their recommendations are Xarelto 50 mg once daily for 3 weeks, 48-hour Holter monitor after 4 weeks and echo in 6 weeks, cardiology consulted S/P AV elba ablation As above Cardiomyopathy (CMS/HCC) As above, last EF 45% Essential (primary) hypertension Continue to monitor, on amlodipine 5 mg at home along with losartan 100 mg, continue that Labs in the morning VTE Prophylaxis: Xarelto ----- Focus of this inpatient stay will remain on problems that need acute care setting for care. We will review available studies and will order additional labs, imaging and other studies as appropriate. As needed medicines are ordered as appropriate. VTE Prophylaxis will be ordered as appropriate. Please see above for management plan for individual hospital problems. Home medications are reviewed and will be continued as appropriate. Patient will be continued to be followed during this hospital stay by a member of [facility]. Past Medical History Past Medical History: Diagnosis Date Abnormal ECG Aneurysm Arrhythmia Asthma Hyperlipidemia Hypertension Past Surgical History Past Surgical History: Procedure Laterality Date TOTAL KNEE ARTHROPLASTY Social History Social History Socioeconomic History Marital status: Unknown Spouse name: Not on file Number of children: Not on file Years of education: Not on file Highest education level: Not on file Occupational History Not on file Tobacco Use Smoking status: Never Smokeless tobacco: Never Substance and Sexual Activity Alcohol use: Not Currently Drug use: Never Sexual activity: Defer Other Topics Concern Not on file Social History Narrative Not on file Social Determinants of Health Financial Resource Strain: Low Risk (05/26/2024) Overall Financial Resource Strain (CARDIA) Difficulty of Paying Living Expenses: Not hard at all Food Insecurity: No Food Insecurity (05/26/2024) Hunger Vital Sign Worried About Running Out of Food in the Last Year: Never true Ran Out of Food in the Last Year: Not on file Transportation Needs: No Transportation Needs (05/26/2024) Transportation Lack of Transportation (Medical): No Lack of Transportation (Non-Medical): Not on file Physical Activity: Not on file Stress: Not on file Social Connections: Not on file Intimate Partner Violence: Unknown (05/26/2024) Humiliation, Afraid, Rape, and Kick questionnaire Fear of Current or Ex-Partner: No Emotionally Abused: Not on file Physically Abused: Not on file Sexually Abused: Not on file Housing Stability: Low Risk (05/26/2024) Housing Stability Vital Sign Unable to Pay for Housing in the Last Year: No Number of Times Moved in the Last Year: 0 Homeless in the Last Year: No Family History family history includes No Known Problems in (more content not included)... [facility] 05-26-2024 Note PVC/ VT ABLATION PRO CEDURE REPORT DATE OF PROCEDURE: 05/27/2023 PERFORMING PHYSICIAN: Dr. Cordell Byers CONSENT: Patient NAME OF THE PROCEDURE: PVC/ VT Ablation LOCATION: EP Lab INDICATIONS FOR PROCEDURE: 1. Symptomatic PVC burden. 2. Non sustained VT. 3. Cardiomyopathy. PROCEDURAL SEDATION: Versed and Fentanyl. Moderate sedation was administered by the sedation nurse under my supervision and noted in the CVL log. Intraprocedural face to face sedation time: 291 min. Monitoring: Cardiac telemetry, Blood pressure, continuous pulse oxymetry. FLUROSCOPY: 11min 37sec/ 130mGray PROCEDURES PERFORMED: 1. Sonosite guided venous accesss as noted below and stored in system. 2. Intracardiac EP 3D mapping. 3. Intracardiac echocardiogram. 4. Ablation of PVC of predominant morphology. 5. Left femoral angiography. INDICATION: 63year old with past medical history of hypertension and hyperlipidemia and arthritis was previously seen by Dr CUETO. He was noted to be bradycardia, therefore 3-day Holter monitor was obtained and it showed frequent PVCs with burden of 23% with few short nonsustained ventricular tachycardia 3-5 beats, all asymptomatic. His electrolytes were normal. His echo showed mild LV dysfunction. Pt denies orthopnea or paroxysmal nocturnal dyspnea. He denies any dizziness or syncope or near syncope. He denies any history of coronary artery disease or sudden cardiac or cardiac arrhythmia in his family. Patient was brought to the EP lab in the post absorptive state. A procedural pause was performed identifying the patient, the procedure to be performed.Preoperative antibiotics was administered. PROCEDURE DETAILS: Risks, benefits and alternatives of the procedure were discussed with the patient and family who agreed to proceed. Please refer to my consult note for details of the discussion and of indications. The patient was brought to the EP lab and a procedural pause was performed identifying the patient, the procedure. Both the groins were prepared and draped. Sonosite was used to evaluate the patency of the blood vessels and once it was determined to be patient, images were procured and stored. After infiltration with 1% lidocaine, 3 venous sheaths were placed in the right and a femoral arterial line was placed on the right side as noted below. Heparin bolus was given followed by intermittent doses to target ACT above 350. RFV: 8Fx3 [employer] Thermo[employer] ST Bi-Directional, ICE/ EZ Steer RFA: 6F upsized to 9F and then to SL-1: Arterial access for monitoring and then later used for mapping. I proceeded with mapping the PVC. The PVC was of inferior axis with lead I being negative and II. III, AVF being positive with late transition. ICE imaging was performed and at baseline there is no pericardial effusion noted but a mildly dilated aortic root was seen. I used the Optrell irrigated catheter to create a RV, LV aortic sinus 3D geometry using CARTO 3D mapping software and the predominant PVC was mapped. Baseline intervals were noted to be normal. Then I used an Optrell catheter and mapped the PVC. Surprisingly with sedation the PVC burden dramatically dropped which made mapping a challenge. At this time I started the patient on caffeine and also on Isuprel. With this the PVC burden still remains low but occasionally the PVC was seen. With the limited frequency of PVC noted I quickly mapped the RVOT and the posterior aspect of the RVOT the earliest signals were seen. I noted the earliest signals to be only 15 to 20 mspre QRS. So then I decided to map the LVOT. The short 6 [place] sheath was exchanged for long 8 [place] sheath. There was difficulty advancing the optimal catheter through this and so this was changed to a destination sheath which did not make that difference. So at this time I decided to proceed with mapping the LVOT with the ablation catheter. Iliofemoral ablation catheter was advanced in the LVOT. It is relatively easy for the catheter to glide into the right coronary cusp. There was significant difficulty in advancing the catheter to the left coronary cusp. I noticed there was a difficulty in transmitting the torque while rotating the catheter to facilitate movement. Right coronary cusp as well as the junction of the left and right coronary cusp was mapped. Surprisingly notable limited signals in the left coronary cusp area. Catheter was advanced under the right coronary cusp from the LV side where I noted the signals to be the earliest and at least 24 ms preQRS. Stability was very limited and given the susceptibility site pace mapping was performed which showed a 96% match. And then proceeded to perform ablation but could not get a full spectrum of more than 5 g. Ablation was performed in and around the area given the scant PVCs noted I was not sure whether this ablation procedure achieved our goal. I then proceeded to place a catheter in the RVOT opposit (more content not included)... [facility] 05-26-2024 Note Patient: Wilbert Adkins pson Procedure Information Date/Time: 05/26/24 1100 Procedure: Ablation PVC - PC APPROVED 05/26-06/24 Location: [facility] / [facility] (Cath) Providers: Cordell Byers MD Clinical information reviewed: Allergies Meds Physical Exam Airway Mallampati: II TM distance: >3 FB Neck ROM: full Cardiovascular Dental Pulmonary Abdominal Anesthesia Plan ASA 3 CSE Anesthetic plan and risks discussed with patient. Use of blood products discussed with patient who. Additional Equipment Requests [facility] 04-15-2024 Note TX Electrophysiology Consult Note [place] Cardiology [facility] Reason for visit: PVC HPI: Wilbert Florian is a 63 y.o. year old with past medical history of hypertension and hyperlipidemia and arthritis was previously seen by Dr CUETO. He was noted to be bradycardia, therefore 3-day Holter monitor was obtained and it showed frequent PVCs with burden of 23% with few short nonsustained ventricular tachycardia 3-5 beats, all asymptomatic. His electrolytes were normal. His echo showed normal left ventricular systolic function. As per her note, the patient states that he is physically very [...] cardiac or cardiac arrhythmia in his family. PMH: Past Medical History: Diagnosis Date Abnormal ECG Aneurysm Arrhythmia Asthma Hyperlipidemia Hypertension PSH: Past Surgical History: Procedure Laterality Date TOTAL KNEE ARTHROPLASTY SH: Social Determinants of Health Tobacco Use: Low Risk (12/05/2023) Patient History Smoking Tobacco Use: Never Smokeless Tobacco Use: Never Passive Exposure: Not on file Alcohol Use: Not on file Financial Resource Strain: Not on file Food Insecurity: Not on file Transportation Needs: Not on file Physical Activity: Not on file Stress: Not on file Social Connections: Not on file Intimate Partner Violence: Not on file Depression: Not on file Housing Stability: Not on file Utilities: Not on file Health Literacy: Not on file Allergies: No Known Allergies Weight: 91.6kg Visit Vitals BP 115/70 (BP Location: Right arm, Patient Position: Sitting) Pulse 64 Ht 1.93 m (6' 4 ) Wt 91.6 kg (202 lb) SpO2 97% BMI 24.59 kg/m??? Smoking Status Never BSA 2.22 m??? Meds: Current Outpatient Medications on File Prior to Visit Medication Sig Dispense Refill allopurinol (Zyloprim) 300 mg tablet Take 300 mg by mouth in the morning. amLODIPine (Norvasc) 5 mg tablet Take 5 mg by mouth in the morning. losartan (Cozaar) 100 mg tablet Take 100 mg by mouth in the morning. metoprolol succinate XL (Toprol-XL) 25 mg 24 hr tablet Take 25 mg by mouth in the morning. No current facility-administered medications on file prior to visit. ROS: Review of Systems Constitutional: Positive for malaise/fatigue. Musculoskeletal: Positive for joint pain. All other systems reviewed and are negative. Physical Exam: Constitutional General Appearance: well-nourished, well-developed, appears stated age Level of Distress: comfortable Eyes OMAR Neck Neck: supple, trachea midline Carotid Arteries: bilateral normal upstroke, no bruits Jugular Veins: normal jugular venous pressure Thyroid: not enlarged Lungs Respiratory Effort: unlabored Chest Exam: normal curvature, no thoracic deformity Auscultation: clear, no wheezing, no rales, no rhonchi Cardiovascular Chest wall: Rate And Rhythm: regular Heart Sounds: normal S1, normal s2, no gallop Systolic Murmur: not heard Diastolic Murmur: not heard Extremities: no cyanosis, no edema, no peripheral signs of emboli Peripheral Pulses Radial Pulse: normal Abdomen Inspection and Palpation: soft, non distended, no bruit, non tender Neurologic Gait: normal gait Labs: @LABRESULTS@ No results found for: CHOLESTEROL TOTAL , HDL , LDL CALC , LDL DIRECT , TRIGLYCERIDES , TSH , T3 TOTAL , T4 TOTAL , THYROID PEROXIDASE AB , BNP EKG: Encounter Date: 12/05/23 ECG 12 lead Narrative Sinus bradycardia with frequent premature ventricular ectopies, heart rate 59 bpm, left axis deviation, possible old septal infarct, abnormal EKG Echo: Labs: 03/21/2023 White blood count 7.7 hemoglobin [...] 08/27/2023 sinus rhythm with frequent PVCs in bigemi (more content not included)... [facility] 03-31-2024 Evaluation note Diagnosis Onset Date Resolution Essential (primary) hypertension acute March 31, 2024 2:56pm NSVT (nonsustained ventricular tachycardia) acute March 31, 2024 2:56pm Renal cyst acute March 31, 2024 2:56pm Bradycardia deleted March 2:56pm Chronic kidney disease, stage 3 unspecified November 21, 2017 deleted March 31, 2024 2:56pm Chronic bronchitis acute May 07, 2024 11:27am Chronic HFrEF (heart failure with reduced ejection fraction) acute May 07 11:27am Essential (primary) hypertension acute May 07, 2024 11:27am Impaired fasting glucose April 11, 2016 acute May 07, 2024 11:27am NSVT (nonsustained ventricular tachycardia) acute May 07, 2024 11:27am Renal cyst acute May 07 11:27am Screening PSA (prostate specific antigen) acute May 07, 2024 11:27am Welcome to Medicare preventive visit noneactive May 07, 2024 11:27am [facility] Work Phone: 1(944) 227-259902-24-2025 Evaluation note* Diagnosis Onset Date Resolution Status Admit Date Essential (primary) hypertension acute March 31, 025 2:56pm NSVT (nonsustained ventricular tachycardia) acute Februar y 2024 2:56pm Renal cyst acute March 31, 2024 2:56pm Bradycardia deleted March 2:56pm Chronic kidney disease, stage 3 unspecified November 21, 2017 deleted March 31, 2024 2:56pm Chronic bronchitis acute May 07, 2024 11:27am Chronic HFrEF (heart failure with reduced ejection fraction) acute May 07 11:27am Essential (primary) hypertension acute May 07, 2024 11:27am Impaired fasting glucose April 11, 2016 acute May 07, 2024 11:27am NSVT (nonsustained ventricular tachycardia) acute May 072024 11:27am Renal cyst acute May 07 11:27am Screening PSA (prostate specific antigen) acute May 07 11:27am Welcome to Medicare preventive visit noneactive May 07, 2024 11:27am Acute exacerbation of chronic obstructive airways disease acute May 20, 2024 1:12pm Chronic obstructive pulmonary disease with (acute) lower respiratory infection acute May 1:12pm Allergic rhinitis noneactive May 062024 1:12pm [facility] Work Phone: 1(110) 809-247510-30-2024 [facility] Reason for cardiology consult: Bradycardia Chief Complaint: None HPI: Wilbert Florian is a 63 y.o. male without [...] tachycardia noted on 3-d (more content not included)...[facility]02-12-2024 Evaluation note* Encounter Date Diagnosis Assessment Notes Treatment Notes Treatment Clinical Notes Mar, Seasonal allergic rhinitis due to pollen (ICD-10 - J30.1) [facility] Other 10-18-2023 Evaluation note* Encounter Date Diagnosis [...] ear (ICD-10 - H90.42) Suspected, check audiogram [facility] Other 10-18-2023 Evaluation note* Encounter Date Diagnosis Assessment Notes Treatment Notes Treatment Clinical Notes Nov, Mild intermittent asthma with acute exacerbation (ICD-10 - J45.21) [facility] Other 10-12-2023 Evaluation note* Encounter Date Diagnosis [...] ER for increased cough, SOB or CP [facility] Other 10-04-2023 Evaluation note* Encounter Date Diagnosis Assessment Notes Treatment Notes Treatment Clinical Notes Nov, Seasonal allergic rhinitis due to pollen (ICD-10 - J30.1) [facility] Other 04-20-2023 Evaluation note* Encounter Date Diagnosis Assessment Notes Treatment Notes Treatment Clinical Notes May, Seasonal allergic rhinitis due to pollen (ICD-10 - J30.1) [facility] Other 03-21-2023 Evaluation note* Encounter Date Diagnosis [...] exercise for 30 minutes, 3-5 times weekly. [facility] Other 03-21-2023 Evaluation note* Encounter Date Diagnosis Assessment Notes Treatment Notes Treatment Clinical Notes Apr, Fatigue, unspecified type (ICD-10 - R53.83) [facility] Other 08-28-2021 Hospital Discharge instructions Additional Instructions [...] have swelling difficulty breathing or any other concernsWilson [facility] CtrEvaluation noteNo assessment information availableWilson Memorial Hospital CtrEvaluation noteNo InformationNort [employer] Other Evaluation note* Diagnosis Onset Date Resolution Status Asthma acute Elevated cholesterol acute Hypertension acute Lumbar spondylosis acute Wellness examination noneact [facility] Work Phone: Evaluation note* Diagnosis Onset Date Resolution Status Essential (primary) hypertension acute High risk medication use acu te Low back pain acute Lumbar spondylosis acute [facility] Work Phone: Evaluation note* Diagnosis Onset Date Resolution Status Essential (primary) hypertension acute High risk medication use acu te Low back pain acute Lumbar spondylosis acute Obesity acute Onychomycosis acute [facility] Work Phone: Evaluation note* Diagnosis Onset Date Resolution Status Essential (primary) hypertension acute High risk medication use acu te Low back pain acute Lumbar spondylosis acute Obesity acute Onychomycosis acute Essential (primary) hypertension acute Primary osteoarthritis of right knee acute Right knee pain acute [facility] Work Phone: Evaluation note* Diagnosis Onset Date Resolution Status Essential (primary) hypertension acute High risk medication use acu te Low back pain acute Lumbar spondylosis acute Obesity acute Onychomycosis acute Essential (primary) hypertension acute Primary osteoarthritis of right knee acute Right knee pain acute Essential (primary) hypertension acute Primary osteoarthritis of right knee acute Right knee pain acute [facility] Work Phone: Evaluation note* Diagnosis Onset Date Resolution Status Essential (primary) hypertension acute Primary osteoarthritis of right knee acute Right knee pain acute Essential (primary) hypertension acute Primary osteoarthritis of right knee acute Right knee pain acute [facility] Work Phone: History general Narrative - [...] COLONOSCOPY 2018 Hospitalization History SEE SURGICAL HX [facility] [employer] Other Chief Complaint and Reason for Visit [...] Rate Concerns/Discuss CT March 31, 2024 2:56pm Chief Complaint Admit Date Heart Rate Concerns/Discuss CT March 31, 2024 2:56pm wellness May 07, 2024 11:2 7am Reason for Visit Admit Date Essential (primary) hypertension Februar y 2024 2:56pm NSVT (nonsustained ventricular tachycard ia) March 31, 2024 2:56pm Renal cyst March 31, 2024 2:56pm Bradycardia March 31, 2024 2:56pm Chronic kidney disease, stage 3 unspecif ied March 31, 2024 2:56pm Chronic bronchitis May 07, 2024 11:2 7am Chronic HFrEF (heart failure with reduced ejection fraction) May 07, 2024 11:27am Essential (primary) hypertension May 072024 11:27am Impaired fasting glucose May 07, 2024 11:27am NSVT (nonsustained ventricular tachycard ia) May 07, 2024 11:27am Renal cyst May 07, 2024 11:2 7am Screening PSA (prostate specific antigen ) May 07, 2024 11:27am Welcome to Medicare preventive visit [facility] 2024 11:27am Chief Complaint Admit Date Heart Rate Concerns/Discuss CT March 31, 2024 2:56pm wellness May 07, 2024 11:2 7am bronchitis May 20, 2024 1:1 2pm Reason for Visit Admit Date Essential (primary) hypertension 2024 2:56pm NSVT (nonsustained ventricular tachycard ia) March 31, 2024 2:56pm Renal cyst March 31, 2024 2:56pm Bradycardia March 31, 2024 2:56pm Chronic kidney disease, stage 3 unspecif ied March 31, 2024 2:56pm Chronic bronchitis May 07, 2024 11:2 7am Chronic HFrEF (heart failure with reduced ejection fraction) May 07, 2024 11:27am Essential (primary) hypertension May 072024 11:27am Impaired fasting glucose May 07, 2024 11:27am NSVT (nonsustained ventricular tachycard ia) May 07, 2024 11:27am Renal cyst May 07, 2024 11:2 7am Screening PSA (prostate specific antigen ) May 07, 2024 11:27am Welcome to Medicare preventive visit [facility] 2024 11:27am Acute exacerbation of chronic obstructiv e airways disease May 20, 2024 1:12pm Chronic obstructive pulmonar y disease with (acute) lower respiratory infection May 20, 2024 1:12pm Allergic rhinitis May 20, 2024 1:1 2pm Advance Directives No Advanced Directives Records Found Advance Directive Response Recorded Date/ Time Advance Directives No December 11, 2017 4:38pm Advance Directive Response Recorded Date/ Time Advance Directives No March 9:32am Advance Directive Response Recorded Date/ Time Advance Directives No March 10:32am Summary Purpose Family History No Family History [...] hearing of right ear (H90.42) Referral Organization [facility] Referring Provider First Name Umesh Referring Provider Last Name Flavio Referring Provider Specialty Internal Me dicine Referred Organization [facility] Referred Provider Bethanie Upton Referred Address ,[place], [place],[address] Referred Provider Specialty Ear, Nose an d [...] Status: Active Member Role Status Dates Umesh Muniz DO Primary Care Provider Active Team Status: Inactive Member Role Status Dates Umesh Muniz DO Primary Care Provide r, Attending Provider Active Start: March 31, 2024 End: March 31, 2024 Team Status: Active Member Role Status Dates Umesh Muniz DO Primary Care Provide r, Attending Provider Active Start: April 15, 2024 Team Status: Inactive Member Role Status Dates Umesh Muniz DO Primary Care Provide r, Attending Provider Active Start: May 07, 2024 End: May 07, 2024 Team Status: Active Member Role Status Dates Umesh Muniz DO Primary Care Provide r, Attending Provider Active Start: January 17, 2024 Team Status: Inactive Member Role Status Dates Umesh Muniz DO Primary Care Provider Active Outreach [facility] Attending Provider Active Team Status: Inactive Member Role Status Dates Umesh Ball , DO Primary Care Provide r, Attending Provider Active Start: April 30, 2023 End: April 30, 2023 Team Status: Inactive Member Role Status Dates Umesh Muniz DO Primary Care Provider Active Start: June 19, 2023 End: June 19, 2023 Anel Solitario APRN [employer]-C Attending Provider Act raheel Start: June 19, 2023 End: June 19, 2023 Team Status: Inactive Member Role Status Dates Umesh Muniz DO Primary Care Provide r, Attending Provider Active Start: August 10, 2023 End: August 10, 2023 Team Status: Inactive Member Role Status Dates Umesh Muniz DO Primary Care Provide r, Attending Provider Active Start: August 24, 2023 End: August 24, 2023 Team Status: Active Member Role Status Shy Muniz DO Primary Care Provide r, Attending Provider Active Start: October 04, 2023 Team Status: Inactive Member Role Status Dates Umesh Muniz DO Primary Care Provide r, Attending Provider Active Start: October 11, 2023 End: October 11, 2023 Team Status: Inactive Member Role Status Shy Muniz DO Primary Care Provide r, Attending Provider Active Start: October 17, 2023 End: October 17, 2023 Team Status: Active Member Role Status Shy Muniz DO Primary Care Provide r, Attending Provider Active Start: September 17, 2023 Team Status: Inactive Member Role Status Shy Muniz DO Primary Care Provide r, Attending Provider Active Start: November 21, 2023 End: November 21, 2023 Team Status: Inactive Member Role Status Shy Muniz DO Primary Care Provide r, Attending Provider Active Start: May 20, 2024 End: May 20, 2024 REASON FOR VISIT (unrecogniz ed section and content) Wellness LabsENT REFERRAL UP DATEletterFLU Shotmedicationcongestion [id number], congestion, no covid testAllergy ShotWELLNESS (unrecognized sect ion and content) No Status Records FoundNo Status Records FoundNo Status Records Found INFORMATION SOURCE (unrecogn ized section and content) DATE CREATED AUTHOR 05/01/2022 [facility] DATE CREATED AUTHOR AUTHOR'S ORGANIZ ATION 08/28/2023 [facility] DATE CREATED AUTHOR 'S ORGANIZ ATION 07/04/2024 [facility] FOR RECORDS PERTAINING TO PATIENTS [...] BE BASED ON THE PRIMARY CLINICAL RECORDS. [facility]. provides no warranty or guarantee of the accuracy or completeness of information in this document.
--- NOTE | 2024-07-08 08:00 | CA_ITS ---
Patient Name: WILBERT URIARTE MR#: [id number] : 1960 Exam Date: 07/08/2024 Ordering Doctor: TOMAS MCCALL ECHOCARDIOGRAM REPORT PROCEDURE: CA ECHO DOPPLER COMPLETE INDICATIONS: Status post ablation, reassess left ventricular function, hypertension COMPARISON: None. DESCRIPTION: COMPLETE ECHOCARDIOGRAM Real-time transthoracic echocardiography with 2D, M-mode, spectral and color flow Doppler performed. QUALITY: Technical quality was good. LEFT VENTRICLE: Normal chamber size. Thickened septal wall. Normal systolic function. LV EF: Normal left ventricular ejection fraction, (55%). DIASTOLIC: Diastolic function is indeterminate. ATRIAL SEPTUM: Visually appears intact. LEFT ATRIUM: Normal chamber size. RIGHT ATRIUM: Normal chamber size. RIGHT VENTRICLE: Normal chamber size. Normal right ventricular systolic function. TRICUSPID VALVE: Normal mobility and thickness. No stenosis with trivial regurgitation. Unable to assess right-sided pressures due to lack of measurable tricuspid regurgitation. MITRAL VALVE: Normal mobility and thickness. No evidence of mitral valve stenosis. There is no mitral annular calcification. Trivial mitral regurgitation. AORTIC VALVE: Normal trileaflet appearance. No visible sclerosis. Normal leaflet mobility. No evidence of aortic valve stenosis. Mild aortic regurgitation. AORTIC ROOT: Mildly dilated, measuring 4.2 cm. Ascending aorta is mildly dilated (3.9 cm). PULMONIC VALVE: Normal thickness and mobility. No stenosis. Trivial regurgitation. PERICARDIUM: No evidence of pericardial effusion. IVC: Collapses with inspirations. IVC is normal in size. PLEURA: CONCLUSION: 1. Normal left ventricular size and systolic function. LVEF is estimated at 55%. 2. Normal right ventricular size and systolic function. 3. Mild aortic valve regurgitation. 4. Unable to assess right-sided pressures due to lack of measurable tricuspid regurgitation. 5. Mildly dilated ascending aorta and aortic root. Adult Echocardiography Procedure Report Left Ventricle LVEDD (3.7 - 5.6 cm): 5.29 cm LVESD (2.2 - 4.0 cm): 3.74 cm LVIVS thickness (0.6 - 1.2 cm): 1.18 cm LVPW thickness (0.5 - 1.0 cm): 0.99 cm e': 0.06 m/s E - e': 7.61 LVOT Max Gradient: 4.10 mm[Hg] LVOT Area (cm2): 1.01 m/s Peak Velocity (LVOT): 1.01 m/s LVOT Diameter 2.53 cm Left Atrium LA Volume Index (2D A2C): 31.48 ml/m2 Left Atrium Systolic Dimension: 4.63 cm Mitral Valve MV E to A Ratio: 0.74 Mitral Valve A-Wave Peak Velocity: 0.67 m/s Mitral Valve E-Wave Peak Velocity: 0.49 m/s Right Ventricle Aorta AO Root Diam: 4.15 cm Ascending Ao Diam: 3.91 cm, 3.55 cm Aortic Valve AoV Area (Peak Sven): 4.36 cm2, 4.36 cm2 Peak Velocity(Antegrade Flow): 1.16 m/s Peak Gradient(Antegrade Flow): 5.41 mm[Hg] Tricuspid Valve Pulmonic Valve Peak Gradient: 3.11 mm[Hg], 2.68 mm[Hg] Right Atrium Right Atrium Systolic Pressure: 42.82 ml, 42.82 ml Dictated by: Fady Alejandre M.D. on 07/08/2024 at 17:27 Approved by: Fady Alejandre M.D. on 07/08/2024 at 17:37
== END 2024-07-08 07:44 | disposition home or self-care (01) ==
LOC: CARD 07:44
PROVIDERS: PCP Internal Medicine
DX: I49.3 Ventricular premature depolarization (principal); Z98.890 Other specified postprocedural states; Z86.79 Personal history of other diseases of the circulatory system; I10 Essential (primary) hypertension
CPT/HCPCS: 93306

== ENCOUNTER 2024-08-07 06:41 | Outpatient (OUT) | payer OTHER, SELFPAY ==
--- NOTE | 2024-08-07 | US_ITS ---
The [address] [address] Patient Name: WILBERT URIARTE MRN: [id number] date: 1960 Sex: M Assigned Patient Location: [place] Current Patient Location: [place] Accession/Order Number: [id number] Exam Date: 08/07/2024 08:09 Report Date: 08/07/2024 08:13 At the request of: AMBROSE ALMAZAN DO Procedure: US renal BI BILATERAL RENAL AND BLADDER ULTRASOUND CLINICAL HISTORY: Renal cyst; N28.1 COMPARISON: CT 01/20/2024 Estimation of renal size is approximately 10.5 cm on the right and 11.4 cm on the left. No shadowing calculi or hydronephrosis are identified. Renal cysts are visualized measuring up to 2 cm at the inferior pole on the right. There is no perinephric fluid. The urinary bladder is moderately distended with a volume of 600 mL. The wall appears slightly thickened. The prostate is enlarged measuring 4.5 x 4.5 x 4.6 cm (volume 48 mL). US/US renal BI IMPRESSION: NO OBSTRUCTIVE UROPATHY. RENAL CYSTS. PROSTATE HYPERTROPHY. Impression dictated by: Lilliam Pinzon M.D. 08/07/2024 8:13 AM Dictation Location: [place] [address] Electronically authenticated by: [id number] Date: 08/07/2024 08:13
--- OUTSIDE RECORDS SUMMARY | 2024-08-07 06:43 | XMS_ITS | Clinical Summary ---
Author Organization [facility] Address [address] [place] [address] Care Team Providers Care Tour Narrator Name Role Phone Unavailable Primary Care Provider Unavailabl e Social History Tobacco Use Types Packs/Day Years Used Date Smoking Tobacco: Never Assessed Sex and Gender Information Value Date Recorded Sex Assigned at Not on file Legal Sex Male 7:34 PM EDT Gender Identity Not on file Sexual Orientation Not on file Plan of Treatment Health Maintenance Due Date Last Done Comments CT Colonography 1958 Colonoscopy 1958 Colorectal Cancer Screening 1958 FIT-DNA 1958 FIT 1958 FOBT 1958 Sigmoidoscopy 1958 Pneumococcal Vaccine: 65+ Ye ars (1 of 1 - PCV) 2008 Influenza Vaccine (Season Ended) 2024 11/22/2021, 12/03/2019, 12/11/2017, Additional history exists
--- OUTSIDE RECORDS SUMMARY | 2024-08-07 06:43 | XMS_ITS | Clinical Summary ---
Author Organization [facility] Address [address] [place] [address] Phone Care Team Providers Care Head Batcher Name Role Phone Unavailable Primary Care Provider Unavailabl e Social History Tobacco Use Types Packs/Day Years Used Date Smoking Tobacco: Never Assessed Sex and Gender Information Value Date Recorded Sex Assigned at Not on file Legal Sex Male 10:23 PM EST Gender Identity Not on file Sexual Orientation Not on file Plan of Treatment Not on file
--- OUTSIDE RECORDS SUMMARY | 2024-08-07 06:43 | XMS_ITS | Clinical Summary ---
Author Organization [facility] Address [address] [place] [address] Care Team Providers Care Dental Biller Name Role Phone Umesh Muniz Primary Care Provider [phone] Cordell Byers MD Unavailable Encounters Date Type Department Care Team Description 07/17/2024 Telephone Cardiology [address] [place] [phone] Terry Escalante MD Received Outside Medical Records (Echo report) 07/15/2024 Telephone [address] [place] [phone] Terry Escalante MD Request Outside Medical Records ([facility]) 07/15/2024 Telephone Cardiology [address] [place] [id number] Terry Escalante MD from Last 3 Months Social History Tobacco Use Types Packs/Day Years Used Date Smoking Tobacco: Never Assessed Sex and Gender Information Value Date Recorded Sex Assigned at Not on file Legal Sex Male 3:19 PM EDT Gender Identity Not on file Sexual Orientation Not on file Plan of Treatment Upcoming Encounters Date Type Department Care Team (Late st Contact Info) Description 08/29/2024 11:45 AM EDT Office Visit Cardiology [address] [place] [id number] DX: NSVT 08/29/2024 12:00 PM EDT Procedure Cardiology [address] [place] [address] [id number] DX: NSVT 08/29/2024 12:45 PM EDT Office Visit Cardiology [address] [place] [phone] Terry Escalante MD [phone] [facility] [place] [address] [place] [address] DX: NSVT Health Maintenance Due Date Last Done Comments Anxiety Screening 1976 Depression Screening 1976 HIV Screening 1976 Hepatitis C Screening 1976 DTaP,Tdap,Td Vaccine (1 - Tdap) [address] Colonography 10/23/2003 Cologuard (FIT-DNA) 10/23/2003 Colonoscopy 10/23/2003 Colorectal Cancer Screening 10/23/2003 Fecal Occult Blood 10/23/2003 Prostate Cancer Screening Discussion 10/23/2003 Sigmoidoscopy 10/23/2003 Pneumococcal Vaccine: 50+ (1 of 1 - PCV) 2008 Shingrix Vaccine (1 of 2) 2008 Covid-19 Vaccine (1 - season) 2023 Advance Directive Discussion 02/06/2024 Influenza Vaccine (Season Ended) 2024 Diabetes Screening 05/28/2027 05/27/2024 RSV Vaccine (1 - 1-dose 75+ series) 2033 Procedures Procedure Name Priority Date/Time Associated Diagnosis Comments EXTERNAL CARDIOLOGY 07/17/2024 4 :16 PM EDT EXTERNAL CARDIOLOGY 07/15/2024 3 :49 PM EDT US OUTSIDE CD DICOM IMPORT 07/08/2024 from Last 3 Months Results * EXTERNAL CARDIOLOGY (07/17/2024 4:16 PM EDT) us External Provider PA-C CARDIOLOGY Final Res ult * EXTERNAL CARDIOLOGY (07/15/2024 3:49 PM EDT) us External Provider PA-C CARDIOLOGY Final Res ult * US-CA ECHO DOPPLER COMPLETE IMPORT (07/08/2024) Anatomical Region Laterality Modality Other 07/08/2024 Narrative 07/16/2024 11:28 PM EDT Images were obtained outside of [facility] Procedure Note Provider, [facility] - 07/16/2024 Images were obtained outside of [facility] Cc Provider RADIOLOGY Final Result from Last 3 Months Insurance DEVOTED MEDICARE Care Teams Dental Biller Relationship Specialty Start Date End Date Umesh Muniz DO [address] [place] [address] [address] [facility] [place] [address] PCP - General Internal Medicine 12/04/23 Cordell Byers MD [address] [place] [phone] Referring Cardiology 07/15/24
--- OUTSIDE RECORDS SUMMARY | 2024-08-07 06:43 | XMS_ITS | Clinical Summary ---
Author Organization [facility] Address [id number] [address] [place] [address] Care Team Providers Care Sewing Machine Repairer Helper Name Role Phone Unavailable Primary Care Provider Unavailabl e Allergies No known active allergies Medications budesonide-form oterol (SYMBICORT) 160-4.5 mcg/actuation inhaler Inhale 2 puffs 2 (two) times a day. Active albuterol sulfate 90 mcg/actuation aerosol powdr breath activated Inhale 2 puffs every 6 (six) hours as needed (SOB.COUGH). Active ibuprofen (ADVIL,MOTRIN) 800 mg tablet Take 800 mg by mouth every 6 (six) hours as needed for pain. Active oxyCODONE-aceta minophen (PERCOCET) 5-325 mg per tablet Take 1 tablet by mouth every 6 (six) hours as needed for pain. 12/09/2015 Active loratadine 10 mg capsule Take 1 tablet by mouth daily. Active baclofen (LIORESAL) 2.5 mg tablet Take 2.5 mg by mouth daily as needed (muscle spasms). Active omeprazole (PriLOSEC OTC) 20 mg tablet,delayed release (DR/EC) Take 20 mg by mouth daily. Active losartan (COZAAR) 100 mg tablet Take 100 mg by mouth daily. Active IRON PS CMPLX/VIT B12/FA (FERREX 150 FORTE ORAL) Take 1 tablet by mouth daily. Active oxyCODONE-aceta minophen (PERCOCET) 5-325 mg per tablet Take 1-2 tablets by mouth every 4 (four) hours as needed for pain. Active Active Problems No known active problems Social History Tobacco Use Types Packs/Day Years Used Date Smoking Tobacco: Never Assessed Childcare Answer Date Recorded Childcare Unknown 07/17/2018 Employment Answer Date Recorded Employment Unknown 07/17/2018 Purpose - Life Answer Date Recorded Purpose and direction in life Unknown Sex and Gender Information Value Date Recorded Sex Assigned at Not on file Legal Sex Male 12:02 PM EDT Gender Identity Not on file Sexual Orientation Not on file Last Filed Vital Signs Vital Sign Reading Time Taken Comments Blood Pressure 132/82 12/21/2015 10:00 AM EST Pulse 87 12/20/2015 2:34 PM EST Temperature 37.1 C (98.8 F) 12/21/2015 10:00 AM EST Respiratory Rate 16 12/21/2015 10:00 AM EST Oxygen Saturation - - Inhaled Oxygen Concentration - - Weight 95.7 kg (211 lb) 12/09/2015 9:30 AM EDT Height 193 cm (6' 4 ) 12/09/2015 9:30 AM EDT Body Mass Index 25.68 12/09/2015 9:30 AM EDT Plan of Treatment Not on file Medical Devices Not on file Insurance [employer]
--- OUTSIDE RECORDS SUMMARY | 2024-08-07 06:43 | XMS_ITS | Encounter Summary ---
Author Organization [facility] Address [address] [place] [address] Care Team Providers Care Transitional Nurse Name Role Phone Umesh Muniz DO Primary Care Provider [phone] Encounter Details Date Type Department Care Team (Late st Contact Info) Description 08/04/2024 Telephone [facility] at [facility] [address] [place] [address] Jaci Leal MA Social History Tobacco Use Types Packs/Day Years Used Date Smoking Tobacco: Never Smokeless Tobacco: Never Alcohol Use Standard Drinks/Week Comments Not Currently 0 (1 standard drink = 0.6 oz pur e alcohol) [facility] Utilities Answer Date Recorded In the past 12 months has th e electric, gas, oil, or water company threatened to shut off services in your home? No 05/26/2024 Humiliation, Afraid, Rape, and Kick questionnair e Answer Date Recorded Within the last year, have y ou been afraid of your partner or ex-partner? No 05/26/2024 Emotionally Abused Not on file 05/26/2024 Physically Abused Not on file 05/26/2024 Sexually Abused Not on file 05/26/2024 Overall Financial Resource Strain (CARDIA) Answe r Date Recorded How hard is it for you to pa y for the very basics like food, housing, medical care, and heating? Not hard at all 05/26/2024 Transportation Answer Date Recorded In the past 12 months, has l ack of transportation kept you from medical appointments or from getting medications? No 05/26/2024 Lack of Transportation (Non-Medical) Not on file 05/26/2024 Housing Stability Vital Sign Answer Presley e Recorded In the last 12 months, was t here a time when you were not able to pay the mortgage or rent on time? No 05/26/2024 In the past 12 months, how m any times have you moved where you were living? 0 05/26/2024 At any time in the past 12 m [facility], were you homeless or living in a long-term (including now)? No 05/26/2024 Hunger Vital Sign Answer Date Recorded Within the past 12 months, y ou worried that your food would run out before you got the money to buy more. Never true 05/27/19 25 Ran Out of Food in the Last Year Not on file 05/26/2024 Sex and Gender Information Value Date Recorded Sex Assigned at Not on file Legal Sex Male 11:01 AM EDT Gender Identity Not on file Sexual Orientation Not on file documented as of this encounter Plan of Treatment Not on file documented as of this encounter Visit Diagnoses Not on filedocumented in this encounter Care Teams Transitional Nurse Relationship Specialty Start Date End Date Umesh Muniz DO [address] [place] [address] PCP - General Internal Medicine 12/04/23 documented as of this encounter
--- OUTSIDE RECORDS SUMMARY | 2024-08-07 06:43 | XMS_ITS | Clinical Summary ---
Author Organization [facility] Address [address] [place] [address] Care Team Providers Care Taker Down Name Role Phone Umesh Muniz DO Primary Care Provider [phone] Allergies No known active allergies Medications allopurinol (Zyloprim) 300 mg tablet Take 300 mg by mouth in the morning. 4 Active amLODIPine (Norvasc) 5 mg tablet Take 5 mg by mouth in the morning. 4 Active losartan (Cozaar) 100 mg tablet Take 100 mg by mouth in the morning. 4 Active budesonide-formot Simeon (Symbicort) 80-4.5 mcg/actuation inhaler Inhale 2 puffs in the morning and at bedtime. 5 Active rivaroxaban (Xarelto) 15 mg tabletIndications :S/P AV elba ablation Take 1 tablet (15 mg) by mouth daily with evening meal for 21 days. Take with food. 21 tablet 5 Active amiodarone (Pacerone) 200 mg tabletIndications :Frequent PVCs,NSVT (nonsustained ventricular tachycardia) (CMS/HCC) Take 2 tablets (400 mg) by mouth two times daily for 12 days, THEN 1 tablet (200 mg) in the morning. 78 tablet 5 Active alfuzosin (Uroxatral) 10 mg 24 hr tablet Take 10 mg by mouth in the morning. 5 Active amiodarone (Pacerone) 100 mg tabletIndications :Paroxysmal atrial fibrillation (CMS/HCC) Take 1 tablet (100 mg) by mouth in the morning. 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 Their recommendations are Xarelto 50 mg once daily for 3 weeks, 48-hour Holter monitor after 4 weeks and echo in 6 weeks, cardiology consulted Abnormal electrocardiogram (ECG) (EKG) Cardiomyopathy 12/08/2023 Assessment & Plan (05/26/2024 6:36 PM EDT): As above, last EF 45% Valvular heart disease 12/08/2023 Abdominal aortic aneurysm (AAA) 12/05/2023 Asthma 12/05/2023 Benign prostatic hyperplasia with lower urinary tract symptoms 12/05/2023 Bradycardia 12/05/2023 Elevated cholesterol 12/05/2023 Essential (primary) hypertension 12/05/2023 Assessment & Plan (05/26/2024 6:36 PM EDT): Continue to monitor, on amlodipine 5 mg at home along with losartan 100 mg, continue that Labs in the morning High risk medication use 12/05/2023 Hoarseness, persistent 12/05/2023 Idiopathic gout, unspecified site 12/05/2023 Irregular cardiac rhythm 12/05/2023 Low back pain 12/05/2023 Lumbar spondylosis 12/05/2023 Mild intermittent asthma with acute exacerbation 12/05/2023 VT (ventricular tachycardia) 12/05/2023 Obesity 12/05/2023 Onychomycosis 12/05/2023 Primary osteoarthritis of right knee 12/05/2023 Right knee pain 12/05/2023 Varicose veins of bilateral lower extremities wi th pain 12/05/2023 Ventricular bigeminy 12/05/2023 Chronic kidney disease, stage 3 unspecified 11/05 Hypercalcemia 04/14/2017 Impaired fasting glucose 04/11/2016 Palpitations 06/15/2015 Encounters Date Type Department Care Team Description 08/04/2024 Telephone [facility] [address] [place] [address] Jaci Leal MA 07/18/2024 Orders Only [address] [place] [address] Jaci Leal MA Paroxysmal atrial fibrillation (CMS/HCC) (Primary Dx) 07/15/2024 11:30 AM EDT Follow-Up [address] [place] [address] Cordell Byers MD Frequent PVCs (Primary Dx) 07/15/2024 Orders Only [address] [place] [address] Jaci Leal MA NSVT (nonsustained ventricular tachycardia) (CMS/HCC) 07/15/2024 Orders Only [address] [place] [address] Jaci Leal MA Paroxysmal atrial fibrillation (CMS/HCC) 07/09/2024 Orders Only [address] [place] [address] Jennifer Granda MD 07/08/2024 Orders Only [address] [place] [address] Nelida Flores MA PVC (premature ventricular contraction) 07/02/[address] [place] [address] Erica Lomax MA 07/01/[address] [place] [address] Erica Lomax MA 06/16/2024 Telephone [facility] [address] [place] [address] Jaci Leal MA 06/11/2024 1:40 PM EDT Follow-Up [facility] [address] [place] [address] Brittany Shelton CNP Frequent PVCs (Primary Dx); S/P ablation of ventricular arrhythmia; Status post ablation of ventricular arrhythmia; NSVT (nonsustained ventricular tachycardia) (CMS/HCC); Essential (primary) hypertension 06/04/2024 9:00 AM EDT Office Visit [facility] [address] [place] [address] Bladimir Nelson CNP Status post ablation of ventricular arrhythmia (Primary Dx); PVC (premature ventricular contraction); Essential (primary) hypertension 05/26/2024 11:00 AM EDT - 05/26/2024 2:00 PM EDT Surgery [facility] [address] [place] [id number] Cordell Byers MD Ablation PVC [[id number]] 05/26/2024 9:22 AM EDT - 05/27/2024 1:32 PM EDT Hospital Encounter [facility] [address] [place] [address] Cordell Byers MD Horani, Omar, MD Omar, Muhammad, MD Chang, Kyu Chul, MD PVC (premature ventricular contraction) (Primary Dx); S/P AV elba ablation; Frequent PVCs Discharge Disposition: Home or Self Care () 05/26/2024 Travel 05/19/2024 Orders Only [facility] [address] [place] [address] Yashira Sánchez RN PVC (premature ventricular contraction) (Primary Dx) from Last 3 Months Family History Medical History Relation Name Comments No Known Problems Father No Known Problems Mother Relation Name Status Comments Brother Alive Father Mother Sister Alive Social History Tobacco Use Types Packs/Day Years Used Date Smoking Tobacco: Never Smokeless Tobacco: Never Alcohol Use Standard Drinks/Week Comments Not Currently 0 (1 standard drink = 0.6 oz pur e alcohol) [facility] Utilities Answer Date Recorded In the [...] any time in the past 12 m [facility], were you homeless or living in a correction (including now)? No 05/26/2024 Hunger Vital Sign [...] Sign Reading Time Taken Comments Blood Pressure 144/83 07/15/2024 11:27 AM EDT Pulse 59 07/15/2024 11:27 AM EDT Temperature 36.8 C (98.2 F) 05/27/2024 11:51 AM EDT Respiratory Rate 14 05/27/2024 11:51 AM EDT Oxygen Saturation 99% 07/15/2024 11:27 AM EDT Inhaled Oxygen Concentration - - Weight 90.7 kg (200 lb) 07/15/2024 11:27 AM EDT Height 193 cm (6' 4 ) 07/15/2024 11:27 AM EDT Body Mass Index 24.34 07/15/2024 11:27 AM EDT Plan of Treatment Health Maintenance Due Date Last Done Comments CT Colonography 1958 Colonoscopy 1960 Colorectal Cancer Screening 1960 FIT-DNA 1958 FIT 1958 FOBT 1960 Medicare Annual Wellness (AWV) 1958 Medicare Initial Physical (IPPE) 1958 Sigmoidoscopy 1958 Depression Screening 1970 Adult Tetanus 1980 Zoster Vaccines (1 of 2) 2008 COVID-19 Vaccine ( season) 2023 05/11/2020, 04/19/2020 Influenza Vaccine (#1) 2024 , 11/22/2021, 12/03/2019, Additional history exists Fall Risk Screening 05/27/2025 05/27/2024 Pneumococcal Vaccine: 50+ Years Completed 01/06/2024 HIB Vaccines Aged Out No longer eligi ble based on patient's age to complete this topic HPV Vaccines Aged Out No longer eligi ble based on patient's age to complete this topic IPV Vaccines Aged Out No longer eligi ble based on patient's age to complete this topic Meningococcal B Vaccine Aged Out No l onger eligible based on patient's age to complete this topic Meningococcal Vaccine Aged Out No ashley geoff eligible based on patient's age to complete this topic Rotavirus Vaccines Aged Out No longer eligible based on patient's age to complete this topic Procedures Procedure Name Priority Date/Time Associated Diagnosis Comments ECG 12-LEAD Routine 07/09/2024 8:53 AM EDT PVC (premature ventricular contraction) COMPLETE TRANSTHORACIC ECHO (TTE) W/WO IMAGING AGENT, STRAIN, 3D, BUBBLE STUDY Routine 07/08/2024 9:54 AM EDT ECG 12 LEAD UNIT PERFORMED Routine 06/11/2024 1:44 PM EDT S/P ablation of ventricular arrhythmia ECG 12 LEAD UNIT PERFORMED Routine 06/04/2024 8:57 AM EDT Status post ablation of ventricular arrhythmia PVC (premature ventricular contraction) ECG 12-LEAD STAT 05/27/2024 10:01 AM EDT BASIC METABOLIC PANEL Pending Discharge 05/27/2024 4:32 AM EDT CBC Pending Discharge 05/27/2024 4:32 AM EDT ECG 12-LEAD Routine 05/26/2024 7:09 PM EDT ABLATION PVC Routine 05/26/2024 3:36 PM EDT PVC (premature ventricular contraction) POCT ACT Routine 05/26/2024 3:25 PM EDT POCT ACT Routine 05/26/2024 2:07 PM EDT POCT ACT Routine 05/26/2024 1:45 PM EDT POCT ACT Routine 05/26/2024 1:09 PM EDT POCT ACT Routine 05/26/2024 12:25 PM EDT ECG 12-LEAD Routine 05/26/2024 10:10 AM EDT from Last 3 Months Results * ECG 12 lead (07/09/2024 8:53 AM EDT) Only the most recent of4 resultswithin the time period is included. us Cordell Byers MD ECG ORDERABLES Final Result * Complete Echo (TTE) w/wo Imaging Agent, Strain, 3D, Bubble Study (07/08/2024 9:54 AM EDT) Anatomical Region Laterality Modality Ultrasound Historical Provider CV ECHO PROCEDURES Final Result * ECG 12 lead unit performed (06/11/2024 1:44 PM EDT) Only the most recent of2 resultswithin the time period is included. Brittany Shelton CORE EXTRUDER ECG ORDERABLES Final Result * CBC (05/27/2024 4:32 AM EDT) Auto WBC 9.25 4.00 - 10.60 10*3/uL 05/27/2024 5:01 AM EDT [facility]) RBC 4.43 4.20 - 5.70 10*6/uL 05/27/2024 5:01 AM EDT [facility] ([facility]) Hemoglobin 13.8 13.0 - 17.0 g/dL 05/27/2024 5:01 AM EDT [facility]) Hematocrit 42.0 39.0 - 50.0 % 05/27/2024 5:01 AM EDT [facility]) MCV 94.8 82.0 - 98.0 fL 05/27/2024 5:01 AM EDT [facility]) MCH 31.2 27.0 - 33.0 pg 05/27/2024 5:01 AM EDT [facility]) MCHC 32.9 32.0 - 35.0 g/dL 05/27/2024 5:01 AM EDT [facility]) RDW 13.5 11.5 - 15.0 % 05/27/2024 5:01 AM EDT [facility]) Platelets 192 150 - 400 10*3/uL 05/27/2024 5:01 AM EDT [facility]) Blood Venous blood specimen / Unknown Arterial Line / Unknown 05/27/2024 4:32 AM EDT 05/27/2024 4:48 AM EDT Hua Posey MD LAB BLOOD ORDERABLES Final Res ult [facility] ([facility]) [address] [place] [address] * (ABNORMAL) Basic metabolic panel (05/27/2024 4:32 AM EDT) Sodium 135(L) 136 - 145 mmol/L 05/27/2024 5:13 AM EDT [facility]) Potassium 4.9 3.5 - 5.1 mmol/L 05/27/2024 5:13 AM EDT [facility]) Chloride 107 98 - 107 mmol/L 05/27/2024 5:13 AM EDT [facility]) CO2 23 21 - 31 mmol/L 05/27/2024 5:13 AM EDT [facility]) BUN 28(H) 7 - 25 mg/dL 05/27/2024 5:13 AM EDT [facility]) Creatinine 1.18 0.70 - 1.30 mg/dL 05/27/2024 5:13 AM EDT [facility]) Glucose 109(H) 70 - 100 mg/dL 05/27/2024 5:13 AM EDT [facility]) Calcium 9.3 8.6 - 10.3 mg/dL 05/27/2024 5:13 AM EDT [facility]) Anion Gap 10 7 - 20 mmol/L 05/27/2024 5:13 AM EDT [facility]) eGFR 68.5 >60.0 mL/min/1. 73m*2 05/27/2024 5:13 AM EDT [facility] ([facility]) Comment:[facility] s estimated glomerular filtration rate (eGFR) will no longer include consideration of race in its calculation. The [employer] s eGFR Task Force developed new recommendations for [...] disproportionately affect any one group of individuals. BUN/Creatinine Ratio 23.7 05/07 5:13 AM EDT [facility]) Blood Venous blood specimen / Unknown Arterial Line / Unknown 05/27/2024 4:32 AM EDT 05/27/2024 4:47 AM EDT us Hua Posey MD LAB BLOOD ORDERABLES Final Res ult [facility] ([facility]) [address] [place] [address] * ABLATION PVC (05/26/2024 3:36 PM EDT) Anatomical Region Laterality Modality Other Narrative 05/26/2024 4:39 PM EDT Images from the original result were not included. PVC/ VT ABLATION PROCEDURE REPORT DATE OF PROCEDURE: 05/27/2023 PERFORMING PHYSICIAN: [...] signals to be only 15 to 20 ms pre QRS. So then I decided to map the LVOT. The short 6 Syrian sheath was exchanged for long 8 Syrian sheath. There was difficulty advancing the optimal [...] to place a catheter in the RVOT opposite this ablation site. Lesions were provided leading to a sandwich ablation technique. At this time I noted an automatic ventricular rhythm which had a pacemaker of 78% from the ablation site. I decided to map the LVOT one more time. A 90 cm long Merit sheath was then utilized. With this I could manage to map the left coronary cusp in a better fashion. Optrell was then advanced but this led to very poor signals. I did not find any earlier spots here. I then went back and mapped the area in the RVOT and ablated some areas that was more leftward in the SURY view. Here the signals were 25ms preQRS with a good unipolar signal. Ablation was reinforced via with 30g force. At this stage I felt like this was a reasonable endpoint considering that there was scant PVCs and the difficulty mapping. EP study was then performed. Wenckebach cycle was noted 310 milliseconds. Atrial ERP was noted at 600/260ms. ICE confirmed absence of pericardial effusion and sheaths and catheters were removed. Hemostasis was achieved using Angio-Seal closure device on the arterial side and Perclose sutures on the venous side. There was still oozing noted from the arterial site so I decided to proceed with a [id number] suture. Protamine was given to reverse anticoagulation. The patient appeared to tolerate the procedure well and was returned to room in stable condition. No complications were immediately observed. POST PROCEDURE DIAGNOSIS 1. Symptomatic PVC burden from outflow tract with limited frequency that limited mapping. Ablation performed in RVOT and RCC-LCC junction. 2. No dual AV node physiology. Could be 3. No retrograde accessory pathway. RECOMMENDATIONS 1. Xarelto 15mg once a day x 3 weeks. 2. 48hr Holter monitor after 4 weeks. 3. ECHO in 6 weeks for EF determination. Cordell Byers MD Cardiac Electrophysiology. Cordell Byers MD CV ELECTROPHYSIOLOGY PROCEDURES Final Result * (ABNORMAL) POC Activated Clotting Time (05/26/2024 3:25 PM EDT) Only the most recent of5 resultswithin the time period is included. 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
--- OUTSIDE RECORDS SUMMARY | 2024-08-07 06:45 | XMS_ITS | CCD ---
Author Organization [facility] CliniSyoh Care Team Providers Care Rheumatology Nurse Name Role Phone DO Umesh Muniz Primary Care Provider DO Umesh Muniz Primary Care Provider [facility], [facility] Attending Provider [phone] Un[address] UMESH MUNIZ Primary [...] Care Provider DO Umesh Muniz Attending Provider [phone] Umesh Muniz Attending Unavailable Ball, Umesh Primary Care Unavailable Ball, Umesh Admitting Unavailable BOB, CORDELL Admitting Unavailable BOB, CORDELL Attending Unavailable STEFANY, BLADIMIR Attending Unavailable BOB, CORDELL Attending Unavailable KANEVANESSA Copeland Attending Unavailable BOB, CORDELL Attending Unavailable CONSTANTIN SHELTON Attending Unavailable BOB, CORDELL Referring Unavailable POSEYHUA Referring Unavailable BOB, CORDELL Referring Unavailable UMESH MUNIZ Primary Care Physician Lesley Kerr Attending Unavailable UMESH MUNIZ Referring Unavailable Lesley Kerr Attending Unavailable Allergies Allergy Classification Reported Allergen(s) Allergy Type Date of Onset Reaction(s) Facility (9 sources) patient allergy list reviewed by nurse or physicia Propensity to adverse reactions 01-11-20 Comment:Done i2we Other (6 sources) Sulfamethoxazole Drug Allergy 10-17-19 [facility] (6 sources) Trimethoprim Drug Allergy 10-17-19 [facility] Medications Current Medications Medication Drug Class(es) [...] 2020 12:00am April 27, 2023 8:54am Start: 04-22-2019 allopurinol 10 0 mg Tab Refills(s) 0 Start Date: 04/22/19 Status: Ordered Repeat number: 1 amiodarone hydrochloride 200 mg oral tablet (1 source) Antiarrhythmic Start: 07-23-2024 amiodarone 200 mg Tab Refills(s) 0 Start Date: 07/23/24 Status: Ordered Repeat number: 1 amLODIPine 5 mg oral tablet (20 sources) Dihydropyridine Calcium Channel Jamie Start: 11-30-2023 End: 05-23-2024 take 1 tablet by mouth once daily Amlodipine 5 mg tablet Active 0 .ROUTE .COMPLEX 90 May 23, 2024 6:43am TAKE 1 TABLET BY MOUTH EVERY DAY Start: 08-10-2023 End: 11-30-2023 take 1 tablet by mouth once daily Amlodipine 5 mg tablet Discontinued 5 MG PO Daily August 10, 2023 12:00am November 30, 2023 4:21pm Start: 05-17-2023 End: 05-17-2023 take 1 tablet by mouth once daily Amlodipine 5 mg tablet Discontinued 5 MG PO Daily May 17, 2023 12:00am May 17, 2023 2:28pm amLODIPine 5 mg / atorvastatin 10 mg oral tablet (1 source) Dihydropyridine Calcium Channel Jamie, HMG-CoA Reductase Inhibitor Start: 07-23-2024 amlodipine-atorvastatin 5 mg-10 mg oral tablet Oral, Refill(s) 0 Start Date: 07/23/24 Status: Ordered Repeat number: 1 azithromycin 250 mg oral tablet (10 sources) Macrolide Antimicrobial Start: 05-20-2024 Azithromycin 250 mg tablet Active 250 MG PO .COMPLEX 6 May 20, 2024 12:00am 2 tabs on [...] formoterol fumarate 0.0045 mg/actuat metered dose inhaler (19 sources) Corticosteroid, beta2-Adrenergic Agonist Start: 06-11-2024 take 2 puff(s) by inhalation twice daily Budesonide-Formot bren 80-4.5 mcg/actuation HFA aerosol inhaler Active 0 .ROUTE .COMPLEX 30.6 June 11, 2024 1:10pm INHALE 2 PUFFS TWICE DAILY Start: 06-19-2023 End: 06-11-2024 take 1 puff(s) by inhalation twice daily Budesonide-Formoterol 80-4.5 mcg/actuation HFA aerosol inhaler Discontinued 2 PUFF INHALATION Twice daily 10.2 May 20, 2024 12:00am June 11, 2024 1:10pm Start: 11-22-2022 take 2 puff(s) by in [...] 6:52am TAKE 1 TABLET EVERY DAY Start: 05-11-2023 End: 04-21-2024 take 1 tablet by mouth once daily Losartan 100 mg tablet Discontinued 0 .ROUTE .COMPLEX May 11, 2023 4:29pm April 21, 2024 5:07pm TAKE ONE TABLET BY MOUTH DAILY Start: 12-12-2017 End: 04-24-2024 take 1 tablet by mouth once daily Losartan 100 mg tablet Discontinued 100 MG PO Daily 100 100 April 21, 2024 5:05pm April 24, 2024 6:52am 24 hr metoprolol succinate 25 mg extended release oral tablet (11 sources) beta-Adrenergic Jamie Start: 02-24-2024 Metopr olol Succinate 25 mg tablet extended release 24 hr Active 0 .ROUTE .COMPLEX February 24, 2024 10:18am TAKE 1 TABLET EVERY DAY Start: 08-29-2023 End: 02-24-2024 take 1 tablet by mouth once daily Metoprolol Succinate 25 mg tablet extended release 24 hr Discontinued 25 MG PO Daily August 29, 2023 12:00am February 24, 2024 10:18am Ascbljahbhfn-Nxohlshs-Euyynv (Multivitamin 50 Plus) Tablet (12 sources) Start: 12-12-2017 Tdjclazmdpie-Smpblcuh-Xjlenl (Multivitamin 50 Plus) Tablet Active 1 TAB PO Daily December 12, 2017 2:37pm Start: 12-12-2017 End: 04-27-2023 Jpfqvxrjepez-Nnqmzjft-Yiqccc (Multivitamin 50 Plus) Tablet Discontinued 1 TAB PO Daily December 12, 2017 12:00am April 27, 2023 7:54am Start: 12-12-2017 End: 04-27-2023 Knmbzvvvvoak-Llafvmrd-Utkuqp (Multivitamin 50 Plus) Tablet Discontinued 1 TAB PO Daily December 12, 2017 1:00am April 27, 2023 8:54am predniSONE 20 mg oral tablet (20 sources) Start: 11-16-2022 predniSONE 20 MG 1 tablet Orally twice daily w/ food x 4 days then qd w/ food x 4 days for 8 days Nov, Active Start: 10-02-2020 End: 04-27-2023 take 1 tablet by mouth once daily Prednisone 50 mg tablet Discontinued 50 MG PO Daily 4 October 02, 2020 12:00am April 27, 2023 8:54am tadalafil 5 mg oral tablet (1 source) Phosphodiesterase 5 Inhibitor Start: 07-23-2024 End: 07-18-2025 take 1 tablet by mouth once daily Cialis 5 mg oral tablet 5 mg = 1 tab(s), Oral, Daily, Take for urination., X 30 day(s), # 30 tab(s), Refills(s) 11, Pharmacy: [facility]/pharmacy #[id number], 192, cm, 07/23/24 9:49:00 EDT, Height/Length Dosing, 91, kg, 07/23/24 9:49:00 EDT, Weight Dosing Start Date: 07/23/24 Stop Date: 07/18/25 Status: Ordered Quantity: 30.0 Unit: tab(s) Repeat number: 12 Indications: Benign prostatic hyperplasia with lower urinary tract symptoms; Turmeric extract (12 sources) Start: 12-18-2017 take 1 tablet by [...] Drug Class(es) Dates Sig (Normalized) Sig (Original) [id number] 200 actuat albuterol 0.09 mg/actuat metered dose [...] Active ascorbic acid 1000 mg oral tablet (12 sources) Vitamin C Start: 12-12-2017 End: 10-02-2020 take 1 tablet by mouth twice daily Ascorbic Acid (Vitamin C) (Vitamin C) 1,000 mg Tablet Discontinued 1000 MG PO Twice daily December 12, 2017 1:00am October 02, 2020 9:14am atorvastatin 20 mg oral tablet (12 sources) HMG-CoA Reductase Inhibitor Start: 10-02-2020 End: 04-27-2023 Atorvastatin 20 mg tablet Discontinued MG TABLET October 02, 2020 12:00am April 27, 2023 8:53am Start: 10-02-2020 End: 04-27-2023 Atorvastatin Discontinued MG TABLET October 02, 2020 12:00am April 27, 2023 8:53am cetirizine hydrochloride 10 mg oral tablet (12 sources) Histamine-1 Receptor Antagonist Start: 10-02-2020 End: 04-27-2023 take 1 tablet by mouth once daily as needed Cetirizine (Zyrtec) 10 mg Tablet Discontinued 10 MG PO Daily as needed for Allergy Symptoms October 02, 2020 12:00am April 27, 2023 8:54am diphenhydrAMINE hydrochloride 25 mg oral capsule (12 sources) Histamine-1 Receptor Antagonist Start: 12-12-2017 End: 10-02-2020 Diphenhydramine Hcl (Benadryl) 25 mg Capsule Discontinued 1 TAB PO As Directed December 12, 2017 1:00am October 02, 2020 9:14am fluticasone propionate 0.05 mg/actuat metered dose nasal spray (12 sources) Corticosteroid Start: 10-02-2020 End: 04-27-2023 Fluticasone Propionate (Flonase) 50 mcg/actuation Kimper,Suspension Discontinued 1 SPRAY INTRANASAL Daily October 02, 2020 12:00am April 27, 2023 8:54am hydrOXYzine pamoate 25 mg oral capsule (12 sources) Antihistamine Start: 10-02-2020 End: 04-27-2023 take 1 capsule by mouth every six hours as needed Hydroxyzine Pamoate 25 mg capsule Discontinued 25 MG PO Q6H as needed for itching October 02, 2020 12:00am April 27, 2023 8:54am itraconazole 100 mg oral capsule (12 sources) Azole Antifungal Start: 10-02-2020 End: 04-27-2023 Itraconazole 100 mg capsule Discontinued MG October 02, 2020 12:00am April 27, 2023 8:54am Start: 10-02-2020 End: 04-27-2023 Itraconazole Discontinued MG October 02, 2020 12:00am April 27, 2023 8:54am loratadine 10 mg oral tablet (12 sources) Start: 12-12-2017 End: 10-02-2020 take 1 tablet by mouth once daily Loratadine 10 mg Tablet Discontinued 10 MG PO Daily December 12, 2017 1:00am October 02, 2020 9:14am sulfamethoxazole 800 mg / trimethoprim 160 mg oral tablet (9 sources) Dihydrofolate Reductase Inhibitor Antibacterial, Sulfonamide Antimicrobial Start: 06-19-2023 End: 05-07-2024 take 1 tablet by mouth twice daily Sulfamethoxazole- Trimethoprim (Bactrim Ds) 800-160 mg tablet Discontinued 1 TAB PO Twice daily 24 11June 19, 2023 12:00am May 07, 2024 11:29am tamsulosin hydrochloride 0.4 mg oral capsule (12 sources) alpha-Adrenergic Jamie Start: 10-02-2020 End: 04-27-2023 Tamsulosin 0.4 mg capsule Discontinued MG PO October 02, 2020 12:00am April 27, 2023 8:54am Start: 10-02-2020 End: 04-27-2023 Tamsulosin Discontinued MG P O October 02, 2020 12:00am April 27, 2023 8:54am terbinafine 250 mg oral tablet (9 sources) Allylamine Antifungal Start: 08-10-2023 End: 05-04-2024 take 1 tablet by mouth once daily Terbinafine Hcl 250 mg tablet Discontinued 250 MG PO Daily August 10, 2023 12:00am May 04, 2024 10:07am triamcinolone acetonide 40 mg/ml injectable suspension (20 sources) Corticosteroid Start: 05-25-2022 Kenalog-40 Mar, 60 mg Tumeric (12 sources) Start: 12-12-2017 End: 12-18-2017 take 1 [...] Episodic Aortic; peripheral; and visceral artery aneurysms (8 sources) Abdominal aortic aneurysm; Translations: [Abdominal aortic aneurysm (AAA)] 08-12-2023 Chronic Comment on above: XR: 3.2cm - 08/2023,C TA abdomen: 2.7cm - 01/2024 Asthma (20 sources) Exacerbation of intermittent asthma; Translations: [Mild intermittent asthma with (acute) exacerbation] Onset: 11-21-2016 Chronic Cardiac dysrhythmias (20 sources) Cardiac arrhythmia; Translations: [Cardiac arrhythmia, unspecified] Onset: 05-27-2024 04-27-2023 Chronic Comment on above: Echo: LVEF 45-50%, n ormal RV size/function, RVSP 33 - 10/2023Stress Testing: no ischemia - 12/2023 Echo: LVEF 45-50%, n ormal RV size/function, RVSP 10/2023, Echo: LVEF 45-50%, n ormal RV size/function, RVSP 10/2023,VT 05/2024 Chronic kidney disease (20 sources) Chronic kidney disease stage 3; Translations: [Chronic kidney disease, stage 3 unspecified] Onset: 11-21-2017 04-27-2023 Chronic Chronic obstructive pulmonary disease and bronchiectasis (20 sources) Chronic obstructive pulmonary disease with acute lower respiratory infection; Translations: [Chronic obstructive pulmonary disease with (acute) lower respiratory infection] Onset: 06-07-2015 Chronic Congestive heart failure; nonhypertensive (6 sources) Chronic systolic heart failure; Translations: [Chronic [...] Translations: [Essential (primary) hypertension] Onset: 05-26-2024 Chronic Genitourinary symptoms and ill-defined conditions (20 sources) Nocturia; Translations: [Dysuria] Onset: 09-26-2016 Episodic Gout and other crystal arthropathies (20 sources) [...] knee] Onset: 03-17-2014 04-27-2023 Chronic Other aftercare (9 sources) Drug therapy finding; Translations: [Other half-way (current) drug therapy] 08-10-2023 Episodic Other aftercare (4 sources) Other watermaster (current) drug therapy; Translations: [Long-term (current) use [...] Episodic Other diseases of kidney and ureters (3 sources) Cyst of kidney; Translations: [Cyst of kidney, acquired] 03-31-2024 Episodic Comment on above: CT: multiple subcent imeter cyst on left, 15mm and subcentimeter cyst on right - 01/2024 Other diseases of kidney and ureters (6 sources) Cyst of kidney, acquired; Translations: [Cystic [...] Onset: 11-17-2015 Chronic Other non-traumatic joint disorders (1 source) Acute arthritis 07-23-2024 Chronic Other non-traumatic joint disorders (9 sources) Pain in right knee; Translations: [Right knee pain] 10-11-2023 Episodic Other nutritional; endocrine; and metabolic disorders (19 sources) Hypercalcemia; Translations: [Hypercalcemia] Onset: 04-14-2017 04-27-2023 Chronic Other nutritional; endocrine; and metabolic disorders (8 sources) Obesity; Translations: [Obesity, unspecified] 08-10-2023 Chronic [...] Onset: 10-18-2012 Chronic Other upper respiratory disease (2 sources) Allergic rhinitis, unspecified; Translations: [Allergic rhinitis, cause [...] [Impaired fasting glucose] Onset: 04-11-2016 04-27-2023 Episodic Inflammation; infection of eye (except that [...] conditions (not mental disorders or infectious disease) (19 sources) Patient encounter status; Translations: [Encounter for [...] Test Name Value Interpretation Reference Range Facility Ambulatory Visit Summaryon 0 07-23-2024 Ambulatory Visit Summary Ambulatory Visit Summary WILBERT FLORIAN :1960 Visit Date:07/23/2024 Ambulatory Visit Instructions Your Diagnosis BPH with obstruction/lower urinary tract symptoms Incomplete bladder emptying Your Care Team Attending Physician - Lesley Kerr MD Primary Care Physician - UMESH MUNIZ DO Referring Physician - UMESH MUNIZ DO This Is Your Medications List tadalafil (Cialis 5 mg oral tablet) Contact prescribing physician if questions or concerns allopurinol (allopurinol 100 mg Tab) amiodarone (amiodarone 200 mg Tab) amlodipine-atorvastati n (amlodipine-atorvastat in 5 mg-10 mg oral tablet) losartan (losartan 100 mg Tab) Procedures Performed Knee arthroplasty (11/06/2015). Discharge Vitals Temperature (Oral) 37 ???C Heart Rate (Peripheral) 74 Respiratory Rate 16 Blood Pressure 122/70 Height 192 cm Height 76 in Weight 91.0 kg Weight 200.62 lb BMI 24.69 What to do next Scheduled Follow-Up Appointments 2024 3:00 PM EDT With: Lesley Kerr MD Where: [facility] [address] [place] [address]- You Need to Schedule the Following Appointments Follow Up with Cirilo LOVE, KAREY Gil, URO When: Where: Medications What How Much When Why Instructions New tadalafil (Cialis 5 mg oral tablet) 1 Tablets By Mouth Every day BPH with obstruction/lower urinary tract symptoms Duration: 30 Days Refills: 11 Take for urination. Pickup at [facility]/pharmacy #[id number] Unchanged allopurinol (allopurinol 100 mg Tab) Contact prescribing physician if questions or concerns Unchanged amiodarone (amiodarone 200 mg Tab) Contact prescribing physician if questions or concerns Unchanged amlodipine-atorvastati n (amlodipine-atorvastat in 5 mg-10 mg oral tablet) By Mouth Contact prescribing physician if questions or concerns Unchanged losartan (losartan 100 mg Tab) Contact prescribing physician if questions or concerns Pharmacy Information [facility]/pharmacy #[id number]: [address], [place] [id number] [phone] Allergies No Known Allergies Problems Ongoing - Any problem that you are currently receiving treatment for. Diverticulitis of sigmoid colon Gout Hypertension Incomplete bladder emptying Patient Survey You may receive a survey via text or e-mail asking about your office visit. Please share your experience with us by completing your survey. We appreciate your feedback and thank you for choosing us for your care. Education Materials Cystoscopy Cystoscopy is a procedure that is used to help diagnose and sometimes treat conditions that affect the lower urinary tract. The lower urinary tract includes the bladder and the urethra. The urethra is the tube that drains urine from the bladder. Cystoscopy is done using a thin, tube-shaped instrument with a light and camera at the end (cystoscope). The cystoscope may be hard or flexible, depending on the goal of the procedure. The cystoscope is inserted through the urethra, into the bladder. Cystoscopy may be recommended if you have: ??? Urinary tract infections that keep coming back. ??? Blood in the urine (hematuria). ??? An inability to control when you urinate (urinary incontinence) or an overactive bladder. ??? Unusual cells found in a urine sample. ??? A blockage in the urethra, such as a urinary stone. ??? Painful urination. ??? An abnormality in the bladder found during an intravenous pyelogram (IVP) or CT scan. Cystoscopy may also be done to remove a sample of tissue to be examined under a microscope (biopsy). Tell a health care provider about: ??? Any allergies you have. ??? All medicines you are taking, including vitamins, herbs, eye drops, creams, and tunw-hdj-wvnnczw medicines. ??? Any problems you or family members have had with anesthetic medicines. ??? Any blood disorders you have. ??? Any surgeries you have had. ??? Any medical conditions you have. ??? Whether you are or may be . What are the risks? Generally, this is a safe procedure. However, problems may occur, including: ??? Infection. ??? Bleeding. ??? Allergic reactions to medicines. ??? Damage to other structures or organs. What happens before the procedure? Medicines Ask your health care provider about: ??? Changing or stopping your regular medicines. This is especially important if you are taking diabetes medicines or blood thinners. ??? Taking medicines such as aspirin and ibuprofen. These medicines can thin your blood. Do not take these medicines unless your health care provider tells you to take them. ??? Taking yhvn-whe-wtfpgob medicines, vitamins, herbs, and supplements. Tests You may have an exam or testing, such as: ??? X-rays of the bladder, urethra, or kidneys. ??? CT scan of the abdomen or pelvis. ??? Urine tests to check for signs (more content not included)... Normal [facility] Follow-Upon 07-15-2024 Follow-Up [id number] Wilbert Florian 1960 [facility] Department Center 07/15/2024 CORDELL CLARK KRISTINA Espitia Family History Problem Relation Age of Onset No Known Problems Mother No Known Problems Father Family Status - Relation Status Age at Mother Father Sister Alive Brother Alive Level of Service:73918 MO OFFICE/OUTPATIENT ESTABLISHED LOW MDM 20 MIN Normal [facility] Orders Onlyon 07-09-2024 Orders Only [id number] Wilbert Florian 1960 [facility] Department Center 07/09/2024 [id number], HISTORICAL KRISTINA Espitia Family History Problem Relation Age of Onset No Known Problems Mother No Known Problems Father Family Status - Relation Status Age at Mother Father Sister Alive Brother Alive [facility] 3607-04-2024 36 Advised patient of Mukesh Messer recommendations. [facility] 07-02-2024 34 MD Erica Polanco MA Caller: Unspecified (Yesterday, 9:47 AM) Not a problem.. ask him to take an EKG or pulse while he is on Amio to see if PVC is less Advised patient of recommendations. Patient will stop in the office July 07 for an EKG after he has his ECHO. [facility] 07-01-2024 34 Phone call from patient, patient [...] he should stop the Amlodipine. Please advise [facility] Telephoneon 07-01-2024 Telephone [id number] Wilbert Florian 1960 M Date Provider Department [place] 07/01/2024 [id number] ISSA [facility] Family History Problem Relation Age of Onset No Known Problems Mother No Known Problems Father Family Status - Relation Status Age at Mother Father Sister Alive Brother Alive [facility] 3606-17-2024 36 Other option is a be ta jamie like metoprolol but it looks like he was on it previously and Dr. Byers noted that it seemed to worsen his PVCs. Can we try to get him in to see Dr. Byers sooner than the ? [facility] Follow-Upon 06-11-2024 Follow-Up [id number] Wilbert Florian 1960 M Date Provider Department Center 06/11/2024 CONSTANTIN LOGAN CARD [facility] Family History Problem Relation Age of Onset No Known Problems Mother No Known Problems Father Family Status - Relation Status Age at Mother Father Sister Alive Brother Alive Level of Service:00267 MO OFFICE/OUTPATIENT ESTABLISHED MOD MDM 30 MIN Reason for Visit and Comments: PVCs [Other] Palpitations [373343] Shortness of Breath [629402] Normal [facility] Basophils Auto (Bld) [#/Vol] on 06-04-2024 Basophils (Bld) [#/Vol] Automated basophil count 0.0-0.1 [facility] Basophils/100 WBC Auto (Bld) on 06-04-2024 Basophils/100 WBC (Bld) Automated basophil % 0.2-2.0 [facility] Eosinophils/100 WBC Auto (Bl d)on 06-04-2024 Eosinophils/100 WBC (Bld) Automated eosinophil % 0.9-7.0 [facility] Erythrocyte distribution wid th Auto (RBC) [Ratio]on 06-04-2024 Erythrocyte distribution width (RBC) [Ratio] Erythrocyte distribution width [Ratio] by Automated count 11.0-15.0 [facility] Estimated glomerular filtrat ion rate (GFR) non- Americanon 06-04-2024 GFR/1.73 sq M.predicted among non-blacks MDRD (S/P/Bld) [Vol rate/Area] Estimated glomerular filtration rate (GFR) non- Low >=60 mL/min/1.73m 2 [facility] Hematocrit Auto (Bld) [Volum e fraction]on 06-04-2024 Hematocrit (Bld) [Volume fraction] Hematocrit [Volume Fraction] of Blood by Automated count Low 42.0-54.0 [facility] Hemoglobin [Mass/volume] in Bloodon 06-04-2024 Hemoglobin (Bld) [Mass/Vol] Hemoglobin [Mass/volume] in Blood 14.0-18.0 [facility] Laboratory - Chemistry and C hemistry - challengeon 06-04-2024 Calcium [Mass/Vol] 9.5 mg/dL 8.5-10.1 [facility] Chloride [Moles/Vol] 102 mmol/L 98-107 [facility] CO2 [Moles/Vol] 27.2 mmol/L 21.0-32.0 [facility] Creatinine [Mass/Vol] 1.24 mg/dL 0.70-1.30 [facility] GFR/1.73 sq M.predicted MDRD (S/P/Bld) [Vol rate/Area] mL/min/{1.73_m2} >=60 mL/min/1.73m 2 [facility] Glucose [Mass/Vol] 90 mg/dL 74-106 [facility] Potassium [Moles/Vol] 4.4 mmol/L 3.5-5.1 [facility] Sodium [Moles/Vol] 138 mmol/L 136-145 [facility] Urea nitrogen [Mass/Vol] 25.0 mg/dL High 7.0-18.0 [facility] Urea nitrogen/Creatinine [Mass ratio] 20.2 mg/mg [facility] Laboratory - Hematology and Cell countson 06-04-2024 Immature granulocytes/100 WBC (Bld) 0.8 % High 0.0-0.5 [facility] Leukocytes [#/volume] correc wanda for nucleated erythrocytes in Blood by Automated counon 06-04-2024 WBC corrected for nucl RBC Auto (Bld) [#/Vol] Leukocytes [#/volume] corrected for nucleated erythrocytes in Blood by Automated coun 4.0-11.0 [facility] Lymphocytes Auto (Bld) [#/Vo l]on 06-04-2024 Lymphocytes (Bld) [#/Vol] Lymphocytes [#/volume] in Blood by Automated count 1.2-3.8 [facility] Lymphocytes/100 WBC Auto (Bl d)on 06-04-2024 Lymphocytes/100 WBC (Bld) Lymphocytes/100 leukocytes in Blood by Automated count 20.5-60.0 [facility] MCH Auto (RBC) [Entitic mass ]on 06-04-2024 MCH (RBC) [Entitic mass] MCH [Entitic mass] by Automated count 25.9-34.0 [facility] MCHC Auto (RBC) [Mass/Vol]on 06-04-2024 MCHC (RBC) [Mass/Vol] MCHC [Mass/volume] by Automated count 29.9-35.2 [facility] MCV Auto (RBC) [Entitic vol] on 06-04-2024 MCV (RBC) [Entitic vol] MCV [Entitic volume] by Automated count 80.0-94.0 [facility] Monocytes Auto (Bld) [#/Vol] on 06-04-2024 Monocytes (Bld) [#/Vol] Automated blood monocyte count 0.3-0.8 [facility] Monocytes/100 WBC Auto (Bld) on 06-04-2024 Monocytes/100 WBC (Bld) Automated monocyte % 1.7-12.0 [facility] Neutrophils Auto (Bld) [#/Vo l]on 06-04-2024 Neutrophils (Bld) [#/Vol] Neutrophils [#/volume] in Blood by Automated count 1.4-6.5 [facility] Neutrophils/100 WBC Auto (Bl d)on 06-04-2024 Neutrophils/100 WBC (Bld) Automated neutrophil % 43.0-75.0 [facility] No Panel Informationon 06-04 Eosinophils # (Auto) 0.1 10 3/uL 0.0-0.7 [facility] Immature Granulocyte # (Auto) 0.06 10 3/uL High 0.00-0.03 [facility] Office Visiton 06-04-2024 Follow-up visit [id number] Wilbert Florian 1960 M Date Provider Department Center 06/04/2024 [id number] MCCALL [facility] Family History Problem Relation Age of Onset No Known Problems Mother No Known Problems Father Family Status - Relation Status Age at Mother Father Sister Alive Brother Alive Level of Service:82932 MO OFFICE/OUTPATIENT ESTABLISHED LOW MDM 20 MIN Normal [facility] Platelet mean volume Auto (B ld) [Entitic vol]on 06-04-2024 Platelet mean volume (Bld) [Entitic vol] Platelet mean volume [Entitic volume] in Blood by Automated count 9.5-13.5 [facility] Platelets Auto (Bld) [#/Vol] on 06-04-2024 Platelets (Bld) [#/Vol] Platelets [#/volume] in Blood by Automated count 150-450 [facility] RBC Auto (Bld) [#/Vol]on RBC (Bld) [#/Vol] Erythrocytes [#/volume] in Blood by Automated count Low 4.70-6.10 [facility] Serum or plasma anion gap de terminationon 06-04-2024 Anion gap [Moles/Vol] Serum or plasma anion gap determination [facility] Estimated glomerular filtrat ion rate (GFR) non- Americanon 05-30-2024 GFR/1.73 sq M.predicted among non-blacks MDRD (S/P/Bld) [Vol rate/Area] Estimated glomerular filtration rate (GFR) non- >=60 mL/min/1.73m 2 [facility] Laboratory - Chemistry and C hemistry - challengeon 05-30-2024 Calcium [Mass/Vol] 9.4 mg/dL 8.5-10.1 [facility] Chloride [Moles/Vol] 106 mmol/L 98-107 [facility] CO2 [Moles/Vol] 25.8 mmol/L 21.0-32.0 [facility] Creatinine [Mass/Vol] 1.22 mg/dL 0.70-1.30 [facility] GFR/1.73 sq M.predicted MDRD (S/P/Bld) [Vol rate/Area] mL/min/{1.73_m2} >=60 mL/min/1.73m 2 [facility] Glucose [Mass/Vol] 87 mg/dL 74-106 [facility] Potassium [Moles/Vol] 4.1 mmol/L 3.5-5.1 [facility] Sodium [Moles/Vol] 140 mmol/L 136-145 [facility] Urea nitrogen [Mass/Vol] 26.0 mg/dL High 7.0-18.0 [facility] Urea nitrogen/Creatinine [Mass ratio] 21.3 mg/mg [facility] Serum or plasma anion gap de terminationon 05-30-2024 Anion gap [Moles/Vol] Serum or plasma anion gap determination [facility] 30on 05-27-2024 30 The patient is Moderately [...] and maintained or improved Outcome: Progressing Normal [facility] 30 Problem: Pain - Adul t Goal: [...] learning needs (meds, wound care, etc) Normal [facility] BASIC METABOLIC PANELon 04- Anion gap [Moles/Vol] 10 mmol/L Normal 7-20 [facility] Comment on above: Performed By: #### L AB15 ####[facility] ([facility]AKER)[address] [place] [address] Calcium [Mass/Vol] 9.3 mg/dL Normal 8.6-10.3 [facility] Comment on above: Performed By: #### L [id number] ####[facility] ([facility])[address] [place] [address] Chloride [Moles/Vol] 107 mmol/L Normal 98-107 [facility] Comment on above: Performed By: #### L [id number] ####[facility] ([facility]AKER)[address] [place] [address] CO2 [Moles/Vol] 23 mmol/L Normal 21-31 [facility] Comment on above: Performed By: #### L [id number] ####[facility] ([facility])[address] [place] [address] Creatinine [Mass/Vol] 1.18 mg/dL Normal 0.70-1.30 [facility] Comment on above: Performed By: #### L [id number] ####[facility] ([facility]AKER)[address] [place] [address] GLOMERULAR FILTRATION RATE ML/MIN/1.73 SQ M.PREDICTED 68.5 mL/min/1.73m*2 Normal >60.0 [facility] Comment on above: Result Comment: [facility]???s estimated glomerular filtration rate (eGFR) will no [...] of individuals. Performed By: #### L AB15 ####[facility] ([facility])[address] [place] [address] Glucose [Mass/Vol] 109 mg/dL High 70-100 [facility] Comment on above: Performed By: #### L [id number] ####[facility] ([facility])[address] [place] [address] Potassium [Moles/Vol] 4.9 mmol/L Normal 3.5-5.1 [facility] Comment on above: Performed By: #### L [id number] ####[facility] ([facility])[address] [place] [address] Sodium [Moles/Vol] 135 mmol/L Low 136-145 [facility] Comment on above: Performed By: #### L [id number] ####[facility] [place] [address] Urea nitrogen [Mass/Vol] 28 mg/dL High 7-25 [facility] Comment on above: Performed By: #### L [id number] ####[facility] ([facility])[address] [place] [address] UREA NITROGEN/CREATININE (MASS RATIO) IN SER/PLAS 23.7 Normal [facility] Comment on above: Performed By: #### L [id number] ####[facility] ([facility])[address] [place] [address] CBCon 05-27-2024 Erythrocyte distribution width (RBC) [Ratio] 13.5 % Normal 11.5-15.0 [facility] Comment on above: Performed By: #### L [id number] ####[facility] ([facility])[address] [place] [address] ERYTHROCYTE MEAN CORPUSCULAR HEMOGLOBIN CONCENTRATION (G/DL) BY AUTOMATED 32.9 g/dL Normal 32.0-35.0 [facility] Comment on above: Performed By: #### L [id number] ####[facility] ([facility])[address] [place] [address] Hematocrit (Bld) [Volume fraction] 42.0 % Normal 39.0-50.0 [facility] Comment on above: Performed By: #### L [id number] ####[facility] ([facility] [place] [address] Hemoglobin (Bld) [Mass/Vol] 13.8 g/dL Normal 13.0-17.0 [facility] Comment on above: Performed By: #### L [id number] ####[facility] ([facility] [place] [address] MCH (RBC) [Entitic mass] 31.2 pg Normal 27.0-33.0 [facility] Comment on above: Performed By: #### L [id number] ####[facility] ([facility])[address] [place] [address] MCV (RBC) [Entitic vol] 94.8 fL Normal 82.0-98.0 [facility] Comment on above: Performed By: #### L [id number] ####[facility] ([facility])[address] [place] [address] PLATELETS (10*3/UL) IN BLOOD AUTOMATED COUNT 192 10*3/uL Normal 150-400 [facility] Comment on above: Performed By: #### L [id number] ####[facility] ([facility] [place] [address] RBC (Bld) [#/Vol] 4.43 10*6/uL Normal 4.20-5.70 [facility] Comment on above: Performed By: #### L [id number] ####[facility] ([facility])[address] [place] [address] WBC (Bld) [#/Vol] 9.25 10*3/uL Normal 4.00-10.60 [facility] Comment on above: Performed By: #### L [id number] ####[facility] ([facility])[address] [place] [address] 30on 05-26-2024 30 The patient is Moderately [...] and maintained or improved Outcome: Progressing Normal [facility] HPon 05-26-2024 [facility] Electrophysiology Consult Note [place] [facility] Reason for visit: PVC HPI: [...] Value Ventricular Rate 74 Atrial Rate 74 MO Interval 158 QRS DURATION 100 QT Interval 414 QTC CALCULATION(BAZETT) 459 P Long Barn 37 R-Long Barn -35 T Wave Long Barn 58 Impression Sinus rhythm with frequent Premature [...] 171, tan (more content not included)... Normal [facility] Orders Onlyon 05-19-2024 Orders Only [id number] AnivalWilbert 1960 M Date Provider Department Center 05/19/2024 N[facility] [place] [facility] Family History Problem Relation Age of Onset No Known Problems Mother No Known Problems Father Family Status - Relation Status Age at Mother Father Normal [facility] Abstracton 04-28-2024 Abstract [id number] Wilbert Florain 1960 M Date Provider Department Center 04/28/2024 CORDELL CLARK [facility] AUTH [facility] Family History Problem Relation Age of Onset No Known Problems Mother No Known Problems Father Family Status - Relation Status Age at Mother Father Normal [facility] Basophils Auto (Bld) [#/Vol] on 04-15-2024 Basophils (Bld) [#/Vol] Automated basophil count 0.0-0.1 [facility] Basophils/100 WBC Auto (Bld) on 04-15-2024 Basophils/100 WBC (Bld) Automated basophil % 0.2-2.0 [facility] Cholesterol in LDL Calc [Mas s/Vol]on 04-15-2024 Cholesterol in LDL [Mass/Vol] Cholesterol in LDL [Mass/volume] in Serum or Plasma by calculation [facility] Comment on above: <100 mg/dl [id number] 0-129 mg/dl NEAR OR ABOVE [id number] mg/dl BORDERLINE [id number] mg/dl HIGH>190 mg/dl VERY HIGH Cholesterol in VLDL Calc [Ma ss/Vol]on 04-15-2024 Cholesterol in VLDL [Mass/Vol] Cholesterol in VLDL [Mass/volume] in Serum or Plasma by calculation [facility] Eosinophils/100 WBC Auto (Bl d)on 04-15-2024 Eosinophils/100 WBC (Bld) Automated eosinophil % 0.9-7.0 [facility] Erythrocyte distribution wid th Auto (RBC) [Ratio]on 04-15-2024 Erythrocyte distribution width (RBC) [Ratio] Erythrocyte distribution width [Ratio] by Automated count 11.0-15.0 [facility] Estimated glomerular filtrat ion rate (GFR) non- Americanon 04-15-2024 GFR/1.73 sq M.predicted among non-blacks MDRD (S/P/Bld) [Vol rate/Area] Estimated glomerular filtration rate (GFR) non- Low >=60 mL/min/1.73m 2 [facility] Globulin Calc (S) [Mass/Vol] on 04-15-2024 Globulin (S) [Mass/Vol] Serum globulin measurement by calculation (mass/volume) [facility] Hematocrit Auto (Bld) [Volum e fraction]on 04-15-2024 Hematocrit (Bld) [Volume fraction] Hematocrit [Volume Fraction] of Blood by Automated count 42.0-54.0 [facility] Hemoglobin [Mass/volume] in Bloodon 04-15-2024 Hemoglobin (Bld) [Mass/Vol] Hemoglobin [Mass/volume] in Blood 14.0-18.0 [facility] Laboratory - Chemistry and C hemistry - challengeon 04-15-2024 Albumin [Mass/Vol] 4.0 g/dL 3.4-5.0 [facility] ALP [Catalytic activity/Vol] 99 U/L 46-116 [facility] ALT [Catalytic activity/Vol] 30 U/L 16-63 [facility] AST [Catalytic activity/Vol] 28 U/L 15-37 [facility] Bilirubin [Mass/Vol] 0.8 mg/dL 0.2-1.0 [facility] Calcium [Mass/Vol] 9.6 mg/dL 8.5-10.1 [facility] Chloride [Moles/Vol] 103 mmol/L 98-107 [facility] Cholesterol [Mass/Vol] 159 mg/dL <=200 [facility] Cholesterol in HDL [Mass/Vol] 42 mg/dL 40-60 [facility] Comment on above: > or =60 mg/dl - LOW CARDIOVASCULAR RISK<40 mg/dl - HIGH CARDIOVASCULAR RISK CO2 [Moles/Vol] 27.7 mmol/L 21.0-32.0 [facility] Creatinine [Mass/Vol] 1.40 mg/dL High 0.70-1.30 [facility] GFR/1.73 sq M.predicted MDRD (S/P/Bld) [Vol rate/Area] mL/min/{1.73_m2} >=60 mL/min/1.73m 2 [facility] Glucose [Mass/Vol] 98 mg/dL 74-106 [facility] Potassium [Moles/Vol] 4.5 mmol/L 3.5-5.1 [facility] Protein [Mass/Vol] 7.6 g/dL 6.4-8.2 [facility] Sodium [Moles/Vol] 139 mmol/L 136-145 [facility] Triglyceride [Mass/Vol] 148 mg/dL <=150 [facility] Urate [Mass/Vol] 5.1 mg/dL 3.5-7.2 [facility] Urea nitrogen [Mass/Vol] 22.0 mg/dL High 7.0-18.0 [facility] Urea nitrogen/Creatinine [Mass ratio] 15.7 mg/mg [facility] Laboratory - Hematology and Cell countson 04-15-2024 Immature granulocytes/100 WBC (Bld) 0.6 % High 0.0-0.5 [facility] Leukocytes [#/volume] correc wanda for nucleated erythrocytes in Blood by Automated counon 04-15-2024 WBC corrected for nucl RBC Auto (Bld) [#/Vol] Leukocytes [#/volume] corrected for nucleated erythrocytes in Blood by Automated coun 4.0-11.0 [facility] Lymphocytes Auto (Bld) [#/Vo l]on 04-15-2024 Lymphocytes (Bld) [#/Vol] Lymphocytes [#/volume] in Blood by Automated count 1.2-3.8 [facility] Lymphocytes/100 WBC Auto (Bl d)on 04-15-2024 Lymphocytes/100 WBC (Bld) Lymphocytes/100 leukocytes in Blood by Automated count 20.5-60.0 [facility] MCH Auto (RBC) [Entitic mass ]on 04-15-2024 MCH (RBC) [Entitic mass] MCH [Entitic mass] by Automated count 25.9-34.0 [facility] MCHC Auto (RBC) [Mass/Vol]on 04-15-2024 MCHC (RBC) [Mass/Vol] MCHC [Mass/volume] by Automated count 29.9-35.2 [facility] MCV Auto (RBC) [Entitic vol] on 04-15-2024 MCV (RBC) [Entitic vol] MCV [Entitic volume] by Automated count High 80.0-94.0 [facility] Monocytes Auto (Bld) [#/Vol] on 04-15-2024 Monocytes (Bld) [#/Vol] Automated blood monocyte count 0.3-0.8 [facility] Monocytes/100 WBC Auto (Bld) on 04-15-2024 Monocytes/100 WBC (Bld) Automated monocyte % 1.7-12.0 [facility] Neutrophils Auto (Bld) [#/Vo l]on 04-15-2024 Neutrophils (Bld) [#/Vol] Neutrophils [#/volume] in Blood by Automated count 1.4-6.5 [facility] Neutrophils/100 WBC Auto (Bl d)on 04-15-2024 Neutrophils/100 WBC (Bld) Automated neutrophil % 43.0-75.0 [facility] No Panel Informationon 04-15 Eosinophils # (Auto) 0.1 10 3/uL 0.0-0.7 [facility] Immature Granulocyte # (Auto) 0.03 10 3/uL 0.00-0.03 [facility] Prostate Specific Antigen Screen 2.01 ng/mL <=4.00 [facility] Office Visiton 04-15-2024 Follow-up visit [id number] Wilbert Florian 1960 M Date Provider Department Center 04/15/2024 CORDELL CLARK KRISTINA [facility] Family History Problem Relation Age of Onset No Known Problems Mother No Known Problems Father Family Status - Relation Status Age at Mother Father Level of Service:43696 MO OFFICE/OUTPATIENT NEW HIGH MDM 60 MINUTES Normal [facility] Orders Onlyon 04-15-2024 Orders Only [id number] Wilbert Florian 1960 M Date Provider Department Center 04/15/2024 [facility] Family History Problem Relation Age of Onset No Known Problems Mother No Known Problems Father Family Status - Relation Status Age at Mother Father Normal [facility] Platelet mean volume Auto (B ld) [Entitic vol]on 04-15-2024 Platelet mean volume (Bld) [Entitic vol] Platelet mean volume [Entitic volume] in Blood by Automated count 9.5-13.5 [facility] Platelets Auto (Bld) [#/Vol] on 04-15-2024 Platelets (Bld) [#/Vol] Platelets [#/volume] in Blood by Automated count 150-450 [facility] RBC Auto (Bld) [#/Vol]on RBC (Bld) [#/Vol] Erythrocytes [#/volume] in Blood by Automated count 4.70-6.10 [facility] Serum or plasma albumin/glob ulin mass ratioon 04-15-2024 Albumin/Globulin [Mass ratio] Serum or plasma albumin/globulin mass ratio [facility] Serum or plasma anion gap de terminationon 04-15-2024 Anion gap [Moles/Vol] Serum or plasma anion gap determination [facility] Serum or plasma total choles terol/high density lipoprotein (HDL) cholesterol mass young 04-15-2024 Cholesterol.total/Ch olesterol in HDL [Mass ratio] Serum or plasma total cholesterol/high density lipoprotein (HDL) cholesterol mass rat [facility] Comment on above: 3.3 - 4.4 LOW RISK4. 4 - 7.1 AVERAGE RISK7.1 - 11.0 MODERATE RISK>11.0 HIGH RISK Estimated glomerular filtrat ion rate (GFR) non- Americanon 01-17-2024 GFR/1.73 sq M.predicted among non-blacks MDRD (S/P/Bld) [Vol rate/Area] Estimated glomerular filtration rate (GFR) non- Low >=60 mL/min/1.73m 2 [facility] Laboratory - Chemistry and C hemistry - challengeon 01-17-2024 Creatinine [Mass/Vol] 1.40 mg/dL High 0.70-1.30 [facility] GFR/1.73 sq M.predicted MDRD (S/P/Bld) [Vol rate/Area] mL/min/{1.73_m2} >=60 mL/min/1.73m 2 [facility] 36on 01-10-2024 36 Regarding stress sudeep t result from 12/19/2023: MD Nelida Lou MA Please inform the patient that overall his stress test is normal but he had significant PVCs during exercise therefore please refer him to see Dr. Byers as soon as possible to be evaluated for PVCs ablation. Spoke with patient and scheduled him to see Dr. Byers on 03/04/2024. Normal [facility] Office Visiton 12-05-2023 Follow-up visit [id number] Wilbert Florian 1960 M Date Provider Department Center 12/05/2023 [id number] MIDDLETON KRISTINA [place] Family History Problem Relation Age of Onset No Known Problems Mother No Known Problems Father Family Status - Relation Status Age at Mother Father Level of Service:37728 MO OFFICE/OUTPATIENT NEW MODERATE MDM 45 MINUTES Reason for Visit and Comments: Bradycardia [943977] Abdominal aortic aneurysm [Other] - Denies chest pain and SOB. Goes to the gym 3 days a week. Hypertension [483147] - On amlodipine and losartan. PVC's [Other] - Wore Holter monitor in August for skipped beats per patient. On metoprolol. Denies feeling palpitations. Had echo last month. Normal [facility] Globulin Calc (S) [Mass/Vol] on 10-04-2023 Globulin (S) [Mass/Vol] 3.6 g/dL [facility] Laboratory - Chemistry and C hemistry - challengeon 10-04-2023 Albumin [Mass/Vol] 4.3 g/dL 3.4-5.0 [facility] ALP [Catalytic activity/Vol] 94 U/L 46-116 [facility] ALT [Catalytic activity/Vol] 45 U/L 16-63 [facility] AST [Catalytic activity/Vol] 35 U/L 15-37 [facility] Bilirubin [Mass/Vol] 0.6 mg/dL 0.2-1.0 [facility] Bilirubin.direct [Mass/Vol] 0.1 mg/dL 0.0-0.2 [facility] Protein [Mass/Vol] 7.9 g/dL 6.4-8.2 [facility] Serum or plasma albumin/glob ulin mass ratioon 10-04-2023 Albumin/Globulin [Mass ratio] 1.2 {ratio} [facility] TESTOSTERONE, TOTALon 2022 Testosterone [Mass/Vol] 862 ng/dL Normal 264-916 [facility] Comment on above: Result Comment: Adul t male reference interval is based on a population of healthy nonobese males (BMI <30) between 19 and 39 years old. Gallo et.al. JCEM 2017,102;7572-4501. PMID: [id number]. Performed By: #### T ESTTOT #### [facility] [address] [place] [address] Dr. Chapo EARLYOTon 04-18-2022 AST [Catalytic activity/Vol] 26 U/L Normal 15-37 [facility] Comment on above: Performed By: #### A LT, AST #### [facility] [address] [place] [address] Dr. Chapo [facility] 04-18-2022 ALT [Catalytic activity/Vol] 30 U/L Normal 16-63 [facility] Comment on above: Performed By: #### A LT, AST #### [facility] [address] [place] [address] Dr. Chapo Posey CBC AUTO DIFFon 04-05-2022 BASO # 0.1 103/ul Normal 0.0-0.1 [facility] Comment on above: Performed By: #### D ATCBC #### [facility] [address] [place] [address] Dr. Chapo Posey Basophils/100 WBC (Bld) 1.0 % Normal 0.2-2.0 [facility] Comment on above: Performed By: #### D ATCBC #### [facility] [address] [place] [address] Dr. Chapo Posey EO # 0.1 103/ul Normal 0.0-0.7 [facility] Comment on above: Performed By: #### D ATCBC #### [facility] [address] [address] [address] Chapo Posey Eosinophils/100 WBC (Bld) 2.5 % Normal 0.9-7.0 [facility] Comment on above: Performed By: #### D ATCBC #### [facility] [address] [place] [address] Dr. Chapo Posey Erythrocyte distribution width (RBC) [Ratio] 13.2 % Normal 11.0-15.0 [facility] Comment on above: Performed By: #### D ATCBC #### [facility] [address] [place] [address] Dr. Chapo Posey Hematocrit (Bld) [Volume fraction] 46.3 % Normal 42.0-54.0 [facility] Comment on above: Performed By: #### D ATCBC #### [facility] [address] [place] [address] Dr. Chapo Posey Hemoglobin (Bld) [Mass/Vol] 15.2 g/dL Normal 14.0-18.0 [facility] Comment on above: Performed By: #### D ATCBC #### [facility] [address] [place] [address] Dr. Chapo Posey IG # 0.03 10e3/ul Normal 0.00-0.03 [facility] Comment on above: Performed By: #### D ATCBC #### [facility] [address] [place] [address] Dr. Chapo Posey IG % 0.6 % Critically high 0.0-0.5 [facility] Comment on above: Performed By: #### D ATCBC #### [facility] [address] [place] [address] Dr. Chapo Posey LYMPH # 1.8 103/ul Normal 1.2-3.8 [facility] Comment on above: Performed By: #### D ATCBC #### [facility] [address] [place] [address] Dr. Chapo Posey Lymphocytes/100 WBC (Bld) 36.8 % Normal 20.5-60.0 [facility] Comment on above: Performed By: #### D ATCBC #### [facility] [address] [address] [address] Chapo Posey MCH (RBC) [Entitic mass] 31.0 pg Normal 25.9-34.0 [facility] Comment on above: Performed By: #### D ATCBC #### [facility] [address] [place] [address] Dr. Chapo Posey MCHC (RBC) [Mass/Vol] 32.8 g/dL Normal 29.9-35.2 [facility] Comment on above: Performed By: #### D ATCBC #### [facility] [address] [place] [address] Dr. Chapo Posey MCV (RBC) [Entitic vol] 94.3 fL Critically high 80.0-94.0 [facility] Comment on above: Performed By: #### D ATCBC #### [facility] [address] [place] [address] Dr. Chapo Posey MONO # 0.5 103/ul Normal 0.3-0.8 [facility] Comment on above: Performed By: #### D ATCBC #### [facility] [address] [place] [address] Dr. Chapo Posey Monocytes/100 WBC (Bld) 9.7 % Normal 1.7-12.0 [facility] Comment on above: Performed By: #### D ATCBC #### [facility] [address] [place] [address] Dr. Chapo Posey NEUT # 2.4 103/ul Normal 1.4-6.5 [facility] Comment on above: Performed By: #### D ATCBC #### [facility] [address] [place] [address] Dr. Chapo Posey Neutrophils/100 WBC (Bld) 49.4 % Normal 43.0-75.0 [facility] Comment on above: Performed By: #### D ATCBC #### [facility] [address] [place] [address] Dr. Chapo Posey Platelet mean volume (Bld) [Entitic vol] 10.3 fL Normal 9.5-13.5 [facility] Comment on above: Performed By: #### D ATCBC #### [facility] [address] [address] [address] Chapo Posey PLT 197 103/ul Normal 150-450 [facility] Comment on above: Performed By: #### D ATCBC #### [facility] [address] [place] [address] Dr. Chapo Posey RBC 4.91 106/ul Normal 4.70-6.10 [facility] Comment on above: Performed By: #### D ATCBC #### [facility] [address] [address] [address] Chapo Posey WBC 4.9 103/ul Normal 4.0-11.0 [facility] Comment on above: Performed By: #### D ATCBC #### [facility] [address] [place] [address] Dr. Chapo Posey FRANCISCO JAVIER- BMP WITH LIPIDon 2022 Anion gap [Moles/Vol] 10.5 mmol/L Normal [facility] Comment on above: Performed By: #### D ATBMP, DATPSA #### [facility] [address] [place] [address] Dr. Chapo Posey Calcium [Mass/Vol] 10.0 mg/dL Normal 8.5-10.1 [facility] Comment on above: Performed By: #### D ATBMP, DATPSA #### [facility] [address] [place] [address] Dr. Chapo Posey Chloride [Moles/Vol] 103 mmol/L Normal 98-107 [facility] Comment on above: Performed By: #### D ATBMP, DATPSA #### [facility] [address] [place] [address] Dr. Chapo Posey Cholesterol [Mass/Vol] 185 mg/dL Normal <=200 [facility] Comment on above: Performed By: #### D ATBMP, DATPSA #### [facility] [address] [place] [address] Dr. Chapo Posey Cholesterol in HDL [Mass/Vol] 46 mg/dL Normal 40-60 [facility] Comment on above: Performed By: #### D ATBMP, DATPSA #### [facility] [address] [place] [address] Dr. Chapo Posey Cholesterol in LDL [Mass/Vol] 115.2 mg/dL Normal [facility] Comment on above: Performed By: #### D ATBMP, DATPSA #### [facility] [address] [place] [address] Dr. Chapo Posey CO2 [Moles/Vol] 29.9 mmol/L Normal 21.0-32.0 [facility] Comment on above: Performed By: #### D ATBMP, DATPSA #### [facility] [address] [place] [address] Dr. Chapo Posey Creatinine [Mass/Vol] 1.13 mg/dL Normal 0.70-1.30 [facility] Comment on above: Performed By: #### D ATBMP, DATPSA #### [facility] [address] [place] [address] Dr. Chapo Posey EGFR-AF ETHIOPIAN >60 Normal >=60 [facility] Comment on above: Performed By: #### D ATBMP, DATPSA #### [facility] [address] [place] [address] Dr. Chapo Posey EGFR-NON AF ETHIOPIAN >60 Normal >=60 [facility] Comment on above: Performed By: #### D ATBMP, DATPSA #### [facility] [address] [place] [address] Dr. Chapo Posey Glucose [Mass/Vol] 95 mg/dL Normal 74-106 [facility] Comment on above: Performed By: #### D ATBMP, DATPSA #### [facility] [address] [place] [address] Dr. Chapo Posey HDL NORMAL > or = 60 mg/dl - LO W CARDIOVASCULAR RISK <40 mg/dl - HIGH CARDIOVASCULAR RISK Normal [facility] Comment on above: Performed By: #### D ATBMP, DATPSA #### [facility] [address] [address] [address] Chapo Posey LDL CALC NORMAL SEE BELOW Normal [facility] Comment on above: Result Comment: <100 mg/dl OPTIMAL 100 - 129 mg/dl NEAR OR ABOVE OPTIMAL 130 - 159 mg/dl BORDERLINE HIGH 160 - 189 mg/dl HIGH >190 mg/dl VERY HIGH Performed By: #### D ATBMP, DATPSA #### [facility] [address] [address] [address] Chapo Posey Potassium [Moles/Vol] 4.4 mmol/L Normal 3.5-5.1 [facility] Comment on above: Performed By: #### D ATBMP, DATPSA #### [facility] [address] [place] [address] Dr. Chapo Posey Sodium [Moles/Vol] 139 mmol/L Normal 136-145 [facility] Comment on above: Performed By: #### D ATBMP, DATPSA #### [facility] [address] [address] [address] Chapo Posey Triglyceride [Mass/Vol] 119 mg/dL Normal <=150 [facility] Comment on above: Performed By: #### D ATBMP, DATPSA #### [facility] [address] [place] [address] Dr. Chapo Posey Urea nitrogen [Mass/Vol] 28.0 mg/dL Critically high 7.0-18.0 [facility] Comment on above: Performed By: #### D ATBMP, DATPSA #### [facility] [address] [place] [address] Dr. Chapo Posey Urea nitrogen/Creatinine [Mass ratio] 24.8 mg/mg Normal [facility] Comment on above: Performed By: #### D ATBMP, DATPSA #### [facility] [address] [place] [address] Dr. Chapo Posey VLDL CALC 23.8 mg/dL Normal [facility] Comment on above: Performed By: #### D ATBMP, DATPSA #### [facility] [address] [place] [address] Dr. Chapo Posey Vital Signs Date Time Vital Sign Value Performing Clinician Facility 07-08-2024 08:58-0400 Body height 194.31 cm [facility] 07-08-2024 08:58-0400 Body mass index (BMI) [Ratio] 24 kg/m2 [facility] 07-08-2024 08:58-0400 Body weight 90.71 kg [facility] 07-08-2024 08:58-0400 Diastolic blood pressure 81 mm[Hg] [facility] 07-08-2024 08:58-0400 Heart rate 60 /min [facility] 07-08-2024 08:58-0400 Respiratory rate 12 /min [facility] 07-08-2024 08:58-0400 Systolic blood pressure 151 mm[Hg] [facility] 05-20-2024 13:23-0400 Body height 194.31 cm [facility] 05-20-2024 13:23-0400 Body mass index (BMI) [Ratio] 24.5 kg/m2 [facility] 05-20-2024 13:23-0400 Body weight 92.53 kg [facility] 05-20-2024 13:23-0400 Diastolic blood pressure 81 mm[Hg] [facility] 05-20-2024 13:23-0400 Heart rate 75 /min [facility] 05-20-2024 13:23-0400 Respiratory rate 12 /min [facility] 05-20-2024 13:23-0400 Systolic blood pressure 125 mm[Hg] [facility] 05-07-2024 11:34-0400 Body height 194.31 cm [facility] 05-07-2024 11:34-0400 Body mass index (BMI) [Ratio] 24 kg/m2 [facility] 05-07-2024 11:34-0400 Body weight 90.88 kg [facility] 05-07-2024 11:34-0400 Diastolic blood pressure 70 mm[Hg] [facility] 05-07-2024 11:34-0400 Heart rate 86 /min [facility] 05-07-2024 11:34-0400 Respiratory rate 12 /min [facility] 05-07-2024 11:34-0400 Systolic blood pressure 131 mm[Hg] [facility] 03-31-2024 15:05-0500 Body height 194.31 cm [facility] 03-31-2024 15:05-0500 Body mass index (BMI) [Ratio] 25 kg/m2 [facility] 03-31-2024 15:05-0500 Body weight 94.46 kg [facility] 03-31-2024 15:05-0500 Diastolic blood pressure 68 mm[Hg] [facility] 03-31-2024 15:05-0500 Heart rate 40 /min [facility] 03-31-2024 15:05-0500 Respiratory rate 12 /min [facility] 03-31-2024 15:05-0500 Systolic blood pressure 134 mm[Hg] [facility] 10-17-2023 09:08-0400 Body height 194.31 cm DO Umesh Ball Work Phone: [facility] 10-17-2023 09:08-0400 Body mass index (BMI) [Ratio] 25 kg/m2 DO Umesh Ball Work Phone: [facility] 10-17-2023 09:08-0400 Body weight 94.37 kg DO Umesh Ball Work Phone: [facility] 10-17-2023 09:08-0400 Diastolic blood pressure 78 mm[Hg] DO Umesh Ball Work Phone: [facility] 10-17-2023 09:08-0400 Diastolic blood pressure 89 mm[Hg] DO Umesh Ball Work Phone: [facility] 10-17-2023 09:08-0400 Heart rate 69 /min DO Umesh Ball Work Phone: [facility] 10-17-2023 09:08-0400 Respiratory rate 12 /min DO Umesh Ball Work Phone: [facility] 10-17-2023 09:08-0400 Systolic blood pressure 145 mm[Hg] DO Umesh Ball Work Phone: [facility] 10-17-2023 09:08-0400 Systolic blood pressure 139 mm[Hg] DO Umesh Ball Work Phone: [facility] 10-11-2023 09:26-0400 Body height 194.31 cm DO Umesh Ball Work Phone: [facility] 10-11-2023 09:26-0400 Body mass index (BMI) [Ratio] 25 kg/m2 DO Umesh Ball Work Phone: [facility] 10-11-2023 09:26-0400 Body weight 94.34 kg DO Umesh Ball Work Phone: [facility] 10-11-2023 09:26-0400 Diastolic blood pressure 96 mm[Hg] DO Umesh Ball Work Phone: [facility] 10-11-2023 09:26-0400 Heart rate 59 /min DO Umesh Ball Work Phone: [facility] 10-11-2023 09:26-0400 Respiratory rate 12 /min DO Umesh Ball Work Phone: [facility] 10-11-2023 09:26-0400 Systolic blood pressure 150 mm[Hg] DO Umesh Ball Work Phone: [facility] 08-10-2023 11:43-0400 Body height 194.31 cm [facility] 08-10-2023 11:43-0400 Body mass index (BMI) [Ratio] 30.1 kg/m2 [facility] 08-10-2023 11:43-0400 Body weight 113.85 kg [facility] 08-10-2023 11:43-0400 Diastolic blood pressure 83 mm[Hg] [facility] 08-10-2023 11:43-0400 Heart rate 44 /min [facility] 08-10-2023 11:43-0400 Respiratory rate 12 /min [facility] 08-10-2023 11:43-0400 Systolic blood pressure 161 mm[Hg] [facility] 06-19-2023 11:20-0400 Body height 194.31 cm [facility] 06-19-2023 11:20-0400 Body mass index (BMI) [Ratio] 24.6 kg/m2 [facility] 06-19-2023 11:20-0400 Body weight 92.98 kg [facility] 06-19-2023 11:20-0400 Diastolic blood pressure 80 mm[Hg] [facility] 06-19-2023 11:20-0400 Heart rate 48 /min [facility] 06-19-2023 11:20-0400 SaO2% (BldA) [Mass fraction] 98 % [facility] 06-19-2023 11:20-0400 Systolic blood pressure 130 mm[Hg] [facility] 04-30-2023 08:59-0400 Body height 194.31 cm [facility] 04-30-2023 08:59-0400 Body mass index (BMI) [Ratio] 24.4 kg/m2 [facility] 04-30-2023 08:59-0400 Body weight 92.19 kg [facility] 04-30-2023 08:59-0400 Diastolic blood pressure 77 mm[Hg] [facility] 04-30-2023 08:59-0400 Heart rate 41 /min [facility] 04-30-2023 08:59-0400 Respiratory rate 12 /min [facility] 04-30-2023 08:59-0400 Systolic blood pressure 152 mm[Hg] [facility] 04-25-2022 10:30-0400 Body height 193.04 cm Umesh Ball Other [employer] [facility] Other 04-25-2022 10:30-0400 Body mass index (BMI) [Ratio] 24.1 kg/m2 Umesh Ball Other [employer] [facility] Other 04-25-2022 10:30-0400 Body weight 89.81 kg Umesh Ball Other [employer] Other 04-25-2022 10:30-0400 Diastolic blood pressure 71 mm[Hg] Umesh Ball Other [facility] Other 04-25-2022 10:30-0400 Respiratory rate 12 /min Umesh Ball Other [facility] Other 04-25-2022 10:30-0400 Systolic blood pressure 148 mm[Hg] Umesh Ball Other [facility] Other 10-02-2020 09:51-0400 Diastolic blood pressure 85 mm[Hg] DO Umesh Ball Work Phone: [facility] 10-02-2020 09:51-0400 Heart rate 69 /min DO Umesh Ball Work Phone: [facility] 10-02-2020 09:51-0400 Respiratory rate 18 /min DO Umesh Ball Work Phone: [facility] 10-02-2020 09:51-0400 SaO2% (BldA) [Mass fraction] 96 % DO Umesh Ball Work Phone: [facility] 10-02-2020 09:51-0400 Systolic blood pressure 144 mm[Hg] DO Umesh Ball Work Phone: [facility] 10-02-2020 09:07-0400 Body height 194.31 cm DO Umesh Ball Work Phone: [facility] 10-02-2020 09:07-0400 Body mass index (BMI) [Ratio] 25.1 kg/m2 DO Umesh Ball Work Phone: [facility] 10-02-2020 09:07-0400 Body weight 95 kg DO Umesh Ball Work Phone: [facility] 10-02-2020 09:00-0400 Body temperature 98.2 [degF] DO Umesh Ball Work Phone: [facility] Encounters Encounter Date Encounter Type Care Provider Facility Start: 08-07-2024 ambulatory Lesley Kerr Facility:[facility] Start: 07-23-2024 End: 07-23-2024 ambulatory UMESH MUNIZ Facility:[facility] Start: 07-23-2024 End: 07-23-2024 Patient encounter procedure Lesley Kerr [facility] Start: 07-15-2024 End: 07-15-2024 ambulatory [facility] Start: 07-14-2024 ambulatory Lseley Kerr Facility:[facility] Start: 07-08-2024 End: 07-08-2024 ambulatory [facility] Work Phone: Start: 07-08-2024 End: 07-08-2024 Patient encounter procedure [facility] Work Phone: Start: 06-11-2024 End: 06-11-2024 ambulatory [facility] Start: 06-04-2024 Non-patient / Non-visit [facility] Work Phone: Start: 06-04-2024 End: 06-04-2024 ambulatory BLADIMIR MCCALL [facility] Start: 05-30-2024 Non-patient / Non-visit [facility] Work Phone: Start: 05-27-2024 Evaluation and management of inpatient HUA BROWN POSEY [facility] Start: 05-26-2024 Evaluation and management of inpatient [facility] Start: 05-26-2024 ambulatory [facility] Start: 05-26-2024 End: 05-27-2024 Evaluation and management of inpatient [facility] Start: 05-20-2024 End: 05-20-2024 ambulatory [facility] Work Phone: Start: 05-20-2024 End: 05-20-2024 Patient encounter procedure [facility] Work Phone: Start: 05-07-2024 End: 05-07-2024 ambulatory [facility] Work Phone: Start: 05-07-2024 End: 05-07-2024 Encounter for general adult medical examination without abnormal findings [facility] Start: 05-07-2024 End: 05-07-2024 Patient encounter procedure [facility] Work Phone: Start: 04-15-2024 End: 04-15-2024 ambulatory [facility] Start: 04-15-2024 Non-patient / Non-visit [facility] Work Phone: Start: 03-31-2024 End: 03-31-2024 ambulatory [facility] Work Phone: Start: 03-31-2024 End: 03-31-2024 Patient encounter procedure [facility] Work Phone: Start: 01-17-2024 Non-patient / Non-visit [facility] Work Phone: Start: 12-05-2023 End: 12-05-2023 ambulatory [facility] Start: 11-21-2023 End: 11-21-2023 ambulatory DO Umesh Ball Work Phone: [facility] Work Phone: Start: 11-21-2023 End: 11-21-2023 Patient encounter procedure DO Umesh Ball Work Phone: [facility] Work Phone: Start: 10-17-2023 End: 10-17-2023 ambulatory DO Umesh Ball Work Phone: [facility] Work Phone: Start: 10-17-2023 End: 10-17-2023 Patient encounter procedure DO Umesh Ball Work Phone: [facility] Work Phone: Start: 10-11-2023 End: 10-11-2023 ambulatory DO Umesh Ball Work Phone: [facility] Work Phone: Start: 10-11-2023 End: 10-11-2023 Patient encounter procedure DO Umesh Ball Work Phone: [facility] Work Phone: Start: 10-04-2023 Non-patient / Non-visit DO Rdau fournier Ball Work Phone: [facility] Work Phone: Start: 09-17-2023 Non-patient / Non-visit DO Radu fournier Ball Work Phone: [facility] Work Phone: Start: 08-24-2023 End: 08-24-2023 ambulatory DO Umesh Muniz Work Phone: [facility] Work Phone: Start: 08-24-2023 End: 08-24-2023 Patient encounter procedure DO Umesh Ball Work Phone: [facility] Start: 08-10-2023 End: 08-10-2023 ambulatory [facility] Work Phone: Start: 08-10-2023 End: 08-10-2023 Patient encounter procedure [facility] Work Phone: Start: 06-19-2023 End: 06-19-2023 Patient encounter procedure [facility] Work Phone: Start: 04-30-2023 End: 04-30-2023 ambulatory [facility] Work Phone: Start: 04-30-2023 End: 04-30-2023 Encounter for general adult medical examination without abnormal findings [facility] Start: 04-30-2023 End: 04-30-2023 Patient encounter procedure [facility] Work Phone: Start: 03-19-2023 End: 03-19-2023 ambulatory Umesh Muniz Other [employer] Other Start: 03-19-2023 Nursing evaluation o f patient and report Umesh Muniz [facility] Start: 03-14-2023 End: 03-14-2023 ambulatory Umesh Muniz Other [employer] Other Start: 03-14-2023 Telephone encounter Umesh Muniz [facility] Start: 12-20-2022 End: 12-20-2022 ambulatory Umesh Muniz Other [employer] Other Start: 12-20-2022 Telephone encounter Umesh Muniz [facility] [employer] Start: 12-19-2022 End: 12-19-2022 ambulatory Umesh Muniz Other [employer] Other Start: 12-19-2022 Telephone encounter Umesh Muniz [facility] Start: 11-28-2022 End: 11-28-2022 ambulatory Umesh Muniz Other [employer] Other Start: 11-28-2022 Nursing evaluation o f patient and report Umesh Muniz [facility] Start: 11-22-2022 End: 11-22-2022 ambulatory Umesh Muniz Other [employer] Other Start: 11-22-2022 Office outpatient vi sit 15 minutes Umesh Muniz [facility] Start: 11-22-2022 Telephone encounter Umesh Muniz [facility] Start: 11-16-2022 End: 11-16-2022 ambulatory Umesh Flavio Other [employer] Other Start: 11-16-2022 Office outpatient vi sit 15 minutes Umesh Ball [facility] Start: 11-08-2022 End: 11-08-2022 ambulatory Umesh Muniz Other [employer] Other Start: 11-08-2022 Nursing evaluation o f patient and report Umesh Muniz [facility] Start: 05-25-2022 End: 05-25-2022 ambulatory Umesh Muniz Other [employer] Other Start: 05-25-2022 Nursing evaluation o f patient and report Umesh Muniz [facility] Start: 04-28-2022 End: 04-29-[address] UMESH MUNIZ Facility:[facility] Start: 04-25-2022 End: 04-25-2022 ambulatory Umesh Muniz Other [employer] Other Start: 04-25-2022 Encounter for genera l adult medical examination without abnormal findings Umesh Muniz [facility] Start: 04-25-2022 Periodic preventive med est patient 40-64yrs Umesh Muniz [facility] Start: 04-25-2022 Telephone encounter Umesh Muniz [facility] Start: 04-18-2022 Telephone encounter Umesh Muniz [facility] Start: 04-18-2022 End: 04-19-[address] UMESH MUNIZ [facility] [employer] Other Start: 04-05-2022 End: 04-06-[address] RIOS LISTED REQUEST Facility:[facility] Start: 01-10-2022 Adult health examination Umesh Muniz Other [employer] Other Start: 05-28-2021 End: 05-28-2021 Departed Referred DO Umesh Muniz Work Phone: [facility] Start: 05-17-[address] UMESH MUNIZ Facili ty:[facility] Start: 10-02-2020 End: 10-02-2020 Emergency department patient visit DO Umesh Muniz Work Phone: [facility] Procedures Date Procedure Procedure Detail Performing Clinician Start: 04-05-[address] ANAND MCKOY FLAVIO Comment on above: Performed By: #### D ATBMP, DATPSA #### [facility] [address] [address] [address] Chapo Posey Start: 01-27-2016 Replacement of total knee joint Umesh Muniz Other Start: 11-17-2015 Preoperative cardiov ascular examination Umesh Muniz Other Start: 11-17-2015 Preoperative pulmona ry examination Umesh Muniz Other Start: 11-06-2015 Arthroplasty of knee Sea Kerr Comment on above: left knee Start: 09-29-2015 General examination of patient Umesh Muniz Other Start: 09-29-2015 Screening for malign ant neoplasm of colon Umesh Muniz Other Start: 09-29-2015 Screening for malign ant neoplasm of prostate Umesh Muniz Other Colonoscopy Lesley Kerr Depression screening Cristal Muniz Other Screening for malign ant neoplasm of prostate Umesh Muniz Other Tonsillectomy Lesley Kerr [employer] Plan of Treatment Date Care Activity Detail Author Hepatic function panel [facility] Patient Education [facility] Patient referral [facility] US Kidney - right [facility] XR Knee - right 4 Views [facility] XR Lumbar spine Views [facility] Immunizations Immunization Date Immunization Notes Care Provider Fa cility 11-21-2023 influenza, high dose seasonal, preservative-free [facility] 11-28-2022 influenza, injectabl e, quadrivalent, preservative free Umesh Muniz Other [facility] 11-22-2021 influenza virus vaccine, split virus (incl. purified surface antigen) Umesh Muniz Other [employer] Other 11-22-2021 influenza virus vaccine, unspecified formulation [facility] 11-22-2021 influenza, injectabl e, quadrivalent, preservative free [facility] 11-22-2021 influenza, injectabl e, quadrivalent, contains preservative Umesh Muniz Other [facility] Other 11-04-2020 influenza virus vaccine, split virus (incl. purified surface antigen) Umesh Muniz Other [facility] Other 11-04-2020 influenza virus vaccine, unspecified formulation [facility] 05-11-2020 COVID-19 Vaccine Pfi zer - Documentation Purposes Only Umesh Muniz Other [facility] 04-19-2020 COVID-19 Vaccine Pfi zer - Documentation Purposes Only Umesh Muniz Other [facility] 12-03-2019 influenza virus vaccine, split virus (incl. purified surface antigen) Umesh Muniz Other [facility] Other 12-03-2019 influenza virus vaccine, unspecified formulation [facility] 12-18-2018 influenza virus vaccine, split virus (incl. purified surface antigen) Umesh Muniz Other [facility] [facility] Other 12-18-2018 influenza virus vaccine, unspecified formulation [facility] 12-11-2017 influenza virus vaccine, split virus (incl. purified surface antigen) Umesh Muniz Other [facility] Other 12-11-2017 influenza virus vaccine, unspecified formulation [facility] 11-21-2016 tetanus and diphther ia toxoids, adsorbed, preservative free, for adult use (5 Lf of tetanus toxoid and 2 Lf of diphtheria toxoid) Umesh Muniz Other [facility] 11-11-2012 tetanus and diphther ia toxoids, adsorbed, preservative free, for adult use (5 Lf of tetanus toxoid and 2 Lf of diphtheria toxoid) Umesh Muniz Other [facility] 10-10-2001 diphtheria, tetanus toxoids and acellular pertussis vaccine, unspecified formulation Umesh Muniz Other [facility] Payers Date Payer Category Payer Medicare [id number] 2023 Medicare [id number] 1961 Self-pay [id number] 1961 Unknown [id number] 1960 Unknown [id number] 2.16.84 [id number] 1958 Unknown [id number] 2.16.84 [id number] 1958 Unknown [id number] 2.16.84 [id number] 1958 Unknown [id number] 2.16.8 [id number] 1960 Unknown [id number] 2.16.8 [id number] Medicare Medicare [id number] Private Health Insurance [id number] Unknown [id number] [id number] [id number] Unknown [facility] [id number] Social History Date Type Detail Facility Start: 10-02-2020 End: 07-23-2024 Tobacco smoking status NHIS Ex-smoker (finding) [facility] Start: 1960 Sex Assigned At Male F [facility] Sex Assigned At [facility] Start: 03-31-2024 End: 07-08-2024 Sex Male (finding) [facility] Tobacco smoking status Never [facility] Sexual Orientation [facility] Clinical Notes 10-02-2020 to 07-23-2024 Note Date & Type Note Facility 07-23-2024 Hospital Discharge instructions Patient Education 07/23/2024 10:22:32 Cystoscopy Cystoscopy Cystoscopy is a procedure that is used to help diagnose and sometimes treat conditions that affect the lower urinary tract. The lower urinary tract includes the bladder and the urethra. The urethra is the tube that drains urine from the bladder. Cystoscopy is done using a thin, tube-shaped instrument with a light and camera at the end (cystoscope). The cystoscope may be hard or flexible, depending on the goal of the procedure. The cystoscope is inserted through the urethra, into the bladder. Cystoscopy may be recommended if you have: Urinary tract infections that keep coming back. Blood in the urine (hematuria). An inability to control when you urinate (urinary incontinence) or an overactive bladder. Unusual cells found in a urine sample. A blockage in the urethra, such as a urinary stone. Painful urination. An abnormality in the bladder found during an intravenous pyelogram (IVP) or CT scan. Cystoscopy may also be done to remove a sample of tissue to be examined under a microscope (biopsy). Tell a health care provider about: Any allergies you have. All medicines you are taking, including vitamins, herbs, eye drops, creams, and gbwy-dtm-sblrmmc medicines. Any problems you or family members have had with anesthetic medicines. Any blood disorders you have. Any surgeries you have had. Any medical conditions you have. Whether you are or may be . What are the risks? Generally, this is a safe procedure. However, problems may occur, including: Infection. Bleeding. Allergic reactions to medicines. Damage to other structures or organs. What happens before the procedure? Medicines Ask your health care provider about: Changing or stopping your regular medicines. This is especially important if you are taking diabetes medicines or blood thinners. Taking medicines such as aspirin and ibuprofen. These medicines can thin your blood. Do not take these medicines unless your health care provider tells you to take them. Taking sgoa-cgv-mcqhdru medicines, vitamins, herbs, and supplements. Tests You may have an exam or testing, such as: X-rays of the bladder, urethra, or kidneys. CT scan of the abdomen or pelvis. Urine tests to check for signs of infection. General instructions Follow instructions from your health care provider about eating or drinking restrictions. Ask your health care provider what steps will be taken to help prevent infection. These steps may include: ?Washing skin with a germ-killing soap. ?Taking antibiotic medicine. Plan to have a responsible adult take you home from the hospital or clinic. What happens during the procedure? You will be given one or more of the following: ?A medicine to help you relax (sedative). ?A medicine to numb the area (local anesthetic). The area around the opening of your urethra will be cleaned. The cystoscope will be passed through your urethra into your bladder. Germ-free (sterile) fluid will flow through the cystoscope to fill your bladder. The fluid will stretch your bladder so that your health care provider can clearly examine your bladder medeiros. Your doctor will look at the urethra and bladder. Your doctor may take a biopsy or remove stones. The cystoscope will be removed, and your bladder will be emptied. The procedure may vary among health care providers and hospitals. What can I expect after the procedure? After the procedure, it is common to have: Some soreness or pain in your abdomen and urethra. Urinary symptoms. These include: ?Mild pain or burning when you urinate. Pain should stop within a few minutes after you urinate. This may last for up to 1 week. ?A small amount of blood in your urine for several days. ?Feeling like you need to urinate but producing only a small amount of urine. Follow these instructions at home: Medicines Take xhyz-wct-jflpilw and prescription medicines only as told by your health care provider. If you were prescribed an antibiotic medicine, take it as told by your health care provider. Do not stop taking the antibiotic even if you start to feel better. General instructions Return to your normal activities as told by your health care provider. Ask your health care provider what activities are safe for you. If you were given a sedative during the procedure, it can affect you for several hours. Do not drive or operate machinery until your health care provider says that it is safe. Watch for any blood in your urine. If the amount of blood in your urine increases, call your health care provider. Follow instructions from your health care provider about eating or drinking restrictions. If a tissue sample was removed for testing (biopsy) during your procedure, it is up to you to get your test results. Ask your health care provider, or the department that is doing the test, when your results will be ready. Drink enough fluid to keep your urine pale yellow. Keep all follow-up visits. This is important. Contact a health care provider if: You have pain that gets worse or does not get better with medicine, especially pain when you urinate. You have trouble urinating. You have more blood in your urine. Get help right away if: You have blood clots in your urine. You have abdominal pain. You have a fever or chills. You are unable to urinate. Summary Cystoscopy is a procedure that is used to help diagnose and sometimes treat conditions that affect the lower urinary tract. Cystoscopy is done using a thin, tube-shaped instrument with a light and camera at the end. After the procedure, it is common to have some soreness or pain in your abdomen and urethra. Watch for any blood in your urine. If the amount of blood in your urine increases, call your health care provider. If you were prescribed an antibiotic medicine, take it as told by your health care provider. Do not stop taking the antibiotic even if you start to feel better. This information is not intended to replace advice given to you by your health care provider. Make sure you discuss any questions you have with your health care provider. Document Revised: 10/05/2021 Document Reviewed: 09/03/2020 [employer] Patient Education 2023 [place]. 07/23/2024 10:19:49 Benign Prostatic Hyperplasia Benign Prostatic Hyperplasia Benign prostatic hyperplasia (BPH) is an enlarged prostate gland that is caused by the normal aging process. The prostate may get bigger as a man gets older. The condition is not caused by cancer. The prostate is a walnut-sized gland that is involved in the production of semen. It is located in front of the rectum and below the bladder. The bladder stores urine. The urethra carries stored urine out of the body. An enlarged prostate can press on the urethra. This can make it harder to pass urine. The buildup of urine in the bladder can cause infection. Back pressure and infection may progress to bladder damage and kidney (renal) failure. What are the causes? This condition is part of the normal aging process. However, not all men develop problems from this condition. If the prostate enlarges away from the urethra, urine flow will not be blocked. If it enlarges toward the urethra and compresses it, there will be problems passing urine. What increases the risk? This condition is more likely to develop in men older than 50 years. What are the signs or symptoms? Symptoms of this condition include: Getting up often during the night to urinate. Needing to urinate frequently during the day. Difficulty starting urine flow. Decrease in size and strength of your urine stream. Leaking (dribbling) after urinating. Inability to pass urine. This needs immediate treatment. Inability to completely empty your bladder. Pain when you pass urine. This is more common if there is also an infection. Urinary tract infection (UTI). How is this diagnosed? This condition is diagnosed based on your medical history, a physical exam, and your symptoms. Tests will also be done, such as: A post-void bladder scan. This measures any amount of urine that may remain in your bladder after you finish urinating. A digital rectal exam. In a rectal exam, your health care provider checks your prostate by putting a lubricated, gloved finger into your rectum to feel the back of your prostate gland. This exam detects the size of your gland and any abnormal lumps or growths. An exam of your urine (urinalysis). A prostate specific antigen (PSA) screening. This is a blood test used to screen for prostate cancer. An ultrasound. This test uses sound waves to electronically produce a picture of your prostate gland. Your health care provider may refer you to a specialist in kidney and prostate diseases (urologist). How is this treated? Once symptoms begin, your health care provider will monitor your condition (active surveillance or watchful waiting). Treatment for this condition will depend on the severity of your condition. Treatment may include: Observation and yearly exams. This may be the only treatment needed if your condition and symptoms are mild. Medicines to relieve your symptoms, including: ?Medicines to shrink the prostate. ?Medicines to relax the muscle of the prostate. Surgery in severe cases. Surgery may include: ?Prostatectomy. In this procedure, the prostate tissue is removed completely through an open incision or with a laparoscope or robotics. ?Transurethral resection of the prostate (TURP). In this procedure, a tool is inserted through the opening at the tip of the penis (urethra). It is used to cut away tissue of the inner core of the prostate. The pieces are removed through the same opening of the penis. This removes the blockage. ?Transurethral incision (TUIP). In this procedure, small cuts are made in the prostate. This lessens the prostate's pressure on the urethra. ?Transurethral microwave thermotherapy (TUMT). This procedure uses microwaves to create heat. The heat destroys and removes a small amount of prostate tissue. ?Transurethral needle ablation (TUNA). This procedure uses radio frequencies to destroy and remove a small amount of prostate tissue. ?Interstitial laser coagulation (ILC). This procedure uses a laser to destroy and remove a small amount of prostate tissue. ?Transurethral electrovaporization (TUVP). This procedure uses electrodes to destroy and remove a small amount of prostate tissue. ?Prostatic urethral lift. This procedure inserts an implant to push the lobes of the prostate away from the urethra. Follow these instructions at home: Take bjgp-eqi-zblkzuh and prescription medicines only as told by your health care provider. Monitor your symptoms for any changes. Contact your health care provider with any changes. Avoid drinking large amounts of liquid before going to bed or out in public. Avoid or reduce how much caffeine or alcohol you drink. Give yourself time when you urinate. Keep all follow-up visits. This is important. Contact a health care provider if: You have unexplained back pain. Your symptoms do not get better with treatment. You develop side effects from the medicine you are taking. Your urine becomes very dark or has a bad smell. Your lower abdomen becomes distended and you have trouble passing urine. Get help right away if: You have a fever or chills. You suddenly cannot urinate. You feel light-headed or very dizzy, or you faint. There are large amounts of blood or clots in your urine. Your urinary problems become hard to manage. You develop moderate to severe low back or flank pain. The flank is the side of your body between the ribs and the hip. These symptoms may be an emergency. Get help right away. Call 911. Do not wait to see if the symptoms will go away. Do not drive yourself to the hospital. Summary Benign prostatic hyperplasia (BPH) is an enlarged prostate that is caused by the normal aging process. It is not caused by cancer. An enlarged prostate can press on the urethra. This can make it hard to pass urine. This condition is more likely to develop in men older than 50 years. Get help right away if you suddenly cannot urinate. This information is not intended to replace advice given to you by your health care provider. Make sure you discuss any questions you have with your health care provider. Document Revised: 08/10/2021 Document Reviewed: 08/10/2021 [employer] Patient Education 2023 [employer]. Follow Up Care 07/18/2024 14:14:18 With:Cirilo LOVE, Lesley Lucas, URL, URO Address: When: Unknown [facility] 07-23-2024 Note Urology Office/Clini c Note Chief Complaint referral for BPH w/ LUTS HPI Staff 63 yr old male referred by Dr. Muniz for BPH w/LUTS pt states the urine issues keep him up all night. 'Incomplete bladder emptying, frequency, weak steam. pt states this issues is worse in evening and when trying to sleep. pt has tried Alfuzosin and FloMax in the past, he does not like side effects. Pt was told not to take the alfuzosin with his Amiodarone per pharmacy, Dr. Munzi said it was ok. He tried it once and had severe hypotension when taking both together. Has not taken it again since. History of Present Illness Tests reviewed: UA, referral records, PVR I have reviewed the previous health record information and history for this patient from Dr Muniz. I have reviewed and verified the staff HPI to be accurate for this encounter. Review of Systems PHQ Score Initial Depression Screen Score: 0 SCORE ROS - Provider Constitutional: denies weight loss, denies hot flashes. Eyes: denies eye problems. Gastrointestinal: denies nausea, denies vomiting. Cardiovascular: denies chest pain or angina. Integumentary: no dryness Musculoskeletal: denies musculoskeletal symptoms. ENMT: denies otolaryngeal symptoms. Respiratory: no shortness of breath. Heme/Lymph: denies easy bleeding tendency, denies easy bruising tendency. Psychiatric: no confusion, no anxiety. Genitourinary: See HPI. Physical Exam Vitals & Measurements T: 37 ???C(Oral) HR: 74(Peripheral) RR: 16 BP: 122/70 HT: 76 in HT: 192 cm WT: 200.62 lb WT: 91.0 kg BMI: 24.69 General Appearance: alert, no distress, well nourished, well developed adult. Assessment/Plan Wilbert is a 63 yo M new pt referred by Dr Muniz d/t BPH w LUTS. Hx of ablation d/t PVC. Taking amiodarone d/t irregular rhythm not afib. CLAUDIA 19. 1. BPH with obstruction/lower urinary tract symptoms (N40.1: Benign prostatic hyperplasia with lower urinary tract symptoms) Saw Dr Hernandez in the past, tried Flomax, did not like d/t SE of retrograde ejaculation. Did not have cysto. UA neg. IPSS 26. CC frequent urination at night. Dr Muniz started Alfuzosin, pt tried once, took at the same time as amiodarone but gave him severe hypotension, has not tried again. Pt states last PSA was 2 from PCP We discussed male urologic anatomy including the prostate and how this is likely contributing to his urinary symptoms. In order to assess degree of bladder outlet obstruction and bladder health, discussed further evaluation with cystoscopy. Educational pamphlet provided. Since he did not like alpha jamie, could try 5-JORGE instead but also has potential SEs that he may find unpleasant. Or could consider daily low dose cialis to help with BPH and would also provide erectile benefit. Does not take nitros but does drink beet juice. Another option is a prostate procedure that would allow him to not take daily med. Pt elects to try daily cialis and proceed with cysto. -Get CT from [facility] pushed through PACS for prostate sizing -Start Cialis 5 mg qd for urination. SEs, proper use, contraindications, priapism discussed. Sent to [facility]. -Will schedule cysto. The risks and benefits for cystoscopy have been discussed. The risks include bleeding, infection, and irritation of the bladder and urinary channel, among others. The patient, after being informed of procedural details and after questions have been answered, wishes to proceed. Full informed consent has been obtained. Will order Local anesthesia. -Pending size, pt interested in Urolift or Aquablation to avoid sexual side effects. -Cont routine prostate cancer screening with PCP 2. Incomplete bladder emptying (R33.9: Retention of urine, unspecified) PVR (cc): 07/23/24 - 200 Denies bother or UTIs. See #1 -Start cialis above -Timed voids Follow-up With When Contact Information Lesley Kerr MD, URL, URO Additional Instructions: schedule cysto Patient Education Cystoscopy Benign Prostatic Hyperplasia I, Clemencia Calhoun, personally scribed for Dr. Kerr on 07/23/2024 10:22:46. . Documentation recorded by the scribe, Clemencia Calhoun, accurately reflects the services(s) I performed and decisions made by me. Authenticated by Dr. Kerr on 07/23/2024 10:43:19. Problem List/Past Medical History Ongoing Diverticulitis of sigmoid colon Gout Hypertension Incomplete bladder emptying Historical No qualifying data Procedure/Surgical History Knee arthroplasty (11/06/2015). Medications allopurinol 100 mg Tab amiodarone 200 mg Tab amlodipine-atorvastatin 5 mg-10 mg oral tablet, Oral Cialis 5 mg oral tablet, 5 mg= 1 tab(s), Oral, Daily, 11 refills losartan 100 mg Tab Allergies No Known Allergies Social History Alcohol - Denies Alcohol Use, 04/22/2019 Never., 07/18/2024 Substance Abuse - Denies Substance Abuse, 04/22/2019 Tobacco Former smoker, quit more than 30 days ago Tobacco Use:. Never Smokeless Tobacco (more content not included)... [facility] Comment on above: Result Comment: Elec tronically Signed By: Lesley Kerr MD\.br\Date and Time Signed: 07/23/24 10:43 EDT\.br\Electronically Co-Signed By: Clemencia Calhoun\.br\Date and Time Co-Signed: 07/23/24 10:23 EDT 07-23-2024 Note Patient Education Urology Cystoscopy Cystoscopy is a procedure that is used to help diagnose and sometimes treat conditions that affect the lower urinary tract. The lower urinary tract includes the bladder and the urethra. The urethra is the tube that drains urine from the bladder. Cystoscopy is done using a thin, tube-shaped instrument with a light and camera at the end (cystoscope). The cystoscope may be hard or flexible, depending on the goal of the procedure. The cystoscope is inserted through the urethra, into the bladder. Cystoscopy may be recommended if you have: ??? Urinary tract infections that keep coming back. ??? Blood in the urine (hematuria). ??? An inability to control when you urinate (urinary incontinence) or an overactive bladder. ??? Unusual cells found in a urine sample. ??? A blockage in the urethra, such as a urinary stone. ??? Painful urination. ??? An abnormality in the bladder found during an intravenous pyelogram (IVP) or CT scan. Cystoscopy may also be done to remove a sample of tissue to be examined under a microscope (biopsy). Tell a health care provider about: ??? Any allergies you have. ??? All medicines you are taking, including vitamins, herbs, eye drops, creams, and wbbq-xht-vygldmw medicines. ??? Any problems you or family members have had with anesthetic medicines. ??? Any blood disorders you have. ??? Any surgeries you have had. ??? Any medical conditions you have. ??? Whether you are or may be . What are the risks? Generally, this is a safe procedure. However, problems may occur, including: ??? Infection. ??? Bleeding. ??? Allergic reactions to medicines. ??? Damage to other structures or organs. What happens before the procedure? Medicines Ask your health care provider about: ??? Changing or stopping your regular medicines. This is especially important if you are taking diabetes medicines or blood thinners. ??? Taking medicines such as aspirin and ibuprofen. These medicines can thin your blood. Do not take these medicines unless your health care provider tells you to take them. ??? Taking wrce-ktk-avznxvq medicines, vitamins, herbs, and supplements. Tests You may have an exam or testing, such as: ??? X-rays of the bladder, urethra, or kidneys. ??? CT scan of the abdomen or pelvis. ??? Urine tests to check for signs of infection. General instructions ??? Follow instructions from your health care provider about eating or drinking restrictions. ??? Ask your health care provider what steps will be taken to help prevent infection. These steps may include: ? Washing skin with a germ-killing soap. ? Taking antibiotic medicine. ??? Plan to have a responsible adult take you home from the hospital or clinic. What happens during the procedure? You will be given one or more of the following: ? A medicine to help you relax (sedative). ? A medicine to numb the area (local anesthetic). ??? The area around the opening of your urethra will be cleaned. ??? The cystoscope will be passed through your urethra into your bladder. ??? Germ-free (sterile) fluid will flow through the cystoscope to fill your bladder. The fluid will stretch your bladder so that your health care provider can clearly examine your bladder medeiros. ??? Your doctor will look at the urethra and bladder. Your doctor may take a biopsy or remove stones. ??? The cystoscope will be removed, and your bladder will be emptied. The procedure may vary among health care providers and hospitals. What can I expect after the procedure? After the procedure, it is common to have: ??? Some soreness or pain in your abdomen and urethra. ??? Urinary symptoms. These include: ? Mild pain or burning when you urinate. Pain should stop within a few minutes after you urinate. This may last for up to 1 week. ? A small amount of blood in your urine for several days. ? Feeling like you need to urinate but producing only a small amount of urine. Follow these instructions at home: Medicines ??? Take hhze-sqh-ijfpaay and prescription medicines only as told by your health care provider. ??? If you were prescribed an antibiotic medicine, take it as told by your health care provider. Do not stop taking the antibiotic even if you start to feel better. General instructions ??? Return to your normal activities as told by your health care provider. Ask your health care provider what activities are safe for you. ??? If you were given a sedative during the procedure, it can affect you for several hours. Do not drive or operate machinery until your health care provider says that it is safe. ??? Watch for any blood in your urine. If the amount of blood in your urine increases, call your health care provider. ??? Follow instructions from your health care provider about eating or drinking restrictions. ??? If a tissue sample was removed for testing (biopsy) during your (more content not included)... [facility] 07-15-2024 Note MT Electrophysiology Consult Note MT Cardiology [facility] Reason for visit: PVC 07/15/2024 Patient was taken for PVC ablation on 05/26/2024 and unfortunately his PVC burden was very minimal. Scant PVCs which were present were mapped to RVOT area and so I ablated empirically in the posterior RVOT as well as on the opposite side in the RCC LCC junction. In follow-up patient was still noted to have PVC when he was seen by Tameka Shelton in the clinic. At that time amiodarone was started and subsequently an echocardiogram 1 month later shows EF is improved to 60% Patient states he feels good. Patient states he is having a lot of constipation due to the amiodarone. Patinet states his heart has been in sinus rhythm according to his watch. Patient states he is not feeling any skipped beat or fast heart rates. Review of Systems Constitutional: Negative. Prior HPI: Wilbert Florian is a 63 y.o. [...] PSH: Past Surgical History: Procedure Laterality Date ABLATION OF DYSRHYTHMIC FOCUS TOTAL KNEE ARTHROPLASTY SH: Social Determinants of Health Tobacco Use: Low Risk (07/15/2024) Patient History Smoking Tobacco Use: Never Smokeless Tobacco Use: Never Passive Exposure: Not on file Alcohol Use: Not on file Financial Resource Strain: Low Risk (05/26/2024) Overall [...] on file Sexually Abused: Not on file Depression: Not on file Housing Stability: Low Risk (05/26/2024) Housing Stability Vital Sign Unable to Pay for Housing in the Last Year: No Number of Times Moved in the Last Year: 0 Homeless in the Last Year: No Utilities: Not At Risk (05/26/2024) [facility] Utilities Threatened with loss of utilities: No Health Literacy: Not on file Allergies: No Known Allergies Weight: 90.7kg Visit Vitals BP 144/83 (BP Location: Right arm, Patient Position: Sitting) Pulse 59 Ht 1.93 m (6' 4 ) Wt 90.7 kg (200 lb) SpO2 99% BMI 24.34 kg/m??? Smoking Status Never BSA 2.21 m??? Meds: Current Outpatient Medications on File Prior to Visit Medication Sig Dispense Refill allopurinol (Zyloprim) 300 mg tablet Take 300 mg by mouth in the morning. amiodarone (Pacerone) 200 mg tablet Take 2 tablets (400 mg) by mouth two times daily for 12 days, THEN 1 tablet (200 mg) in the morning. 78 tablet 0 amLODIPine (Norvasc) 5 mg tablet Take 5 mg by mouth in the morning. budesonide-formoteroL (Symbicort) 80-4.5 mcg/actuation inhaler Inhale 2 puffs in the morning and at bedtime. losartan (Cozaar) 100 mg tablet Take 100 mg by mouth in the morning. alfuzosin (Uroxatral) 10 mg 24 hr tablet Take 10 mg by mouth in the morning. rivaroxaban (Xarelto) 15 mg tablet Take 1 tablet (15 mg) by mouth daily with evening meal for 21 days. Take with food. 21 tablet 0 No current facility-administered medications on file prior to (more content not included)... [facility] 06-11-2024 Note Cardiovascular Medic in[facility] SUBJECTIVE Chief Complaint Patient presents with [...] Rate 05/26/2024 74 Atrial Rate 05/26/2024 74 MO Interval 05/26/2024 158 QRS DURATION 05/26/2024 100 QT Interval 05/26/2024 414 QTC CALCULATION(BAZETT) 05/26/2024 459 P Long Barn 05/26/2024 37 R-Long Barn 05/26/2024 -35 T Wave Long Barn 05/26/2024 58 Ventricular Rate 05/26/2024 80 Atrial Rate 05/26/2024 80 MO Interval 05/26/2024 142 QRS DURATION 05/26/2024 88 QT Interval 05/26/2024 404 QTC CALCULATION(BAZETT) 05/26/2024 465 P Long Barn 05/26/2024 32 R-Long Barn 05/26/2024 -32 T Wave Long Barn 05/26/2024 65 Auto WBC 05/27/2024 9.25 RBC 05/27/2024 4.43 Hemoglobin 05/27/2024 13.8 Hemato (more content not included)... [facility] 06-11-2024 Note Patient here today f or [...] dyspnea on exertion, irregular heartbeat and palpitations. [facility] 06-04-2024 Note SUBJECTIVE Reason for Visit: Wilbert [...] Rate 05/26/2024 74 Atrial Rate 05/26/2024 74 MO Interval 05/26/2024 158 QRS DURATION 05/26/2024 100 QT Interval 05/26/2024 414 QTC CALCULATION(BAZETT) 05/26/2024 459 P Long Barn 05/26/2024 37 R-Long Barn 05/26/2024 -35 T Wave Long Barn 05/26/2024 58 Ventricular Rate 05/26/2024 80 Atrial Rate 05/26/2024 80 MO Interval 05/26/2024 142 QRS DURATION 05/26/2024 88 QT Interval 05/26/2024 404 QTC CALCULATION(BAZETT) 05/26/2024 465 P Long Barn 05/26/2024 32 R-Long Barn 05/26/2024 -32 T Wave Long Barn 05/26/2024 65 Auto WBC 05/27/2024 9.25 RBC 05/27/2024 4.43 Hemoglobin 05/27/2024 13.8 Hematocrit 05/27/2024 42.0 MCV 05/27/2024 94.8 MCH 05/27/2024 31.2 MCHC (more content not included)... [facility] 05-27-2024 Note Hospital Medicine Discharge Summary Final Discharge Diagnosis: Symptomatic, frequent PVCs Status post PVC ablation Essential hypertension Cardiomyopathy Chronic HFrEF. NYHA difficult to determine Hyperlipidemia Admission Diagnosis: PVC (premature ventricular contraction) [I49.3] S/P AV elba ablation [Z98.890] Hospital course: Mr. Wilbert Florian is an 63 y.o. male who came from [place] after PVC ablation. He has a past [...] 07/02/2024 1:00 PM Bladimir Mccall CNP [facility] Your medication list START taking these [...] Medications These medications were sent to [facility] [address] [place] [address] [place] [address], [facility] [address] rivaroxaban 15 mg tablet Wilbert has No [...] was 34 minutes. Signed Hua Posey MD [facility] 05/27/2024 10:49 AM CC: DO Flavio [facility] 05-27-2024 Note Cardiology Inpatient Progress Note Subjective [...] -- -- 86 19 95 % -- 05/26/241999 138/88 -- -- 79 14 -- -- [...] 89.4 kg (19 (more content not included)... [facility] 05-26-2024 Note Underwent PVC ablati on with electrophysiology. Their recommendations are Xarelto 50 mg once daily for 3 weeks, 48-hour Holter monitor after 4 weeks and echo in 6 weeks, cardiology consulted [facility] 05-26-2024 Note Continue to monitor, on amlodipine 5 mg at home along with losartan 100 mg, continue that Labs in the morning [facility] 05-26-2024 Note As above, last EF 45% [facility] 05-26-2024 Note As above [facility] 05-26-2024 Note Hospital Medicine History and Physical 05/26/2024 6:34 PM THE HOSPITALIST TEAM PREFERS TO USE [employer] FOR NON-URGENT COMMUNICATION 7AM-7PM. IF I DO NOT RESPOND WITHIN 20 MINUTES OR URGENT MATTERS, PLEASE CALL THROUGH THE TOOL ROOM GEAR MACHINE OPERATOR. FROM 7PM-7AM, PLEASE PAGE [phone](COVR). Chief Complaint Post PVC ablation History of Present Illness Wilbert Florian is an 63 y.o. male who came from [place] after PVC ablation. He has a past [...] this hospital stay by a member of [facility]. Past Medical History Past Medical History: [...] Known Problems in (more content not included)... [facility] 05-26-2024 Note PVC/ VT ABLATION PRO CEDURE [...] to map the LVOT. The short 6 Belarusian sheath was exchanged for long 8 Bel[place]ian sheath. There was difficulty advancing the optimal [...] the RVOT opposit (more content not included)... [facility] 05-26-2024 Note Patient: Wilbert wilson Procedure Information Date/Time: 05/26/24 1100 Procedure: Ablation PVC - PC APPROVED 05/26-06/24 Location: [facility] / [facility] (Cath) Providers: Cordell Byers MD Clinical information reviewed: Allergies Meds Physical Exam Airway Mallampati: II TM distance: >3 FB Neck ROM: full Cardiovascular Dental Pulmonary Abdominal Anesthesia Plan ASA 3 CSE Anesthetic plan and risks discussed with patient. Use of blood products discussed with patient who. Additional Equipment Requests [facility] 05-07-2024 Evaluation note Diagnosis Onset Date Resolution Chronic bronchitis acute May 07, 2024 11:27am Chronic HFrEF (heart failure with reduced ejection fraction) acute May 07, 2024 11:27am Essential (primary) hypertension acute May 07, 2024 11:27am Impaired fasting glucose April 11, 2016 acute May 07, 2024 11:27am NSVT (nonsustained ventricular tachycardia) acute May 07, 2024 11:27am Renal cyst acute May 07 11:27am Screening PSA (prostate specific antigen) acute May 07, 2024 11:27am Welcome to Medicare preventive visit noneactive May 07, 2024 11:27am Acute exacerbation of chronic obstructive airways disease deleted May 20, 2024 1:12pm Chronic obstructive pulmonary disease with (acute) lower respiratory infection deleted May 20, 2024 1:12pm Allergic rhinitis noneactive May 062024 1:12pm Benign prostatic hyperplasia with lower urinary tract symptoms acute July 08, 2024 8:48am Chronic kidney disease acute July 08, 2024 8:48am Renal cyst acute July 08, 2024 8:48am [facility] Work Phone: 1(906) 627-754003-11-2025 NoteUT Electrophysiology Consult Note MT Cardiology [facility] Reason for visit: PVC HPI: [...] frequent PVCs in bigemi (more content not included)...[facility]02-24-2025 Evaluation note* Diagnosis Onset Date Resolution Status Admit Date Essential (primary) hypertension acute March 31, 2:56pm NSVT (nonsustained ventricular tachycardia) acute 2024 2:56pm Renal cyst acute March 31, [...] preventive visit noneactive May 07, 2024 11:27am [facility] Work Phone: 1(121) 713-405102-24-2025 Evaluation note* Diagnosis Onset Date Resolution Status Admit Date Essential (primary) hypertension acute March 31, 2:56pm NSVT (nonsustained ventricular tachycardia) acute y 2024 2:56pm Renal cyst acute March [...] 1:12pm Allergic rhinitis noneactive May 062024 1:12pm [facility] Work Phone: 1(162) 176-517710-30-2024 [facility] Reason for [...] tachycardia noted on 3-d (more content not included)...[facility]02-12-2024 Evaluation note* Encounter Date Diagnosis Assessment Notes Treatment Notes Treatment Clinical Notes Mar, Seasonal allergic rhinitis due to pollen (ICD-10 - J30.1) [facility] Other 10-18-2023 Evaluation note* Encounter Date Diagnosis [...] ear (ICD-10 - H90.42) Suspected, check audiogram [facility] Other 10-18-2023 Evaluation note* Encounter Date Diagnosis Assessment Notes Treatment Notes Treatment Clinical Notes Nov, Mild intermittent asthma with acute exacerbation (ICD-10 - J45.21) [facility] Other 10-12-2023 Evaluation note* Encounter Date Diagnosis [...] ER for increased cough, SOB or CP [facility] Other 10-04-2023 Evaluation note* Encounter Date Diagnosis Assessment Notes Treatment Notes Treatment Clinical Notes Nov, Seasonal allergic rhinitis due to pollen (ICD-10 - J30.1) [facility] Other 04-20-2023 Evaluation note* Encounter Date Diagnosis Assessment Notes Treatment Notes Treatment Clinical Notes May, Seasonal allergic rhinitis due to pollen (ICD-10 - J30.1) [facility] Other 03-21-2023 Evaluation note* Encounter Date Diagnosis [...] exercise for 30 minutes, 3-5 times weekly. [facility] Other 03-21-2023 Evaluation note* Encounter Date Diagnosis Assessment Notes Treatment Notes Treatment Clinical Notes Apr, Fatigue, unspecified type (ICD-10 - R53.83) [facility] Other 08-28-2021 Hospital Discharge instructions Additional Instructions [...] have swelling difficulty breathing or any other concerns[facility] + Plan note Future Appointments Appointment Date:08/07/2024 03:00:00 PM Scheduled Provider:Lesley Kerr MD Location:Pending sale to [facility] Appointment Type:URO Procedure 15 min [facility] evaluation noteNo assessment information available [facility]tr[facility] noteNo InformationNort [employer] Other Evaluation note* Diagnosis Onset Date Resolution Status Asthma acute Elevated cholesterol acute Hypertension acute Lumbar spondylosis acute Wellness examination noneact raheel [facility] Work Phone: Evaluation note* Diagnosis Onset Date Resolution Status Essential (primary) hypertension acute High risk medication use acu te Low back pain acute Lumbar spondylosis acute [facility] Work Phone: Evaluation note* Diagnosis Onset Date Resolution Status Essential (primary) hypertension acute High risk medication use acu te Low back pain acute Lumbar spondylosis acute Obesity acute Onychomycosis acute [facility] Work Phone: Evaluation note* Diagnosis Onset Date Resolution Status Essential (primary) hypertension acute High risk medication use acu te Low back pain acute Lumbar spondylosis acute Obesity acute Onychomycosis acute Essential (primary) hypertension acute Primary osteoarthritis of right knee acute Right knee pain acute [facility] Work Phone: Evaluation note* Diagnosis Onset Date Resolution Status Essential (primary) hypertension acute High risk medication use acu te Low back pain acute Lumbar spondylosis acute Obesity acute Onychomycosis acute Essential (primary) hypertension acute Primary osteoarthritis of right knee acute Right knee pain acute Essential (primary) hypertension acute Primary osteoarthritis of right knee acute Right knee pain acute [facility] Work Phone: Evaluation note* Diagnosis Onset Date Resolution Status Essential (primary) hypertension acute Primary osteoarthritis of right knee acute Right knee pain acute Essential (primary) hypertension acute Primary osteoarthritis of right knee acute Right knee pain acute [facility] Work Phone: History general Narrative - Reported* [...] knee, left Surgical History ARTHROSCOPY LEFT KNEE 2014 Surgical History LEFT TKA 2017 Surgical History COLONOSCOPY 2018 Hospitalization History SEE SURGICAL HX [facility] Other Hospital course Narrative No data available for this section [facility] progress note No data available for this section [facility] Chief Complaint and Reason for Visit Chief [...] 2024 11:27am Welcome to Medicare preventive visit Apr ct 2024 11:27am Chief Complaint Admit Date Heart [...] 2024 11:27am Welcome to Medicare preventive visit Apr 2024 11:27am Acute exacerbation of chronic obstructiv e airways disease May 20, 2024 1:12pm Chronic obstructive pulmonar y disease with (acute) lower respiratory infection May 20, 2024 1:12pm Allergic rhinitis May 20, 2024 1:1 2pm Chief Complaint Admit Date wellness May 07, 2024 11:2 7am bronchitis May 20, 2024 1:1 2pm Urology Referral July 08, 2024 8:48a m Reason for Visit Admit Date Chronic bronchitis May 07, 2024 11:2 7am Chronic HFrEF (heart failure with reduce d ejection fraction) May 07, 2024 11:27am Essential (primary) hypertension May 072024 11:27am Impaired fasting glucose May 07, 2024 11:27am NSVT (nonsustained ventricular tachycard ia) May 07, 2024 11:27am Renal cyst May 07, 2024 11:2 7am Screening PSA (prostate specific antigen ) May 07, 2024 11:27am Welcome to Medicare preventive visit [facility] 2024 11:27am Acute exacerbation of chronic obstructiv e airways disease May 20, 2024 1:12pm Chronic obstructive pulmonar y disease with (acute) lower respiratory infection May 20, 2024 1:12pm Allergic rhinitis May 20, 2024 1:1 2pm Benign prostatic hyperplasia with lower urinary tract symptoms July 08, 2024 8:48am Chronic kidney disease July 08, 2024 8: 48am Renal cyst July 08, 2024 8:48a m Advance Directives No Advanced Directives Records Found [...] hearing of right ear (H90.42) Referral Organization [facility] Tish muniz Referring Provider First Name Umesh Referring Provider Last Name Flavio Referring Provider Specialty Internal Me dicine Referred Organization [facility] Referred Provider Bethanie Upton Referred Address ,[place], [place],[address] Referred Provider Specialty Ear, Nose an d [...] may be documented in an alternate section No data available for this section Care Teams (unrecognized sec tion and content) Team Status: Active Member Role Status Dates Umesh Muniz , DO Primary Care Provider Active Team Status: Active Member Role Status Dates Umesh Muniz , DO Primary Care Provide r, Attending Provider Active Start: April 15, 2024 Team Status: Inactive Member Role Status Dates Umesh Muniz , DO Primary Care Provide r, Attending Provider Active Start: May 07, 2024 End: May 07, 2024 Team Status: Inactive Member Role Status Dates Umesh Muniz , DO Primary Care Provide r, Attending Provider Active Start: May 20, 2024 End: May 20, 2024 Team Status: Active Member Role Status Dates Umesh Muniz , DO Primary Care Provide r, Attending Provider Active Start: May 30, 2024 Team Status: Active Member Role Status Dates Umesh Muniz , DO Primary Care Provider Active Start: June 04, 2024 Bladimir Mccall , PIPO-C Attending Provider Active S tart: June 04, 2024 Team Status: Inactive Member Role Status Dates Umesh Muniz , DO Primary Care Provide r, Attending Provider Active Start: July 08, 2024 End: July 08, 2024 Team Status: Inactive Member Role Status Shy Muniz DO Primary Care Provide r, Attending Provider Active Start: March 31, 2024 End: March 31, 2024 Team Status: Active Member Role Status Shy Muniz DO Primary Care Provide r, Attending Provider Active Start: January 17, 2024 Team Status: Inactive Member Role Status Shy Muniz DO Primary Care Provider Active Outreach [facility] Attending Provider Active Team Status: Inactive Member Role Status Shy Muniz DO Primary Care Provide r, Attending Provider Active Start: April 30, 2023 End: April 30, 2023 Team Status: Inactive Member Role Status Shy Muniz DO Primary Care Provider Active Start: [...] content) Wellness LabsENT REFERRAL UP DATEletterFLU Shotmedicationcongestion [id number], congestion, no covid testAllergy ShotWELLNESS (unrecognized sect ion and content) No Status Records FoundNo Status Records FoundNo Status Records FoundNo Status Records Found INFORMATION SOURCE (unrecogn ized section and content) DATE CREATED AUTHOR 05/01/2022 [facility] DATE CREATED AUTHOR AUTHOR'S ORGANIZ ATION 08/28/2023 [facility] DATE CREATED AUTHOR AUTHOR'S ORGANIZ ATION 07/17/2024 [facility] DATE CREATED AUTHOR AUTHOR'S ORGANIZ ATION 07/25/2024 [facility] FOR RECORDS PERTAINING TO PATIENTS WHO ARE [...] BE BASED ON THE PRIMARY CLINICAL RECORDS. [facility]. provides no warranty or guarantee of the accuracy or completeness of information in this document.
== END 2024-08-07 06:42 | disposition home or self-care (01) ==
LOC: US 06:42
PROVIDERS: PCP Internal Medicine; Visit Provider Internal Medicine
DX: N28.1 Cyst of kidney, acquired (principal)
CPT/HCPCS: 76775